=== PATIENT | female | born 1980 | race Caucasian/White ===

== ENCOUNTER 2023-06-12 16:37 | Emergency (ER) | payer OTHER, SELFPAY ==
[2023-06-12 16:49] VITALS: BP 155/94; PULSE 76; RESP 18; TEMP 36.8; O2SAT 98; BMI 22.9
--- NOTE | 2023-06-12 16:52 | XR_ITS ---
The [place] [id number] Patient Name: ORACIO JOLLEY MRN: [id number] date: 1980 Sex: F Assigned Patient Location: ER Current Patient Location: ER Accession/Order Number: [id number] Exam Date: 06/12/2023 17:00 Report Date: 06/12/2023 17:27 At the request of: PAUL NGUYỄN Procedure: XR elbow LT min 3V EXAM: XR elbow LT min 3V HISTORY: Elbow pain after fall running COMPARISON: None. TECHNIQUE: 3 views FINDINGS: No osseous lesion, fracture, dislocation or subluxation. Joint spaces are normal. No visualized effusion. No visualized soft tissue edema. XR/XR elbow LT min 3V IMPRESSION: Normal x-rays Electronically authenticated by: JAMES SCANLON Date: 06/12/2023 17:27
--- NOTE | 2023-06-12 16:53 | ED.UPPEXIN1 ---
Documented by User: MIGUELITO Coates 06/12/23 17:50 HPI - Extremity Injury (Upper) General Chief Complaint: Extremity Injury, Upper Stated Complaint: Upper PAIN Time Seen by Provider: 06/12/23 16:39 Source: patient Mode of arrival: walk-in Limitations: no limitations History of Present Illness HPI narrative: patient is a 43-year-old female pressents to the Emergency Room with concerns of left elbow pain. Patient is right-hand dominant, states she was running a 5K yesterday and tripped landing on the left outstretched hand, no skin injury. Patient states her hand and wrist are not painful but she notes continued discomfort at the left elbow, limited in range of motion with pain and swelling. Patient concerned as she is to return to work tomorrow with use of her left arm for her job duties. She denies any head or neck injury. MD complaint: injury to: Reports left and elbow Onset (ago): day(s) (yesterday) Other Extremity Injury: Left: elbow Other injuries: Reports none Hand dominance: right Place: Reports outdoors Related Data Allergies Allergy/AdvReac Type Severity Reaction Status Date / Time No Known Drug Allergies Allergy Verified 06/12/23 16:49 Review of Systems ROS Constitutional Denies: fever or chills Eyes Denies: change in vision Ears, nose, mouth, and throat Denies: throat pain or neck pain Cardiovascular Denies: chest pain Respiratory Denies: shortness of breath Gastrointestinal Denies: abdominal pain or nausea Musculoskeletal Reports: extremity pain, extremity swelling, joint pain and limited range of motion; Denies: back pain or neck pain Integumentary/Breast Denies: rash or itching Neurological Denies: headache Psychiatric Denies: anxiety PFSH PFS Social History Smoking status: Never smoker Exam Narrative Exam Narrative: Nurse's notes and vital signs reviewed. Patient is not hypoxic. General:? The patient appears well and in no apparent distress.? Patient is resting comfortably on cart. Skin:? Warm, dry, no pallor noted.no evidence of rash or abrasion Head:? Normocephalic, atraumatic Neck: no midline neck tenderness, painless with range of motion Eye:? Normal conjunctiva Respiratory:? Patient is in no distress Musculoskeletal:? The left wrist shows no obvious deformity.? There was mild swelling noted to the left elbow.?? The patient had limited ROM due to pain at the left elbow mostly with pronation supination and terminal flexion and extension. Secondary to effusion..?? The patient had tenderness noted on the radial head and neck region. No tenderness to the tip of the olecranon. distal biceps intact with hook test .?? The patient had no tenderness in the anatomical snuff box.? The patient had no pain with axial loading of the thumb.? Pulses are intact at brachial and radial 2+.? There was no deficit at the elbow or shoulder. The patient has normal capillary refill to all distal digits. The patient has no evidence of cyanosis or mottling. The patient is able to flex and extend all digits without difficulty. hand, wrist, and shoulder are nontender Neurological:? A&O x4, normal sensory, normal motor Psychiatric:? Cooperative Constitutional Vital Signs, click to edit/add: Last Vital Signs Temp 98.2 F 06/12/23 16:49 Pulse 76 06/12/23 16:49 Resp 18 06/12/23 16:49 BP 108/72 06/12/23 17:57 Pulse Ox 98 06/12/23 16:49 O2 Del Method Room Air 06/12/23 16:49 Course Vital Signs Vital signs: Vital Signs Temperature 98.2 F 06/12/23 16:49 Pulse Rate 76 06/12/23 16:49 Respiratory Rate 18 06/12/23 16:49 Blood Pressure 155/94 H 06/12/23 16:49 Pulse Oximetry 98 06/12/23 16:49 Oxygen Delivery Method Room Air 06/12/23 16:49 Temperature 98.2 F 06/12/23 16:49 Pulse Rate 76 06/12/23 16:49 Respiratory Rate 18 06/12/23 16:49 Blood Pressure 108/72 06/12/23 17:57 Pulse Oximetry 98 06/12/23 16:49 Oxygen Delivery Method Room Air 06/12/23 16:49 MDM - Extremity Injury (Upper) MDM Narrative Medical decision making narrative: ice pack applied on arrival, patient given Motrin and Tylenol for pain as she did not take any medication today. We discussed her injury concerning for radial head/ neck fracture. Aggressive strength testing not performed. Patient motors extremity without difficulty no evidence of wristdrop. x-ray reviewed, no evidence of fracture, trace effusion recommend sling, no heavy lifting with the left arm will give patient a note off work for two days, recommend follow-up with PCP or orthopedics for reevaluation. Patient may require repeat x-ray in one week. The patient is to followup with primary care physician in next 2-3 days or to return to the emergency department should any of the signs or symptoms worsen or new symptoms develop. Patient had questions answered. The patient agrees with the following Diagnosis and Treatment plan and the patient will be discharged home.? Imaging Data Chest x-ray: Radiologist's impression: Procedure: XR elbow LT min 3V EXAM: XR elbow LT min 3V HISTORY: Elbow pain after fall running COMPARISON: None. TECHNIQUE: 3 views FINDINGS: No osseous lesion, fracture, dislocation or subluxation. Joint spaces are normal. No visualized effusion. No visualized soft tissue edema. IMPRESSION: Normal x-rays Electronically authenticated by: JAMES SCANLON Date: 06/12/2023 17:27 Discharge Plan Discharge Chief Complaint: Extremity Injury, Upper Clinical Impression: Elbow sprain, Elbow pain, left Patient Disposition: Home, Self-Care Time of Disposition Decision: 17:48 Condition: Good Mode of Transportation: Private Vehicle Instructions: Elbow Sprain (ED), P.R.I.C.E. Treatment (ED) Additional Instructions: do not use sling for more than one week pending follow-up with PCP or specialist. Concern would be elbow stiffness with prolonged use. Recommend no heavy lifting with left arm until symptoms resolve Stand Alone Forms: Portal Instructions Referrals: ART ALCARAZ [Physician] - 1 week PASTOR HODGE [Primary Care Provider] - 1 week Discharge Date/Time: 06/12/23 17:57 Documented by User: Charlene Kelsey MD 06/13/23 20:32 HPI - Extremity Injury (Upper) General Chief Complaint: Extremity Injury, Upper Stated Complaint: Upper PAIN Time Seen by Provider: 06/12/23 16:39 Related Data Allergies Allergy/AdvReac Type Severity Reaction Status Date / Time No Known Drug Allergies Allergy Verified 06/12/23 16:49 PFSH PFSH Social History Smoking status: Never smoker Exam Constitutional Vital Signs, click to edit/add: Last Vital Signs Temp 98.2 F 06/12/23 16:49 Pulse 76 06/12/23 16:49 Resp 18 06/12/23 16:49 BP 108/72 06/12/23 17:57 Pulse Ox 98 06/12/23 16:49 O2 Del Method Room Air 06/12/23 16:49 Course Vital Signs Vital signs: Vital Signs Temperature 98.2 F 06/12/23 16:49 Pulse Rate 76 06/12/23 16:49 Respiratory Rate 18 06/12/23 16:49 Blood Pressure 155/94 H 06/12/23 16:49 Pulse Oximetry 98 06/12/23 16:49 Oxygen Delivery Method Room Air 06/12/23 16:49 Temperature 98.2 F 06/12/23 16:49 Pulse Rate 76 06/12/23 16:49 Respiratory Rate 18 06/12/23 16:49 Blood Pressure 108/72 06/12/23 17:57 Pulse Oximetry 98 06/12/23 16:49 Oxygen Delivery Method Room Air 06/12/23 16:49 MDM - Extremity Injury (Upper) MDM Narrative Medical decision making narrative: ice pack applied on arrival, patient given Motrin and Tylenol for pain as she did not take any medication today. We discussed her injury concerning for radial head/ neck fracture. Aggressive strength testing not performed. Patient motors extremity without difficulty no evidence of wristdrop. x-ray reviewed, no evidence of fracture, trace effusion recommend sling, no heavy lifting with the left arm will give patient a note off work for two days, recommend follow-up with PCP or orthopedics for reevaluation. Patient may require repeat x-ray in one week. The patient is to followup with primary care physician in next 2-3 days or to return to the emergency department should any of the signs or symptoms worsen or new symptoms develop. Patient had questions answered. The patient agrees with the following Diagnosis and Treatment plan and the patient will be discharged home.? Attending physician attestation I have reviewed the mid-level documentation, agree with the documentation, medical decision making and treatment plan as outlined by the mid-level provider. Discharge Plan Discharge Chief Complaint: Extremity Injury, Upper Clinical Impression: Elbow sprain, Elbow pain, left Patient Disposition: Home, Self-Care Time of Disposition Decision: 17:48 Condition: Good Mode of Transportation: Private Vehicle Instructions: Elbow Sprain (ED), P.R.I.C.E. Treatment (ED) Additional Instructions: do not use sling for more than one week pending follow-up with PCP or specialist. Concern would be elbow stiffness with prolonged use. Recommend no heavy lifting with left arm until symptoms resolve Stand Alone Forms: Portal Instructions Referrals: ART ALCARAZ [Physician] - 1 week PASTOR HODGE [Primary Care Provider] - 1 week Discharge Date/Time: 06/12/23 17:57
--- NOTE | 2023-06-12 16:54 | PC.NURSE ---
PT FELL YESTERDAY AND CAUGHT SELF WITH LEFTARM. C/O PIN TO LEFT ELBOW AND SHOULDER WITH LIMITED ROM
[2023-06-12] MEDS: ACETAMINOPHEN 500 MG TABLET 1000 MG PO (17:10)
[2023-06-12] MEDS: IBUPROFEN 600 MG TABLET PO (17:11)
[2023-06-12 17:57] VITALS: BP 108/72
== END 2023-06-12 17:57 | disposition home or self-care (01) ==
PROVIDERS: Emergency Provider Emergency Medicine; PCP Nurse Practitioner
DX: S53.402A Unspecified sprain of left elbow, initial encounter (principal); M25.522 Pain in left elbow; W01.10XA Fall on same level from slipping, tripping and stumbling with subsequent striking against unspecified object, initial encounter
CPT/HCPCS: 73080; 99283

== ENCOUNTER 2024-01-30 10:05 | Emergency (ER) | payer OTHER, SELFPAY ==
[2024-01-30] VITALS (20 sets, daily range): BP systolic 96–100; BP diastolic 67–72; PULSE 74–88; RESP 13–26; TEMP 36.8–37; O2SAT 85–100; BMI 23.9
--- NOTE | 2024-01-30 10:19 | XR_ITS ---
The [address] [address] Patient Name: ORACIO JOLLEY MRN: [id number] date: 1980 Sex: F Assigned Patient Location: ER Current Patient Location: ER Accession/Order Number: [id number] Exam Date: 01/30/2024 10:50 Report Date: 01/30/2024 11:14 At the request of: ROMAIN CALVILLO Procedure: XR chest 2V EXAMINATION: XR chest 2V HISTORY: lung pain COMPARISON: 02/17/2022 TECHNIQUE: PA and lateral FINDINGS: LUNGS: No significant pulmonary parenchymal abnormalities. VASCULATURE: No increased pulmonary vasculature. PLEURA: No pneumothorax, effusion, or pleural thickening. CARDIAC: No cardiomegaly or cardiac silhouette abnormality. MEDIASTINUM: No visible mass or adenopathy. BONES: No fracture or visible bone lesion. Dextrocurvature OTHER: Negative. XR/XR chest 2V IMPRESSION: No acute cardiopulmonary process Electronically authenticated by: JAMES FOSTER Date: 01/30/2024 11:14
--- NOTE | 2024-01-30 10:19 | ECG_ITS ---
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
--- NOTE | 2024-01-30 10:23 | ED_ITS ---
HPI - General Adult General Chief complaint: Chest Pain Stated complaint: SHORTNESS OF BREATH/CHEST PAIN Time Seen by Provider: 01/30/24 10:19 Source: patient Mode of arrival: walk-in Limitations: no limitations History of Present Illness HPI narrative: Patient is a 43-year-old female who is presenting to the ER today with chief complaint of flulike symptoms since . Patient has sinus congestion, sore throat, patient feels like her lungs are burning, mild chest wall pain from coughing, mild abdominal pain, nausea vomiting diarrhea since . Patient had nausea vomiting diarrhea today as well. Patient left work today, she works at [employer]. Patient has no rash. Patient has no other sick contacts. Patient has no traveling. Patient is a smoker. Patient has no other acute complaints at this time. No urinary complaints. Patient is not concerned about being . All systems are negative except as noted/marked. All systems reviewed and otherwise negative. Nurses note and vital signs reviewed and patient is not hypoxic. General: The patient appears well and in no apparent distress. Patient is resting comfortably on cart. Patient is not toxic, lethargic, or listless Skin: Warm, dry, no pallor noted. There is no rash noted. No petechiae, purpura. Head: Normocephalic, atraumatic Eye: Normal conjunctiva, no drainage, EOMI. PERRL Ears, Nose, Mouth, and Throat: oral mucosa is moist. Patient has clear posterior pharyngeal erythema, cobblestoning noted, no unilateral swelling, no posterior pharyngeal petechiae, exudate. Nares patent. Mouth without vesicles. Cardiovascular: Regular Rate and Rhythm, no murmur, gallop, rub Respiratory: Patient is in no distress, no accessory muscle use, lungs are clear to auscultation, no wheezing, rales or rhonchi Back: non-tender, no CVA tenderness bilaterally to percussion. No CT LS midline pain GI: no tenderness to palpation, no masses appreciated. No rebound, guarding, or rigidity noted. No distention Musculoskeletal: Patient has full range of motion of all of the extremities, no motor, sensory, or focal neurological deficits Neurological: A&O x4, normal speech Psychiatric: Cooperative Related Data Previous Rx's Medication Instructions Recorded ondansetron 4 mg disintegrating 4 mg PO Q4H PRN nausea and 01/30/24 tablet vomiting 3 days #6 tabs Allergies Allergy/AdvReac Type Severity Reaction Status Date / Time No Known Drug Allergies Allergy Verified 01/30/24 10:09 [facility] Social History Smoking status: Never smoker Exam Constitutional Vital Signs, click to edit/add: Last Vital Signs Temp 98.6 F 01/30/24 12:12 Pulse 75 01/30/24 11:00 Resp 13 01/30/24 11:00 BP 100/67 01/30/24 10:10 Pulse Ox 99 01/30/24 11:00 O2 Del Method Room Air 01/30/24 10:44 Course Vital Signs Vital signs: Vital Signs Temperature 98.3 F 01/30/24 10:09 Pulse Rate 85 01/30/24 10:09 Respiratory Rate 18 01/30/24 10:09 Blood Pressure 100/67 01/30/24 10:09 Pulse Oximetry 100 01/30/24 10:09 Oxygen Delivery Method Room Air 01/30/24 10:09 Temperature 98.6 F 01/30/24 12:12 Pulse Rate 75 01/30/24 11:00 Respiratory Rate 13 01/30/24 11:00 Blood Pressure 100/67 01/30/24 10:10 Pulse Oximetry 99 01/30/24 11:00 Oxygen Delivery Method Room Air 01/30/24 10:44 Medical Decision Making [facility] Narrative Medical decision making narrative: Patient chest x-ray, EKG, lab work shows no significant findings. We are unable to establish an IV. Patient was sent home with a prescription for Zofran. Patient was given a work note. Influenza B was positive. Patient is not hyp otensive, tachycardic, patient vital signs have been within normal limits, we did not pursue additional IV attempts. Patient understands to treat her symptoms at home. Patient was given a work note. No questions discharge. Lab Data Lab results reviewed: Yes I reviewed the patient's lab results Labs: Lab Results 01/30/24 01/30/24 Range/Units 10:32 10:35 WBC 3.4 L (4.0-11.0) 10^3/uL RBC 4.72 (4.20-5.40) 10^6/uL Hgb 14.4 (12.0-16.0) g/dL Hct 43.3 (36.0-48.0) % MCV 91.7 (81.0-99.0) fL MCH 30.5 (26.7-34.0) pg MCHC 33.3 (29.9-35.2) g/dL RDW 12.6 (11.0-15.0) % Plt Count 168 (150-450) 10^3/uL MPV 9.7 (9.5-13.5) fL Neut % (Auto) 51.2 (43.0-75.0) % Lymph % (Auto) 33.0 (20.5-60.0) % Dundy % (Auto) 14.3 H (1.7-12.0) % Eos % (Auto) 0.9 (0.9-7.0) % Baso % (Auto) 0.0 L (0.2-2.0) % Neut # (Auto) 1.8 (1.4-6.5) 10^3/uL Lymph # (Auto) 1.1 L (1.2-3.8) 10^3/uL Dundy # (Auto) 0.5 (0.3-0.8) 10^3/uL Eos # (Auto) 0.0 (0.0-0.7) 10^3/uL Baso # (Auto) 0.0 (0.0-0.1) 10^3/uL Abs Immat Gran (auto) 0.02 (0.00-0.03) 10^3/uL Imm/Tot Granulo (auto) 0.6 H (0.0-0.5) % Sodium 137 (136-145) mmol/L Potassium 3.6 (3.5-5.1) mmol/L Chloride 100 (98-107) mmol/L Carbon Dioxide 26.5 (21.0-32.0) mmol/L Anion Gap 14.1 BUN 13.0 (7.0-18.0) mg/dL Creatinine 0.79 (0.55-1.02) mg/dL Est GFR ( Amer) >60 (>=60) Est GFR (Non-Af Amer) >60 (>=60) BUN/Creatinine Ratio 16.5 Glucose 81 (74-106) mg/dL Calcium 9.2 (8.5-10.1) mg/dL Total Bilirubin 0.5 (0.2-1.0) mg/dL AST 26 (15-37) U/L ALT 36 (14-59) U/L Alkaline Phosphatase 49 (46-116) U/L Troponin I High Sens <4.0 L (4.0-51.3) pg/mL NT-Pro-B Natriuret Pep 143.0 (<=450.0) pg/mL Total Protein 7.4 (6.4-8.2) g/dL Albumin 3.9 (3.4-5.0) g/dL Globulin 3.5 g/dL Albumin/Globulin Ratio 1.1 Influenza Type A Ag Negative Influenza Type B Ag Positive A SARS-CoV-2 Ag (CV2AG) Negative (NEGATIVE) ECG Data Attestation: I personally reviewed and interpreted this ECG as follows: (EKG interpreted. Normal sinus rhythm at 77 beats a minute. Normal axis deviation. No acute ST elevation, no acute ectopy. QTc of 407) Discharge Plan Discharge Stand Alone Forms: Work/School Release, Portal Instructions Chief Complaint: Chest Pain Clinical Impression: Influenza B Patient Disposition: Home, Self-Care Time of Disposition Decision: 12:37 Condition: Fair Prescriptions / Home Meds: New ondansetron 4 mg tablet,disintegrating 4 mg PO Q4H PRN (Reason: nausea and vomiting) 3 Days Qty: 6 0RF Instructions: Influenza (ED) Additional Instructions: increase fluids at home, Gatorade, Powerade, or water. Alternate using DayQuil, NyQuil, and Flonase. Add Mucinex as well as needed. Alternate Tylenol and Motrin every 4 hours to help with fever control, body aches or joint pain. Use biba-zac-kaviidh vitamin C, vitamin D3, and zinc to help fight infection and help with her immune system. Use nausea medication as needed to help increase fluids at home Referrals: PASTOR HODGE [Primary Care Provider] - 1 week
--- NOTE | 2024-01-30 10:45 | PC.NURSE ---
Pt resting comfortable, EKG complete and labs in lab at this time. Radiology called for test ordered
[2024-01-30 10:50] LABS: Eosinophils Percent Auto 0.9 % (0.9-7.0); Hematocrit 43.3 % (36.0-48.0); Hemoglobin 14.4 g/dL (12.0-16.0); Immature Granulocytes Abs Auto 0.02 10^3/uL (0.00-0.03); Immature Granulocytes Pct Auto 0.6 % (0.0-0.5); Lymphocytes Absolute Auto 1.1 10^3/uL (1.2-3.8); Mean Corpuscular HGB Conc 33.3 g/dL (29.9-35.2); Mean Corpuscular Hemoglobin 30.5 pg (26.7-34.0); Mean Corpuscular Volume 91.7 fL (81.0-99.0); Mean Platelet Volume 9.7 fL (9.5-13.5); Monocytes Absolute Auto 0.5 10^3/uL (0.3-0.8); Monocytes Percent Auto 14.3 % (1.7-12.0); Neutrophils Absolute Auto 1.8 10^3/uL (1.4-6.5); Neutrophils Percent Auto 51.2 % (43.0-75.0); Platelet Count 168 10^3/uL (150-450); Red Blood Count 4.72 10^6/uL (4.20-5.40); Red Cell Distribution Width 12.6 % (11.0-15.0); White Blood Count 3.4 10^3/uL (4.0-11.0)
[2024-01-30 11:02] LABS: Alanine Aminotransferase 36 U/L (14-59); Albumin Globulin Ratio 1.1; Albumin Level 3.9 g/dL (3.4-5.0); Alkaline Phosphatase 49 U/L (46-116); Anion Gap 14.1; Aspartate Amino Transferase 26 U/L (15-37); BUN Creatinine Ratio 16.5; Bilirubin Total 0.5 mg/dL (0.2-1.0); Calcium 9.2 mg/dL (8.5-10.1); Carbon Dioxide 26.5 mmol/L (21.0-32.0); Chloride 100 mmol/L (98-107); Estimated GFR (African America >60 (>=60); Estimated GFR (Non-African Ame >60 (>=60); Globulin 3.5 g/dL; Glucose 81 mg/dL (74-106); Potassium 3.6 mmol/L (3.5-5.1); Sodium 137 mmol/L (136-145); Total Protein 7.4 g/dL (6.4-8.2)
[2024-01-30 11:09] LABS: Troponin I High Sensitivity <4.0 pg/mL (4.0-51.3)
[2024-01-30 11:14] LABS: Influenza Virus A Antigen Negative; Influenza Virus B Antigen Positive; Internal Control Within Normal Limits; SARS-CoV-2 Ag NEGATIVE (NEGATIVE)
== END 2024-01-30 12:48 | disposition home or self-care (01) ==
PROVIDERS: Emergency Provider Emergency Medicine; PCP Nurse Practitioner
DX: J10.1 Influenza due to other identified influenza virus with other respiratory manifestations (principal); Z20.822 Contact with and (suspected) exposure to COVID-19
CPT/HCPCS: 36415; 71046; 80053; 83880; 84484; 85025; 87804; 87811; 93005; 99285

== ENCOUNTER 2025-01-29 15:56 | Outpatient (OUT) | payer OTHER, SELFPAY ==
[2025-01-29 16:22] LABS: Basophils Percent Auto 0.4 % (0.2-2.0); Eosinophils Absolute Auto 0.1 10^3/uL (0.0-0.7); Eosinophils Percent Auto 0.8 % (0.9-7.0); Hematocrit 43.8 % (36.0-48.0); Hemoglobin 14.9 g/dL (12.0-16.0); Immature Granulocytes Abs Auto 0.02 10^3/uL (0.00-0.03); Immature Granulocytes Pct Auto 0.2 % (0.0-0.5); Lymphocytes Percent Auto 32.4 % (20.5-60.0); Mean Corpuscular Hemoglobin 30.7 pg (26.7-34.0); Mean Corpuscular Volume 90.3 fL (81.0-99.0); Mean Platelet Volume 9.7 fL (9.5-13.5); Monocytes Absolute Auto 0.8 10^3/uL (0.3-0.8); Monocytes Percent Auto 8.8 % (1.7-12.0); Neutrophils Absolute Auto 5.3 10^3/uL (1.4-6.5); Neutrophils Percent Auto 57.4 % (43.0-75.0); Platelet Count 238 10^3/uL (150-450); Red Blood Count 4.85 10^6/uL (4.20-5.40); Red Cell Distribution Width 12.3 % (11.0-15.0); White Blood Count 9.3 10^3/uL (4.0-11.0)
[2025-01-29 16:37] LABS: Estimated Average Glucose 105 mg/dL; Glycohemoglobin A1C 5.3 % (4.5-6.2)
[2025-01-29 16:41] LABS: INR 0.95; Partial Thromboplastin Time 23.1 sec (22.3-36.2); Prothrombin Time 10.1 sec (9.0-11.6)
[2025-01-29 16:46] LABS: Thyroid Stimulating Hormone 1.578 uIU/mL (0.358-3.740)
[2025-01-29 16:48] LABS: HCG Quantitative <1 mIU/mL
[2025-01-29 17:07] LABS: Free T4 1.01 ng/dL (0.76-1.46)
== END 2025-01-29 15:57 | disposition home or self-care (01) ==
LOC: LAB 15:58
PROVIDERS: Visit Provider Obstetrics & Gynecology
DX: N92.0 Excessive and frequent menstruation with regular cycle (principal)
CPT/HCPCS: 36415; 83036; 84439; 84443; 84702; 85025; 85610; 85730

== ENCOUNTER 2025-02-11 09:29 | Outpatient (REF) | payer OTHER, SELFPAY | END 2025-02-11 09:30 | LOC: LAB 09:29 | PROVIDERS: Visit Provider Obstetrics & Gynecology | DX: N92.0 Excessive and frequent menstruation with regular cycle (principal) | CPT/HCPCS: 88305 ==

== ENCOUNTER 2025-02-19 11:30 | Outpatient (OUT) | payer OTHER, SELFPAY ==
--- NOTE | 2025-02-19 11:21 | PC.NURSE ---
Nursing Note Cardiac Stress Test Reviewed: Medication, allergies and patient history reviewed. Stress Test: [ x] Patient tolerated stress test well. [ ] Patient unable to tolerate walking on treadmill. Switched to Lexiscan stress test. [x ] No chest pain noted per patient [ ] Chest pain that resolved prior to leaving stress lab. [ ] No dyspnea noted. [x ] Dyspnea that resolved prior to leaving stress lab. [x ] Patient left stress lab asymptomatic and hemodynamically stable. [ ] Patient taken to the Emergency Room due to non-resolving symptoms following stress test. [ x] Patient achieved target heart rate. [ ] Patient unable to achieve target heart rate. [ ] Aminophylline administered as reversal agent to Lexiscan (Regadenoson). [ ] Nitro administered. Nursing Comments:
--- NOTE | 2025-02-19 11:30 | CA_ITS ---
Patient Name: ORACIO JOLLEY MR#: [id number] : 1980 Exam Date: 02/19/2025 Ordering Doctor: DR ALYSIA CANO M.D. ECHOCARDIOGRAM REPORT PROCEDURE: CA ECHO DOPPLER COMPLETE INDICATIONS: Preop, shortness of breath COMPARISON: None. DESCRIPTION: COMPLETE ECHOCARDIOGRAM Real-time transthoracic echocardiography with 2D, M-mode, spectral and color flow Doppler performed. QUALITY: Technical quality was good. LEFT VENTRICLE: Normal chamber size. Normal left ventricular wall thickness. Normal systolic function. LV EF: Normal left ventricular ejection fraction, (>55%). DIASTOLIC: Normal diastolic function. ATRIAL SEPTUM: Visually appears intact. LEFT ATRIUM: Normal chamber size. RIGHT ATRIUM: Normal chamber size. RIGHT VENTRICLE: Normal chamber size. Normal right ventricular systolic function. TRICUSPID VALVE: Normal mobility and thickness. No stenosis with trivial regurgitation. Unable to assess right-sided pressures due to lack of measurable tricuspid regurgitation. MITRAL VALVE: Normal mobility and thickness. No evidence of mitral valve stenosis. There is no mitral annular calcification. Trivial mitral regurgitation. AORTIC VALVE: Normal trileaflet appearance. No visible sclerosis. Normal leaflet mobility. No evidence of aortic valve stenosis. No aortic regurgitation. AORTIC ROOT: Normal diameter and appearance, measuring 2.7 cm. PULMONIC VALVE: Normal thickness and mobility. No stenosis. No regurgitation. PERICARDIUM: No evidence of pericardial effusion. IVC: Collapses with inspirations. PLEURA: CONCLUSION: 1. Normal ventricular size and systolic function. Estimated LVEF is 55 to 60%. 2. Normal diastolic function. 3. No significant valvular dysfunction. 4. Unable to assess right-sided pressures due to lack of measurable tricuspid regurgitation. Adult Echocardiography Procedure Report Left Ventricle LVEDD (3.7 - 5.6 cm): 4.34 cm LVESD (2.2 - 4.0 cm): 3.07 cm LVIVS thickness (0.6 - 1.2 cm): 0.69 cm LVPW thickness (0.5 - 1.0 cm): 0.66 cm e': 0.13 m/s E - e': 6.57 LVOT Max Gradient: 2.68 mm[Hg] LVOT Area (cm2): 0.82 m/s Peak Velocity (LVOT): 0.82 m/s Mean Velocity (LVOT): 0.53 m/s LVOT Diameter 1.81 cm Left Atrium LA Volume Index (2D A2C): 30.31 ml/m2 Left Atrium Systolic Dimension: 3.04 cm Mitral Valve MV E to A Ratio: 1.38 Mitral Valve A-Wave Peak Velocity: 0.61 m/s Mitral Valve E-Wave Peak Velocity: 0.84 m/s Right Ventricle Aorta AO Root Diam: 2.65 cm Aortic Valve AoV Area (Peak Jermain): 1.87 cm2, 1.87 cm2 AoV Area (VTI): 1.76 cm2, 1.76 cm2 Peak Velocity(Antegrade Flow): 1.12 m/s Peak Gradient(Antegrade Flow): 5.04 mm[Hg] Mean Velocity(Antegrade Flow): 0.80 m/s Mean Gradient(Antegrade Flow): 2.93 mm[Hg] Velocity Time Integral: 26.62 cm Tricuspid Valve Pulmonic Valve Mean Gradient: 0.69 mm[Hg] Mean Velocity: 0.39 m/s Peak Velocity: 0.59 m/s, 0.66 m/s Peak Gradient: 1.76 mm[Hg], 1.41 mm[Hg] Right Atrium Right Atrium Systolic Pressure: 21.49 ml, 21.49 ml Dictated by: Alysia Cano M.D. on 02/19/2025 at 19:47 Approved by: Alysia Cano M.D. on 02/19/2025 at 19:50
--- OUTSIDE RECORDS SUMMARY | 2025-02-19 11:49 | XMS_ITS | CCD ---
Author Organization [facility] Care Team Providers Care Refund Specialist Name Role Phone PHYSICIAN, DEFAULT Unavailable Unavailable PHYSICIAN, DEFAULT Unavailable Unavailable AYESHA, PASTOR Unavailable Unavailable AYESHA, PASTOR Unavailable Unavailable SELF, REFERRED Unavailable Unavailable AYESHA, PASTOR Unavailable Unavailable ISA, DR HONG Hurst Consulting Unavailable SHEFALI, DR RAZA Admitting Unavailable SHEFALI, DR RAZA Attending Unavailable AYESHA, PASTOR R Primary Care Unavailable MIGUELITO PHELAN Consulting Unavailable Andrew Whitt Consulting Unavailable Elinor Cai Unavailable Marina Riojas Unavailable RANCHO TURCIOS Referring Unavailable NO PCP, NO PCP Primary Care Unavailable PRISCILLA TREVIZO Referring Unavailable NO PCP, NO PCP Primary Care Unavailable Loree Fonseca APRN Attending Provider NON STAFF Primary Care Provider UnavailLEONEL Mcbride I Attending Unavailable RANCHO TURCIOS Referring Unavailable NO PCP, NO PCP Primary Care Unavailable Shayy Lugo APRN Attending Provider [phone] LEONEL SÁNCHEZ I Referring Unavailable NO PCP, NO PCP Primary Care Unavailable Loree Fonseca APRN Attending Provider NON STAFF Primary Care Provider UnavailShayy Montejo APRN Attending Provider [phone] Unallocated MD, Noms Provider Primary Care Provi laura JUANITO ALANIS Attending Unavailable JUANITO LAANIS Attending Unavailable Juanito Alanis DO Attending Provider Juanito Alanis DO Attending Provider [phone] ALYSIA CANO Attending Unavailable Loree Fonseca Admitting Unavailable Loree Fonseca Attending Unavailable NON STAFF Primary Care Unavailable Shayy Lugo Admitting Unavailable Shayy Lugo Attending Unavailable NON STAFF Primary Care Unavailable Juanito Alanis Admitting Unavailable Juanito Alanis Attending Unavailable Allergies Allergy Classification Reported Allergen(s) Allergy Type Date of Onset Reaction(s) Facility (1 source) Ibuprofen Drug Allergy [facility] Repository (7 sources) Ibuprofen; Translations: [IBUPROFEN] Drug Allergy 12-26-2024 Hives [facility] Repository Medications Current Medications Medication Drug Class(es) Dates Sig (Normalized) Sig (Original) [id number] actuat albuterol 0.09 mg/actuat metered dose inhaler (3 sources) beta2-Adrenergic Agonist Start: 11-19-2023 take 2 puff(s) by inhalation four times daily as needed Albuterol Sulfate HFA 108 (90 Base) MCG/ACT 2 puffs Inhalation 4 times a day prn Nov, Active Start: 05-31-2023 take 2 puff(s) by in halation every four to six hours as needed Albuterol Sulfate HFA 108 (90 Base) MCG/ACT 2 puffs as needed Inhalation every 4-6 hours for 14 days May, Active Start: 02-12-2023 take 2 puff(s) by in halation four times daily as needed Albuterol Sulfate HFA 108 (90 Base) MCG/ACT 2 puffs Inhalation 4 times a day prn Feb, Not-Taking benzonatate 200 mg oral capsule (2 sources) Non-narcotic Antitussive Start: 11-19-2023 take 1 capsule by mouth every eight hours Benzonatate 200 MG 1 capsule Orally Three times a day Nov, Active Start: 02-12-2023 take 1 capsule by [facility] every eight hours Benzonatate 200 MG 1 capsule Orally Three times a day Feb, Not-Taking doxycycline hyclate 100 mg oral tablet (2 sources) Tetracycline-class Drug Start: 11-19-2023 take 1 tablet by mouth every twelve hours Doxycycline Hyclate 100 MG 1 tablet Orally Twice a day for 10 day(s) Nov, Active Start: 02-12-2023 take 1 capsule by [facility] every twelve hours Doxycycline Hyclate 100 MG 1 capsule Orally Twice a day for 10 Feb, Not-Taking medroxyPROGESTERone (8 sources) Progestin Start: 12-13-2024 medroxyprogest erone (Depo-Provera) Active IM EVERY 3 MONTHS December 13, 2024 1:00am Start: 12-13-2024 medroxyprogest erone (Depo-Provera) Active IM EVERY 3 MONTHS December 13, 2024 12:00am medroxyPROGESTER one (Depo-Provera) 150 MG/ML injection Inject 150 mg into the shoulder, thigh, or buttocks every 3 (three) months Active pediatric multivitamin (multivitamin) (7 sources) Start: 12-13-2024 pediatric mult ivitamin (multivitamin) Active PO December 13, 2024 1:00am Start: 12-13-2024 pediatric mult ivitamin (multivitamin) Active PO December 13, 2024 12:00am predniSONE 20 mg oral tablet (2 sources) Start: 11-19-2023 take 1 tablet by mouth every twelve hours predniSONE 20 MG 1 tablet Orally bid for 5 day(s) Nov, Active Start: 02-12-2023 take 1 tablet by bailee th every twelve hours predniSONE 20 MG 1 tablet Orally 2 times a day for 5 day(s) Feb, Not-Taking traMADol hydrochloride 50 mg oral tablet (5 sources) Opioid Agonist Start: 12-28-2024 take 1 tablet by mouth every six hours as needed for pain Tramadol 50 mg tablet Active 50 MG PO Every 6 hours as needed for pain 10 16December 28, 2024 1:00am Completed/Discontinued Medications Medication Drug Class(es) Dates Sig (Normalized) Sig (Original) ibuprofen 600 mg oral tablet (2 sources) Nonsteroidal Anti-inflammatory Drug Start: 06-16-2023 End: 02-11-2025 take 1 tablet by mouth every six hours as needed ibuprofen 600 MG tablet Take 600 mg by mouth every 6 (six) hours if needed. 06/16/2023 02/11/2025 Discontinued Problems Active Problems Problem Classification Problem Date Documented Date Episodic/Chronic Abdominal pain (2 sources) Unspecified abdominal pain; Translations: [Pain in female pelvis] Onset: 10-29-2024 02-11-2025 Episodic Acute bronchitis (1 source) Acute bronchitis, unspecified Episodic Administrative/socia l admission (1 source) Patient encounter status; Translations: [Counseling, unspecified] 01-29-2025 Episodic Genitourinary symptoms and ill-defined conditions (5 sources) Dysuria; Translations: [Frequency of micturition] Onset: 12-26-2024 Episodic Menstrual disorders (4 sources) Menometrorrhagia; Translations: [Excessive and frequent menstruation with irregular cycle] 01-29-2025 Chronic Nonspecific chest pain (3 sources) Chest pain, unspecified; Translations: [Other chest pain] Onset: 02-19-2022 Episodic Other female genital disorders (1 source) Premenstrual tension syndrome; Translations: [Premenstrual tension syndrome] 01-29-2025 Chronic Other female genital disorders (1 source) Abnormal uterine bleeding; Translations: [Abnormal uterine and vaginal bleeding, unspecified] 02-11-2025 Chronic Other fractures (5 sources) Fracture of coccyx; Translations: [Fracture of coccyx, initial encounter for closed fracture] 12-28-2024 Episodic Other fractures (6 sources) Fracture of coccyx, initial encounter for closed fracture; Translations: [Closed fracture of sacrum and coccyx without mention of spinal cord injury] 12-28-2024 Episodic Other lower respiratory disease (2 sources) Shortness of breath; Translations: [Shortness of breath] Onset: 02-13-2025 Episodic Other nervous system disorders (14 sources) Perineurial cyst; 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] 12-13-2024 Chronic Other screening for suspected conditions (not mental disorders or infectious disease) (3 sources) Encounter for screening mammogram for malignant neoplasm of breast; Translations: [Abnormal electrocardiogram [ECG] [EKG]] Onset: 12-26-2024 Episodic Other upper respiratory disease (2 sources) Allergic rhinitis; Translations: [Allergic rhinitis, unspecified] Chronic Other upper respiratory disease (1 source) Allergic rhinitis, unspecified Chronic Other upper respiratory disease (5 sources) Seasonal allergic rhinitis; Translations: [Other seasonal allergic rhinitis] 12-28-2024 Chronic Spondylosis; intervertebral disc disorders; other back problems (12 sources) Inflammation of sacroiliac joint; Translations: [Sacroiliitis, not elsewhere classified] 12-13-2024 Chronic Spondylosis; intervertebral disc disorders; other back problems (20 sources) Sacral radiculopathy; Translations: [Radiculopathy, sacral and sacrococcygeal region] Onset: 12-27-2024 12-13-2024 Episodic Unclassified (2 sources) Unknown / UNK(Unknown) Onset: 06-08-2017 Unclassified (3 sources) COUGH, UNSPECIFIED; Translations: [COUGH, UNSPECIFIED] Onset: 02-19-2022 Unclassified (1 source) New Patient Onset: 12-26-2024 Unclassified (1 source) Perineural cyst; 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] Onset: 12-27-2024 Past or Other Problems Problem Classification Problem Date Documented Da te Episodic/Chronic Syncope (4 sources) Syncope and collapse; Translations: [SYNCOPE AND COLLAPSE] Onset: 06-08-2017 Episodic Unclassified (1 source) COUGH, UNSPECIFIED; Translations: [COUGH, UNSPECIFIED] Onset: 02-17-2022 Results Test Name Value Interpretation Reference Range Facility Office Visiton 02-13-2025 Follow-up visit [id number] Oracio Gong 1980 F Date Provider Department Center 02/13/2025 ALYSIA RINCON IADEE Najera Family History Problem Relation Age of Onset COPD Mother Hypertension Mother Heart attack Father Kidney failure Father Heart attack Brother Family Status - Relation Status Age at Mother Alive Father Sister Alive Brother Alive Level of Service:72815 MA OFFICE/OUTPATIENT NEW MODERATE MDM 45 MINUTES Normal [facility] Pathology study report docum entOrdered By: Lars Christianson on 02-13-2025 Pathology study [facility] Other HCG ( test) Ql (U)o n 02-11-2025 Interpretation and review of laboratory results Normal [facility] Preg Test, Ur Negative Negative [facility] Juan Luis 02-11-2025 L - -------- Specimen: [id number] Received: 02/12/25 Status: ALEX Whitley Num: [id number] Spec Type: Surgical Subm Dr: Juanito Alanis Tissues: A Endometrium - Biopsy (ENDOMETRIUM) Procedures: HE/2, Gross/Micro L4 -------- Age/ Patient Sex Location Account Attending Physician -------- Oracio Gong 45/F LABE[facility] [id number] Juanito Alanis -------- SPEC NUM: [id number] RECD: 02/12/25 STATUS: ALEX LALITHA NUM: [id number] TORITO: 02/11/25-1542 [facility] DR: Juanito Alanis ENTERED: 02/12/25-[address] [facility] [address]: Wilder,Lab SPEC TYPE: Surgical DEPT: RANDY ALFONSO ENTERED BY: [id number] RECV BY: [id number] ORDERED: HE/2, Gross/Micro L4 ORDERED: HE/2, Gross/Micro L4 Pathological Diagnosis Endometrial biopsy: -Mucus with small admixed portion of inactive type endometrial tissue, but also with occasional minor stromal clumping or probably nonspecific processing effect, but also 1 incidentally noticed microcalcification, otherwise without hyperplasia or atypia identified -Incidental small admixed portions of cervical epithelial elements without dysplasia Clinical Information Menorrhagia Gross Description Part A is received in formalin labeled with the patients name and date of is a pale cross mucoid material, admixed with feathery guzman-pink tissue fragments, 1.5 x 1 x 0.2 cm in aggregate. The specimen is filtered and entirely submitted in a single cassette. (1, ns, [id number] A) LARRY -------- Specimen: [id number] Received: 02/12/25 Status: ALEX Whitley Num: [id number] Spec Type: Surgical Subm Dr: Juanito Alanis Tissues: A Endometrium - Biopsy (ENDOMETRIUM) Procedures: HE/2, Gross/Micro L4 -------- Patient: Oracio Gong [id number] (Continued) -------- Specimen: [id number] Received: 02/12/25280 (Continued) Signed (signature on file) Lars Christianson MD 02/13/25 1538 -------- Specimen: [id number] Received: 02/12/25 Status: ALEX Lalitha Num: [id number] Spec Type: Surgical Subm Dr: Juanito Alanis Tissues: A Endometrium - Biopsy (ENDOMETRIUM) Procedures: HE/2, Gross/Micro L4 -------- Patient: Oracio Gong [id number] (Continued) -------- Specimen: [id number] Received: 02/12/25 (Continued) Microscopic Description Microscopic examination is performed CPT Codes 12684 -------- -------- Specimen: [id number] Received: 02/12/25 Status: ALEX Whitley Num: [id number] Spec Type: Surgical Subm Dr: Juanito Alanis Tissues: A Endometrium - Biopsy (ENDOMETRIUM) Procedures: HE/2, Gross/Micro L4 -------- Patient: Oracio Gong [id number] (Continued) -------- Signed (signature on file) Lars Christianson MD 02/13/25 1538 Normal [facility] Urinalysis macro (dipstick) panel (U)on 02-11-2025 Bilirubin, UA Negative Negative - 4(70) +++ mg/dL [facility] Blood, UA Negative Negative - 50 Jermaine/mcL [facility] Clarity, UA Clear [facility] Color, UA Yellow [facility] Glucose, UA Negative Negative - 2000(110) ++++ mg/dL [facility] Interpretation and review of laboratory results Abnormal [facility] Ketones, UA Negative Negative - 160(16) ++++ mg/dL [facility] Leukocytes, UA Trace Negative - 500+++ Giuliana/mcL [facility] Nitrite, UA Negative Negative - Positive [facility] pH, UA 5.5 5 - 9 [facility] Protein, UA Negative Negative - 1999(20) ++++ mg/dL [facility] Spec Grav, UA 1.01 1 - 1.03 [facility] care Urobilinogen, UA 0.2 0.2 - 12 mg/dL [facility] Cytology Cervical or vaginal smear or scraping studyon 01-17-2025 [facility] X-ray reportOrdered By: Chance Soto on 12-28-2024 Study report [facility] [place] [address] XRay Report Signed Patient: Oracio Gong MR#: [id number] : 1980 Acct:[id number] Age/Sex: 44 / F ADM Date: 5 Loc: XDUCLY Room: Type: [facility] Attending Dr: Shayy Lugo HEEL SHAVER Copies to: Shayy Lugo APRN~ Ordering Provider: Shayy Lugo APRN Date of Service: 12/28/24 XR/XR sacrum coccyx min 2V: TAILBONE PAIN SACRUM AND COCCYX - - 3 views CLINICAL HISTORY: Fall COMPARISON: None FINDINGS: Questionable cortical offset involving the coccyx. Best seen on the lateral projection. Otherwise mild spurring sacroiliac joints. XR/XR sacrum coccyx min 2V IMPRESSION: Suspect nondisplaced coccygeal fracture. Impression dictated by: John Soto M.D.12/28/2024 6:42 PM Dictation Location: [facility]--29 Transcribed By: [facility] 12/28/241841 Dictated By: John Soto MD 12/28/241839 Signed By: 12/28/241841 [facility] Work Phone: XR sacrum coccyx min 2Von XR sacrum coccyx min 2V [facility] Main [address] [address] XRay Report Signed Patient: Oracio Gong MR#: [id number] : 1980 Acct:[id number] Age/Sex: 44 / F ADM Date: 12/28/24 Loc: XDUCLY Room: Type: [facility] Attending Dr: Shayy Lugo HEEL SHAVER Copies to: Shayy Lugo APRN Ordering Provider: Shayy Lugo APRN Date of Service: 12/28/24 XR/XR sacrum coccyx min 2V: TAILBONE PAIN SACRUM AND COCCYX - - 3 views CLINICAL HISTORY: Fall COMPARISON: None FINDINGS: Questionable cortical offset involving the coccyx. Best seen on the lateral projection. Otherwise mild spurring sacroiliac joints. XR/XR sacrum coccyx min 2V IMPRESSION: Suspect nondisplaced coccygeal fracture. Impression dictated by: John Soto M.D.12/28/2024 6:42 PM Dictation Location: [place] [address] Transcribed By: [facility] 12/28/241841 Dictated By: John Soto MD 12/28/241839 Signed By: 12/28/241841 Normal [facility] MAMM SCREENING BILATERAL W C biophysics teacher 12-27-2024 MAMM SCREENING BILATERAL W CAD MAMM SCREENING BILATERAL W CAD ORACIO GONG 1980 [id number] EXAM: MAMM SCREENING BILATERAL W CAD, 12/26/2024 7:59 AM CLINICAL INDICATIONS: Screening, Visit for screening mammogram COMPARISON: 07/08/2023 and earlier TECHNIQUE: Bilateral digital tomosynthesis MLO and CC views of the breasts were obtained, with creation of synthetic 2D views. Computer aided detection was utilized. FINDINGS: There are scattered areas of fibroglandular density. There are no suspicious masses, calcifications, or areas of architectural distortion. IMPRESSION: No mammographic evidence of malignancy. BI-RADS: BI-RADS 1 - Negative RECOMMENDATION: Routine screening mammogram in 1 year. RISK ASSESSMENT: TC Lifetime risk: 8.03%. The patient's reported personal and family medical history was used calculate their Tyrer-Cuzick lifetime risk of malignancy. Scores less than 20% are not considered high risk per ACR guidelines and patient should continue with the above recommendation. Finalized by Dave Duran MD on 12/27/2024 8:33 AM 1 b MAMM 1 YR Normal [facility] Magnetic resonance imaging r eportOrdered By: John Soto on 12-27-2024 Study report [facility] [address] MRI Report Signed Patient: Oracio Gong MR#: [id number] : 1980 Acct:[id number] Age/Sex: 44 / F ADM Date: [facility] Type: [facility] Attending Dr: Loree Fonseca APRN Copies to: Loree Fonseca APRN~ Ordering Provider: Loree Fonseca APRN Date of Service: 12/27/24 MR/MR lumbar spine wo con: M54.16 - Radiculopathy, lumbar region ([id number]) XR/XR pre/post mri xray: LUMBAR MRI MRI lumbar spine without contrast/2 views of the lumbar spine INDICATION: Lumbar spine pain radiating down both legs with paresthesias, lumbarradiculopathy, perineural cysts, radicular pain of sacrum COMPARISON: CT abdomen pelvis 10/29/2024 X-rays of the lumbar spine spine demonstrate an minor disc space narrowing L5-S1. Otherwise vertebral heights and disc space heights and alignment maintained. MRI lumbar spine: Alignment, bone marrow signal is unremarkable. Vertebral heights are maintained. Conus medullaris terminates normally at L1-L2. Paraspinal soft tissues unremarkable. There are Tarlov cysts and involving notably S2-S4. T11-L5: No significant disease, focal protrusion, central canal or neural foraminal narrowing identified. L5-S1: There is mild disc space narrowing with broad-based disc bulge. Transverse band of T2 hyperintensity at L5 central to subarticular zone. Mild neural foraminal narrowing. Mild facet arthropathy. MR/MR lumbar spine wo con IMPRESSION: Mild degenerative changes L5-S1. Impression dictated by: John Soto M.D.12/27/2024 2:48 PM Dictation Location: [facility]--29 Transcribed By: [facility] 12/27/24 1448 Dictated By: John Soto MD 12/27/24 1440 Signed By: 12/27/24 1448 [facility] Work Phone: XR pre/post mri xrayon 12-27 XR pre/post mri xray [facility] [address] MRI Report Signed Patient: Oracio Gong MR#: [id number] : 1980 Acct:[id number] Age/Sex: 44 / F ADM Date: 12/27/24 Loc: [facility] Room: Type: [facility] Attending Dr: Loree Fonseca APRN Copies to: Loree Fonseca APRN Ordering Provider: Loree Fonseca APRN Date of Service: 12/27/24 MR/MR lumbar spine wo con: M54.16 - Radiculopathy, lumbar region ([id number]) XR/XR pre/post mri xray: LUMBAR MRI MRI lumbar spine without contrast/2 views of the lumbar spine INDICATION: Lumbar spine pain radiating down both legs with paresthesias, lumbar radiculopathy, perineural cysts, radicular pain of sacrum COMPARISON: CT abdomen pelvis 10/29/2024 X-rays of the lumbar spine spine demonstrate an minor disc space narrowing L5-S1. Otherwise vertebral heights and disc space heights and alignment maintained. MRI lumbar spine: Alignment, bone marrow signal is unremarkable. Vertebral heights are maintained. Conus medullaris terminates normally at L1-L2. Paraspinal soft tissues unremarkable. There are Tarlov cysts and involving notably S2-S4. T11-L5: No significant disease, focal protrusion, central canal or neural foraminal narrowing identified. L5-S1: There is mild disc space narrowing with broad-based disc bulge. Transverse band of T2 hyperintensity at L5 central to subarticular zone. Mild neural foraminal narrowing. Mild facet arthropathy. MR/MR lumbar spine wo con IMPRESSION: Mild degenerative changes L5-S1. Impression dictated by: John Soto M.D.12/27/2024 2:48 PM Dictation Location: [facility]-29 Transcribed By: PWS 12/27/24 1448 Dictated By: John Soto MD 12/27/24 1440 Signed By: 12/27/24 1448 Normal [facility] UA (MICROSCOPIC)on 5 R.B.CELLS 2 /hpf Normal 0-5 [facility] Comment on above: Performed By: #### U ROXY #### [facility] ([id number]) [address], [address] [place] [address] SQUAMOUS EPITHELIUM 1 /hpf Normal 0-5 [facility] Comment on above: Performed By: #### U ROXY #### [facility] ([id number]) [address], [address] [place] [address] W.B.CELLS 2 /hpf Normal 0-5 [facility] Comment on above: Performed By: #### U ROXY #### [facility] ([id number]) [address], [address] [place] [address] CT ABDOMEN AND PELVIS W WO C ONTon 10-31-2024 CT ABDOMEN AND PELVIS W WO CONT CT ABDOMEN AND PELVIS W WO CONT STUDY: CT OF THE ABDOMEN AND PELVIS WITH AND WITHOUT CONTRAST CLINICAL INFORMATION: Age/Gender: 44 years / Female History: Flank pain PROCEDURE: Unenhanced and enhanced CT examination of the abdomen and pelvis was performed after administration of intravenous contrast. Enteric contrast was not administered. All CT scans at this facility use dose modulation, iterative reconstruction, and/or weight based dosing when appropriate to reduce radiation dose to as low as reasonably achievable. INTRAVENOUS CONTRAST: 100 mL Omnipaque 300 IV COMPARISON: None. FINDINGS: LOWER THORAX: The lung bases are clear. The heart is normal in size. LIVER: Normal in size and configuration. No suspicious mass. BILE DUCTS: No intrahepatic or extrahepatic bile duct dilation. GALLBLADDER: No calcified stones. Normal wall thickness. PANCREAS: Unremarkable. No main pancreatic duct dilation. SPLEEN: Unremarkable. ADRENAL GLANDS: Unremarkable. KIDNEYS/URETERS: No hydroureteronephrosis . No suspicious renal mass. BLADDER: Unremarkable. REPRODUCTIVE ORGANS: The uterus is present. No adnexal mass. BOWEL: No disproportionate dilation of the small or large bowel. The appendix is surgically absent. PERITONEUM/RETROPERIT ONEUM: No fluid collection, ascites, or pneumoperitoneum. LYMPH NODES: No abdominal or pelvic lymphadenopathy. VESSELS: No abdominal aortic aneurysm. ABDOMINAL/PELVIC WALL: Unremarkable. BONES: No aggressive osseous lesion. Sacral Tarlov cyst noted. IMPRESSION: No acute process seen in the abdomen or pelvis. No nephrolithiasis. Finalized by Joe Houston MD on 10/31/2024 8:19 AM Normal [facility] Urinalysis - AUTOMATEDon Appearance (U) clear [employer] Other Bilirubin Ql (U) Negative [employer] Other Color (U) yellow [employer] Other Glucose Ql (U) Negative [employer] Other Hemoglobin Ql (U) trace intact [employer] Other Ketones Ql (U) Negative [employer] Other Leukocyte esterase Test strip Ql (U) trace [employer] Other Nitrite Ql (U) Negative [employer] Other pH (U) 6.0 [pH] [employer] Other Protein Ql (U) Negative [employer] Other Specific gravity (U) [Rel density] 1.015 [employer] Other Urobilinogen (U) [Mass/Vol] 0.2 mg/dL [employer] Other Urinalysis - AUTOMATED [employer] Other CBC AUTO DIFFon 02-17-2022 BASO # 0.0 103/ul Normal 0.0-0.1 [facility] Comment on above: Performed By: #### C BC #### [facility] [address] [place] [address] Dr. Alex Christianson Basophils/100 WBC (Bld) 0.3 % Normal 0.2-2.0 [facility] Comment on above: Performed By: #### C BC #### [facility] [address] [place] [address] Dr. Alex Christianson EO # 0.0 103/ul Normal 0.0-0.7 [facility] Comment on above: Performed By: #### C BC #### [facility] [address] [place] [address] Dr. Alex Christianson Eosinophils/100 WBC (Bld) 0.3 % Critically low 0.9-7.0 [facility] Comment on above: Performed By: #### C BC #### [facility] [address] [place] [address] Dr. Alex Christianson Erythrocyte distribution width (RBC) [Ratio] 12.4 % Normal 11.0-15.0 [facility] Comment on above: Performed By: #### C BC #### [facility] [address] [place] [address] Dr. Alex Christianson Hematocrit (Bld) [Volume fraction] 42.2 % Normal 36.0-48.0 [facility] Comment on above: Performed By: #### C BC #### [facility] [address] [place] [address] Dr. Alex Christianson Hemoglobin (Bld) [Mass/Vol] 14.0 g/dL Normal 12.0-16.0 [facility] Comment on above: Performed By: #### C BC #### [facility] [address] [place] [address] Dr. Alex Christianson IG # 0.03 10e3/ul Normal 0.00-0.03 [facility] Comment on above: Performed By: #### C BC #### [facility] [address] [place] [address] Dr. Alex Christianson IG % 0.3 % Normal 0.0-0.5 [facility] Comment on above: Performed By: #### C BC #### [facility] [address] [place] [address] Dr. Alex Christianson LYMPH # 2.9 103/ul Normal 1.2-3.8 [facility] Comment on above: Performed By: #### C BC #### [facility] [address] [place] [address] Dr. Alex Christianson Lymphocytes/100 WBC (Bld) 31.9 % Normal 20.5-60.0 [facility] Comment on above: Performed By: #### C BC #### [facility] [address] [place] [address] Dr. Alex Christianson MANUAL DIFF REQ NO Normal [facility] Comment on above: Performed By: #### C BC #### [facility] [address] [place] [address] Dr. Alex Christianson MCH (RBC) [Entitic mass] 29.8 pg Normal 26.7-34.0 [facility] Comment on above: Performed By: #### C BC #### [facility] [address] [place] [address] Dr. Alex Christianson MCHC (RBC) [Mass/Vol] 33.2 g/dL Normal 29.9-35.2 [facility] Comment on above: Performed By: #### C BC #### [facility] [address] [place] [address] Dr. Alex Christianson MCV (RBC) [Entitic vol] 89.8 fL Normal 81.0-99.0 [facility] Comment on above: Performed By: #### C BC #### [facility] [address] [place] [address] Dr. Alex Christianson MONO # 0.6 103/ul Normal 0.3-0.8 [facility] Comment on above: Performed By: #### C BC #### [facility] [address] [place] [address] Dr. Alex Christianson Monocytes/100 WBC (Bld) 6.2 % Normal 1.7-12.0 [facility] Comment on above: Performed By: #### C BC #### [facility] [address] [place] [address] Dr. Alex Christianson NEUT # 5.6 103/ul Normal 1.4-6.5 [facility] Comment on above: Performed By: #### C BC #### [facility] [address] [place] [address] Dr. Alex Christianson Neutrophils/100 WBC (Bld) 61.0 % Normal 43.0-75.0 [facility] Comment on above: Performed By: #### C BC #### [facility] [address] [place] [address] Dr. Alex Christianson Platelet mean volume (Bld) [Entitic vol] 9.2 fL Critically low 9.5-13.5 [facility] Comment on above: Performed By: #### C BC #### [facility] [address] [place] [address] Dr. Alex Christianson PLT 258 103/ul Normal 150-450 [facility] Comment on above: Performed By: #### C BC #### [facility] [address] [place] [address] Dr. Alex Christianson RBC 4.70 106/ul Normal 4.20-5.40 [facility] Comment on above: Performed By: #### C BC #### [facility] [address] [place] [address] Dr. Alex Christianson WBC 9.1 103/ul Normal 4.0-11.0 [facility] Comment on above: Performed By: #### C BC #### [facility] [address] [place] [address] Dr. Alex Christianson D-DIMERon 02-17-2022 D-DIMER <0.19 Normal 0.19-0.50 [facility] Comment on above: Performed By: #### D DIM #### [facility] [address] [place] [address] Dr. Alex Christianson D-DIMER COMMENTS SEE BELOW Normal [facility] Comment on above: Result Comment: Incr eases in D-Dimer concentration observed with thromboembolic events can be variable due to localization, size, and age of the thrombus. Therefore, a thromboembolic event cannot be diagnosed with certainty on the basis of the reference range. D-Dimers may also be elevated for a variety of disorders including: advanced age, , coronary disease, cancer, liver disease, infection, inflammation, hematoma, DIC, trauma, post-surgery, diabetes, thrombolytic or anticoagulant therapy, stress, and generalized hospitalization. Performed By: #### D DIM #### [facility] [address] [place] [address] Dr. Alex Christianson ER URINE PROFILEon 2 Bilirubin Ql (U) Negative Normal NEGATIVE [facility] Comment on above: Performed By: #### E RUR, PREGU, UMICRO #### [facility] [address] [address] [address] Alex Christianson Clarity (U) CLEAR Normal CLEAR [facility] Comment on above: Performed By: #### E RUR, PREGU, UMICRO #### [facility] [address] [place] [address] Dr. Alex Christianson Color (U) LT. YELLOW Normal YELLOW [facility] Comment on above: Performed By: #### E RUR, PREGU, UMICRO #### [facility] [address] [place] [address] Dr. Alex Christianson ERUEFREN A micrscopic examination will be performed if indicated. Normal [facility] Comment on above: Performed By: #### E RUR, PREGU, UMICRO #### [facility] [address] [place] [address] Dr. Alex Christianson Glucose Ql (U) Negative Normal NEGATIVE [facility] Comment on above: Performed By: #### E RUR, PREGU, UMICRO #### [facility] [address] [address] [address] Alex Christianson Hemoglobin Ql (U) TRACE-INTACT Abnormal NEGATIVE [facility] Comment on above: Performed By: #### E RUR, PREGU, UMICRO #### [facility] [address] [place] [address] Dr. Alex Christianson Ketones Ql (U) Negative Normal NEGATIVE [facility] Comment on above: Performed By: #### E RUR, PREGU, UMICRO #### [facility] [address] [address] [address] Alex Christianson LEUKOCYTES TRACE Abnormal NEGATIVE [facility] Comment on above: Performed By: #### Shannon RUNatali PREGU, UMICRO #### [facility] [address] [address] [address] Alex Christianson Nitrite Ql (U) Negative Normal NEGATIVE [facility] Comment on above: Performed By: #### Shannon RUNatali PREGU, UMICRO #### [facility] [address] [address] [address] Alex Christianson pH (U) 5.5 [pH] Normal 5-9 [facility] Comment on above: Performed By: #### LEOBARDO HELMS UMICRO #### [facility] [address] [place] [address] Dr. Alex Christianson SPEC GRAVITY <=1.005 Abnormal 1.005-<=1.02 5 [facility] Comment on above: Performed By: #### Shannon VILLARREAL PREGU UMICRO #### [facility] [address] [place] [address] Dr. Alex Christianson UA PROTEIN Negative Normal NEGATIVE/ TRACE [facility] Comment on above: Performed By: #### Shannon VILLARREAL PREGU UMICRO #### [facility] [address] [place] [address] Dr. Alex Christianson UR MICRO IND INDICATED Normal [facility] Comment on above: Performed By: #### Shannon VILLARREAL PREGU, UMICRO #### [facility] [address] [address] [address] Alex Christianson Urobilinogen Qn (U) 0.2 {Angie'U}/dL Normal 0.2 - 1. 0 [facility] Comment on above: Performed By: #### Shannon VILLARREAL PREGU, UMICRO #### [facility] [address] [place] [address] Dr. Alex Christianson URon 02-17-2022 , QUAL Negative Normal NEGATIVE [facility] Comment on above: Performed By: #### Shannon VILLARREAL PREGU, UMICRO #### [facility] [address] [address] [address] Alex Christianson PROF 14(COMP METB)on 022 Albumin [Mass/Vol] 4.2 g/dL Normal 3.4-5.0 [facility] Comment on above: Performed By: #### H STROPN, CMP #### [facility] [address] [address] [address] Alex Christianson Albumin/Globulin [Mass ratio] 1.4 {ratio} Normal [facility] Comment on above: Performed By: #### H STROPN, CMP #### [facility] [address] [address] [address] Alex Christianson ALP [Catalytic activity/Vol] 49 U/L Normal 46-116 [facility] Comment on above: Performed By: #### H STROPN, CMP #### [facility] [address] [address] [address] Alex Christianson ALT [Catalytic activity/Vol] 30 U/L Normal 14-59 [facility] Comment on above: Performed By: #### H STROPN, CMP #### [facility] [address] [address] [address] Alex Christianson Anion gap [Moles/Vol] 14.6 mmol/L Normal [facility] Comment on above: Performed By: #### H STROPN, CMP #### [facility] [address] [address] [address] Alex Christianson AST [Catalytic activity/Vol] 24 U/L Normal 15-37 [facility] Comment on above: Performed By: #### H STROPN, CMP #### [facility] [address] [address] [address] Alex Christianson Bilirubin [Mass/Vol] 0.6 mg/dL Normal 0.2-1.3 [facility] Comment on above: Performed By: #### H STROPN, CMP #### [facility] [address] [address] [address] Alex Christianson Calcium [Mass/Vol] 9.2 mg/dL Normal 8.5-10.1 [facility] Comment on above: Performed By: #### H STROPN, CMP #### [facility] [address] [address] [address] Alex Christianson Chloride [Moles/Vol] 104 mmol/L Normal 98-107 [facility] Comment on above: Performed By: #### H STROPN, CMP #### [facility] [address] [address] [address] Alex Christianson CO2 [Moles/Vol] 24.2 mmol/L Normal 22.0-30.0 [facility] Comment on above: Performed By: #### H STROPN, CMP #### [facility] [address] [address] [address] Alex Christianson Creatinine [Mass/Vol] 0.78 mg/dL Normal 0.52-1.04 [facility] Comment on above: Performed By: #### H STROPN, CMP #### [facility] [address] [address] [address] Alex Christianson EGFR-AF ETHIOPIAN >60 Normal >=60 [facility] Comment on above: Performed By: #### H STROPN, CMP #### [facility] [address] [address] [address] Alex Christianson EGFR-NON AF ETHIOPIAN >60 Normal >=60 [facility] Comment on above: Performed By: #### H STROPN, CMP #### [facility] [address] [address] [address] Alex Christianson Globulin (S) [Mass/Vol] 3.0 g/dL Normal [facility] Comment on above: Performed By: #### H STROPN, CMP #### [facility] [address] [address] [address] Alex Christianson Glucose [Mass/Vol] 82 mg/dL Normal 74-106 [facility] Comment on above: Performed By: #### H STROPN, CMP #### [facility] [address] [place] [address] Dr. Alex Christianson Potassium [Moles/Vol] 3.8 mmol/L Normal 3.4-5.0 [facility] Comment on above: Performed By: #### H MICHELLE, CMP #### [facility] [address] [place] [address] Dr. Alex Christianson Protein [Mass/Vol] 7.2 g/dL Normal 6.1-8.2 [facility] Comment on above: Performed By: #### H MICHELLE, CMP #### [facility] [address] [place] [address] Dr. Alex Christianson Sodium [Moles/Vol] 139 mmol/L Normal 137-145 [facility] Comment on above: Performed By: #### H MICHELLE, CMP #### [facility] [address] [place] [address] Dr. Alex Christianson Urea nitrogen [Mass/Vol] 23.0 mg/dL Critically high 7.0-18.0 [facility] Comment on above: Performed By: #### H MICHELLE, CMP #### [facility] [address] [place] [address] Dr. Alex Christianson Urea nitrogen/Creatinine [Mass ratio] 29.5 mg/mg Normal [facility] Comment on above: Performed By: #### H MICHELLE, CMP #### [facility] [address] [place] [address] Dr. Alex Christianson PROTIMEon 02-17-2022 INR Coag (PPP) [Relative time] 1.01 {INR} Normal [facility] Comment on above: Performed By: #### P T, PTT #### [facility] [address] [place] [address] Dr. Alex Christianson INR GUIDELINES SEE BELOW Normal [facility] Comment on above: Result Comment: DOUGLAS RED INR: 2.0 - 3.0 CONDITIONS NOT LISTED BELOW 2.5 - 3.5 FOR PROSTHETIC HEART VALVE REPLACEMENT 2.5 - 3.5 RECURRENT THROMBOSIS Performed By: #### P T, PTT #### [facility] [address] [place] [address] Dr. Alex Christianson PT Coag (PPP) [Time] 10.9 s Normal 9.0-11.6 [facility] Comment on above: Performed By: #### P T, PTT #### [facility] [address] [address] [address] Alex Christianson PTTon 02-17-2022 aPTT Coag (Bld) [Time] 27.3 s Normal 22.3-36.2 [facility] Comment on above: Performed By: #### P T, PTT #### [facility] [address] [address] [address] Alex Christianson TROPONIN, HIGH SENSITIVITYon 02-17-2022 HSTROP 4.5 pg/mL Normal 4.0-35.5 [facility] Comment on above: Result Comment: CUT- OFF POINTS HAVE BEEN ESTABLISHED BASED ON THE FOURTH UNIVERSAL DEFINITIONS OF MYOCARDIAL INFARCTION. THE UPPER REFERENCE LIMIT (URL) OF TROPONIN, DEFINED THE 99TH PERCENTILE OF cTnI DISTRIBUTION IN A REFERENCE POPULATION, HAS BEEN CONFIRMED THE DECISION THRESHOLD FOR [place] DIAGNOSIS. Performed By: #### H STROPN, CMP #### [facility] [address] [address] [address] Alex Christianson URINE MICROSCOPIC ONLYon BACTERIA NONE SEEN Normal NONE SEEN [facility] Comment on above: Performed By: #### E LEOBARDO VILLARREAL UMICRO ####[facility] [id number] [address]DrIfrah Christianson Bacteria identified Cx Nom (U) NOT INDICATED Normal [facility] Comment on above: Performed By: #### Shannon RULEOBARDO Hurst UMICRO ####[facility] [address] [address]DrIfrah Christianson CAST NONE SEEN Normal NONE SEEN [facility] Comment on above: Performed By: #### E RUR PREGU, UMICRO ####[facility] [address] [address]DrIfrah Christianson Crystals LM Nom (Urine sed) NONE SEEN Normal NONE SEEN [facility] Comment on above: Performed By: #### E RUR PREGU, UMICRO ####[facility] [address] [address]DrIfrah Christianson Epithelial cells LM Ql (Urine sed) FEW Abnormal NONE SEEN /RARE [facility] Comment on above: Performed By: #### E RUR, PREGU, UMICRO ####[facility] [address] [place], [place] [address]Np. Alex Christianson MUCOUS NONE SEEN Normal NONE SEEN [facility] Comment on above: Performed By: #### E RUR, PREGU, UMICRO ####[facility] [address] [place], [place] [address]Ri. Alex Christianson RBC 0-2 Normal 0-2 [facility] Comment on above: Performed By: #### E RUR, PREGU, UMICRO ####[facility] [address] [place], [place] [address]Hv. Alex Christianson WBC 0-2 Abnormal NONE SEEN [facility] Comment on above: Performed By: #### E RUR, PREGU, UMICRO ####[facility] [id number] [id number] Alex Christianson US ARCHANA DOP LEG BILon 022 US ARCHANA DOP LEG MARTHA EXAMINATION: US ARCHANA DOP LEG MARTHA HISTORY: Deep venous thrombosis COMPARISON: No relevant comparison available. FINDINGS: REGION: Bilateral lower extremities THROMBI: None. COMPRESSIBILITY: Normal compressibility. FLOW: Normal waveform and antegrade flow between 5 and 20 cm/s. OTHER: None. IMPRESSION: 1. No deep vein thrombus within the right or left lower extremity. Electronically authenticated by: HONG MOSS Date: 2022-02-17 14:41 Normal [facility] XR CHEST 2 Von 02-17-2022 XR CHEST 2 V EXAM: CHEST 2 VIEWS HISTORY: Chest pain TECHNIQUE: PA and lateral views chest. COMPARISON: 02/24/2020. FINDINGS: The lungs are well-expanded and clear. There is no focal lung consolidation, pleural effusion or pneumothorax. Pulmonary vasculature is within normal limits. The cardiomediastinal silhouette is normal. IMPRESSION: 1. Well-expanded and clear lungs. No acute cardiopulmonary disease. 2. Normal heart size. Electronically authenticated by: ANDREW WHITT Date: 2022-02-17 14:41 Normal [facility] ALLIED HEALTHon 12-09-2019 ALLIED HEALTH HNO ID: [id number] Author: Daysi MofefttRtOdilon Donahue Service: Radiology Author Type: Shipfitter Type: [facility] Filed: 12/09/2019 5:01 PM Note Text: Radiology Service Progress Note PATIENT NAME: Oracio Gong DATE OF SERVICE: December 09, 2019 TIME: 5:01 PM PATIENT IDENTITY VERIFICATION COMPLETED USING TWO (2) IDENTIFIERS: Name and Date of confirmed by patient verbally and Name and Date of confirmed by identification band. PATIENT GENDER DATA: female PATIENT RELEVANT IMPLANT DATA REVIEWED: Not Applicable RADIOLOGY DEPARTMENT: General X-ray: Exam(s) Completed: Chest X-Ray PERIPHERAL IV DATA: Not applicable SIGNED BY: RT Tracee December 09, 2019 5:01 PM [facility] HNO ID: [id number] Author: Odilon Harrison (Ct) Service: Radiology Author Type: Shipfitter Type: Allied Health Filed: 12/09/2019 3:44 PM Note Text: Radiology Service Progress Note PATIENT NAME: Oracio Gong DATE OF SERVICE: December 09, 2019 TIME: 3:44 PM PATIENT IDENTITY VERIFICATION COMPLETED USING TWO (2) IDENTIFIERS: Name and Date of confirmed by patient verbally. PATIENT GENDER DATA: Female. status: : No status: NO. PATIENT RELEVANT IMPLANT DATA REVIEWED: Not Applicable RADIOLOGY DEPARTMENT: CT; Exam(s) Completed: Abdomen/Pelvis PERIPHERAL IV DATA: Site assessment: Clean,Dry and Intact, Site disposition Left in for next appointment SIGNED BY: YANA Harrison December 09, 2019 3:44 PM [facility] CBC and Differentialon 12-09 Abs Baso 0.05 k/uL Normal <0.11 [facility] Comment on above: Performed By: #### C BCDIF, CMP, LIPA, MG1 #### [place] [address] Abs Ector 0.96 k/uL High <0.87 [facility] Comment on above: Performed By: #### C BCDIF, CMP, LIPA, MG1 #### [place] [address] Abs Neut 16.63 k/uL High 1.45-7.50 [facility] Comment on above: Performed By: #### C BCDIF, CMP, LIPA, MG1 #### [place] [address] Absolute nRBC <0.01 Normal <0.01 [facility] Comment on above: Performed By: #### C BCDIF, CMP, LIPA, MG1 #### [place] [address] Basophils/100 WBC (Bld) 0.3 % [facility] Comment on above: Performed By: #### C BCDIF, CMP, LIPA, MG1 #### [place] [address] DTYPE Auto Diff [facility] Comment on above: Performed By: #### C BCDIF, CMP, LIPA, MG1 #### [place] [address] Eosinophils (Bld) [#/Vol] 10*3/uL Normal <0.46 [facility] Comment on above: Performed By: #### C BCDIF, CMP, LIPA, MG1 #### [place] [address] Eosinophils/100 WBC (Bld) 0.1 % [facility] Comment on above: Performed By: #### C BCDIF, CMP, LIPA, MG1 #### [place] [address] Erythrocyte distribution width (RBC) [Ratio] 13.4 % Normal 11.5-15.0 [facility] Comment on above: Performed By: #### C BCDIF, CMP, LIPA, MG1 #### [place] [address] Hematocrit (Bld) [Volume fraction] 43.9 % Normal 36.0-46.0 [facility] Comment on above: Performed By: #### C BCDIF, CMP, LIPA, MG1 #### [place] [address] Hemoglobin (Bld) [Mass/Vol] 14.4 g/dL Normal 11.5-15.5 [facility] Comment on above: Performed By: #### C BCDIF, CMP, LIPA, MG1 #### [place] [address] Lymphocytes (Bld) [#/Vol] 1.31 10*3/uL Normal 1.00-4.00 [facility] Comment on above: Performed By: #### C BCDIF, CMP, LIPA, MG1 #### [place] [address] Lymphocytes/100 WBC (Bld) 6.9 % Normal [facility] Comment on above: Performed By: #### C BCDIF, CMP, LIPA, MG1 #### [place] [address] MCH (RBC) [Entitic mass] 30.4 pG Normal 26.0-34.0 [facility] Comment on above: Performed By: #### C BCDIF, CMP, LIPA, MG1 #### [place] [address] MCHC (RBC) [Mass/Vol] 32.8 g/dL Normal 30.5-36.0 [facility] Comment on above: Performed By: #### C BCDIF, CMP, LIPA, MG1 #### [place] [address] MCV (RBC) [Entitic vol] 92.6 fL Normal 80.0-100.0 [facility] Comment on above: Performed By: #### C BCDIF, CMP, LIPA, MG1 #### [place] [address] Monocytes/100 WBC (Bld) 5.1 % Normal [facility] Comment on above: Performed By: #### C BCDIF, CMP, LIPA, MG1 #### [place] [address] Neutrophils/100 WBC (Bld) 87.6 % Normal [facility] Comment on above: Performed By: #### C BCDIF, CMP, LIPA, MG1 #### [place] [address] NRBCs 0.0 /100 WBC Normal 0 [facility] Comment on above: Performed By: #### C BCDIF, CMP, LIPA, MG1 #### [place] [address] Platelet mean volume (Bld) [Entitic vol] 9.1 fL Normal 9.0-12.7 [facility] Comment on above: Performed By: #### C BCDIF, CMP, LIPA, MG1 #### [place] [address] Platelets (Bld) [#/Vol] 251 10*3/uL Normal 150-400 [facility] Comment on above: Performed By: #### C BCDIF, CMP, LIPA, MG1 #### [place] [address] RBC (Bld) [#/Vol] 4.74 10*6/uL Normal 3.90-5.20 [facility] Comment on above: Performed By: #### C BCDIF, CMP, LIPA, MG1 #### [place] [address] WBC (Bld) [#/Vol] 18.96 10*3/uL High 3.70-11.00 [facility] Comment on above: Performed By: #### C BCDIF, CMP, LIPA, MG1 #### [place] [address] CT ABD/PEL W IVCONon 020 CT ABD/PEL W IVCON * * *Final Report* * * DATE OF EXAM: Dec 09 2019 3:41PM FOREIGN 0530 - CT ABD/PEL W IVCON / PROCEDURE REASON: Abdominal pain, acute, nonlocalized * * * * Physician Interpretation * * * * EXAMINATION: CT ABDOMEN AND PELVIS WITH IV CONTRAST CLINICAL HISTORY: Abdominal pain, acute, nonlocalized Pt sts midsternal cp and upper abd pain today. No prior CT. TECHNIQUE: CT of the abdomen and pelvis was performed using standard technique, scanning from just above the dome of the diaphragm to the symphysis pubis. MQ: CTAP_3 Contrast: IV: 110 ml of Omnipaque 300 : ml of CT Radiation dose: Integrated Dose-length product (DLP) for this visit = 254 mGy*cm. CT Dose Reduction Employed: Automated exposure control(AEC) and iterative recon COMPARISON: None. RESULT: Liver: No mass. Biliary: No bile duct dilation. Gallbladder is unremarkable. Spleen: No mass. No splenomegaly. Pancreas: No mass or duct dilation. Adrenals: No mass. Kidneys: No mass, calculus or hydronephrosis. GI tract: No dilation or wall thickening. Lymph nodes: No abdominal or pelvic lymphadenopathy. Mesentery/Peritoneum: No ascites or mass. Retroperitoneum: No mass. Vasculature: The celiac axis and SMA are patent. The portal vein and branches, splenic vein, SMV, and hepatic veins are patent. No abdominal aortic or iliac artery aneurysm. Pelvis: No mass, ascites or fluid collection. 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 Lower thorax: Unremarkable. IMPRESSION: No evidence of an acute intra-abdominal or pelvic process. Selector Packer: JOHN PAUL Transcribe Date/Time: Dec 09 2019 3:45P Dictated by : ELISABET KEITA MD This examination was interpreted and the report reviewed and electronically signed by: ELISABET KEITA MD on Dec 09 2019 3:53PM EST [id number] N Normal [facility] Comp Metabolic Panelon 12-09 Albumin [Mass/Vol] 4.5 g/dL Normal 3.9-4.9 [facility] Comment on above: Performed By: #### C BCDIF, CMP, LIPA, MG1 #### [facility] [address] [place] [address] ALP [Catalytic activity/Vol] 41 U/L Normal 34-123 [facility] Comment on above: Performed By: #### C BCDIF, CMP, LIPA, MG1 #### [place] [address] ALT [Catalytic activity/Vol] 21 U/L Normal 7-38 [facility] Comment on above: Result Comment: Resu lts may be falsely increased due to interference by hemolysis. Suggest reorder as clinically indicated. Performed By: #### C BCDIF, CMP, LIPA, MG1 #### [place] [address] Anion gap [Moles/Vol] 13 mmol/L Normal 9-18 [facility] Comment on above: Performed By: #### C BCDIF, CMP, LIPA, MG1 #### [place] [address] AST [Catalytic activity/Vol] 29 U/L Normal 13-35 [facility] Comment on above: Result Comment: Resu lts may be falsely increased due to interference by hemolysis. Suggest reorder as clinically indicated. Performed By: #### C BCDIF, CMP, LIPA, MG1 #### [place] [address] Bilirubin [Mass/Vol] 0.5 mg/dL Normal 0.2-1.3 [facility] Comment on above: Performed By: #### C BCDIF, CMP, LIPA, MG1 #### [place] [address] Calcium [Mass/Vol] 9.5 mg/dL Normal 8.5-10.2 [facility] Comment on above: Performed By: #### C BCDIF, CMP, LIPA, MG1 #### [place] [address] Chloride [Moles/Vol] 108 mmol/L High 97-105 [facility] Comment on above: Performed By: #### C BCDIF, CMP, LIPA, MG1 #### [place] [address] CO2 [Moles/Vol] 21 mmol/L Low 22-30 [facility] Comment on above: Performed By: #### C BCDIF, CMP, LIPA, MG1 #### [place] [address] Creatinine [Mass/Vol] 0.65 mg/dL Normal 0.58-0.96 [facility] Comment on above: Performed By: #### C BCDIF, CMP, LIPA, MG1 #### [place] [address] eGFR- Amer. >60 Normal >60 [facility] Comment on above: Performed By: #### C BCDIF, CMP, LIPA, MG1 #### [place] [address] GFR/1.73 sq M predicted among non-blacks MDRD (S/P/Bld) [Vol rate/Area] mL/min/{1.73_m2} Normal >60 [facility] Comment on above: Result Comment: eGFR (Estimated GFR) Units of measure: mL/min/1.73 meters squared eGFR is derived from the reexpressed MDRD Study equation using the following parameters: serum creatinine, age, gender and race. The creatinine assay has been calibrated to be traceable to IDMS. An eGFR <60 mL/min/1.73m2 for >3 months is consistent with chronic kidney disease. Refer to KDOQI guidelines for clinical interpretation. In patients with unstable renal function, e.g. those with acute kidney injury, the eGFR may not accurately reflect actual GFR. Performed By: #### C BCDIF, CMP, LIPA, MG1 #### [place] [address] Glucose [Mass/Vol] 137 mg/dL High 74-99 [facility] Comment on above: Performed By: #### C BCDIF, CMP, LIPA, MG1 #### [place] [address] Potassium [Moles/Vol] 4.9 mmol/L Normal 3.7-5.1 [facility] Comment on above: Result Comment: Resu lts may be falsely increased due to interference by hemolysis. Suggest reorder as clinically indicated. Performed By: #### C BCDIF, CMP, LIPA, MG1 #### [place] [address] Protein [Mass/Vol] 7.2 g/dL Normal 6.3-8.0 [facility] Comment on above: Performed By: #### C BCDIF, CMP, LIPA, MG1 #### [place] [address] Sodium [Moles/Vol] 142 mmol/L Normal 136-144 [facility] Comment on above: Performed By: #### C BCDIF, CMP, LIPA, MG1 #### [place] [address] Urea nitrogen [Mass/Vol] 11 mg/dL Normal 7-21 [facility] Comment on above: Performed By: #### C BCDIF, CMP, LIPA, MG1 #### [place] [address] ED NOTEon 12-09-2019 ED NOTE HNO ID: [id number] Author: Cinda MoffettRn) Lucien RN Service: ? Author Type: Registered Nurse Type: ED Notes Filed: 12/09/2019 6:15 PM Note Text: Pt. Was discharged with verbal and written instructions, pt. verbalized understanding. Instructed pt. To follow up with PCP. Pt instructed to return to the ED if symptoms worsen. [facility] ED NOTE HNO ID: [id number] Author: Elinor (Rn) Wade, RN Service: Nursing Author Type: Registered Nurse Type: ED Notes Filed: 12/09/2019 5:10 PM Note Text: Patient sleeping in bed, chest rise and fall noted. Respirations even and unlabored. Patient safety maintained. [facility] ED NOTE HNO ID: [id number] Author: Arin Kenney) Irma Service: ? Author Type: Hitting Coach and Shipfitter Type: ED Notes Filed: 12/09/2019 4:29 PM Note Text: Add on rec sent to lab. [facility] ED NOTE HNO ID: [id number] Author: Clara MoffettRn) REBA Smith Service: ? Author Type: Registered Nurse Type: ED Notes Filed: 12/09/2019 3:29 PM Note Text: Patient transported to CT with Tech. [facility] ED NOTE HNO ID: [id number] Author: Cinda MoffettRn) REBA Mcgraw Service: ? Author Type: Registered Nurse Type: ED Notes Filed: 12/09/2019 3:27 PM Note Text: Urine culture add on sent [facility] ED NOTE HNO ID: [id number] Author: Clara MoffettRn) REBA Smith Service: ? Author Type: Registered Nurse Type: ED Notes Filed: 12/09/2019 3:27 PM Note Text: Medications explained to pt. Pt verbalized understanding. In agreement with plan of care. [facility] ED NOTE HNO ID: [id number] Author: Clara MoffettRn) REBA Smith Service: ? Author Type: Registered Nurse Type: ED Notes Filed: 12/09/2019 3:29 PM Note Text: Medications and the need for IV fluids explained to pt. Pt verbalized understanding. In agreement with plan of care. [facility] ED NOTE HNO ID: [id number] Author: Myron Beal (Medic) Fredo Rose Service: ? Author Type: Hitting Coach and Shipfitter Type: ED Notes Filed: 12/09/2019 1:26 PM Note Text: Labs were drawn and sent. [facility] ED NOTE HNO ID: [id number] Author: Elinor MoffettRnEdyta Olvera RN Service: Nursing Author Type: Registered Nurse Type: ED Notes Filed: 12/09/2019 1:16 PM Note Text: Patient presents to ED for CP, cough, nausea, vomiting. [facility] ED PROV NOTEon 12-09-2019 ED PROV NOTE HNO ID: [id number] Author: Anamika Josue Service: Emergency Medicine Author Type: Physician Music Producer Type: ED Provider Notes Filed: 12/10/2019 7:51 AM Note Text: ED Provider Note Patient Name: Oracio Gong SERVICE DATE: 12/09/19 History Patient presents with: Chest Pain Vomiting 39-year-old white female that presents to the emergency room with complaints of nausea, vomiting, diarrhea and chest pain. The patient states that she started this morning with nausea vomiting and diarrhea and she is dry heaving so much that it is causing her abdominal and chest pain. The patient denies any shortness of breath or diaphoresis. She denies any known ill exposure to gastroenteritis. Pain scale 7/10. Review of systems were reviewed and patient denies fever, chills, headache, visual changes, sore throat or dental complaints, neck pain or stiffness, shortness of breath, cough. Patient denies genitourinary symptoms, skin rash, musculoskeletal issues or neuro deficits. Symptoms not improved with home or OTC medications. No other medical complaints or injuries. No other aggravating or alleviating symptoms other than described as above. History provided by: Patient full time staff interpreter used: No History reviewed. No pertinent past medical history. History reviewed. No pertinent surgical history. No family history on file. Social History Tobacco Use - Smoking status: Never Smoker - Smokeless tobacco: Never Used Substance and Sexual Activity - Alcohol use: Not Currently - Drug use: Never - Sexual activity: Not on file ALLERGIES No Known Allergies Review of Systems Constitutional: Negative. HENT: Negative. Eyes: Negative. Respiratory: Negative. Cardiovascular: Positive for chest pain. Gastrointestinal: Positive for abdominal pain, diarrhea, nausea and vomiting. Genitourinary: Negative. Musculoskeletal: Negative. Skin: Negative. Neurological: Negative. Physical Exam BP 112/81 Pulse 74 Temp (Src) 97.3 (Oral) Resp 16 Ht 5' 3 (1.60m) Wt 128 lb (58.1kg) SpO2 99% BMI 22.68 kg/(m2). Physical Exam Vitals signs and nursing note reviewed. Constitutional: General: She is not in acute distress. Appearance: Normal appearance. She is well-developed and normal weight. She is not ill-appearing or toxic-appearing. HENT: Head: Normocephalic and atraumatic. Right Ear: Tympanic membrane, ear canal and external ear normal. Left Ear: Tympanic membrane, ear canal and external ear normal. Nose: Nose normal. Mouth/Throat: Mouth: Mucous membranes are moist. Eyes: General: Lids are normal. Extraocular Movements: Extraocular movements intact. Conjunctiva/sclera: Conjunctivae normal. Pupils: Pupils are equal, round, and reactive to light. Neck: Musculoskeletal: Full passive range of motion without pain, normal range of motion and neck supple. Trachea: Trachea and phonation normal. Cardiovascular: Rate and Rhythm: Normal rate and regular rhythm. Heart sounds: Normal heart sounds. Pulmonary: Effort: Pulmonary effort is normal. Breath sounds: Normal breath sounds. Abdominal: General: Abdomen is flat. Bowel sounds are increased. Palpations: Abdomen is soft. Tenderness: There is generalized abdominal tenderness. There is no right CVA tenderness, left CVA tenderness, guarding or rebound. Negative signs include Sánchez's sign, Rovsing's sign, McBurney's sign, psoas sign and obturator sign. Hernia: No hernia is present. Musculoskeletal: Normal range of motion. Skin: General: Skin is warm and dry. Neurological: General: No focal deficit present. Mental Status: She is alert and oriented to person, place, and time. Mental status is at baseline. GCS: GCS eye subscore is 4. GCS verbal subscore is 5. GCS motor subscore is 6. Cranial Nerves: No cranial nerve deficit. Psychiatric: Mood and Affect: Mood normal. Speech: Speech normal. Behavior: Behavior normal. Behavior is cooperative. Thought Content: Thought content normal. Judgment: Judgment normal. Diagnostic Testing ED Labs Ordered and Reviewed COMPREHENSIVE METABOLIC PANEL (AK,AV,EU,FV,HL,SARITA,MM ,SP) - Abnormal; Notable for the following components: Result Value Ref Range Glucose 137 (*) 74 - 99 mg/dL Chloride 108 (*) 97 - 105 mmol/L CO2 21 (*) 22 - 30 mmol/L All other components within normal limits CBC + AUTO DIFF (AK,AV,EU,FV,HL,SARITA,MM ,SP) - Abnormal; Notable for the following components: WBC 18.96 (*) 3.70 - 11.00 k/uL Abs Neut (ANC) 16.63 (*) 1.45 - 7.50 k/uL Abs Ector 0.96 (*) <0.87 k/uL All other components within normal limits URINALYSIS WITH MICROSCOPIC (AK,AV,EU,FV,HL,SARITA,MM ,SP) - Abnormal; Notable for the following components: Clarity Cloudy (*) Clear Ketones, Urine 40 (*) Negative Hemoglobin/Blood,Ur Trace (*) Negative RBC, Urine 5-10 (*) 0 - 3 /HPF Bacteria Present (*) 0 /HPF All other components within normal limits MAGNESIUM BLOOD (AK,AV,EU,FV,HL,SARITA,MM ,SP) LIPASE BLOOD (AK,AV,EU,FV,HL,SARITA,MM ,SP) URINE DRUG SCREEN (AK,AV,EU,FV,HL,SARITA,MM ,SP) HCG QUALITATIVE URINE (AK,AV,EU,FV,HL,SARITA,MM ,SP) TROPONIN T (AV,EU,FV,HL,SARITA,MM,SP ) URINE CULTURE (AK,AV,EU,FV,HL,SARITA,MM ,SP) XR CHEST 1V FRONTAL PORT Final Result IMPRESSION: No acute pulmonary findings identified. Selector Packer: JOHN PAUL Transcribe Date/Time: Dec 09 2019 5:00P Dictated by : CHIARA MONTANA MD This examination was interpreted and the report reviewed and electronically signed by: CHIARA MONTANA MD on Dec 09 2019 5:01PM EST CT ABD/PEL W IVCON Final Result IMPRESSION: No evidence of an acute intra-abdominal or pelvic process. Selector Packer: JOHN PAUL Transcribe Date/Time: Dec 09 2019 3:45P Dictated by : ELISABET KEITA MD This examination was interpreted and the report reviewed and electronically signed by: ELISABET KEITA MD on Dec 09 2019 3:53PM EST Procedures ED Course / Clinical Impression Medications NaCl 0.9% 1,000 mL iv bolus (0 mL INTRAVENOUS Infusion Complete 12/09/19 1714) ondansetron (PF) 4 mg injection (ZOFRAN) (4 mg INTRAVENOUS Given 12/09/19 1342) famotidine 20 mg injection (PEPCID) (20 mg INTRAVENOUS Given 12/09/19 1345) morphine 4 mg injection (4 mg INTRAVENOUS Given 12/09/19 1524) ondansetron (PF) 4 mg injection (ZOFRAN) (4 mg INTRAVENOUS Given 12/09/19 1522) metoclopramide HCl 10 mg injection (REGLAN) (10 mg INTRAVENOUS Given 12/09/19 1634) HYDROmorphone 1 mg injection (DILAUDID) (1 mg INTRAVENOUS Given 12/09/19 1634) NaCl 0.9% 1,000 mL iv bolus (0 mL INTRAVENOUS Infusion Complete 12/09/19 1800) Sxs improved with the above meds. Pt tolerated PO Fluids and venancio crackers. Pt feels well enough to be discharged. Discharge Medication List as of 12/09/2019 5:54 PM START taking these medications famotidine (PEPCID) 20 mg tablet Take 2 tablets by mouth twice daily as needed (indigestion). Print RX, Disp-20 tablet, R-0 ondansetron orally disintegrating (ZOFRAN ODT) 8 mg disintegrating tablet Take 1 tablet by mouth every 8 hours as needed. Print RX, Disp-10 tablet, R-1 dicyclomine (BENTYL) 20 mg tablet Take 1 tablet by mouth four times daily as needed (abdominal cramping). Print RX, Disp-20 tablet, R-0 acetaminophen (TYLENOL) 500 mg tablet Take 2 tablets by mouth every 8 hours as needed. Print RX, Disp-50 tablet, R-0 ED Course as of Dec 10 747 Others' Documentation Sun Dec 09, 2019 1320 ECG shows sinus rhythm at 62 bpm with a MA interval of 110 the QTC of 435. Normal axis. Nonspecific ST segment/T-wave abnormalities. No evidence of acute ischemia. [AR] ED Course User Index [AR] Aguila Cantor MD Clinical Impressions as of Dec 10 747 Gastroenteritis Nausea vomiting and diarrhea Generalized abdominal pain Hyperglycemia Leukocytosis, unspecified type Dehydration The patient and/or family as well as anybody present: -if seated in an open space, such as Results Waiting, were asked permission and permission granted if we could proceed with medical questioning and discussion of medical test results -had the results of all tests and the diagnosis reviewed and explained to them and there were no further questions -were given both verbal and written discharge instructions -were instructed of the importance of close follow-up -were told that close follow-up is essential for good health and good outcomes -were given a work/school excuse, if needed -were told that we would call them with final positive culture/lab results -local clinic numbers as well as [facility] follow up numbers were given -if a smoker, were given smoking cessation discharge papers MDM / Disposition / Plan Gastro, Metabolic Abnl, IAN, Dehydration, Cardiopulmonary Event, PNM, Influenza considered as differential diagnoses. Management decisions include D/C home. Additional Tests or Interventions: ECG and IV Fluids EKG INTERPRETATION: Ordered and Reviewed Rhythm: Normal sinus rhythm Rate: 62 Korbel: Normal axis Intervals: Normal MA interval QRS Complex: Normal ST Segment: Nonspecific ST-T changes QT Interval: Normal Compared with Prior: None available Interpretation performed by Anamika Josue PA-C IV fluids were given for the following reasons replacement. Disposition The patient was discharged and given RX. Counseled patient and family regarding radiology results, suspected diagnosis and lab results. As well as the need for follow-up. Discharged home with verbal and written instructions. They were instructed to return as needed for persistent or worsening symptoms or any new concerns. Condition at disposition is improved and stable. SIGNATURE: KAIT Burch Pa-C 12/10/19 0751 Normal [facility] HCG Qual, Urineon 12-09-2019 Beta HCG ( test) Ql (U) Negative Normal Negative [facility] Comment on above: Performed By: #### U HCG, UTOX2, UAWMIC #### [place] [address] Lipaseon 12-09-2019 Lipase [Catalytic activity/Vol] 20 U/L Normal 16-61 [facility] Comment on above: Performed By: #### C BCDIF, CMP, LIPA, MG1 #### [place] [address] Magnesiumon 12-09-2019 Magnesium [Mass/Vol] 2.0 mg/dL Normal 1.7-2.3 [facility] Comment on above: Performed By: #### C BCDIF, CMP, LIPA, MG1 #### [place] [address] Toxicology Screen,Uron 12-09 Amphetamines, Urine Negative Normal Negative [facility] Comment on above: Result Comment: Cuto ff threshold at 1000 ng/mL. Performed By: #### U HCG, UTOX2, UAWMIC #### [place] [address] Barbiturates, Urine Negative Normal Negative [facility] Comment on above: Result Comment: Cuto ff threshold at 200 ng/mL. Performed By: #### U HCG, UTOX2, UAWMIC #### [place] [address] Benzodiazepines, Ur Negative Normal Negative [facility] Comment on above: Result Comment: Cuto ff threshold at 200 ng/mL. Performed By: #### U HCG, UTOX2, UAWMIC #### [place] [address] Cannabinoids, Urine Negative Normal Negative [facility] Comment on above: Result Comment: Cuto ff threshold at 50 ng/mL. Performed By: #### U HCG, UTOX2, UAWMIC #### [place] [address] Cocaine, Urine Negative Normal [facility] Comment on above: Result Comment: Cuto ff threshold at 300 ng/mL. Performed By: #### U HCG, UTOX2, UAWMIC #### [place] [address] Ethanol, Urine <11 Normal <11 [facility] Comment on above: Performed By: #### U HCG, UTOX2, UAWMIC #### [place] [address] Opiates, Urine Negative Normal [facility] Comment on above: Result Comment: Cuto ff threshold at 300 ng/mL. Performed By: #### U HCG, UTOX2, UAWMIC #### [place] [address] Oxycodone, Urine Negative Normal [facility] Comment on above: Result Comment: Cuto ff threshold at 100 ng/mL. Comment: Immunoassay screen only. Cross reactivity with other substances can occur with immunoassay screening. Detection of any drug(s) in this urine toxicology panel is presumptive only. These tests are for medical purposes only and should not be used for compliance monitoring, legal, or forensic use. Samples should be within normal physiological conditions (e.g. pH). This assay does not include adulteration/specimen validity testing. In clinical settings, confirmatory testing is at the practitioner's discretion [1]. If clinically indicated, confirmation by high specificity, quantitative methodology, which includes adulteration/specimen validity testing, may be requested on the same specimen through Client Services ([phone]) if contacted within 48 hours of initial testing. [1]Substance Abuse and Mental Health Services Administration (2012). Clinical Drug Testing in Primary Care Technical Assistance Publication Series 32. Department of Health and Human Services, [place], p.10. Performed By: #### U HCG, UTOX2, UAWMIC #### [place] [address] Phencyclidine, Urine Negative Normal Negative [facility] Comment on above: Result Comment: Cuto ff threshold at 25 ng/mL. Performed By: #### U HCG, UTOX2, UAWMIC #### [place] [address] Troponin Ton 12-09-2019 Troponin T.cardiac [Mass/Vol] ug/L Normal 0.000-0.029 [facility] Comment on above: Result Comment: Resu lts may be falsely decreased due to interference by hemolysis. Suggest reorder as clinically indicated. Performed By: #### T NT ####[place] [id number] Urinalysis with Microscopico n 12-09-2019 Amorphous Crystal Many Normal [facility] Comment on above: Performed By: #### U HCG, UTOX2, UAWMIC #### [place] [address] Bacteria LM.HPF (Urine sed) [#/Area] Present Critically abnormal 0 [facility] Comment on above: Performed By: #### U HCG, UTOX2, UAWMIC #### [place] [address] Bilirubin, Urine Negative Normal Negative [facility] Comment on above: Performed By: #### U HCG, UTOX2, UAWMIC #### [place] [address] Cast SEE COMMENT Normal [address] [place] [address] Comment on above: Result Comment: 0 Performed By: #### U HCG, UTOX2, UAWMIC #### [place] [address] Clarity (U) Cloudy Critically abnormal Clear [facility] Comment on above: Performed By: #### U HCG, UTOX2, UAWMIC #### [place] [address] Color (U) Yellow Normal Yellow [facility] Comment on above: Performed By: #### U HCG, UTOX2, UAWMIC #### [place] [address] Epithelial cells LM.HPF (Urine sed) [#/Area] SEE COMMENT Normal [facility] Comment on above: Result Comment: 08-15 Squamous Performed By: #### U HCG, UTOX2, UAWMIC #### [place] [address] Glucose Ql (U) Negative Normal Negative [facility] Comment on above: Performed By: #### U HCG, UTOX2, UAWMIC #### [place] [address] Hemoglobin/Blood,Ur Trace Critically abnormal Negative [facility] Comment on above: Performed By: #### U HCG, UTOX2, UAWMIC #### [place] [address] Ketones Ql (U) 40 Critically abnormal Negative [facility] Comment on above: Performed By: #### U HCG, UTOX2, UAWMIC #### [place] [address] Leukest Negative Normal Negative [facility] Comment on above: Performed By: #### U HCG, UTOX2, UAWMIC #### [place] [address] Mucus Ql (Urine sed) Moderate Normal [facility] Comment on above: Performed By: #### U HCG, UTOX2, UAWMIC #### [place] [address] Nitrite Ql (U) Negative Normal Negative [facility] Comment on above: Performed By: #### U HCG, UTOX2, UAWMIC #### [place] [address] pH (Bld) 7.5 Normal 4.5-8.0 [facility] Comment on above: Performed By: #### U HCG, UTOX2, UAWMIC #### [place] [address] Protein (U) [Mass/Vol] Negative Normal Negative [facility] Comment on above: Performed By: #### U HCG, UTOX2, UAWMIC #### [place] [address] RBC (U) [#/Vol] 5-10 Critically abnormal 0-3 [facility] Comment on above: Performed By: #### U HCG, UTOX2, UAWMIC #### [place] [address] Specific [place], Ur 1.020 Normal 1.005-1.030 [facility] Comment on above: Performed By: #### U HCG, UTOX2, UAWMIC #### [place] [address] Urobilinogen Qn (U) 0.2 Normal 0.2-1.0 [facility] Comment on above: Performed By: #### U HCG, UTOX2, UAWMIC #### [place] [address] WBC (Bld) [#/Vol] 0-5 Normal 0-5 [facility] Comment on above: Performed By: #### U HCG, UTOX2, UAWMIC #### [place] [address] Urine Cultureon 12-09-2019 Bacteria identified Cx Nom (U) Culture Result - No growth (<1,000 CFU/ml) [facility] Comment on above: Performed By: #### C BCDIF, CMP, LIPA, MG1 #### [facility] [address] [id number] XR CHEST 1V FRONTAL PORTon 0 12-09-2019 XR CHEST 1V FRONTAL PORT * * *Final Report* * * DATE OF EXAM: Dec 09 2019 4:34PM LUX [id number] - XR CHEST 1V FRONTAL PORT / PROCEDURE REASON: Chest pain * * * * Physician Interpretation * * * * EXAMINATION: CHEST RADIOGRAPH (PORTABLE SINGLE VIEW AP) Exam Date/Time: 12/09/2019 4:34 PM CLINICAL HISTORY: Chest pain MQ: XCPR_5 Comparison: None RESULT: Lines, tubes, and devices: Presumed hair braid band overlying the left shoulder. Lungs and pleura: No focal consolidation, sizable pleural effusion, or pneumothorax is identified. Cardiomediastinal silhouette: The heart is not enlarged. Other: . IMPRESSION: No acute pulmonary findings identified. Selector Packer: PSCB Transcribe Date/Time: Dec 09 2019 5:00P Dictated by : CHIARA MONTANA MD This examination was interpreted and the report reviewed and electronically signed by: CHIARA MONTANA MD on Dec 09 2019 5:01PM EST [id number] [facility] Vital Signs Date Time Vital Sign Value Performing Clinician Facility 02-11-2025 15:48-0400 Body mass index (BMI) [Ratio] 25.05 kg/m2 [employer] Work Phone: [facility] 02-11-2025 15:48-0400 Body weight 64.14 kg Juanito Zeke DO Work Phone: [facility] 02-11-2025 15:48-0400 Diastolic blood pressure 64 mm[Hg] Juanito Zeke DO Work Phone: [facility] 02-11-2025 15:48-0400 Systolic blood pressure 100 mm[Hg] Juanito Zeke DO Work Phone: [facility] 01-29-2025 15:08-0400 Body mass index (BMI) [Ratio] 24.94 kg/m2 [employer] DO Work Phone: [facility] 01-29-2025 15:08-0400 Body weight 63.87 kg Juanito Zeke DO Work Phone: [facility] 01-29-2025 15:08-0400 Diastolic blood pressure 80 mm[Hg] Juanito Zeke DO Work Phone: [facility] 01-29-2025 15:08-0400 Systolic blood pressure 112 mm[Hg] Juanito Zeke DO Work Phone: [facility] 01-22-2025 13:21-0400 Body height 160.02 cm Loree Margaritaaya HEEL SHAVER Work Phone: [facility] 01-22-2025 13:21-0400 Body mass index (BMI) [Ratio] 25.1 kg/m2 Loree Margaritaaya HEEL SHAVER Work Phone: [facility] 01-22-2025 13:21-0400 Body weight 64.4 kg Loree Margaritaaya HEEL SHAVER Work Phone: [facility] 12-28-2024 17:20-0500 Body height 160.02 cm Loree Margaritaaya HEEL SHAVER Work Phone: [facility] 12-28-2024 17:20-0500 Body mass index (BMI) [Ratio] 24.7 kg/m2 Loree Margaritaaya HEEL SHAVER Work Phone: [facility] 12-28-2024 17:20-0500 Body temperature 97.5 [degF] Loree Jennifersofyaya HEEL SHAVER Work Phone: [facility] 12-28-2024 17:20-0500 Body weight 63.5 kg Loree Margaritaaya HEEL SHAVER Work Phone: [facility] 12-28-2024 17:20-0500 Diastolic blood pressure 79 mm[Hg] Loree Margaritaaya HEEL SHAVER Work Phone: [facility] 12-28-2024 17:20-0500 Heart rate 79 /min Loree Jennifersofyaya HEEL SHAVER Work Phone: [facility] 12-28-2024 17:20-0500 Respiratory rate 18 /min Loree Fonseca APRN Work Phone: [facility] 12-28-2024 17:20-0500 SaO2% (BldA) [Mass fraction] 98 % Loree Fonseca APRN Work Phone: [facility] 12-28-2024 17:20-0500 Systolic blood pressure 114 mm[Hg] Loree Fonseca APRN Work Phone: [facility] 12-13-2024 09:45-0500 Body height 160.02 cm [facility] 12-13-2024 09:45-0500 Body mass index (BMI) [Ratio] 25 kg/m2 [facility] 12-13-2024 09:45-0500 Body weight 63.95 kg [facility] 11-19-2023 11:55-0500 Body height 160.02 cm Marina Beulah Other [employer] Other 11-19-2023 11:55-0500 Body mass index (BMI) [Ratio] 24.16 kg/m2 Marina Beulah Other [employer] Other 11-19-2023 11:55-0500 Body temperature 99.1 [degF] Marina Beulah Other [employer] Other 11-19-2023 11:55-0500 Body weight 61.87 kg Marina Beulah Other [employer] Other 11-19-2023 11:55-0500 Diastolic blood pressure 74 mm[Hg] Marina Beulah Other [employer] Other 11-19-2023 11:55-0500 Respiratory rate 18 /min Marina Beulah Other [employer] Other 11-19-2023 11:55-0500 SaO2% (BldA) [Mass fraction] 99 % Marina Riojas Other [employer] Other 11-19-2023 11:55-0500 Systolic blood pressure 109 mm[Hg] Marina Riojas Other [employer] Other 05-31-2023 15:15-0400 Body height 160.02 cm Elinor Cai Other [employer] Other 05-31-2023 15:15-0400 Body mass index (BMI) [Ratio] 23.2 kg/m2 Elinor Cai Other [employer] Other 05-31-2023 15:15-0400 Body temperature 99.3 [degF] Elinor Cai Other [employer] Other 05-31-2023 15:15-0400 Body weight 59.42 kg Elinor Cai Other [employer] Other 05-31-2023 15:15-0400 Diastolic blood pressure 85 mm[Hg] Elinor Cai Other [employer] Other 05-31-2023 15:15-0400 Respiratory rate 18 /min Elinor Cai Other [employer] Other 05-31-2023 15:15-0400 SaO2% (BldA) [Mass fraction] 99 % Elinor Cai Other [employer] Other 05-31-2023 15:15-0400 Systolic blood pressure 121 mm[Hg] Elinor Cai Other [employer] Other Encounters Encounter Date Encounter Type Care Provider Facility Start: 02-13-2025 End: 02-13-2025 ambulatory [facility] Start: 02-13-2025 End: 02-13-2025 Encounter for preprocedural cardiovascular examination [facility] Start: 02-11-2025 End: 02-11-2025 Patient encounter procedure Juanito Zeke DO Work Phone: [facility] Comment on above: Pre-operative exam; Menorrhagia with irregular cycle; Abnormal uterine bleeding; Pelvic pain in female Start: 02-11-2025 End: 02-11-2025 Preprocedural examination done Juanito Zeke DO Work Phone: [facility] Work Phone: Start: 02-11-2025 End: 02-11-2025 ambulatory JUANITO ZEKE Not Available Start: 02-11-2025 End: 02-11-2025 Departed Referred Loree Fonseca HEEL SHAVER Work Phone: [facility] Start: 02-04-2025 End: 02-04-2025 ambulatory NON STAFF [facility] Work Phone: Start: 02-04-2025 End: 02-04-2025 Departed Referred Loree Fonseca HEEL SHAVER Work Phone: [facility] Start: 01-29-2025 End: 01-29-2025 Office outpatient visit 15 minutes Juanito Zeke DO Work Phone: [facility] Comment on above: Encounter for consul tation; Menorrhagia with irregular cycle; Dysmenorrhea; PMS (premenstrual syndrome); Menorrhagia with regular cycle Start: 01-29-2025 End: 01-29-2025 ambulatory JUANITO ZEKE Not Available Start: 01-22-2025 End: 01-22-2025 ambulatory NON STAFF [facility] Work Phone: Start: 01-22-2025 End: 01-22-2025 Patient encounter procedure Loree Fonseca HEEL SHAVER Work Phone: [facility] Work Phone: Start: 12-28-2024 End: 12-28-2024 ambulatory NON STAFF [facility] Work Phone: Start: 12-28-2024 End: 12-28-2024 Patient encounter procedure Loree Fonseca HEEL SHAVER Work Phone: [facility] Work Phone: Start: 12-27-2024 End: 12-27-2024 Patient encounter procedure Loree Fonseca HEEL SHAVER Work Phone: [facility] [address] [facility] Work Phone: Start: 12-27-2024 End: 12-27-2024 ambulatory NON STAFF [facility] Work Phone: Start: 12-26-2024 End: 12-26-2024 ambulatory [facility] Start: 12-26-2024 End: 12-26-[address] [facility] [place] [place] Amb[facility] Start: 12-26-2024 End: 12-26-2024 ambulatory [facility] Start: 12-13-2024 End: 12-13-2024 ambulatory [facility] Work Phone: Start: 12-13-2024 End: 12-13-2024 Patient encounter procedure [facility] Work Phone: Start: 10-29-2024 End: 10-29-2024 ambulatory RANCHO TURCIOS [facility] Start: 11-19-2023 End: 11-19-2023 ambulatory Marina Riojas Other [employer] Other Start: 11-19-2023 Office outpatient vi sit 15 minutes Marina Riojas [facility] Start: 05-31-2023 End: 05-31-2023 ambulatory Elinor Cai Other [employer] Other Start: 05-31-2023 Office outpatient vi sit 25 minutes Elinor Cai [facility] Start: 02-17-2022 End: 02-17-[address] HONG MOSS Facility: Start: 06-08-2017 End: 06-09-2017 Ambulatory PASTOR HODGE Facility:[facility] Start: 05-11-2017 End: 05-12-2017 Ambulatory DEFAULT PHYSICIAN Facility:[facility] Procedures Date Procedure Procedure Detail Performing Clinician Start: 02-11-2025 Urnls dip stick/tabl et rgnt non-auto w/o micrscp Juanito [employer]enc[employer] DO Work Phone: Start: 01-17-2025 Microscopic observat ion [Identifier] in Cervix by Cyto stain Juanito Zeke DO Work Phone: Start: 01-17-2025 Cytp cerv/vag auto t hin layer prep mnl screen [facility] Zeke Nurse Start: 12-28-2024 X-ray of sacrum and coccyx, two or more views Loree Fonseca APRN Work Phone: Start: 12-27-2024 MR lumbar spine wo con Loree Fonseca HEEL SHAVER Work Phone: Start: 12-27-2024 XR pre/post mri xray El alex Fonseca HEEL SHAVER Work Phone: Start: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 [address] [place] [id number] PCP - General 06/15/23 Refund Specialist Relationship Specialty Start Date End Date UnallocatedAlton MD [address] [place] [id number] PCP - General 06/15/23 Team Status: Inactive Member Role Status Dates Juanito Alanis DO Attending Provider Active Start : February 04, 2025 End: February 04, 2025 Team Status: Inactive Member Role Status Dates Juanito Alanis DO Attending Provider Active Start : February 11, 2025 End: February 11, 2025 Goals (unrecognized section and content) Goals may be documented in a n alternate section FOR RECORDS PERTAINING TO PATIENTS WHO ARE OR HAVE BEEN ENROLLED IN A CHEMICAL DEPENDENCY/SUBSTANCEABUSE PROGRAM, SOME INFORMATION MAY BE OMITTED. This clinical summary was aggregated from multiple sources. Caution should be exercised in using it in the provision of clinical care. This summary normalizes information from multiple sources, and as a consequence, information in this document may materially change the coding, format and clinical context of patient data. In addition, data may be omitted in some cases. CLINICAL DECISIONS SHOULD BE BASED ON THE PRIMARY CLINICAL RECORDS. [facility]. provides no warranty or guarantee of the accuracy or completeness of information in this document.
--- NOTE | 2025-02-20 12:28 | PM.STRESS ---
Stress Test Stress Test Allergies Allergy/AdvReac Type Severity Reaction Status Date / Time No Known Drug Allergies Allergy Verified 01/30/24 10:09 Requesting physician: ALYSIA CANO Procedure: Exercise treadmill stress test General Information: Reason for Stress Test: [Chest pain, palpitations, dyspnea, preoperative evaluation] Cardiac History and Risk Factors: [None] Resting 12 - Lead Electrocardiogram: Normal sinus rhythm, normal EKG Stress Test: Protocol: [Exercise treadmill] Exercise Capacity: [Normal] Blood Pressure Response: [Normal resting blood pressure: Reduced response to exercise] Rhythm: [Sinus, no significant arrhythmias] ST - Response: [[address] depression seen in leads II, III, aVF, V4, V5 and V6] Patient Response: [Dyspnea, no chest pain] Interpretation: 1. Abnormal exercise treadmill stress test 2. Ischemic ST changes seen in inferolateral leads 3. Botello treadmill score is 3.4. Estimated 1 year mortality is 1.0 to 1.1%. Risk category: Moderate risk. Angiography may be indicated
== END 2025-02-19 11:31 | disposition home or self-care (01) ==
LOC: CARD 11:30
PROVIDERS: Visit Provider Internal Medicine Interventional Cardiology
DX: Z01.810 Encounter for preprocedural cardiovascular examination (principal); R07.89 Other chest pain; R06.02 Shortness of breath
CPT/HCPCS: 93017; 93306

== ENCOUNTER 2025-02-21 14:08 | Outpatient (OUT) | payer OTHER, SELFPAY ==
--- OUTSIDE RECORDS SUMMARY | 2025-02-21 14:31 | XMS_ITS | CCD ---
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 Name Role Phone PHYSICIAN, DEFAULT Unavailable Unavailable [...] Care Unavailable Shayy Lugo APRN Attending Provider LEONEL SÁNCHEZ I Referring Unavailable NO PCP, NO PCP Primary Care Unavailable Loree Fonseca APRN Attending Provider NON STAFF Primary Care Provider UnavailShayy Montejo APRN Attending Provider Unallocated MD, Noms Provider Primary Care Provi laura JUANITO ALANIS Attending Unavailable JUANITO ALANIS Attending Unavailable Juanito Alanis DO Attending Provider [phone] Juanito Alanis DO Attending Provider ALYSIA CANO Attending Unavailable Juanito Alanis Attending Unavailable Juanito Alanis Admitting Unavailable Shayy Lugo Attending Unavailable Shayy Lugo Admitting Unavailable NON STAFF Primary Care Unavailable Loree Fonseca Admitting Unavailable NON STAFF Primary Care Unavailable Loree Fonseca Attending Unavailable Allergies Allergy Classification Reported Allergen(s) Allergy Type Date of Onset Reaction(s) Facility (1 source) Ibuprofen Drug Allergy [facility] Repository (7 sources) Ibuprofen; Translations: [IBUPROFEN] Drug Allergy 12-26-2024 Hives [facility] Repository Medications Current Medications Medication Drug Class(es) Dates Sig (Normalized) Sig (Original) [id number] actuat albuterol 0.09 mg/actuat metered dose [...] Active Start: 02-12-2023 take 1 capsule by [facility] every eight hours Benzonatate 200 MG 1 capsule Orally Three times a day Feb, Not-Taking doxycycline hyclate 100 mg oral tablet (2 sources) Tetracycline-class Drug Start: 11-19-2023 take 1 tablet by mouth every twelve hours Doxycycline Hyclate 100 MG 1 tablet Orally Twice a day for 10 day(s) Nov, Active Start: 02-12-2023 take 1 capsule by [facility] every twelve hours Doxycycline Hyclate 100 MG [...] of micturition] Onset: 12-26-2024 Episodic Menstrual disorders (5 sources) Menometrorrhagia; Translations: [Excessive and frequent menstruation with irregular cycle] Onset: 02-11-2025 01-29-2025 Chronic Nonspecific chest pain (3 sources) [...] Range Facility Office Visiton 02-13-2025 Follow-up visit [id number] Oracio Gong 1980 F Date Provider Department Center 02/13/2025 ALYSIA RINCON AIDEE [facility] Family History Problem Relation Age of Onset COPD Mother Hypertension Mother Heart attack Father Kidney failure Father Heart attack Brother Family Status - Relation Status Age at Mother Alive Father Sister Alive Brother Alive Level of Service:61678 NE OFFICE/OUTPATIENT NEW MODERATE MDM 45 MINUTES Normal [facility] Pathology study report docum entOrdered By: Lars Christianson on 02-13-2025 Pathology study [facility] Other HCG ( test) Ql (U)o n 02-11-2025 Interpretation and review of laboratory results Normal [facility] Preg Test, Ur Negative Negative [facility] Juan Luis 02-11-2025 L - -------- Specimen: [id number] Received: 02/12/25 Status: ALEX Whitley Num: [id number] Spec Type: Surgical Subm Dr: Juanito Alanis Tissues: A Endometrium - Biopsy (ENDOMETRIUM) Procedures: HE/2, Gross/Micro L4 -------- Age/ Patient Sex Location Account Attending Physician -------- Oracio Gong 45/F LABELL [id number] Juanito Alanis -------- SPEC NUM: [id number] RECD: 02/12/25 STATUS: ALEX WHITLEY NUM: [id number] TORITO: 02/11/25-[address] [facility] [address]: Juanito Alanis ENTERED: 02/12/[address] [facility] [address]: Jaylyn,Lab SPEC TYPE: Surgical DEPT: RANDY ALFONSO ENTERED BY: [id number] RECV BY: [id number] ORDERED: HE/2, Gross/Micro L4 ORDERED: HE/2, Gross/Micro [...] submitted in a single cassette. (1, ns, [id number]) LARRY -------- Specimen: [id number] Received: 02/12/25 Status: ALEX Whitley Num: [id number] Spec Type: Surgical Subm Dr: Juanito Alanis Tissues: A Endometrium - Biopsy (ENDOMETRIUM) Procedures: HE/2, Gross/Micro L4 -------- Patient: Oracio Gong [id number] (Continued) -------- Specimen: [id number] Received: 02/12/25 (Continued) Signed (signature on file) Chin-Jack Christianson, MD 02/13/25 1538 -------- Specimen: [id number] Received: 02/12/25 Status: ALEX Scottfarzana Num: [id number] Spec Type: Surgical Subm Dr: Juanito Alanis Tissues: A Endometrium - Biopsy (ENDOMETRIUM) Procedures: HE/Donaldo, Gross/Micro L4 -------- Patient: Oracio Gong [id number] (Continued) -------- Specimen: [id number] Received: 02/12/25 (Continued) Microscopic Description Microscopic examination is performed CPT Codes 49856 -------- -------- Specimen: [id number] Received: 02/12/25 Status: ALEX Whitley Num: [id number] Spec Type: Surgical Subm Dr: Juanito Alanis Tissues: A Endometrium - Biopsy (ENDOMETRIUM) Procedures: HE/2, Gross/Micro L4 -------- Patient: Oracio Gong [id number] (Continued) -------- Signed (signature on file) Lars Christianson MD 02/13/25 1538 Normal [facility] Urinalysis macro (dipstick) panel (U)on 02-11-2025 Bilirubin, UA Negative Negative - 4(70) +++ mg/dL [facility] Blood, UA Negative Negative - 50 Jermaine/mcL [facility] Clarity, UA Clear [facility] Color, UA Yellow [facility] Glucose, UA Negative Negative - 2000(110) ++++ mg/dL [facility] Interpretation and review of laboratory results Abnormal [facility] Ketones, UA Negative Negative - 160(16) ++++ mg/dL [facility] Leukocytes, UA Trace Negative - 500+++ Giuliana/mcL [facility] Nitrite, UA Negative Negative - Positive [facility] pH, UA 5.5 5 - 9 [facility] Protein, UA Negative Negative - 2000(20) ++++ mg/dL [facility] Spec Grav, UA 1.01 1 - 1.03 [facility] care Urobilinogen, UA 0.2 0.2 - 12 mg/[facility] Cyt[facility] Cervical or vaginal smear or scraping studyon 01-17-2025 [facility] X-ray reportOrdered By: Chance Soto on 12-28-2024 [place] [address] XRay Report Signed Patient: Oracio Gong MR#: [id number] : 1980 Acct:[id number] Age/Sex: 44 / F ADM Date: 5 Loc: XDUCLY Room: Type: 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 Lugo APRN Copies to: Shayy Lugo APRN~ Ordering Provider: [...] John Soto M.D.12/28/2024 6:42 PM Dictation Location: [place] [address] Transcribed By: [facility] 12/28/241841 Dictated By: John Soto MD 12/28/241839 Signed By: 12/28/241841 [facility] Work Phone: XR sacrum coccyx min 2Von XR sacrum coccyx min 2V [facility] Main [facility] [address] [place], [place] [id number] XRay Report Signed Patient: Oracio Gong MR#: [id number] : 1980 Acct:[id number] Age/Sex: 44 / F ADM Date: 12/28/24 Loc: XDUCLY Room: Type: 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 Attending Dr: Loree Fonseca APRN Copies to: oLree Fonseca APRN~ Ordering Provider: Loree Fonseca APRN Date of Service: 12/27/24 MR/MR lumbar spine wo con: M54.16 - Radiculopathy, lumbar region ([id number]) XR/XR pre/post mri xray: LUMBAR MRI MRI [...] John Soto M.D.12/27/2024 2:48 PM Dictation Location: [place] [address] Transcribed By: [facility] 12/27/24 1448 Dictated By: John Soto MD 12/27/24 1440 Signed By: 12/27/24 1448 [facility] Work Phone: XR pre/post mri xrayon 12-27 XR pre/post mri xray [facility] Main [facility] [address] [place] [address] MRI Report Signed Patient: Oracio Gong MR#: [id number] : 1980 Acct:[id number] Age/Sex: 44 / F ADM Date: 12/27/24 Loc: [facility] Room: Type: [facility] Attending Dr: Loree Fonseca APRN Copies to: Loree Fonseca APRN Ordering Provider: Loree Fonseca APRN Date of Service: 12/27/24 MR/MR lumbar spine wo con: M54.16 - Radiculopathy, lumbar region ([id number]) XR/XR pre/post mri xray: LUMBAR MRI MRI [...] Mild degenerative changes L5-S1. Impression dictated by: oJhn Soto M.D.12/27/2024 2:48 PM Dictation Location: RADIO-PC-29 Transcribed By: [facility] 12/27/24 1448 Dictated By: John Soto MD 12/27/24 1440 Signed By: 12/27/24 1448 Normal [facility] UA (MICROSCOPIC)on 5 R.B.CELLS 2 /hpf Normal 0-5 [facility] Comment on above: Performed By: #### U ROXY #### [facility] ([id number]) [address], [address] [place] [address] SQUAMOUS EPITHELIUM 1 /hpf Normal 0-5 [facility] Comment on above: Performed By: #### U ROXY #### [facility] ([id number]) [address] [place] [address] W.B.CELLS 2 /hpf Normal 0-5 [facility] Comment on above: Performed By: #### U ROXY #### [facility] ([id number]) [address], [address] [place] [address] CT ABDOMEN AND PELVIS W WO C [...] [place] MD on 10/31/2024 8:19 AM Normal [facility] Urinalysis - AUTOMATEDon Appearance (U) clear [facility] Other Bilirubin Ql (U) Negative [employer] Other Color (U) yellow [facility] Other Glucose Ql (U) Negative [facility] Other Hemoglobin Ql (U) trace intact [facility] Other Ketones Ql (U) Negative [facility] Other Leukocyte esterase Test strip Ql (U) trace [facility] Other Nitrite Ql (U) Negative [facility] Other pH (U) 6.0 [pH] [facility] Other Protein Ql (U) Negative [facility] Other Specific gravity (U) [Rel density] 1.015 [facility] Other Urobilinogen (U) [Mass/Vol] 0.2 mg/dL [facility] Other Urinalysis - AUTOMATED [facility] Other CBC AUTO DIFFon 02-17-2022 BASO # 0.0 103/ul Normal 0.0-0.1 [facility] Comment on above: Performed By: #### C #### [facility] [address] [place] [address] Dr. Alex Christianson Basophils/100 WBC (Bld) 0.3 % Normal 0.2-2.0 [facility] Comment on above: Performed By: #### C BC #### [facility] [address] [place] [address] Dr. Alex Christianson EO # 0.0 103/ul Normal 0.0-0.7 [facility] Comment on above: Performed By: #### C BC #### [facility] [address] [place] [address] Dr. Alex Christianson Eosinophils/100 WBC (Bld) 0.3 % Critically low 0.9-7.0 [facility] Comment on above: Performed By: #### C BC #### [facility] [address] [place] [address] Dr. Alex Christianson Erythrocyte distribution width (RBC) [Ratio] 12.4 % Normal 11.0-15.0 [facility] Comment on above: Performed By: #### C BC #### [facility] [address] [place] [address] Dr. Alex Christianson Hematocrit (Bld) [Volume fraction] 42.2 % Normal 36.0-48.0 [facility] Comment on above: Performed By: #### C BC #### [facility] [address] [place] [address] Dr. Alex Christianson Hemoglobin (Bld) [Mass/Vol] 14.0 g/dL Normal 12.0-16.0 [facility] Comment on above: Performed By: #### C BC #### [facility] [address] [place] [address] Dr. Alex Christianson IG # 0.03 10e3/ul Normal 0.00-0.03 [facility] Comment on above: Performed By: #### C BC #### [facility] [address] [place] [address] Dr. Alex Christianson IG % 0.3 % Normal 0.0-0.5 [facility] Comment on above: Performed By: #### C BC #### [facility] [address] [place] [address] [address] Alex Christianson LYMPH # 2.9 103/ul Normal 1.2-3.8 [facility] Comment on above: Performed By: #### C BC #### [facility] [address] [place] [address] [address] Alex Christianson Lymphocytes/100 WBC (Bld) 31.9 % Normal 20.5-60.0 [facility] Comment on above: Performed By: #### C BC #### [facility] [address] [place] [address] Dr. Alex Christianson MANUAL DIFF REQ NO Normal [facility] Comment on above: Performed By: #### C BC #### [facility] [address] [place] [address] Dr. Alex Christianson MCH (RBC) [Entitic mass] 29.8 pg Normal 26.7-34.0 [facility] Comment on above: Performed By: #### C BC #### [facility] [address] [place] [address] Dr. Alex Christianson MCHC (RBC) [Mass/Vol] 33.2 g/dL Normal 29.9-35.2 [facility] Comment on above: Performed By: #### C BC #### [facility] [address] [place] [address] Dr. Alex Christianson MCV (RBC) [Entitic vol] 89.8 fL Normal 81.0-99.0 [facility] Comment on above: Performed By: #### C BC #### [facility] [address] [place] [address] Dr. Alex Christianson MONO # 0.6 103/ul Normal 0.3-0.8 [facility] Comment on above: Performed By: #### C BC #### [facility] [address] [place] [address] Dr. Alex Christianson Monocytes/100 WBC (Bld) 6.2 % Normal 1.7-12.0 [facility] Comment on above: Performed By: #### C BC #### [facility] [address] [place] [address] [address] Alex Christianson NEUT # 5.6 103/ul Normal 1.4-6.5 [facility] Comment on above: Performed By: #### C BC #### [facility] [address] [place] [address] Dr. Alex Christianson Neutrophils/100 WBC (Bld) 61.0 % Normal 43.0-75.0 [facility] Comment on above: Performed By: #### C BC #### [facility] [address] [place] [address] Dr. Alex Christianson Platelet mean volume (Bld) [Entitic vol] 9.2 fL Critically low 9.5-13.5 [facility] Comment on above: Performed By: #### C BC #### [facility] [address] [place] [address] Dr. Alex Christianson PLT 258 103/ul Normal 150-450 [facility] Comment on above: Performed By: #### C BC #### [facility] [address] [place] [address] Dr. Alex Christianson RBC 4.70 106/ul Normal 4.20-5.40 [facility] Comment on above: Performed By: #### C BC #### [facility] [address] [place] [address] Dr. Alex Christianson WBC 9.1 103/ul Normal 4.0-11.0 [facility] Comment on above: Performed By: #### C BC #### [facility] [address] [place] [address] Dr. Alex Christianson D-DIMERon 02-17-2022 D-DIMER <0.19 Normal 0.19-0.50 [facility] Comment on above: Performed By: #### D DIM #### [facility] [address] [place] [address] Dr. Alex Christianson D-DIMER COMMENTS SEE BELOW Normal [facility] Comment on above: Result Comment: Incr eases [...] hospitalization. Performed By: #### D DIM #### [facility] [address] [place] [address] Dr. Alex Christianson ER URINE PROFILEon 2 Bilirubin Ql (U) Negative Normal NEGATIVE [facility] Comment on above: Performed By: #### E RUR, PREGU, UMICRO #### [facility] [address] [place] [address] Dr. Alex Christianson Clarity (U) CLEAR Normal CLEAR [facility] Comment on above: Performed By: #### E RUR, PREGU, UMICRO #### [facility] [address] [place] [address] Dr. Alex Christianson Color (U) LT. YELLOW Normal YELLOW [facility] Comment on above: Performed By: #### E RUR, PREGU, UMICRO #### [facility] [address] [place] [address] Dr. Alex DRISCOLL A micrscopic examination will be performed if indicated. Normal [facility] Comment on above: Performed By: #### E RUR, PREGU, UMICRO #### [facility] [address] [place] [address] Dr. Alex Christianson Glucose Ql (U) Negative Normal NEGATIVE [facility] Comment on above: Performed By: #### E RUR, PREGU, UMICRO #### [facility] [address] [place] [address] Dr. Alex Christianson Hemoglobin Ql (U) TRACE-INTACT Abnormal NEGATIVE [facility] Comment on above: Performed By: #### E RUR, PREGU, UMICRO #### [facility] [address] [place] [address] Dr. Alex Christianson Ketones Ql (U) Negative Normal NEGATIVE [facility] Comment on above: Performed By: #### E RUR, PREGU, UMICRO #### [facility] [address] [address] [address] Alex Christianson LEUKOCYTES TRACE Abnormal NEGATIVE [facility] Comment on above: Performed By: #### E RUR, PREGU, UMICRO #### [facility] [address] [place] [address] [address] Alex Christianson Nitrite Ql (U) Negative Normal NEGATIVE [facility] Comment on above: Performed By: #### E RUNatali PREGU, UMICRO #### [facility] [address] [place] [address] [address] Alex Christianson pH (U) 5.5 [pH] Normal 5-9 [facility] Comment on above: Performed By: #### Shannon VILLARREAL PREGU, UMICRO #### [facility] [address] [place] [address] Dr. Alex Christianson SPEC GRAVITY <=1.005 Abnormal 1.005-<=1.02 5 [facility] Comment on above: Performed By: #### Shannon VILLARREAL PREGU, UMICRO #### [facility] [address] [place] [address] [address] Alex Christianson UA PROTEIN Negative Normal NEGATIVE/ TRACE [facility] Comment on above: Performed By: #### Shannon VILLARREAL PREGU, UMICRO #### [facility] [address] [place] [address] Dr. Alex Christianson UR MICRO IND INDICATED Normal [facility] Comment on above: Performed By: #### Shannon VILLARREAL PREGU, UMICRO #### [facility] [address] [place] [address] Dr. Alex Christianson Urobilinogen Qn (U) 0.2 {Angie'U}/dL Normal 0.2 - 1. 0 [facility] Comment on above: Performed By: #### Shannon RUR, PREGU, UMICRO #### [facility] [address] [place] [address] Dr. Alex Christianson URon 02-17-2022 , QUAL Negative Normal NEGATIVE [facility] Comment on above: Performed By: #### E LEOBARDO VILLARREAL UMICRO #### [facility] [address] [address] [address] Alex Christianson PROF 14(COMP METB)on 022 Albumin [Mass/Vol] 4.2 g/dL Normal 3.4-5.0 [facility] Comment on above: Performed By: #### H STROPN, CMP #### [facility] [address] [place] [address] [address] Alex Christianson Albumin/Globulin [Mass ratio] 1.4 {ratio} Normal [facility] Comment on above: Performed By: #### H STROPN, CMP #### [facility] [address] [place] [address] Dr. Alex Christianson ALP [Catalytic activity/Vol] 49 U/L Normal 46-116 [facility] Comment on above: Performed By: #### H MANOLOPN, CMP #### [facility] [address] [place] [address] Dr. Alex Christianson ALT [Catalytic activity/Vol] 30 U/L Normal 14-59 [facility] Comment on above: Performed By: #### H STROPN, CMP #### [facility] [address] [place] [address] Dr. Alex Christianson Anion gap [Moles/Vol] 14.6 mmol/L Normal [facility] Comment on above: Performed By: #### H STROPN, CMP #### [facility] [address] [place] [address] [address] Alex Christianson AST [Catalytic activity/Vol] 24 U/L Normal 15-37 [facility] Comment on above: Performed By: #### H STROPN, CMP #### [facility] [address] [place] [address] [address] Alex Christianson Bilirubin [Mass/Vol] 0.6 mg/dL Normal 0.2-1.3 [facility] Comment on above: Performed By: #### H STROPN, CMP #### [facility] [address] [place] [address] [address] Alex Christianson Calcium [Mass/Vol] 9.2 mg/dL Normal 8.5-10.[address] [facility] Comment on above: Performed By: #### H STROPN, CMP #### [facility] [address] [place] [address] Dr. Alex Christianson Chloride [Moles/Vol] 104 mmol/L Normal 98-107 [facility] Comment on above: Performed By: #### H STROPN, CMP #### [facility] [address] [place] [address] Dr. Alex Christianson CO2 [Moles/Vol] 24.2 mmol/L Normal 22.0-30.0 [facility] Comment on above: Performed By: #### H STROPN, CMP #### [facility] [address] [place] [address] Dr. Alex Christianson Creatinine [Mass/Vol] 0.78 mg/dL Normal 0.52-1.04 [facility] Comment on above: Performed By: #### H STROPN, CMP #### [facility] [address] [place] [address] Dr. Alex Christianson EGFR-AF [place] >60 Normal >=60 [facility] Comment on above: Performed By: #### H STROPN, CMP #### [facility] [address] [place] [address] Dr. Alex Christianson EGFR-NON AF [place] >60 Normal >=60 [facility] Comment on above: Performed By: #### H STROPN, CMP #### [facility] [address] [place] [address] Dr. Alex Christianson Globulin (S) [Mass/Vol] 3.0 g/dL Normal [facility] Comment on above: Performed By: #### H STROPN, CMP #### [facility] [address] [address] [address] Alex Christianson Glucose [Mass/Vol] 82 mg/dL Normal 74-[address] [facility] Comment on above: Performed By: #### H STROPN, CMP #### [facility] [address] [place] [address] Dr. Alex Christianson Potassium [Moles/Vol] 3.8 mmol/L Normal 3.4-5.0 [facility] Comment on above: Performed By: #### H MICHELLE, CMP #### [facility] [address] [place] [address] Dr. Alex Christianson Protein [Mass/Vol] 7.2 g/dL Normal 6.1-8.2 [facility] Comment on above: Performed By: #### H MICHELLE, CMP #### [facility] [address] [place] [address] Dr. Alex Christianson Sodium [Moles/Vol] 139 mmol/L Normal 137-[address] [facility] Comment on above: Performed By: #### H MICHELLE, CMP #### [facility] [address] [place] [address] Dr. Alex Christianson Urea nitrogen [Mass/Vol] 23.0 mg/dL Critically high 7.0-18.0 [facility] Comment on above: Performed By: #### H MICHELLE, CMP #### [facility] [address] [place] [address] Dr. Alex Christianson Urea nitrogen/Creatinine [Mass ratio] 29.5 mg/mg Normal [facility] Comment on above: Performed By: #### H MICHELLE, CMP #### [facility] [address] [place] [address] Dr. Alex Christianson PROTIMEon 02-17-2022 INR Coag (PPP) [Relative time] 1.01 {INR} Normal [facility] Comment on above: Performed By: #### P T, PTT #### [facility] [address] [place] [address] Dr. Alex Christianson INR GUIDELINES SEE BELOW Normal [facility] Comment on above: Result Comment: DOUGLAS RED INR: 2.0 - 3.0 CONDITIONS NOT LISTED BELOW 2.5 - 3.5 FOR PROSTHETIC HEART VALVE REPLACEMENT 2.5 - 3.5 RECURRENT THROMBOSIS Performed By: #### P T, PTT #### [facility] [address] [place] [address] Dr. Alex Christianson PT Coag (PPP) [Time] 10.9 s Normal 9.0-11.6 [facility] Comment on above: Performed By: #### P T, PTT #### [facility] [address] [address] [address] Alex Christianson PTTon 02-17-2022 aPTT Coag (Bld) [Time] 27.3 s Normal 22.3-36.2 [facility] Comment on above: Performed By: #### P T, PTT #### [facility] [address] [address] [address] Alex Christianson TROPONIN, HIGH SENSITIVITYon 02-17-2022 HSTROP 4.5 pg/mL Normal 4.0-35.5 [facility] Comment on above: Result Comment: CUT- OFF POINTS HAVE BEEN ESTABLISHED BASED ON THE FOURTH UNIVERSAL DEFINITIONS OF MYOCARDIAL INFARCTION. THE UPPER REFERENCE LIMIT (URL) OF TROPONIN, DEFINED THE 99TH PERCENTILE OF cTnI DISTRIBUTION IN A REFERENCE POPULATION, HAS BEEN CONFIRMED THE DECISION THRESHOLD FOR [place] DIAGNOSIS. Performed By: #### H STROPN, CMP #### [facility] [address] [address] [address] Alex Christianson URINE MICROSCOPIC ONLYon BACTERIA NONE SEEN Normal NONE SEEN [facility] Comment on above: Performed By: #### LEOBARDO HELMS UMICRO ####[facility] [address] [place], [place] [address]Dr. Alex Christianson Bacteria identified Cx Nom (U) NOT INDICATED Normal [facility] Comment on above: Performed By: #### E RUR PREGU UMICRO ####[facility] [address] [address]Dr. Alex Christianson CAST NONE SEEN Normal NONE SEEN [facility] Comment on above: Performed By: #### E RUR PREGU UMICRO ####[facility] [address] [address]DrIfrah Christianson Crystals LM Nom (Urine sed) NONE SEEN Normal NONE SEEN [facility] Comment on above: Performed By: #### E RUR, PREGU, UMICRO ####[facility] [address] [address]DrIfrah Christianson Epithelial cells LM Ql (Urine sed) FEW Abnormal NONE SEEN /RARE [facility] Comment on above: Performed By: #### E RURHAYDENU UMICRO ####[facility] [address] [place], [place] [address]Mx. Alex Christianson MUCOUS NONE SEEN Normal NONE SEEN [facility] Comment on above: Performed By: #### E RUR PREGU UMICRO ####[facility] [address] [id number]. Alex Christianson RBC 0-2 Normal 0-2 [facility] Comment on above: Performed By: #### E RULEOBARDO Hurst UMICRO ####[facility] [address] [id number]. Alex Christianson WBC 0-2 Abnormal NONE SEEN [facility] Comment on above: Performed By: #### E RURHAYDENU UMICRO ####[facility] [address] [id number]. Alex Christianson US ARCHANA DOP LEG BILon [...] by: HONG MOSS Date: 2022-02-17 14:41 Normal [facility] XR CHEST 2 Von 02-17-2022 XR CHEST [...] by: ANDREW WHITT Date: 2022-02-17 14:41 Normal [facility] ALLIED HEALTHon 12-09-2019 ALLIED HEALTH HNO ID: [id number] Author: Daysi MoffettRtOdilon Donahue Service: Radiology Author Type: Welder Production Line Arc Type: Allied Health Filed: 12/09/2019 5:01 PM [...] RT Tracee December 09, 2019 5:01 PM [facility] HNO ID: [id number] Author: Odilon Harrison (Ct) Service: Radiology Author Type: Welder Production Line Arc Type: Allied Health Filed: 12/09/2019 3:44 PM [...] YANA Harrison December 09, 2019 3:44 PM [facility] CBC and Differentialon 12-09 Abs Baso 0.05 k/uL Normal <0.11 [facility] Comment on above: Performed By: #### C BCDIF, CMP, LIPA, MG1 #### [address] [address] Abs Niobrara 0.96 k/uL High <0.87 [facility] Comment on above: Performed By: #### C BCDIF, CMP, LIPA, MG1 #### [address] [address] Abs Neut 16.63 k/uL High 1.45-7.50 [facility] Comment on above: Performed By: #### C BCDIF, CMP, LIPA, MG1 #### [place] [address] Absolute nRBC <0.01 Normal <0.01 [facility] Comment on above: Performed By: #### C BCDIF, CMP, LIPA, MG1 #### [place] [address] Basophils/100 WBC (Bld) 0.3 % [facility] Comment on above: Performed By: #### C BCDIF, CMP, LIPA, MG1 #### [place] [address] DTYPE Auto Diff [facility] Comment on above: Performed By: #### C BCDIF, CMP, LIPA, MG1 #### [place] [address] Eosinophils (Bld) [#/Vol] 10*3/uL Normal <0.46 [facility] Comment on above: Performed By: #### C BCDIF, CMP, LIPA, MG1 #### [place] [address] Eosinophils/100 WBC (Bld) 0.1 % [facility] Comment on above: Performed By: #### C BCDIF, CMP, LIPA, MG1 #### [place] [address] Erythrocyte distribution width (RBC) [Ratio] 13.4 % Normal 11.5-15.0 [facility] Comment on above: Performed By: #### C BCDIF, CMP, LIPA, MG1 #### [place] [address] Hematocrit (Bld) [Volume fraction] 43.9 % Normal 36.0-46.0 [facility] Comment on above: Performed By: #### C BCDIF, CMP, LIPA, MG1 #### [place] [address] Hemoglobin (Bld) [Mass/Vol] 14.4 g/dL Normal 11.5-15.5 [facility] Comment on above: Performed By: #### C BCDIF, CMP, LIPA, MG1 #### [place] [address] Lymphocytes (Bld) [#/Vol] 1.31 10*3/uL Normal 1.00-4.00 [facility] Comment on above: Performed By: #### C BCDIF, CMP, LIPA, MG1 #### [place] [address] Lymphocytes/100 WBC (Bld) 6.9 % Normal [facility] Comment on above: Performed By: #### C BCDIF, CMP, LIPA, MG1 #### [place] [address] MCH (RBC) [Entitic mass] 30.4 pG Normal 26.0-34.0 [facility] Comment on above: Performed By: #### C BCDIF, CMP, LIPA, MG1 #### [place] [address] MCHC (RBC) [Mass/Vol] 32.8 g/dL Normal 30.5-36.0 [facility] Comment on above: Performed By: #### C BCDIF, CMP, LIPA, MG1 #### [place] [address] MCV (RBC) [Entitic vol] 92.6 fL Normal 80.0-100.0 [facility] Comment on above: Performed By: #### C BCDIF, CMP, LIPA, MG1 #### [place] [address] Monocytes/100 WBC (Bld) 5.1 % Normal [facility] Comment on above: Performed By: #### C BCDIF, CMP, LIPA, MG1 #### [place] [address] Neutrophils/100 WBC (Bld) 87.6 % Normal [facility] Comment on above: Performed By: #### C BCDIF, CMP, LIPA, MG1 #### [place] [address] NRBCs 0.0 /100 WBC Normal 0 [facility] Comment on above: Performed By: #### C BCDIF, CMP, LIPA, MG1 #### [place] [address] Platelet mean volume (Bld) [Entitic vol] 9.1 fL Normal 9.0-12.7 [facility] Comment on above: Performed By: #### C BCDIF, CMP, LIPA, MG1 #### [place] [address] Platelets (Bld) [#/Vol] 251 10*3/uL Normal 150-400 [facility] Comment on above: Performed By: #### C BCDIF, CMP, LIPA, MG1 #### [place] [address] RBC (Bld) [#/Vol] 4.74 10*6/uL Normal 3.90-5.20 [facility] [place] Comment on above: Performed By: #### C BCDIF, CMP, LIPA, MG1 #### [place] [address] WBC (Bld) [#/Vol] 18.96 10*3/uL High 3.70-11.00 [facility] Comment on above: Performed By: #### C BCDIF, CMP, LIPA, MG1 #### [place] [address] CT ABD/PEL W IVCONon 020 CT ABD/PEL [...] of an acute intra-abdominal or pelvic process. Roping Machine Tender: [facility] Transcribe Date/Time: Dec 09 2019 3:45P Dictated by : ELISABET KEITA MD This examination was interpreted and the report reviewed and electronically signed by: ELISABET KEITA MD on Dec 09 2019 3:53PM EST [id number] N Normal [facility] Comp Metabolic Panelon 12-09 Albumin [Mass/Vol] 4.5 g/dL Normal 3.9-4.9 [facility] Comment on above: Performed By: #### C BCDIF, CMP, LIPA, MG1 #### [facility] [address] [place] [address] ALP [Catalytic activity/Vol] 41 U/L Normal 34-123 [facility] Comment on above: Performed By: #### C BCDIF, CMP, LIPA, MG1 #### [place] [address] ALT [Catalytic activity/Vol] 21 U/L Normal 7-38 [facility] Comment on above: Result Comment: Resu lts may be falsely increased due to interference by hemolysis. Suggest reorder as clinically indicated. Performed By: #### C BCDIF, CMP, LIPA, MG1 #### [place] [address] Anion gap [Moles/Vol] 13 mmol/L Normal 9-18 [facility] Comment on above: Performed By: #### C BCDIF, CMP, LIPA, MG1 #### [place] [address] AST [Catalytic activity/Vol] 29 U/L Normal 13-35 [facility] Comment on above: Result Comment: Resu lts may be falsely increased due to interference by hemolysis. Suggest reorder as clinically indicated. Performed By: #### C BCDIF, CMP, LIPA, MG1 #### [place] [address] Bilirubin [Mass/Vol] 0.5 mg/dL Normal 0.2-1.3 [facility] Comment on above: Performed By: #### C BCDIF, CMP, LIPA, MG1 #### [place] [address] Calcium [Mass/Vol] 9.5 mg/dL Normal 8.5-10.2 [facility] Comment on above: Performed By: #### C BCDIF, CMP, LIPA, MG1 #### [place] [address] Chloride [Moles/Vol] 108 mmol/L High 97-105 [facility] Comment on above: Performed By: #### C BCDIF, CMP, LIPA, MG1 #### [place] [address] CO2 [Moles/Vol] 21 mmol/L Low 22-30 [facility] Comment on above: Performed By: #### C BCDIF, CMP, LIPA, MG1 #### [place] [address] Creatinine [Mass/Vol] 0.65 mg/dL Normal 0.58-0.96 [facility] Comment on above: Performed By: #### C BCDIF, CMP, LIPA, MG1 #### [place] [address] eGFR- Amer. >60 Normal >60 [facility] Comment on above: Performed By: #### C BCDIF, CMP, LIPA, MG1 #### [place] [address] GFR/1.73 sq M predicted among non-blacks MDRD (S/P/Bld) [Vol rate/Area] mL/min/{1.73_m2} Normal >60 [facility] Comment on above: Result Comment: eGFR (Estimated [...] #### C BCDIF, CMP, LIPA, MG1 #### [place] [address] Glucose [Mass/Vol] 137 mg/dL High 74-99 [facility] Comment on above: Performed By: #### C BCDIF, CMP, LIPA, MG1 #### [place] [address] Potassium [Moles/Vol] 4.9 mmol/L Normal 3.7-5.1 [facility] Comment on above: Result Comment: Resu lts may be falsely increased due to interference by hemolysis. Suggest reorder as clinically indicated. Performed By: #### C BCDIF, CMP, LIPA, MG1 #### [place] [address] Protein [Mass/Vol] 7.2 g/dL Normal 6.3-8.0 [facility] Comment on above: Performed By: #### C BCDIF, CMP, LIPA, MG1 #### [place] [address] Sodium [Moles/Vol] 142 mmol/L Normal 136-144 [facility] Comment on above: Performed By: #### C BCDIF, CMP, LIPA, MG1 #### [place] [address] Urea nitrogen [Mass/Vol] 11 mg/dL Normal 7-21 [facility] Comment on above: Performed By: #### C BCDIF, CMP, LIPA, MG1 #### [place] [address] ED NOTEon 12-09-2019 ED NOTE HNO ID: [id number] Author: Cinda MoffettRn) Lucien RN Service: ? Author Type: Registered Nurse Type: ED Notes Filed: 12/09/2019 6:15 PM Note Text: Pt. Was discharged with verbal and written instructions, pt. verbalized understanding. Instructed pt. To follow up with PCP. Pt instructed to return to the ED if symptoms worsen. [facility] ED NOTE HNO ID: [id number] Author: Elinor (Rn) Wade, RN Service: Nursing Author Type: Registered Nurse Type: ED Notes Filed: 12/09/2019 5:10 PM Note Text: Patient sleeping in bed, chest rise and fall noted. Respirations even and unlabored. Patient safety maintained. [facility] ED NOTE HNO ID: [id number] Author: Arin (Medic) Irma Service: ? Author Type: Recreation Instructor and Welder Production Line Arc Type: ED Notes Filed: 12/09/2019 4:29 PM Note Text: Add on rec sent to lab. [facility] ED NOTE HNO ID: [id number] Author: Clara MoffettRn) REBA Smith Service: ? Author Type: Registered Nurse Type: ED Notes Filed: 12/09/2019 3:29 PM Note Text: Patient transported to CT with Tech. [facility] ED NOTE HNO ID: [id number] Author: Cinda MoffettRn) REBA Mcgraw Service: ? Author Type: Registered Nurse Type: ED Notes Filed: 12/09/2019 3:27 PM Note Text: Urine culture add on sent [facility] ED NOTE HNO ID: [id number] Author: Clara MoffettRn) REBA Smith Service: ? Author Type: Registered Nurse Type: ED Notes Filed: 12/09/2019 3:27 PM Note Text: Medications explained to pt. Pt verbalized understanding. In agreement with plan of care. [facility] ED NOTE HNO ID: [id number] Author: Clara MoffettRn) REBA Smith Service: ? Author Type: Registered Nurse Type: ED Notes Filed: 12/09/2019 3:29 PM Note Text: Medications and the need for IV fluids explained to pt. Pt verbalized understanding. In agreement with plan of care. [facility] ED NOTE HNO ID: [id number] Author: Myron Beal (Medic) Fredo Rose Service: ? Author Type: Recreation Instructor and Welder Production Line Arc Type: ED Notes Filed: 12/09/2019 1:26 PM Note Text: Labs were drawn and sent. [facility] ED NOTE HNO ID: [id number] Author: Elinor MoffettRn) Wade RN Service: Nursing Author Type: Registered Nurse Type: ED Notes Filed: 12/09/2019 1:16 PM Note Text: Patient presents to ED for CP, cough, nausea, vomiting. [facility] ED PROV NOTEon 12-09-2019 ED PROV NOTE HNO ID: [id number] Author: Anamika Josue Service: Emergency Medicine Author Type: Physician Kitchen Runner Type: ED Provider Notes Filed: 12/10/2019 7:51 [...] described as above. History provided by: Patient park interpreter used: No History reviewed. No pertinent [...] 16.63 (*) 1.45 - 7.50 k/uL Abs Niobrara 0.96 (*) <0.87 k/uL All other components [...] Result IMPRESSION: No acute pulmonary findings identified. Roping Machine Tender: JOHN PAUL Transcribe Date/Time: Dec 09 2019 5:00P Dictated by : CHIARA MONTANA MD This examination was interpreted and the report reviewed and electronically signed by: CHIARA MONTANA MD on Dec 09 2019 5:01PM EST CT ABD/PEL W IVCON Final Result IMPRESSION: No evidence of an acute intra-abdominal or pelvic process. Roping Machine Tender: JOHN PAUL Transcribe Date/Time: Dec 09 2019 [...] sinus rhythm at 62 bpm with a NE interval of 110 the QTC of 435. [...] Reviewed Rhythm: Normal sinus rhythm Rate: 62 [place]: Normal axis Intervals: Normal NE interval QRS Complex: Normal ST Segment: Nonspecific [...] SIGNATURE: KAIT Burch Pa-C 12/10/19 0751 Normal [facility] HCG Qual, Urineon 12-09-2019 Beta HCG ( test) Ql (U) Negative Normal Negative [facility] Comment on above: Performed By: #### U HCG, UTOX2, UAWMIC #### [place] [address] Lipaseon 12-09-2019 Lipase [Catalytic activity/Vol] 20 U/L Normal 16-61 [facility] Comment on above: Performed By: #### C BCDIF, CMP, LIPA, MG1 #### [place] [address] Magnesiumon 12-09-2019 Magnesium [Mass/Vol] 2.0 mg/dL Normal 1.7-2.3 [facility] Comment on above: Performed By: #### C BCDIF, CMP, LIPA, MG1 #### [place] [address] Toxicology Screen,Uron 12-09 Amphetamines, Urine Negative Normal Negative [facility] [place] Comment on above: Result Comment: Cuto ff threshold at 1000 ng/mL. Performed By: #### U HCG, UTOX2, UAWMIC #### [place] [address] Barbiturates, Urine Negative Normal Negative [facility] [place] Comment on above: Result Comment: Cuto ff threshold at 200 ng/mL. Performed By: #### U HCG, UTOX2, UAWMIC #### [place] [address] Benzodiazepines, Ur Negative Normal Negative [facility] [place] Comment on above: Result Comment: Cuto ff threshold at 200 ng/mL. Performed By: #### U HCG, UTOX2, UAWMIC #### [place] [address] Cannabinoids, Urine Negative Normal Negative [facility] [place] Comment on above: Result Comment: Cuto ff threshold at 50 ng/mL. Performed By: #### U HCG, UTOX2, UAWMIC #### [place] [address] Cocaine, Urine Negative Normal [facility] Comment on above: Result Comment: Cuto ff threshold at 300 ng/mL. Performed By: #### U HCG, UTOX2, UAWMIC #### [place] [address] Ethanol, Urine <11 Normal <11 [facility] Comment on above: Performed By: #### U HCG, UTOX2, UAWMIC #### [place] [address] Opiates, Urine Negative Normal [facility] Comment on above: Result Comment: Cuto ff threshold at 300 ng/mL. Performed By: #### U HCG, UTOX2, UAWMIC #### [place] [address] Oxycodone, Urine Negative Normal [facility] Comment on above: Result Comment: Cuto [...] on the same specimen through Client Services ([phone]) if contacted within 48 hours of initial testing. [1]Substance Abuse and Mental Health Services Administration (2012). Clinical Drug Testing in Primary Care Technical Assistance Publication Series 32. Department of Health and Human Services, [place], p.10. Performed By: #### U HCG, UTOX2, UAWMIC #### [place] [address] Phencyclidine, Urine Negative Normal Negative [facility] Comment on above: Result Comment: Cuto ff threshold at 25 ng/mL. Performed By: #### U HCG, UTOX2, UAWMIC #### [place] [address] Troponin Ton 12-09-2019 Troponin T.cardiac [Mass/Vol] ug/L Normal 0.000-0.029 [facility] Comment on above: Result Comment: Resu lts may be falsely decreased due to interference by hemolysis. Suggest reorder as clinically indicated. Performed By: #### T NT ####[address] [id number] Urinalysis with Microscopico n 12-09-2019 Amorphous Crystal Many Normal [facility] Comment on above: Performed By: #### U HCG, UTOX2, UAWMIC #### [place] [address] Bacteria LM.HPF (Urine sed) [#/Area] Present Critically abnormal [address] [place] [address] Comment on above: Performed By: #### U HCG, UTOX2, UAWMIC #### [place] [address] Bilirubin, Urine Negative Normal Negative [facility] Comment on above: Performed By: #### U HCG, UTOX2, UAWMIC #### [place] [address] Cast SEE COMMENT Normal [address] [place] [address] Comment on above: Result Comment: 0 Performed By: #### U HCG, UTOX2, UAWMIC #### [place] [address] Clarity (U) Cloudy Critically abnormal Clear [facility] Comment on above: Performed By: #### U HCG, UTOX2, UAWMIC #### [place] [address] Color (U) Yellow Normal Yellow [facility] Comment on above: Performed By: #### U HCG, UTOX2, UAWMIC #### [place] [address] Epithelial cells LM.HPF (Urine sed) [#/Area] SEE COMMENT Normal [facility] Comment on above: Result Comment: 08-15 Squamous Performed By: #### U HCG, UTOX2, UAWMIC #### [place] [address] Glucose Ql (U) Negative Normal Negative [facility] Comment on above: Performed By: #### U HCG, UTOX2, UAWMIC #### [place] [address] Hemoglobin/Blood,Ur Trace Critically abnormal Negative [facility] Comment on above: Performed By: #### U HCG, UTOX2, UAWMIC #### [place] [address] Ketones Ql (U) 40 Critically abnormal Negative [facility] Comment on above: Performed By: #### U HCG, UTOX2, UAWMIC #### [place] [address] Leukest Negative Normal Negative [facility] Comment on above: Performed By: #### U HCG, UTOX2, UAWMIC #### [place] [address] Mucus Ql (Urine sed) Moderate Normal [facility] Comment on above: Performed By: #### U HCG, UTOX2, UAWMIC #### [place] [address] Nitrite Ql (U) Negative Normal Negative [facility] Comment on above: Performed By: #### U HCG, UTOX2, UAWMIC #### [place] [address] pH (Bld) 7.5 Normal 4.5-8.0 [facility] Comment on above: Performed By: #### U HCG, UTOX2, UAWMIC #### [place] [address] Protein (U) [Mass/Vol] Negative Normal Negative [facility] Comment on above: Performed By: #### U HCG, UTOX2, UAWMIC #### [place] [address] RBC (U) [#/Vol] 5-10 Critically abnormal 0-3 [facility] Comment on above: Performed By: #### U HCG, UTOX2, UAWMIC #### [place] [address] Specific [place], Ur 1.020 Normal 1.005-1.030 [facility] Comment on above: Performed By: #### U HCG, UTOX2, UAWMIC #### [place] [address] Urobilinogen Qn (U) 0.2 Normal 0.2-1.0 [facility] [place] Comment on above: Performed By: #### U HCG, UTOX2, UAWMIC #### [place] [address] WBC (Bld) [#/Vol] 0-5 Normal 0-5 [facility] Comment on above: Performed By: #### U HCG, UTOX2, UAWMIC #### [place] [address] Urine Cultureon 12-09-2019 Bacteria identified Cx Nom (U) Culture Result - No growth (<1,000 CFU/ml) [facility] Comment on above: Performed By: #### C BCDIF, CMP, LIPA, MG1 #### [facility] [address] [place] [address] XR CHEST 1V FRONTAL PORTon 0 12-09-2019 [...] . IMPRESSION: No acute pulmonary findings identified. Roping Machine Tender: [facility] Transcribe Date/Time: Dec 09 2019 5:00P Dictated by : CHIARA MONTANA MD This examination was interpreted and the report reviewed and electronically signed by: CHIARA MONTANA MD on Dec 09 2019 5:01PM EST [id number] N [facility] Vital Signs Date Time Vital Sign Value Performing Clinician Facility 02-11-2025 15:48-0400 Body mass index (BMI) [Ratio] 25.05 kg/m2 [employer] Work Phone: [facility] 02-11-2025 15:48-0400 Body weight 64.14 kg PaeDae Zeke DO Work Phone: [facility] 02-11-2025 15:48-0400 Diastolic blood pressure 64 mm[Hg] InfraReDxo DO Work Phone: [facility] 02-11-2025 15:48-0400 Systolic blood pressure 100 mm[Hg] PaeDae Zeke DO Work Phone: [facility] 01-29-2025 15:08-0400 Body mass index (BMI) [Ratio] 24.94 kg/m2 [employer] Work Phone: [facility] 01-29-2025 15:08-0400 Body weight 63.87 kg Juanito Zeke DO Work Phone: [facility] 01-29-2025 15:08-0400 Diastolic blood pressure 80 mm[Hg] Juanito Zeke DO Work Phone: [facility] 01-29-2025 15:08-0400 Systolic blood pressure 112 mm[Hg] Juanito Zeke DO Work Phone: [facility] 01-22-2025 13:21-0400 Body height 160.02 cm Loree Margaritaaya INSPECTOR CRYSTAL Work Phone: [facility] 01-22-2025 13:21-0400 Body mass index (BMI) [Ratio] 25.1 kg/m2 Loree Turovskaya INSPECTOR [employer] Work Phone: [facility] 01-22-2025 13:21-0400 Body weight 64.4 kg Loree Margaritaaya INSPECTOR [employer]AL Work Phone: [facility] 12-28-2024 17:20-0500 Body height 160.02 cm Loree Jenniferovskaya INSPECTOR [employer] Work Phone: [facility] 12-28-2024 17:20-0500 Body mass index (BMI) [Ratio] 24.7 kg/m2 Loree Jenniferovskaya INSPECTOR CRYSTAL Work Phone: [facility] 12-28-2024 17:20-0500 Body temperature 97.5 [degF] Loree Turovskaya INSPECTOR [employer]AL Work Phone: [facility] 12-28-2024 17:20-0500 Body weight 63.5 kg Loree Jenniferovskaya INSPECTOR [employer]AL Work Phone: [facility] 12-28-2024 17:20-0500 Diastolic blood pressure 79 mm[Hg] Loree Turovskaya INSPECTOR [employer] Work Phone: [facility] 12-28-2024 17:20-0500 Heart rate 79 /min Loree Turovskaya INSPECTOR [employer]AL Work Phone: [facility] 12-28-2024 17:20-0500 Respiratory rate 18 /min Loree Fonseca APRN Work Phone: [facility] 12-28-2024 17:20-0500 SaO2% (BldA) [Mass fraction] 98 % Loree Fonseca APRN Work Phone: [facility] 12-28-2024 17:20-0500 Systolic blood pressure 114 mm[Hg] Loree Fonseca INSPECTOR CRYSTAL Work Phone: [facility] 12-13-2024 09:45-0500 Body height 160.02 cm [facility] 12-13-2024 09:45-0500 Body mass index (BMI) [Ratio] 25 kg/m2 [facility] 12-13-2024 09:45-0500 Body weight 63.95 kg [facility] 11-19-2023 11:55-0500 Body height 160.02 cm Marina Beulah Other [facility] [employer] Other 11-19-2023 11:55-0500 Body mass index (BMI) [Ratio] 24.16 kg/m2 Marina Beulah Other [facility] [employer] Other 11-19-2023 11:55-0500 Body temperature 99.1 [degF] Marina Beulah Other [facility] Other 11-19-2023 11:55-0500 Body weight 61.87 kg Marina Beulah Other [facility] Other 11-19-2023 11:55-0500 Diastolic blood pressure 74 mm[Hg] Marina Beulah Other [facility] Other 11-19-2023 11:55-0500 Respiratory rate 18 /min Marina Beulah Other [facility] Other 11-19-2023 11:55-0500 SaO2% (BldA) [Mass fraction] 99 % Marina Lazaromond Other [facility] Other 11-19-2023 11:55-0500 Systolic blood pressure 109 mm[Hg] Marina Beulah Other [facility] Other 05-31-2023 15:15-0400 Body height 160.02 cm Elinor Cai Other [facility] Other 05-31-2023 15:15-0400 Body mass index (BMI) [Ratio] 23.2 kg/m2 Elinor Cai Other [facility] Other 05-31-2023 15:15-0400 Body temperature 99.3 [degF] Elinor Cai Other [facility] Other 05-31-2023 15:15-0400 Body weight 59.42 kg Elinor Cai Other [facility] Other 05-31-2023 15:15-0400 Diastolic blood pressure 85 mm[Hg] Elinor Cai Other [facility] Other 05-31-2023 15:15-0400 Respiratory rate 18 /min Elinor Cai Other [facility] Other 05-31-2023 15:15-0400 SaO2% (BldA) [Mass fraction] 99 % Elinor Cai Other [facility] Other 05-31-2023 15:15-0400 Systolic blood pressure 121 mm[Hg] Elinor Cai Other [facility] Other Encounters Encounter Date Encounter Type Care Provider Facility Start: 02-13-2025 End: 02-13-2025 ambulatory [facility] Start: 02-13-2025 End: 02-13-2025 Encounter for preprocedural cardiovascular examination [facility] Start: 02-11-2025 End: 02-11-2025 Patient encounter procedure Juanito Zeke DO Work Phone: [facility] Comment on above: Pre-operative exam; Menorrhagia with irregular cycle; Abnormal uterine bleeding; Pelvic pain in female Start: 02-11-2025 End: 02-11-2025 Preprocedural examination done Juanito Zeke DO Work Phone: [facility] Work Phone: Start: 02-11-2025 End: 02-11-2025 ambulatory JUANITO ZEKE Not Available Start: 02-11-2025 End: 02-11-2025 Departed Referred Loree Fonseca INSPECTOR CRYSTAL Work Phone: [facility] Start: 02-04-2025 End: 02-04-2025 ambulatory NON STAFF [facility] Work Phone: Start: 02-04-2025 End: 02-04-2025 Departed Referred Loree Fonseca INSPECTOR CRYSTAL Work Phone: [facility] Start: 01-29-2025 End: 01-29-2025 Office outpatient visit 15 minutes Juanito Zeke DO Work Phone: [facility] Comment on above: Encounter for consul tation; Menorrhagia with irregular cycle; Dysmenorrhea; PMS (premenstrual syndrome); Menorrhagia with regular cycle Start: 01-29-2025 End: 01-29-2025 ambulatory JUANITO ZEKE Not Available Start: 01-22-2025 End: 01-22-2025 ambulatory NON STAFF [facility] Work Phone: Start: 01-22-2025 End: 01-22-2025 Patient encounter procedure Loree Fonseca INSPECTOR CRYSTAL Work Phone: [facility] Work Phone: Start: 12-28-2024 End: 12-28-2024 ambulatory NON STAFF [facility] Work Phone: Start: 12-28-2024 End: 12-28-2024 Patient encounter procedure Loree Fonseca INSPECTOR CRYSTAL Work Phone: Community Health Physician [facility] Work Phone: Start: 12-27-2024 End: 12-27-2024 Patient encounter procedure Loree Fonseca INSPECTOR CRYSTAL Work Phone: [facility] [address] [facility] Work Phone: Start: 12-27-2024 End: 12-27-2024 ambulatory NON STAFF [facility] Work Phone: Start: 12-26-2024 End: 12-26-2024 ambulatory LEONEL Her [facility] Start: 12-26-2024 End: 12-26-2024 ambulatory [facility] Start: 12-26-2024 End: 12-26-2024 ambulatory [facility] Start: 12-13-2024 End: 12-13-2024 ambulatory [facility] Work Phone: Start: 12-13-2024 End: 12-13-2024 Patient encounter procedure [facility] Work Phone: Start: 10-29-2024 End: 10-29-2024 ambulatory RANCHO TURCIOS [facility] Start: 11-19-2023 End: 11-19-2023 ambulatory Marina Riojas Other [facility] Other Start: 11-19-2023 Office outpatient vi sit 15 minutes aMrina Riojas [facility] Start: 05-31-2023 End: 05-31-2023 ambulatory Elinor Trell Other [facility] Other Start: 05-31-2023 Office outpatient vi sit 25 minutes Elinor Cai [facility] Start: 02-17-2022 End: 02-17-[address] HONG MOSS Facility: Start: 06-08-2017 End: 06-09-2017 Ambulatory PASTOR YAOA Facility:[facility] Start: 05-11-2017 End: 05-12-2017 Ambulatory DEFAULT PHYSICIAN Facility:[facility] Procedures Date Procedure Procedure Detail Performing Clinician Start: 02-11-2025 Urnls dip stick/tabl et rgnt non-auto w/o micrscp [employer] Work Phone: Start: 01-17-2025 Microscopic observat ion [Identifier] in Cervix by Cyto stain FAMOCO DO Work Phone: Start: 01-17-2025 Cytp cerv/vag auto t hin layer prep mnl screen [facility] Zeke Nurse Start: 12-28-2024 X-ray of sacrum and coccyx, two or more views Loree Fonseca APRN Work Phone: Start: 12-27-2024 MR lumbar spine wo con Loree Fonseca INSPECTOR CRYSTAL Work Phone: Start: 12-27-2024 XR pre/post mri xray El alex Marian INSPECTOR CRYSTAL Work Phone: Start: 12-26-2024 Mammography Juanito Pownce o [employer] Work Phone: Start: 12-09-2019 Electrocardiogram Plan of Treatment Date Care Activity Detail Author Start: 01-17-2026 Screening for malign ant neoplasm of cervix [facility] Start: 12-26-2025 Screening for malign ant neoplasm of breast [facility] Start: 03-21-2025 End: 03-21-2025 Patient encounter procedure 03/21/2025 3:30 PM EDT Office Visit [facility] [address] [place] [phone] Heather Coronado PA [address] [place] [address] [facility] Start: 02-11-2025 End: 02-11-2025 Patient encounter procedure 02/11/2025 3:30 PM EDT Procedure Visit [facility] [address] [place] [phone] Juanito Alanis DO [address] [place], [place] [id number] [facility] Start: 01-29-2025 End: 01-29-2026 aPTT in Blood by Coagulation assay APTT Lab Routine Menorrhagia with regular cycle Expected: 01/29/2025 (Approximate), Expires: 01/29/2026 [facility] Comment on above: Expected: 01/29/2025 (Approximate), Expires: 01/29/2026 Start: 01-29-2025 End: 01-29-2026 US Pelvis US Pelvis w/ TV Imaging Routine Menorrhagia with irregular cycle Dysmenorrhea PMS (premenstrual syndrome) Menorrhagia with regular cycle Expected: 01/29/2025, Expires: 01/29/2026 [facility] Comment on above: Expected: 01/29/2025 , Expires: 01/29/2026 Start: 07-15-2024 Influenza vaccination Influenza Vacc ine (#1) [facility] Start: 1980 Screening for malign ant neoplasm of colon [facility] CBC W Auto Different ial panel - Blood CBC and differential Lab Routine Menorrhagia with regular cycle Ordered: 01/29/2025 [facility] Work Phone: Comment on above: Ordered: 01/29/2025 hCG, quantitative, hCG, quantitative, Lab Routine Menorrhagia with regular cycle Ordered: 01/29/2025 [facility] Comment on above: Ordered: 01/29/2025 Hemoglobin A1c/Hemoglobin.total in Blood Hemoglobin A1c Lab Routine Menorrhagia with regular cycle Ordered: 01/29/2025 [facility] Comment on above: Ordered: 01/29/2025 Prothrombin time (PT ) in Blood by Coagulation assay Protime-INR Lab Routine Menorrhagia with regular cycle Ordered: 01/29/2025 [facility] Comment on above: Ordered: 01/29/2025 Thyrotropin [Units/volume] in Serum or Plasma TSH Lab Routine Menorrhagia with regular cycle Ordered: 01/29/2025 [facility] Comment on above: Ordered: 01/29/2025 Thyroxine (T4) free [Mass/volume] in Serum or Plasma T4, free Lab Routine Menorrhagia with regular cycle Ordered: 01/29/2025 [facility] Comment on above: Ordered: 01/29/2025 Tissue exam Tissue exam Path ology and Cytology Routine Menorrhagia with irregular cycle Ordered: 02/11/2025 [facility] Work Phone: Comment on above: Ordered: 02/11/2025 XR Sacrum and Coccyx GE 2 Views [facility] Payers Date Payer Category Payer Self-pay 2022 Private Health Insurance [facility] [id number] 2022 Unknown [id number] 1979 Unknown [id number] [id number]. 2.593 1979 Unknown [id number] [id number]. 2.1286 1979 Unknown [id number] [id number]. 2.1286 1979 Unknown [id number] [id number]. 2.1286 1979 Unknown [id number] [id number]. 2.1286 1979 Unknown [id number] [id number]. 2.1259 1979 Unknown [id number] [id number]. 2.1259 1959 Unknown [id number] Unknown Unknown [id number] 2.16.840.1.940000.3.579. 2.531 Unknown [id number] [id number]. 2.531 Unknown [id number] [id number]. 2.531 Social History Date Type Detail Facility Start: 01-29-2025 Sex Assigned At N [facility] Table8 Other Start: 12-13-2024 End: 12-28-2024 Tobacco smoking status OKIS Never smoked tobacco (finding) [facility] Start: 12-13-2024 End: 02-15-2025 Sex Female (finding) [facility] Start: 1980 Sex Assigned At Female F [facility] Start: 06-15-2023 Tobacco smoking stat us OKIS Ex-smoker [facility] History of tobacco use Current smoker [facility] History of tobacco use Cigarette Smoker [facility] Start: 06-15-2023 Tobacco use and exposure Smokeless tobacco non-user [facility] Start: 01-29-2025 End: 02-11-2025 Alcoholic beverage intake Ex-drinker (finding) [facility] Start: 01-29-2025 History of Social function [facility] Start: 1980 Sex assigned at Not on file [facility] Clinical Notes 05-31-2023 to 02-13-2025 Blanka Sanders - 02/11/2025 3:30 PM EDTCherri Fernandez LPN - 01/29/2025 2:50 PM EDT Note Date & Type Note Facility 02-13-2025 Note [place] [facility] Subjective Oracio Gong is a 45 [...] new patient referred for preop evaluation for PECAN GROWER surgery and abnormal ECG. She is a [...] presented to the emergency room at the [facility] with flulike symptoms mild chest pain [...] normal ECG. ECG 2024: Sinus rhythm, short NE interval, nonspecific T wave abnormality. Chest x-ray 2024: No acute cardiopulmonary process. Tilt table test 06/08/2017: negative for syncope Assessment/Plan Diagnoses and all orders for this visit: Preop cardiovascular exam - ECG 12 lead unit performed - Routine Stress (Treadmill Only); Future - Transthoracic ech (more content not included)... [facility] 02-11-2025 History of Present illness Narrative Reason for Appointment: Patient ID: Oracio Gong is a 45 y.o. female who presents for Pre-op Visit and Endometrial Biopsy Patient presents today for Pre Op/Endometrial Biopsy appointment. Patient is scheduled to undergo Endometrial Ablation with Irene on 03/08/[address] Alanis at [facility]. MEDICATIONS Current Outpatient Medications Medication Instructions [...] nursing note reviewed. Exam conducted with a information consultant present. Vitals: Estimated body mass index is [...] reviewed, and patient is to proceed to [facility] OR. Follow Up: Patient is to follow up between 1-2 weeks post op to assess proper healing and recovery from procedure. Documented by Carmelina Veloz LPN on behalf of: Juanito Alanis DO documented in this encounter [facility] 01-29-2025 History of Present illness Narrative Reason [...] nursing note reviewed. Exam conducted with a information consultant present. Vitals: Estimated body mass index is 24.94 kg/m as calculated from the following: Height as of 06/15/23: 5' 3 . Weight as of this [...] Juanito Alanis DO documented in this encounter [facility] 12-13-2024 Evaluation note Diagnosis Onset Date Resolution Lumbar radiculopathy acute 2024 9:43am Perineural cysts acute December 13, 2024 9:43am Sacroiliitis acute November 9:43am [facility] Work Phone: 1(252) 164-650901-30-2025 Evaluation note* Diagnosis Onset Date Resolution Status Admit Date Lumbar radiculopathy acute 2024 9:43am Perineural cysts acute December 13, 2024 9:43am Sacroiliitis acute November 9:43am Fractured coccyx acute December 28, 2024 5:14pm [facility] Work Phone: 1(198) 408-167801-30-2025 Evaluation note* Diagnosis Onset Date Resolution Status Admit Date Lumbar radiculopathy acute 2024 9:43am Perineural cysts acute December 13, 2024 9:43am Sacroiliitis acute November 9:43am Fractured coccyx acute December 28, 2024 5:14pm Fractured coccyx acute January 222024 1:19pm Lumbar radiculopathy acute 2024 1:19pm Perineural cysts acute January 222024 1:19pm [facility] Work Phone: 1(301) 839-588601-06-2024 Evaluation note* Encounter Date Diagnosis Assessment Notes [...] no improvement in 2 to 3 days [facility] Other 07-18-2023 Evaluation note* Encounter Date Diagnosis [...] understanding and is agreeable with treatment plan [facility] Other Evaluation noteNo assessment information available [facility] Work Phone: Evaluation note* Diagnosis Encounter for consultation Menorrhagia with irregular cycle Dysmenorrhea PMS (premenstrual syndrome) Premenstrual tension syndromes Menorrhagia with regular cycle documented in this encounter [facility] Healthcare[facility]* Diagnosis Pre-operative exam Unspecified pre-operative examination Menorrhagia with irregular cycle Abnormal uterine bleeding Unspecified disorder of menstruation and other abnormal bleeding from female genital tract Pelvic pain in female Unspecified symptom associated with female genital organs documented in this encounter [facility] Healthcare Summary Purpose Family History No [...] section and content) DATE CREATED AUTHOR 05/10/2018 [facility] DATE CREATED AUTHOR AUTHOR'S ORGANIZ ATION 12/11/2019 [facility] DATE CREATED AUTHOR AUTHOR'S ORGANIZ ATION 02/19/[address] [facility] DATE CREATED AUTHOR AUTHOR'S ORGANIZ ATION 12/28/2024 [facility] DATE CREATED AUTHOR AUTHOR'S ORGANIZ ATION 12/28/2024 [facility] DATE CREATED AUTHOR AUTHOR'S ORGANIZ ATION 12/29/2024 [facility] DATE CREATED AUTHOR AUTHOR'S ORGANIZ ATION 02/12/2025 [facility] DATE CREATED AUTHOR AUTHOR'S ORGANIZ ATION 02/16/2025 [facility] DATE CREATED AUTHOR AUTHOR'S ORGANIZ ATION 02/21/2025 [facility] REASON FOR VISIT (unrecogniz ed [...] January 22, 2025 End: January 22, 2025 Bathing Suit Maker Relationship Specialty Start Date End Date Unallocated, Alton Pandya MD [address] [place] [address] [place] [address] PCP - General 06/15/23 Bathing Suit Maker Relationship Specialty Start Date End Date UnallocatedAlton MD [address] [facility] [place] [address] PCP - General 06/15/23 Team Status: Inactive [...] BE BASED ON THE PRIMARY CLINICAL RECORDS. [facility] [employer] [facility]. provides no warranty or guarantee of the accuracy or completeness of information in this document.
== END 2025-02-21 14:09 | disposition home or self-care (01) ==
LOC: PST 14:10
PROVIDERS: Visit Provider Obstetrics & Gynecology
DX: Z01.818 Encounter for other preprocedural examination (principal); N92.0 Excessive and frequent menstruation with regular cycle; N93.9 Abnormal uterine and vaginal bleeding, unspecified; R10.2 Pelvic and perineal pain

== ENCOUNTER 2025-06-12 11:24 | Emergency (ER) | payer OTHER, SELFPAY ==
--- OUTSIDE RECORDS SUMMARY | 2025-06-11 20:34 | XMS_ITS | Continuity of Care Document ---
Author Organization [facility] Address [address] [place] [address] Phone Care Team Providers Care Project Manager Industrial Name Role Phone Connie Cosby APRN Attending Provider NON STAFF Primary Care Provider Unavailabl e Care Teams Visit Care Team Team Status: Inactive Member Role Status Dates FRANCIS Chatman RN SCREEN PRINT OPERATOR-C Attending Provider Active Start: June 11 End: June 11, 2025 NON STAFF Primary Care Provider Active Start: June 11, 2025 End: June 11, 2025 Visit Care Team Team Status: Inactive Member Role Status Dates Connie Cosby APRN SCREEN PRINT OPERATOR-C Attending Provider Active Start: June 11, 2025 End: June 11, 2025 Chief Complaint and Reason for Visit Chief Complaint Admit Date sore throat June 11, 2025 9:18 am Reason for Visit Admit Date Dysuria June 11, 2025 9:18 am Viral URI June 11, 2025 9:18 am Allergies, Adverse Reactions, Alerts Allergen Type Severity Reaction Last Updated Verified Status ibuprofen Allergy Unknown Rash June 11, 2025 9:41am Yes Active Social History Smoking Status Status Start Date End Date Date of Observa tion Never smoked tobacco (finding) December 28, 2024 5:25pm Observation Status Observation Response Date of Response Legal Sex Female (finding) Sex Assigned At Female January Family History Relationship Condition Age at Onset Recorded Date/T bola father Unknown mother Hypertension Unknown Problems Active Problems Medical Problem Onset Date Status Coccygeal pain, acute Unknown Active Sacral radiculopathy Unknown Active Lumbar radiculopathy Unknown Active Sacroiliitis Unknown Active Perineural cysts Unknown Active Dysuria Unknown Active Fractured coccyx Unknown Active Viral URI Unknown Active Seasonal allergic rhinitis Unknown Activ e Medications Medication Status Dose Units Route Directions Qty Days St art Date Stop Date End Date Instructions Adherence Tramadol 50 mg tablet Discont inued 50 MG PO Every 6 hours as needed for pain 12 3 2024 1:00am June 11, 2025 9:59a m Amoxicillin -Pot Clavulanate 875-125 mg tablet Active 1 TAB PO Every 12 hours 14 June 11, 2025 12:00a m Unknown pediatric multivitami n (multivitam in) Discont inued PO 2024 1:00am June 11, 2025 9:59a m medroxyprog esterone (Depo-Prove ra) Active IM EVERY 3 MONTHS 2024 1:00am Unknown Procedures Procedure Date Performed Status Urine Culture June 11, 2025 active Quick Strep (POC) June 11, 2025 completed Relevant Diagnostic Tests and/or Laboratory Data Microbiology Results Procedure Source Result Collection Date/Time Result Date/Time Result Comment Performing Site Quick Strep (POC) Throat June 11, 2025 10:04am June 11, 2025 10:14am Vital Signs Vital Reading Result Reference Range Collection Date/Time Height 63 [in_i] June 11, 2025 10:11am Weight 64.46 kg June 11, 2025 10:11am Body Temperature 97.5 [degF] 97.6-99.0 June 11, 2025 10:11am Heart Rate 76 /min 60-100 June 11, 2025 10:11am Respiratory rate 18 /min 12-24 June 11, 2025 10:11am Oxygen saturation by Pulse oximetry 97 % 95-100 June 11, 2025 10:1 1am BP Systolic 100 mm[Hg] 100-140 June 11, 2025 10:11am BP Diastolic 70 mm[Hg] 60-100 June 11, 2025 10:11am BMI (Body Mass Index) 25.2 kg/m2 May 152024 10:11am Advance Directives Advance Directive Response Recorded Date/ Time Advance Directives No November 29, 2024 4:38pm Insurance Providers Guarantor Cookie Gong Address [address] [facility] [address] Contact Info. Home Phone: Payer Policy Id Subscriber's Name Subscriber Id Effectiv e Date Expiration Date [facility] [id number] Cookie Gong [id number] Encounters Encounter Location(s) Arrival/Admit Date Discharge/Depart Date Provider(s) Departed Physician/Prov ider Office Visit -[facility] [place] June 11, 2025 9:18am June 11, 2025 10:46am Connie Cosby APRN Departed Referred -Lab [facility] June 11, 2025 10:27am June 11, 2025 10:28am Connie Cosby APRN Recent Diagnosis Onset Date Admit Date Dysuria Unknown June 11, 2025 9:18am Viral URI Unknown June 11, 2025 9:18am Assessments Diagnosis Onset Date Resolution Status Admit Date Dysuria acute June 11 9:18am Viral URI acute June 11 9:18am Plan of Treatment Author Connie Cosby [facility] Authored June 11, 2025 10:5 4am Initiate antibotics. Will se nd for culture. Encouraged to increase oral intake of fluids. Discussed good personal hygiene, wipe front to back, void after intercourse. Illness is likely viral in nature; and may take up to 7-10 days to run its course. Treatment is symptomatic. Push fluids, rest. May use tylenol and motrin as needed. If symptoms do not resolve over the next few days, patient is to call back. Future Tests Future scheduled test information is unavailable Pending Tests Test Name Ordered Date Scheduled Date Urine Culture June 11, 2025 10:27am Future Visits Future appointment information is unavailable Referrals to Other Providers Referral information is unavailable Future Procedures Procedure Name Ordered Date Scheduled Date Urine Culture June 11, 2025 10:45am May 10:27am Future Medications Future medication information is unavailable Patient Instructions Patient instructions are unavailable
[2025-06-12] VITALS (23 sets, daily range): BP systolic 104–119; BP diastolic 74–83; PULSE 70–89; TEMP 37.1; O2SAT 97–100; BMI 25.0
--- OUTSIDE RECORDS SUMMARY | 2025-06-12 11:30 | XMS_ITS | Clinical Summary ---
Author Organization [facility] Address [address] [place] [id number] Care Team Providers Care Pediatric Cns Name Role Phone Unavailable Primary Care Provider Unavailabl e Allergies No known active allergies Medications famotidine (PEPCID) 20 mg tablet Take 2 tablets by mouth twice daily as needed (indigestion ). 20 tablet 0 Active ondansetron orally disintegrating (ZOFRAN ODT) 8 mg disintegrating tablet Take 1 tablet by mouth every 8 hours as needed. 10 tablet 1 0 Active dicyclomine (BENTYL) 20 mg tablet Take 1 tablet by mouth four times daily as needed (abdominal cramping). 20 tablet 0 Active acetaminophen (TYLENOL) 500 mg tablet Take 2 tablets by mouth every 8 hours as needed. 50 tablet 0 Active Social History Tobacco Use Types Packs/Day Years Used Date Smoking Tobacco: Never Smokeless Tobacco: Never Alcohol Use Standard Drinks/Week Comments Not Currently 0 (1 standard drink = 0.6 oz pur e alcohol) PHQ-2 Answer Date Recorded PHQ-2 Score 0 12/09/2019 Comments No Sex and Gender Information Value Date Recorded Sex Assigned at Not on file Legal Sex Female 1:13 PM EST Gender Identity Not on file Sexual Orientation Not on file Last Filed Vital Signs Vital Sign Reading Time Taken Comments Blood Pressure 112/81 12/09/2019 2:30 PM EST Pulse 74 12/09/2019 6:00 PM EST Temperature 36.3 C (97.3 F) 12/09/2019 1:14 PM EST Respiratory Rate 16 12/09/2019 6:00 PM EST Oxygen Saturation 99% 12/09/2019 6:00 PM EST Inhaled Oxygen Concentration - - Weight 58.1 kg (128 lb) 12/09/2019 1:14 PM EST Height 160 cm (5' 3 ) 12/09/2019 1:14 PM EST Body Mass Index 22.67 12/09/2019 1:14 PM EST Plan of Treatment Not on [place] [address]
--- OUTSIDE RECORDS SUMMARY | 2025-06-12 11:30 | XMS_ITS | Encounter Summary ---
Author Organization [facility] Address [address] [place] [address] Care Team Providers Care Fry Cook Name Role Phone Unallocated, [facility] Provider Primary Care Provi laura Encounter Details Date Type Department Care Team (Late st Contact Info) Description 03/08/2025 Abstract [facility] [address] [place] [phone] Juanito Alanis DO [address] [place], [facility] Social History Tobacco Use Types Packs/Day Years Used Date Smoking Tobacco: Former Cigarettes Smokeless Tobacco: Never Alcohol Use Standard Drinks/Week Comments Not Currently 0 (1 standard drink = 0.6 oz pur e alcohol) Comments No Sex and Gender Information Value Date Recorded Sex Assigned at Not on file Legal Sex Female 11:47 PM EDT Gender Identity Not on file Sexual Orientation Not on file documented as of this encounter Plan of Treatment Not on file documented as of this encounter Visit Diagnoses Not on filedocumented in this encounter Care Teams Fry Cook Relationship Specialty Start Date End Date Unallocated, [facility] Provider, MD Chris [facility] [place] [address] PCP - General 06/15/23 documented as of this encounter
--- OUTSIDE RECORDS SUMMARY | 2025-06-12 11:30 | XMS_ITS | Encounter Summary ---
Author Organization [facility] Address [address] [facility] [place] [address] Care Team Providers Care Hotel Operations Manager Name Role Phone Unallocated, Noms Provider Primary Care Provi laura Encounter Details Date Type Department Care Team (Late st Contact Info) Description 02/11/2025 Abstract [facility] [address] [place] [address] Juanito Alanis DO [address] Evangelista De La O, [facility] Social History Tobacco Use Types Packs/Day Years [...] on filedocumented in this encounter Care Teams Hotel Operations Manager Relationship Specialty Start Date End Date Unallocated, Noms Provider, MD Chris [facility] [place] [address] PCP - General 06/15/23 documented as of this encounter
--- OUTSIDE RECORDS SUMMARY | 2025-06-12 11:30 | XMS_ITS | Encounter Summary ---
Author Organization [facility] Address [address] [place] [address] Care Team Providers Care Supervisor Pit And Auxiliaries Name Role Phone Unallocated, Noms Provider Primary Care Provi laura Encounter Details Date Type Department Care Team (Late st Contact Info) Description 10/01/2023 Abstract [facility] [address] [facility] [address] [place] [id number] Yecenia Godfrey NP Social History Tobacco Use Types Packs/Day Years Used Date Smoking Tobacco: Former Cigarettes Smokeless Tobacco: Never Alcohol Use Standard Drinks/Week Comments Not Currently 0 (1 standard drink = 0.6 oz pur e alcohol) Comments Unknown Sex and Gender Information Value Date Recorded Sex Assigned at Not on file Legal Sex Female 11:47 PM EDT Gender Identity Not on file Sexual Orientation Not on file documented as of this encounter Plan of Treatment Not on file documented as of this encounter Visit Diagnoses Not on filedocumented in this encounter Care Teams Supervisor Pit And Auxiliaries Relationship Specialty Start Date End Date Unallocated, [place] [address] PCP - General 06/15/23 documented as of this encounter
--- OUTSIDE RECORDS SUMMARY | 2025-06-12 11:30 | XMS_ITS | Encounter Summary ---
Author Organization [facility] Address [id number] [place] [address] Care Team Providers Care Senior Abap Developer Name Role Phone No Pcp, No Pcp Primary Care Provider Unavailabl e Encounter Details Date Type Department Care Team (Late st Contact Info) Description 06/01/2022 Telephone [facility] [address] [facility] [address] [place] [address] No Pcp, [place] [address] Social History Tobacco Use Types Packs/Day Years Used Date Smoking Tobacco: Never Smokeless Tobacco: Never Alcohol Use Standard Drinks/Week Comments No 0 (1 standard drink = 0.6 oz pur e alcohol) AUDIT-C Answer Date Recorded Frequency of Alcohol Consumption Never 12/15/2018 Average Number of Drinks Not on file 019 Frequency of Binge Drinking Not on file 11/2018 Childcare Answer Date Recorded Childcare Unknown 04/25/2019 Employment Answer Date Recorded Employment Unknown 04/25/2019 Purpose - Life Answer Date Recorded Purpose and direction in life Unknown Comments No Sex and Gender Information Value Date Recorded Sex Assigned at Female 07/14/2023 4:33 PM EDT Legal Sex Female 11:37 AM EDT Gender Identity Female 07/14/2023 4:33 PM EDT Sexual Orientation Not on file documented as of this encounter Plan of Treatment Not on file documented as of this encounter Visit Diagnoses Not on filedocumented in this encounter Care Teams Senior Abap Developer Relationship Specialty Start Date End Date No Pcp, [place] [address] PCP - General Family Medicine 12/15/18 documented as of this encounter
--- OUTSIDE RECORDS SUMMARY | 2025-06-12 11:30 | XMS_ITS | Encounter Summary ---
Author Organization [facility] Address [address] [facility] [place] [address] Care Team Providers Care Skidder Loader Name Role Phone Unallocated, Noms Provider Primary Care Provi laura Encounter Details Date Type Department Care Team (Late st Contact Info) Description 02/15/2025 Abstract [facility] [address] [facility] [place] [address] Juanito Alanis DO [address] [facility] [address] Evangelista De La O, [facility]11 Social History Tobacco Use Types Packs/Day Years [...] on filedocumented in this encounter Care Teams Skidder Loader Relationship Specialty Start Date End Date Unallocated, Noms Provider, MD Chris [facility] [place] [address] PCP - General 06/15/23 documented as of this encounter
--- OUTSIDE RECORDS SUMMARY | 2025-06-12 11:30 | XMS_ITS | Clinical Summary ---
Author Organization [facility] Address [id number] [place] [address] Care Team Providers Care Manager Oracle Name Role Phone No Pcp, No Pcp Primary Care Provider Unavailabl e Allergies Active Allergy Reactions Criticality Noted Date Comments Ibuprofen Hives 12/26/2024 Medications azithromycin (ZITHROMAX) 500 mg tablet Take 1 tablet (500 mg total) by mouth daily. 5 tablet 9 Active Additional Information Patient not taking.Reported on 12/26/2024 ceFUROxime (CEFTIN) 500 mg tablet Take 1 tablet (500 mg total) by mouth 2 (two) times a day. 10 tablet 9 Active Additional Information Patient not taking.Reported on 12/26/2024 cyclobenzaprine (FLEXERIL) 10 mg tablet Take 1 tablet (10 mg total) by mouth 2 (two) times a day as needed for muscle spasms. 20 tablet 3 Active Additional Information Patient not taking.Reported on 12/26/2024 lidocaine (LIDODERM) 5 % Place 1 patch on the skin daily. Remove & Discard patch within 12 hours or as directed by 10 patch 3 Active Additional Information Patient not taking.Reported on 12/26/2024 ibuprofen (MOTRIN) 600 mg tablet Take 1 tablet (600 mg total) by mouth every 6 (six) hours as needed for pain. 30 tablet 3 Active acetaminophen (TYLENOL EXTRA STRENGTH) 500 mg tablet Take 1 tablet (500 mg total) by mouth every 6 (six) hours as needed for pain. 30 tablet 3 Active Additional Information Patient not taking.Reported on 12/26/2024 [id number] A-calcium &mins (THERAGRAN-M) 9 mg iron-400 mcg tablet Take 1 tablet by mouth in the morning. Active Active Problems Problem Noted Date Diagnosed Date Urinary frequency 12/26/2024 Overview (12/26/2024): ====12/26/24==== Over 8 months of bilateral flank pain, frequency, urgency, urge incontinence, dysuria, and pelvic pain. Recent CT negative. UA dipped for blood. We will send today's specimen for microscopic exam. She agrees to cystoscopy/BRPG/U of M instillation. She is requesting anesthesia. Assessment & Plan (12/26/2024 3:20 PM EST): I will notify her of the UA results through [employer]. I explained the cystoscopy in detail, including the potential risks. I explained that we may not find the source of her pain with this testing. She will follow-up as scheduled with gynecology. Pneumonia of left lower lobe due to infectious o rganism 12/17/2018 Chest pain 12/15/2018 Family History Medical History Relation Name Comments Heart disease Father Breast cancer Maternal Aunt Relation Name Status Comments Father Maternal Aunt Mother Alive Social History Tobacco Use Types Packs/Day Years Used Date Smoking Tobacco: Never Smokeless Tobacco: Never Tobacco Cessation:Counseling Given: Not Answered Alcohol Use Standard Drinks/Week Comments No 0 (1 standard drink = 0.6 oz pur e alcohol) AUDIT-C Answer Date Recorded Frequency of Alcohol Consumption Never 12/15/2018 Average Number of Drinks Not on file 019 Frequency of Binge Drinking Not on file 11/2018 Childcare Answer Date Recorded Childcare Unknown 04/25/2019 Employment Answer Date Recorded Employment Unknown 04/25/2019 Hunger Screening Answer Date Recorded Within the past 12 months we worried whether our food would run out before we got money to buy more. Never True 12/26/2024 Within the past 12 months th e food we bought just didn't last and we didn't have money to get more. Never True 12/26/2024 Purpose - Life Answer Date Recorded Purpose and direction in life Unknown Comments No Sex and Gender Information Value Date Recorded Sex Assigned at Female 07/14/2023 4:33 PM EDT Legal Sex Female 11:37 AM EDT Gender Identity Female 07/14/2023 4:33 PM EDT Sexual Orientation Not on file Last Filed Vital Signs Vital Sign Reading Time Taken Comments Blood Pressure 111/78 12/26/2024 2:42 PM EST Pulse 85 12/26/2024 2:42 PM EST Temperature 36.9 C (98.4 F) 06/16/2023 9:14 AM EDT Respiratory Rate 17 06/16/2023 11:30 AM EDT Oxygen Saturation 98% 06/16/2023 11:30 AM EDT Inhaled Oxygen Concentration - - Weight 63 kg (139 lb) 12/26/2024 2:42 PM EST Height 160 cm (5' 3 ) 12/26/2024 2:42 PM EST Body Mass Index 24.62 12/26/2024 2:42 PM EST Plan of Treatment Health Maintenance Due Date Last Done Comments Depression Screening 1991 Pap Smear 01/31/2000 DTaP,Tdap and Td Vaccines (2 - Td or Tdap) 08/28/2020 08/28/2010 Influenza Vaccine 07/15/2025 Adult BMI Screening 12/26/2025 12/26/2024 Tobacco Screening 12/26/2025 12/26/2024 Medical Devices Not on file Insurance [employer] [address] AUTO INSURANCE Advance Directives * Full Code (Latest Code Status on File) Date Activated Date Inactivated Comments 12/15/2018 3:06 PM 12/17/2018 10:15 PM Care Teams Manager Oracle Relationship Specialty Start Date End Date No Pcp, [place] [address] PCP - General Family Medicine 12/15/18
--- OUTSIDE RECORDS SUMMARY | 2025-06-12 11:30 | XMS_ITS | Clinical Summary ---
Author Organization [facility] Address [address] [place] [address] Care Team Providers Care Physician Asst Name Role Phone Unavailable Primary Care Provider Unavailabl e Allergies Active Allergy Reactions Criticality Noted Date Comments Ibuprofen Hives 02/13/2025 Medications cyclobenzaprine (Flexeril) 10 mg tablet Take 10 mg by mouth if needed in the morning and at bedtime. 3 Active famotidine (Pepcid) 20 mg tablet Take 40 mg by mouth every 12 (twelve) hours if needed. 0 Active ondansetron ODT (Zofran-ODT) 4 mg disintegrating tablet 4 Active tamsulosin (Flomax) 0.4 mg 24 hr capsule 4 Active traMADol (Ultram) 50 mg tablet 5 Active estradiol cypionate (Depo-estradiol) 5 mg/mL injection Inject into the shoulder, thigh, or buttocks every 28 (twenty-eigh t) days. Active metoprolol tartrate (Lopressor) 25 mg tabletIndications:A bnormal stress test Take 1 tablet (25 mg) by mouth in the morning for 1 day. Take one tablet morning of CTA 1 tablet 5 Active Active Problems Problem Noted Date Diagnosed Date Urinary frequency 12/26/2024 Overview (02/11/2025): ====12/26/24==== Over 8 months of bilateral flank pain, frequency, urgency, urge incontinence, dysuria, and pelvic pain. Recent CT negative. UA dipped for blood. We will send today's specimen for microscopic exam. She agrees to cystoscopy/BRPG/U of M instillation. She is requesting anesthesia. Pneumonia of left lower lobe due to infectious o rganism 12/17/2018 Chest pain 12/15/2018 Encounters Date Type Department Care Team Description 04/26/2025 [facility] [address] [place] [address] Jamaica Lee MA Coronary artery disease, unspecified vessel or lesion type, unspecified whether angina present, unspecified whether [place] or transplanted heart (Primary Dx) 04/18/2025 7:12 AM EDT - 04/18/2025 11:59 PM EDT Hospital Encounter [facility] CT Imaging [address] [place] [address] Abnormal stress test Discharge Disposition: Home or Self Care (01) 04/18/2025 Travel 04/17/2025 [facility]ill [facility] [address] [place] [address] Melany Claros MA Abnormal stress test 04/04/2025 Abstract [facility] AUTHORIZATION DEPARTMENT [address] [place] [address] Villa Morton MD from Last 3 Months Family History Medical History Relation Name Comments Heart attack Brother Heart attack Father Kidney failure Father COPD Mother Hypertension Mother Relation Name Status Comments Brother Alive Father Mother Alive Sister Alive Social History Tobacco Use Types Packs/Day Years Used Date Smoking Tobacco: Never Smokeless Tobacco: Never Tobacco Cessation:Counseling Given: Not Answered Alcohol Use Standard Drinks/Week Comments Not Currently 0 (1 standard drink = 0.6 oz pur e alcohol) Comments No Sex and Gender Information Value Date Recorded Sex Assigned at Not on file Legal Sex Female 11:57 PM EDT Gender Identity Not on file Sexual Orientation Not on file Last Filed Vital Signs Vital Sign Reading Time Taken Comments Blood Pressure 95/64 04/18/2025 8:15 AM EDT Pulse 73 04/18/2025 8:15 AM EDT Temperature - - Respiratory Rate 18 04/18/2025 8:15 AM EDT Oxygen Saturation 99% 04/18/2025 8:15 AM EDT Inhaled Oxygen Concentration - - Weight 64 kg (141 lb) 02/13/2025 3:50 PM EDT Height 160 cm (5' 3 ) 02/13/2025 3:50 PM EDT Body Mass Index 24.98 02/13/2025 3:50 PM EDT Plan of Treatment Health Maintenance Due Date Last Done Comments CT Colonography 1979 Colonoscopy 1979 Colorectal Cancer Screening 1979 FIT-DNA 1979 FIT 1979 FOBT 1979 Sigmoidoscopy 1979 Depression Screening 1991 Hepatitis B Vaccines (1 of 3 - 19+ 3-dose series) 1998 Pneumococcal Vaccine: Pediat rics (0 to 5 Years) and At-Risk Patients (6 to 64 Years) (1 of 2 - PCV) 1998 HPV/Cotest 2009 Adult Tetanus 08/28/2020 08/28/2010 COVID-19 Vaccine ( - 2023-2 5 season) 2024 Influenza Vaccine (#1) 2025 Mammogram 12/26/2026 12/26/2024 Cervical Cancer Screening 01/18/2028 Pap Smear 01/18/2028 01/17/2025 Zoster Vaccines (1 of 2) 2029 HIB Vaccines Aged Out No longer eligi ble based on patient's age to complete this topic HPV Vaccines Aged Out No longer eligi ble based on patient's age to complete this topic IPV Vaccines Aged Out No longer eligi ble based on patient's age to complete this topic Meningococcal B Vaccine Aged Out No l onger eligible based on patient's age to complete this topic Meningococcal Vaccine Aged Out No bryan bebeto eligible based on patient's age to complete this topic Rotavirus Vaccines Aged Out No longer eligible based on patient's age to complete this topic Procedures Procedure Name Priority Date/Time Associated Diagnosis Comments CTA HEART CORONARY W IV CONTRAST W OR WO FFRCT Routine 04/18/2025 9:20 AM EDT Abnormal stress test from Last 3 Months Results * CTA Heart Coronary W IV Contrast W or WO FFRct (04/18/2025 9:20 AM EDT) Anatomical Region Laterality Modality Heart Computed Tomogra phy 04/19/2025 7:15 AM EDT Impressions 04/19/2025 7:28 AM EDT 1. Normal coronary CTA without evidence for coronary artery stenosis.. Mild stenosis in the coronary arteries 2. Normal global and regional wall motion and function of the LV. Ejection fraction is likely more than 50% 3. Dominant left circulation and very small caliber of the RCA 4. No other acute parenchymal pulmonary disease. Total calcium scoring of 0. Electronically signed: Tram Lynn MD. Narrative 04/19/2025 7:28 AM EDT CTA HEART CORONARY W IV CONTRAST W OR WO FFRCT 04/18/2025 7:43 AM CLINICAL INDICATIONS: Abnormal stress test. Study is requested to evaluate possibility of coronary artery stenosis. TECHNOLOGIST COMMENTS: Abnormal cardiac stress test QUESTION FOR RADIOLOGIST: Evaluate possible coronary artery stenosis PROTOCOL: Gated cardiac CTA and gated noncontrast calcium scoring CONTRAST: 100 mL Omnipaque 350 TECHNIQUE: Multidetector CT angiogram was obtained using retrospective ECG gating. Imaging was performed from the level of the clavicles to the level of the hemidiaphragms. In order to provide better evaluation of the anatomy and disease process, advanced off-line 3-D post-processing techniques, including 3-D volume rendered images, curving analysis of the coronary arteries, stenosis calculation and ejection fraction evaluation were performed. Gated noncontrast calcium scoring part of the study was performed. Heart flow roadmap overview was also performed. Medication administered in preparation for the examination is located in nursing documentation. All CT scans at this facility use dose modulation, iterative reconstruction, and/or weight based dosing when appropriate to reduce radiation dose to as low as reasonably achievable COMPARISON: None. CORONARY ARTERY ANGIOGRAM FINDINGS: Stenoses are reported as maximum percentage diameter stenosis. Stenosis grading is reported using the following scheme: Normal: no stenosis Mild: 1-49% stenosis Moderate: 50-70% stenosis Severe: >70% stenosis Occluded Dominance of the coronary artery system: left with normal origins and course. Left Main: The left main is a normal caliber vessel which gives rise to the LAD and circumflex arteries The left main with no significant plaque. No significant stenosis Left Anterior Descending Artery: The proximal left anterior descending artery and first diagonal branch with minimal plaque. The mid-distal LAD, D2 and D3 branches with minimal plaque. There is short segment of myocardial bridge in the distal LAD segment. There is mild stenosis in the proximal and mid LAD of less than 10% Left Circumflex Artery: The left circumflex artery and its obtuse marginal branches with mild plaque. There is mild stenosis in the left circumflex less than 50%. Right Coronary Artery: The right coronary artery and acute marginal branches with mild plaque. The vessel is small in caliber and nondominant. There is mild stenosis less than 10% in the proximal segment. Cardiac Morphology: The right atrium is normal. The right ventricle is normal. The left atrium is normal. The left ventricle is normal. The pericardium is normal and there is no pericardial effusion. Cardiac Function: {reported only if retrospective ECG gating has been used} The calculated left ventricular ejection fraction is 41%, the left ventricular end-diastolic volume is 89 mL, and the left ventricular end-systolic volume is 52 mL. Stroke volume is 37 mL. There is normal wall motion of the left ventricle. These ejection fraction is artificially lower due to including part of the ascending aorta in the calculation and more likely is above 50% Cardiac Devices and Indwelling Central Venous Lines: No central lines or pacer devices are seen. EXTRACARDIAC FINDINGS: Other lung findings: No parenchymal abnormalities in visualized part of the lungs. Airway: Normal in the visualized part of the airway. Pleura: No pleural effusion, thickening, or pneumothorax in the visualized part of the pleura. Thoracic aorta and great vessels: Normal in diameter. Pulmonary arteries: Normal. Heart and pericardium: Normal. Lymph nodes: No enlarged thoracic lymph nodes. Thoracic spine: Normal. Chest wall: Visualized part of the chest wall appeared unremarkable. Visualized upper abdomen: Normal visualized part of the abdomen. Noncontrast calcium scoring part of the study did not reveal any significant calcified plaques in the left main, LAD, left circumflex and RCA with calcium scoring of 0 in each segment and total calcium scoring of 0. Therefore, stability of significant coronary artery stenosis is felt unlikely. Heart flow roadmap overview suggests mild stenosis at the proximal LAD and distal left circumflex. The RCA was very small in caliber and could not be evaluated. Procedure Note Tram Lynn MD - 04/19/2025 CTA HEART CORONARY W IV CONTRAST W OR WO FFRCT 04/18/2025 7:43 AM CLINICAL INDICATIONS: Abnormal stress test. Study is requested toevaluate possibility of coronary artery stenosis. TECHNOLOGIST COMMENTS: Abnormal cardiac stress test QUESTION FOR RADIOLOGIST: Evaluate possible coronary artery stenosis PROTOCOL: Gated cardiac CTA and gated noncontrast calcium scoring CONTRAST: 100 mL Omnipaque 350 TECHNIQUE: Multidetector CT angiogram was obtained using retrospectiveECG gating. Imaging was performed from the level of the clavicles to the levelof the hemidiaphragms. In order to provide better evaluation of the anatomyand disease process, advanced off-line 3-D post-processing techniques,including 3-D volume rendered images, curving analysis of the coronary arteries,stenosis calculation and ejection fraction evaluation were performed. Gated noncontrast calcium scoring part of the study was performed. Heart flow roadmap overview was also performed. Medication administered in preparation for the examination is located innursing documentation. All CT scans at this facility use dose modulation, iterativereconstruction, and/or weight based dosing when appropriate to reduce radiation dose to aslow as reasonably achievable COMPARISON: None. CORONARY ARTERY ANGIOGRAM FINDINGS: Stenoses are reported as maximum percentage diameter stenosis. Stenosis grading is reported using the following scheme: Normal: no stenosis Mild: 1-49% stenosis Moderate: 50-70% stenosis Severe: >70% stenosis Occluded Dominance of the coronary artery system: left with normal origins andcourse. Left Main: The left main is a normal caliber vessel which gives rise to the LAD and circumflex arteries The left main with no significant plaque. Nosignificant stenosis Left Anterior Descending Artery: The proximal left anterior descending artery and first diagonal branchwith minimal plaque. The mid-distal LAD, D2 and D3 branches with minimalplaque. There is short segment of myocardial bridge in the distal LAD segment.There is mild stenosis in the proximal and mid LAD of less than 10% Left Circumflex Artery: The left circumflex artery and its obtuse marginal branches with mildplaque. There is mild stenosis in the left circumflex less than 50%. Right Coronary Artery: The right coronary artery and acute marginal branches with mild plaque.The vessel is small in caliber and nondominant. There is mild stenosis lessthan 10% in the proximal segment. Cardiac Morphology: The right atrium is normal. The right ventricle is normal. The left atriumis normal. The left ventricle is normal. The pericardium is normal and thereis no pericardial effusion. Cardiac Function: {reported only if retrospective ECG gating has beenused} The calculated left ventricular ejection fraction is 41%, the leftventricular end-diastolic volume is 89 mL, and the left ventricular end-systolicvolume is 52 mL. Stroke volume is 37 mL. There is normal wall motion of the left ventricle. These ejection fraction is artificially lower due to includingpart of the ascending aorta in the calculation and more likely is above 50% Cardiac Devices and Indwelling Central Venous Lines: No central lines orpacer devices are seen. EXTRACARDIAC FINDINGS: Other lung findings: No parenchymal abnormalities in visualized part ofthe lungs. Airway: Normal in the visualized part of the airway. Pleura: No pleural effusion, thickening, or pneumothorax in the visualizedpart of the pleura. Thoracic aorta and great vessels: Normal in diameter. Pulmonary arteries: Normal. Heart and pericardium: Normal. Lymph nodes: No enlarged thoracic lymph nodes. Thoracic spine: Normal. Chest wall: Visualized part of the chest wall appeared unremarkable. Visualized upper abdomen: Normal visualized part of the abdomen. Noncontrast calcium scoring part of the study did not reveal anysignificant calcified plaques in the left main, LAD, left circumflex and RCA withcalcium scoring of 0 in each segment and total calcium scoring of 0. Therefore, stability of significant coronary artery stenosis is felt unlikely. Heart flow roadmap overview suggests mild stenosis at the proximal LADand distal left circumflex. The RCA was very small in caliber and could notbe evaluated. IMPRESSION: 1. Normal coronary CTA without evidence for coronary artery stenosis..Mild stenosis in the coronary arteries 2. Normal global and regional wall motion and function of the LV.Ejection fraction is likely more than 50% 3. Dominant left circulation and very small caliber of the RCA 4. No other acute parenchymal pulmonary disease. Total calcium scoring of0. Electronically signed: Tram Lynn MD. Villa Morton MD IMG CT PROCEDURES Final Resu lt from Last [address] [place] [address]
--- OUTSIDE RECORDS SUMMARY | 2025-06-12 11:30 | XMS_ITS | Clinical Summary ---
Author Organization [facility] Address [address] [place] [address] Care Team Providers Care Professor Of Latin American Studies Name Role Phone Unallocated, Noms Provider Primary Care Provi laura Allergies Active Allergy Reactions Criticality Noted Date Comments Ibuprofen Hives 01/29/2025 Medications medroxyPROGESTE Bobby (Depo-Provera) 150 MG/ML injection Inject 150 mg into the shoulder, thigh, or buttocks every 3 (three) months Active Encounters Date Type Department Care Team Description 05/29/2025 Telephone [facility] [address] [place] [address] [place] [address] Juanito Alanis DO from Last 3 Months Family History Medical History Relation Name Comments Diabetes Father Heart disease Father Hypertension Father COPD Mother Heart disease Mother Hypertension Mother Relation Name Status Comments Father Mother Alive Social History Tobacco Use Types Packs/Day Years Used Date Smoking Tobacco: Former Cigarettes Smokeless Tobacco: Never Tobacco Cessation:Counseling Given: Not [...] Sign Reading Time Taken Comments Blood Pressure 100/64 02/11/2025 3:48 PM EDT Pulse - - Temperature - - Respiratory Rate - - Oxygen Saturation - - Inhaled Oxygen Concentration - - Weight 64.1 kg (141 lb 6.4 oz) 02/11/2025 3:48 P M EDT Height 160 cm (5' 3 ) 06/15/2023 12:53 PM EDT Body Mass Index 25.05 06/15/2023 12:53 PM EDT Plan of Treatment Health Maintenance Due Date Last Done Comments CT Colonography 1980 Colonoscopy 1980 Colorectal Cancer Screening 1980 FIT-DNA 1980 FIT 1980 FOBT 1980 Sigmoidoscopy 1980 Influenza Vaccine (#1) 2025 Mammogram 12/26/2025 12/26/2024, 06/15, 11/06/2019, Additional history exists Cervical Cancer Screening 01/17/2026 HPV/Cotest 01/17/2026 Pap Smear 01/17/2026 01/17/2025 Procedures Procedure Name Priority Date/Time Associated Diagnosis Comments PAP SMEAR Routine 01/17/2025 12:00 AM EST from Last 3 Months or Most Recently Relevant to Health Maintenance Results * Pap Smear (01/17/2025 12:00 AM EST) Swab Cervical swab / Unknown us Zeke Nurse [facility] CYTOLOGY ORDERABLES Final Result Performing Organization Address City/State/[facility] Co de Phone Number EXTERNAL LAB from Last 3 Months or Most Recently Relevant to Health Maintenance Insurance Care Teams Professor Of Latin American Studies Relationship Specialty Start Date End Date Unallocated, Noms Provider, MD Chris [place] [id number] PCP - General 06/15/23
--- OUTSIDE RECORDS SUMMARY | 2025-06-12 11:30 | XMS_ITS | Patient Health Record ---
Author Organization [facility] vices Address [address] [place], [place] [id number] Care Team Providers Care Manager Copy Name Role Phone Carolina Singh Primary Care Provider [phone] Lani Fernandez Unavailable [phone] Allergies No Known Allergies Results Component Value Reference Range Notes MAMM SCREENING BILATERAL W C AD Reviewed date:12/27/2024 10:20:15 AM Interpretation: Performing Lab: Notes/Report: RESULTS BELOW ORACIO GONG 1980 CT ABDOMEN& PELVIS WO&W Reviewed date:11/01/2024 10:46:24 PM Interpretation: Performing Lab: Notes/Report: RESULTS BELOW STUDY: CT OF THE ABDOMEN AND PELVIS WITH AND WITHOUT CONTRAST CBC W/AUTO DIFF Reviewed date:10/17/2024 01:14:34 PM Interpretation: Performing Lab: Notes/Report: WBC 9.4 3.6-11.0 THDS/CMM RBC 4.97 3.80-5.20 MILL/CMM HGB 15.1 11.9-16.0 G/DL HCT 45.4 35-47 % MCV 91 75-100 fL MCH 30.4 26.0-33.0 pg MCHC 33.3 32.0-35.0 g/dl RDW 11.7 11.2-14.8 % PLATELET 285 140-440 THOUS/CMM NEUTROPHILS 54.8 45-75 % LYMPHOCYTES 36.2 20-45 % MONOCYTES 7.3 0-13 % EOSINOPHILS 0.7 0-5 % BASOPHILS 0.7 0-2 % IMMATURE GRAN 0.3 0-2 % ABS NEUTROPHILS 5.16 1.9-8.0 K/uL ABS LYMPHOCYTES 3.42 0.9-5.2 K/uL ABS MONOCYTES 0.69 0.1-1.0 K/uL ABS EOSINOPHILS 0.07 0.0-0.80 K/uL ABS BASOPHILS 0.07 0.0-0.2 K/uL ABS IMMATURE GRAN 0.03 0.00-0.06 K/uL UNLESS OTHERWISE INDICATED, ALL TESTING PERFORMED AT: [place] [employer]. [address] [place] [id number] MACHINE OPERATOR ASSISTANT: NATHAN MACIAS M.D. CLIA NUMBER [id number] CAP ACCREDITATION AUID [id number] Changes in testing location may be associated with reference range changes for a number of analytes. Please review reference intervals carefully. COMPREHENSIVE METABOLIC PANE L WITH GFR Reviewed date:10/18/2024 04:55:36 AM Interpretation: Performing Lab: Notes/Report: GLUCOSE 63 70-100 mg/dL Falsely decreased glucose results may be caused by prolonged contact with red cells when collected in corvac tubes. BUN 13 6-20 mg/dL CALCIUM 10.3 8.6-10.5 mg/dL CREATININE, BLOOD 0.81 0.51-1.15 mg/dL eGFR (2020 CKD-EPI) 91 >59 mL/min/1.73m2 SODIUM 140 135-148 mmol/L POTASSIUM 4.2 3.5-5.4 mmol/L CHLORIDE 99 96-107 mmol/L CO2 26 18-32 mmol/L ANION GAP 15 7-16 mmol/L T. BILIRUBIN 0.9 <1.3 mg/dL ALK PHOS 52 30-101 U/L AST-SGOT 24 9-40 U/L ALT-SGPT 25 5-33 U/L T. PROTEIN 7.4 6.0-8.3 g/dL ALBUMIN 5.0 3.5-5.2 g/dL LIPID PANEL WITH REFLEX TO D IRECT LDL Reviewed date:10/17/2024 10:31:29 PM Interpretation: Performing Lab: Notes/Report: CHOLESTEROL 180 100-199 mg/dL TRIGLYCERIDES 55 20-149 mg/dL VLDL-CHOL, CALCULATED 11 <30 mg/dL HDL-CHOL 62 >=50 mg/dL LDL-CHOL, CALCULATED 107 <130 mg/dL ADULT LDL CHOLESTEROL CLASSIFICATION <100mg/dL Optimal 100-129 Near/Abov e Optimal 130-159mg/dL Borderlin e High >160mg/dL High Risk Desirable range <100 mg/dL for patients with CHD or diabetes and <70 mg/dL for diabetic patients with known heart disease. Direct LDL is recommended for patients with triglycerides >400. LDL/HDL 1.7 <4.1 LDL/HDL RATIO MALE FEMALE below average risk <2.3 <2.3 average risk <5.0 <4.1 moderate risk <7.1 <5.6 high risk >7.1 >5.6 CHOL/HDL 2.9 2.0-4.5 URINALYSIS WITH MICROSCOPIC EXAM Reviewed date:10/18/2024 04:55:24 AM Interpretation: Performing Lab: Notes/Report: UNLESS OTHERWISE INDICATED, ALL TESTING PERFORMED AT: [place] [employer]. [address] [place] [address] MACHINE OPERATOR ASSISTANT: NATHAN MACIAS M.D. CLIA NUMBER [id number] CAP ACCREDITATION AUID [id number] Changes in testing location may be associated with reference range changes for a number of analytes. Please review reference intervals carefully. PH 7.0 5.0-8.0 SP GRAVITY 1.020 1.005-1.030 APPEARANCE CLEAR CLEAR COLOR YELLOW YELLOW PROTEIN NEGATIVE NEGATIVE GLUCOSE NEGATIVE NEGATIVE KETONES NEGATIVE NEGATIVE BILIRUBIN NEGATIVE NEGATIVE OCCULT BLOOD TRACE NEGATIVE LEUKO ANA 1+ NEGATIVE NITRITE NEGATIVE NEGATIVE UROBILINOGEN <2 <2 mg/dL WBC 0-5 0-5 HPF RBC 11-20 0-2 HPF EPI CELL 0-2 NONE HPF BACTERIA TRACE NONE HYALINE CASTS NONE NONE LPF Cologuard Reviewed date:12/25/2024 10:40:05 AM Interpretation: Performing Lab: Notes/Report: Urine Dip Reviewed date:10/15/2024 03:13:57 PM Interpretation: Performing Lab: Notes/Report: Bilirubin - Occult Blood 1+ Glucose - Ketones - WBC + Nitrite - Ph 6.5 Protein - Specific Alto 1.015 Color yellow Appearance clear URINE CULTURE Reviewed date:10/18/2024 04:55:02 AM Interpretation: Performing Lab: Notes/Report: URINE CULTURE CULTURE/SENS,URINE REPORT STATUS: FINAL SOURCE: URINE CULTURE: NO GROWTH URINE PREG Reviewed date:10/15/2024 03:20:44 PM Interpretation: Performing Lab: Notes/Report: URINE PREG negative Reason For Referral Reason Referring for evalua tion for 8 month hx of bilateral flank pain, incomplete emptying of bladder, urinary frequency. urine dip in office showed +1 hgb, neg leuks. Has CT abd/pelvis scheduled 10/29/24. Thanks Diagnosis 1 Incomplete emptying of bladder (R33.9) Referral Organization [facility] Referring Provider First Name Niles Referring Provider Last Name [facility] Referring Provider Speciality Nurse Prac annette Referred Provider [facility] Referred Provider Specialty Urology General Notes Gemini Corado 03/26/2025 01:02:39 PM >noteds received and put in chart Referral Priority Routine Referral Appointment Date 12/26/2024 Reason Referring for evalua tion of sacral Tarlov cyst. 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 Please change name to Mahesh Seymour and refax. Thank you, Tahira cervantes Haley 12/05/2024 03:15:22 PM >{ {TOFIRSTNAME}} This is [facility] following up on an outstanding referral that was ordered by your provider. Please call our office at , so we can _update our records., Lisa Del Toro 12/11/2024 01:40:44 PM >Telephone message sent to provider to update referral with new provider name and refax. Referral Priority Routine Reason Patient requesting E NT consult, recently at the dentist and was told that she has enlarged tonsils and needs to have them removed ( this was sent in as a patient phone call request) Thanks. Diagnosis 1 Enlarged tonsils (J3 5.1) Referral Organization [facility] Referring Provider First Name Lani Referring Provider Last Name Rebecca Referring Provider Speciality Nurse Prac anentte Referred Provider [facility] Referred Provider Specialty Ear, nose an d throat surgeon General Notes Ольга Hoffmann 12/05 03:15:31 PM >{ {TOFIRSTNAME}} This is [facility] following up on an outstanding referral that was ordered by your provider. Please call our office at , so we can _update our records., Ольга Hoffmann 12/17/2024 10:35:16 AM >no response from patient with appt date, closing. Referral Priority Routine Medications Medication SIG (Take, Route, Frequency, Duration) Notes Start Date End Date Status Depo-Provera Active Multivitamin Active Immunizations Vaccine Route Administration Date Status Comme nts *Tdap (Adacel)-VFC IM Intramuscular 08/28/2010 Administered Status:Complete ,Reason:Given or N/A Social History Tobacco Use: Social History Observation Description Date Details (start date - stop date) Never Smoker NA - NA Sex Assigned At : Social History Observation Description Sex Assigned At Female Tobacco Use/Smoking Question Answer Notes Tobacco use: nonsmoker patient enter ed data CAGE-AID Questionnaire (2018 Edition) Question Answer Notes Have you ever felt that you ought to cut down on your drinking or drug use? No patient entered data Have people annoyed you by c riticizing your drinking or drug use? No patient entered data Have you ever felt bad or gu ilty about your drinking or drug use? No patient entered data Have you ever had a drink or used drugs first thing in the morning to steady your nerves or to get rid of a hangover? No patient entered data CAGE-AID Score 0 Interpretation Negative PRAPARE Question Answer Notes Date Completed/Updated: 12/10/2024 laura nt entered data What is your current housing situation? I have housing patient entered data Are you worried about losing your housing? No patient entered data What is the highest level of school that you have finished? 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 Check all that apply I do not have problems meeting my needs Has lack of transportation k ept you from medical appointments, meetings, work or from getting things needed for daily living? No How often do you see or talk to people that you care about and feel close to? (For example: talking to friends on the phone, visiting friends or family, going to yarsani or club meetings) 3 to 5 times a week patient entered data How stressed are you? Stress is when someone feels tense, nervous, anxious, or can't sleep at night because their mind is troubled A little bit patient entered data In the past year have you sp ent more than 2 nights in a row in a assisted, mcc, shelter center, or juvenile correctional facility? No patient entered bárbara a Are you a refugee? No patient en tered data What country are you from? [place] suyapa escobedo entered data Do you feel physically and emotionally safe where you currently live? Yes patient entered data In the past year, have you b een afraid of your partner or ex-partner? 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) Active confirmed Vital Signs Heart Rate 80 /min 12/10/2024 David Rushing 12/10/2024 04:09:22 PM EST > Temperature 97.5 degrees Fahrenheit 12/10/2024 Trenton Obregon 12/10/2024 04:09:22 PM EST > Respiratory Rate 18 /min 12/10/2024 Trenton Rushing 12/10/2024 04:09:22 PM EST > Blood pressure diastolic 78 mm Hg 12/10/2024 Trenton Dover 12/10/2024 04:09:22 PM EST > Oximetry 100 % 12/10/2024 David Rushing 12/10/2024 04:09:22 PM EST > Height-cm 158.75 cm 12/10/2024 David Rushing 12/10/2024 04:09:22 PM EST > Weight-kg 63.96 kg 12/10/2024 David Rushingo 12/10/2024 04:09:22 PM EST > Height 62.50 in 12/10/2024 David Rushingo 12/10/2024 04:09:22 PM EST > Blood pressure systolic 109 mm Hg 12/10/2024 Trenton Obregon 12/10/2024 04:09:22 PM EST > Weight 141 lbs 12/10/2024 David Rushing 12/10/2024 04:09:22 PM EST > BMI 25.38 kg/m2 12/10/2024 David Rushingo 12/10/2024 04:09:22 PM EST > Encounters Encounter Location Date Provider Diagnosis [facility] [address] [facility] [place] [id number] 10/15/2024 Lani Fernandez Dysuria R30.0 ; Flan k pain R10.9 and Screening for heart disease Z13.6 [facility] [address] [place] [id number] 12/10/2024 [facility] Wellness examination Z00.00 ; Screening mammogram for breast cancer Z12.31 ; Screening for colon cancer Z12.11 ; Enlarged tonsils J35.1 ; Overweight E66.3 ; Body mass index [BMI] 25.0-25.9, adult Z68.25 ; Mild major depression F32.0 and Positive depression screening Z13.31 Main [address] [place] , [place] [id number] 10/18/2024 Lani Fernandez Incomplete emptying of bladder R33.9 Main [address] [place] , [place] [id number] 10/24/2024 Lanicarmen Fernandez Main [address] [place] , [place] [id number] 11/01/2024 Lani Fernandez Tarlov cyst G96.191 and Enlarged tonsils J35.1 [address] [facility] [place] [id number] 12/11/2024 [facility] Assessments Encounter Date Diagnosis (ICD Code) Assessment Notes Treatment Notes Treatment Clinical Notes Section Notes 10/15/2024 Flank pain (ICD-10 - R10.9) 10/18/2024 Incomplete emptying of bladder (ICD-10 - R33.9) 11/01/2024 Enlarged tonsils (ICD-10 - J35.1) 11/01/2024 Tarlov cyst (ICD-10 - G96.191) 10/15/2024 Dysuria (ICD-10 - R30.0) Trace leukocytes, 1+ hemoglobin, negative nitrites. Will culture urine. 12/10/2024 Wellness examination (ICD-10 - Z00.00) Pt is here for wellness today. Overall health is okay. I advised to get baseline tests and pt is UTD I advised regular exercise and eating a balanced diet with focus on eating less fried and fatty foods and eating more fresh fruits and vegetable in an attempt to achieve and maintain a healthy BMI and PVU We discussed the importance of vaccination including covid shots and yearly flu shots and all questions were answered in detail today. 12/10/2024 Screening mammogram for breast cancer (ICD-10 - Z12.31) Pt due for mammogram 12/10/2024 Screening for colon cancer (ICD-10 - Z12.11) Pt agreeable for laith Cox family hx of Colon Cancer 10/15/2024 Screening for heart disease (ICD-10 - Z13.6) 12/10/2024 Enlarged tonsils (ICD-10 - J35.1) Pt has had frequent episodes of enlarged tonsils and they have been bothering her. Pt would like evaluation to have them removed, was seen by Dentist in October and encouraged to remove Re-printed ENT referral 12/10/2024 Overweight (ICD-10 - E66.3) 12/10/2024 Body mass index [BMI] 25.0-25.9, adult (ICD-10 - Z68.25) 12/10/2024 Mild major depression (ICD-10 - F32.0) Pt had a positive depression screen today Pt denies thoughts of harming themselves or others Advised pt if they are have suicidal or homicidal to call 911 or go to the ER. Declines medication or counseling at this time 12/10/2024 Positive depression screening (ICD-10 - Z13.31) Plan Of Treatment No Information Insurance Providers Payer Name Payer Address Payer Phone Subscriber Number Group Number Insured Name Patient Relationship to Insured Coverage Start Date Coverage End Date [employer] [address] [address] [place] [address] [id number] 3 Oracio Gong Self - patient is the insured 3 Medical (General) History Surgical History Surgery Date(Month/Year) appendix 2020
--- OUTSIDE RECORDS SUMMARY | 2025-06-12 11:30 | XMS_ITS | Continuity of Care Document ---
Author Organization [facility] Address [address] [place] [address] Phone Care Team Providers Care Deputy Commissioner Name Role Phone Connie Cosby APRN Attending Provider NON STAFF Primary Care Provider Unavailabl e Care Teams Visit Care Team Team Status: Inactive Member Role Status Dates FRANCIS Chatman RN HABILITATION SPECIALIST-C Attending Provider Active Start: June 11 End: June 11, 2025 NON STAFF Primary Care Provider Active Start: June 11, 2025 End: June 11, 2025 Visit Care Team Team Status: Active Member Role Status Dates Connie Cosby APRN HABILITATION SPECIALIST-C Attending Provider Active Start: June 11, 2025 Chief Complaint and Reason [...] 4:38pm Insurance Providers Guarantor Cookie Gong Address [address] [place] [phone] Contact Info. Home Phone: Payer Policy Id Subscriber's Name Subscriber Id Effectiv e Date Expiration Date [facility] [id number] Cookie Gong [id number] Encounters Encounter Location(s) Arrival/Admit Date Discharge/Depart Date Provider(s) Departed Physician/Provi laura Office Visit -[facility] [place] June 11, 2025 9:18am June 11, 2025 10:46am Connie Cosby APRN Registered Referred -Lab [facility] June 11, 2025 10:27am Connie Cosby APRN Recent Diagnosis Onset Date Admit Date Dysuria Unknown June 11, 2025 9:18am Viral URI Unknown June 11, 2025 9:18am Assessments Diagnosis Onset Date Resolution Status Admit Date Dysuria acute June 11 9:18am Viral URI acute June 11 9:18am Plan of Treatment [facility] June 11, 2025 10:5 4am Initiate [...]
--- OUTSIDE RECORDS SUMMARY | 2025-06-12 11:30 | XMS_ITS | Encounter Summary ---
Author Organization [facility] Address [address] [place] [place] [address] Care Team Providers Care Basting Cleaner Name Role Phone Unallocated, Noms Provider Primary Care Provi laura Encounter Details Date Type Department Care Team (Late st Contact Info) Description 05/29/2025 Telephone [facility] [address] [facility] [place] [address] Juanito Alanis DO [address] [facility] [address] Evangelista De La O, [facility] Social History Tobacco Use Types [...] on file documented as of this encounter Miscellaneous Notes * Telephone Encounter - Martita Ray - 05/29/2025 10:59 AM EDT I have left patient three messages to call to get her surgery scheduled. Patient to call to rechedule documented in this encounter Plan of Treatment Not on file documented as of this encounter Visit Diagnoses Not on filedocumented in this encounter Care Teams Basting Cleaner Relationship Specialty Start Date End Date Unallocated, Noms Provider, [place] [address] PCP - General 06/15/23 documented as of this encounter
--- NOTE | 2025-06-12 11:43 | ECG_ITS ---
[facility] Test Date: 2025-06-12 Pat Name: ORACIO JOLLEY Department: Room: - Gender: Female Performance Improvement Analyst: : 1980 Requested By: [id number] Order Number: [id number] Reading MD: ALYSIA CANO M.D. Measurements Intervals English Rate: 80 P: 66 PA: 128 QRS: 54 QRSD: 82 T: 54 QT: 366 QTc: 402 Interpretive Statements 1100 Sinus rhythm 2420 RSR (QR) in lead V1/V2, consistent with right ventricular conduction delay 9130 borderline ECG Compared to ECG 01/30/2024 10:16:28 Short PA interval no longer present Electronically Signed On 06-12-2025 19:49:19 EDT by ALYSIA CANO M.D.
--- NOTE | 2025-06-12 11:43 | XR_ITS ---
[facility] [place] [id number] Patient Name: ORACIO JOLLEY MRN: [id number] date: 1980 Sex: F Assigned Patient Location: ER Current Patient Location: ED.MAIN Accession/Order Number: [id number] Exam Date: 06/12/2025 12:38 Report Date: 06/12/2025 12:38 At the request of: ROMAIN CALVILLO MD Procedure: XR chest 1V Single view chest: CLINICAL HISTORY: cp COMPARISON: Chest 01/30/2024 FINDINGS: The heart is normal in size. The lungs are clear. The pulmonary vasculature is normal. Mediastinum and hilar regions are unremarkable. No pleural effusions are seen. Visualized bones are intact. XR/XR chest 1V IMPRESSION: NEGATIVE CHEST. Impression dictated by: Glenn Landers Jr., D.O. 06/12/2025 12:38 PM Dictation Location: [place] [address] Electronically authenticated by: [id number] Y Date: 06/12/2025 12:38
--- NOTE | 2025-06-12 11:44 | CT_ITS ---
[address] [address] Patient Name: ORACIO JOLLEY MRN: [id number] date: 1980 Sex: F Assigned Patient Location: ER Current Patient Location: [facility] Accession/Order Number: [id number] Exam Date: 06/12/2025 12:46 Report Date: 06/12/2025 12:49 At the request of: ROMAIN CALVILLO MD Procedure: CT angio chest CT ANGIOGRAM OF THE CHEST, PULMONARY EMBOLISM PROTOCOL: CLINICAL INFORMATION: Near syncopal episode. Chest pain radiating to right arm. COMPARISON: None TECHNIQUE: Following intravenous injection of contrast CT scans of the chest were obtained using pulmonary embolism protocol. Coronal and sagittal reconstructed images, as well as volume rendered CT pulmonary angiographic images were also submitted.The CT exam was performed using one or more of the following dose reduction techniques: Automated exposure control, adjustment of the MA and/or Kv according to patient size, or use of the iterative reconstruction technique. FINDINGS: Pulmonary Vasculature: Contrast bolus is adequate for evaluation of pulmonary embolism. Pulmonary trunk appears nondilated. No filling defects are identified to suggest pulmonary embolism. Mediastinum : Thoracic aorta is normal in caliber. No pericardial effusion. No lymphadenopathy. The esophagus is grossly unremarkable. Lungs: Bibasilar atelectasis. No consolidation pneumothorax or pleural effusion. Mild lung scarring. Upper abdomen: No acute findings Soft tissue/bones: Soft tissues surrounding the chest wall demonstrate no acute findings. Osseous structures demonstrate degenerative change. CT/CT angio chest IMPRESSION: NO EVIDENCE OF ACUTE PULMONARY EMBOLISM OR PROCESS. Impression dictated by: Glenn Landers Jr., D.O. 06/12/2025 12:49 PM Dictation Location: [place] [address] Electronically authenticated by: [id number] Y Date: 06/12/2025 12:49
--- NOTE | 2025-06-12 11:44 | ED_ITS ---
HPI HPI - General Adult General Chief complaint: Chest Pain Stated complaint: CHEST PAIN Time Seen by Provider: 06/12/25 11:43 Source: patient Mode of arrival: ambulance Limitations: no limitations History of Present Illness HPI narrative: Patient is a 45-year-old female who is coming in with acute on chronic complaints of lightheaded, dizziness, no vertigo, and midsternal chest pain in t he radiation. Patient has recently had a stress test and echocardiogram. Patient has no recent traveling. Patient daughter is at bedside. Patient works at [employer]. Patient is due to have a hysterectomy, she needed to have cardiac clearance done before they would perform a hysterectomy. Patient has had cardiac clearance but now needs to go through the process with insurance again to have a hysterectomy. Patient had no significant vaginal bleeding recently. Patient has no headache. No vertigo. Patient was brought in by EMS from [facility] for evaluation. Patient has not had a cardiac cath. Patient's father had ID in his 50s or 60s, brother had ID and 43. Patient felt today like she is in to have a near syncopal episode. She has had no vertigo. She been having intermittent chest pain, lightheaded, dizziness for years. No cocaine use. Patient heart score is 1 for risk factors of her family history All systems are negative except as noted/marked. All systems reviewed and otherwise negative. Nurses note and vital signs reviewed and patient is not hypoxic. General: The patient appears well and in no apparent distress. Patient is resting comfortably on cart. Patient is not toxic, lethargic, or listless Skin: Warm, dry, no pallor noted. There is no rash noted. No petechiae, purpura. Head: Normocephalic, atraumatic Eye: Normal conjunctiva, no drainage, EOMI. PERRL Ears, Nose, Mouth, and Throat: oral mucosa is moist. Nares patent. Mouth without vesicles. Cardiovascular: Regular Rate and Rhythm, no murmur, gallop, rub; no reproducible tenderness to palpation to anterior, lateral, posterior chest wall. Respiratory: Patient is in no distress, no accessory muscle use, lungs are clear to auscultation, no wheezing, rales or rhonchi Back: non-tender, no CVA tenderness bilaterally to percussion. No CT LS midline pain GI: no tenderness to palpation, no masses appreciated. No rebound, guarding, or rigidity noted. No distention Musculoskeletal: Patient has full range of motion of all of the extremities, no motor, sensory, or focal neurological deficits Neurological: A&O x4, normal speech Psychiatric: Cooperative Related Data Home Medications ?Medication ?Instructions ?Recorded ?Confirmed medroxyprogesterone 150 mg/mL 300 mg IM .x14qxbzo 02/1206/12/25 intramuscular suspension (Depo-Provera) multivitamin (Daily Multi-Vitamin 1 tab PO DAILY 02/2106/12/25 tablet) amoxicillin 875 mg-potassium tab 06/12/25 clavulanate 125 mg tablet Allergies Allergy/AdvReac Type Severity Reaction Status Date / Time ibuprofen Allergy Rash Verified 06/12/25 11:32 [facility] Medical History (Updated 06/12/25 @ 14:49 by Bhargav Heredia MD) Syncope ?R55 - Syncope and collapse (ICD-10) Heart palpitations ?R00.2 - Palpitations (ICD-10) Hip arthritis ?M16.10 - Unilateral primary osteoarthritis, unspecified hip (ICD-10) Hip pain ?M25.559 - Pain in unspecified hip (ICD-10) Back pain ?M54.9 - Dorsalgia, unspecified (ICD-10) Dizziness ?R42 - Dizziness and giddiness (ICD-10) Shortness of breath ?R06.02 - Shortness of breath (ICD-10) Asthma ?J45.909 - Unspecified asthma, uncomplicated (ICD-10) Migraine ?G43.909 - Migraine, unspecified, not intractable, without status migrainosus (ICD-10) Kidney stones ?N20.0 - Calculus of kidney (ICD-10) Pelvic pain ?R10.2 - Pelvic and perineal pain (ICD-10) Abnormal uterine bleeding ?N93.9 - Abnormal uterine and vaginal bleeding, unspecified (ICD-10) Menorrhagia ?N92.0 - Excessive and frequent menstruation with regular cycle (ICD-10) Heartburn ?R12 - Heartburn (ICD-10) Chest pain ?R07.9 - Chest pain, unspecified (ICD-10) Dyspnea on exertion ?R06.09 - Other forms of dyspnea (ICD-10) Prediabetes ?R73.03 - Prediabetes (ICD-10) Surgical History (Updated 02/21/25 @ 14:25 by Hallie Adam NP) History of laparoscopy ?Z98.890 - Other specified postprocedural states (ICD-10) History of appendectomy ?Z90.49 - Acquired absence of other specified parts of digestive tract (ICD- 10) Family History (Updated 02/21/25 @ 14:25 by Hallie Adam NP) Other Family history of COPD (chronic obstructive pulmonary disease) Family history of DVT Family history of breast cancer Family history of coronary artery disease Family history of diabetes mellitus Family history of heart disease Family history of hypertension Family history of myocardial infarction Social History (Updated 02/21/25 @ 14:23 by Hallie Adam NP) Within the past year, how often did you have a drink containing alcohol: never Score interpretation: A score less than 3 is consistent with normal alcohol consumption. Smoking status: Never smoker Non-prescribed substance use: denies use Previous occupational history: [employer], [employer] Highest level of school completed/degree received: high school graduate Little interest or pleasure in doing things: not at all Feeling down, depressed, or hopeless: not at all Exam Constitutional Vital Signs, click to edit/add: Last Vital Signs Temp 98.8 F 06/12/25 11:28 Pulse 72 06/12/25 14:00 Resp 14 06/12/25 14:00 BP 108/74 06/12/25 14:00 Pulse Ox 97 06/12/25 14:00 O2 Del Method Room Air 06/12/25 11:28 Course Vital Signs Vital signs: Vital Signs Pulse Rate 86 06/12/25 11:26 Respiratory Rate 11 L 06/12/25 11:26 Pulse Oximetry 99 06/12/25 11:26 Temperature 98.8 F 06/12/25 11:28 Pulse Rate 72 06/12/25 14:00 Respiratory Rate 14 06/12/25 14:00 Blood Pressure 108/74 06/12/25 14:00 Pulse Oximetry 97 06/12/25 14:00 Oxygen Delivery Method Room Air 06/12/25 11:28 Medical Decision Making MDM Narrative Medical decision making narrative: Patient seen and examined: Cardiac evaluation will be done Differential diagnosis includes but is not limited to: Dehydration, neurological symptoms, dehydration, ID, electrolyte abnormality, Diagnostics and management: Patient will have laboratory studies Relevant laboratory interpretation: No acute findings Radiological studies: Please see the formal radiological report. Chest x-ray and CT of the chest showed no acute findings Reevaluation: Patient symptoms have improved since she has been in the ER Shared decision making: I discussed with the patient the necessary laboratory findings and radiological findings. Social barriers to healthcare: There are no food insecurities, there is no issue with transportation, there are no insurance barriers. Disposition: I discussed with the patient continue follow-up with PCP, cardiology and neurology if indicated. A copy of patient's CT report was been given to her. Different etiologies have been discussed. The patient has increased fluids, she has been sweating a lot recently with hot weather and working at [employer]. No question at discharge. Lab Data Labs: Lab Results 06/12/25 06/12/25 Range/Units 11:35 12:14 WBC 11.6 H (4.0-11.0) 10^3/uL RBC 4.46 (4.20-5.40) 10^6/uL Hgb 13.7 (12.0-16.0) g/dL Hct 40.5 (36.0-48.0) % MCV 90.8 (81.0-99.0) fL MCH 30.7 (26.7-34.0) pg MCHC 33.8 (29.9-35.2) g/dL RDW 12.8 (11.0-15.0) % Plt Count 217 (150-450) 10^3/uL MPV 9.1 L (9.5-13.5) fL Neut % (Auto) 68.2 (43.0-75.0) % Lymph % (Auto) 21.1 (20.5-60.0) % [place] % (Auto) 9.8 (1.7-12.0) % Eos % (Auto) 0.3 L (0.9-7.0) % Baso % (Auto) 0.3 (0.2-2.0) % Neut # (Auto) 7.9 H (1.4-6.5) 10^3/uL Lymph # (Auto) 2.5 (1.2-3.8) 10^3/uL [place] # (Auto) 1.1 H (0.3-0.8) 10^3/uL Eos # (Auto) 0.0 (0.0-0.7) 10^3/uL Baso # (Auto) 0.0 (0.0-0.1) 10^3/uL Abs Immat Gran (auto) 0.03 (0.00-0.03) 10^3/uL Imm/Tot Granulo (auto) 0.3 (0.0-0.5) % PT 10.9 (9.0-11.6) sec INR 1.03 Sodium 143 (136-145) mmol/L Potassium 3.6 (3.5-5.1) mmol/L Chloride 105 (98-107) mmol/L Carbon Dioxide 27.9 (21.0-32.0) mmol/L Anion Gap 13.7 BUN 11.0 (7.0-18.0) mg/dL Creatinine 0.78 (0.55-1.02) mg/dL Est GFR ( Amer) >60 (>=60 mL/min/1.73m^2) Est GFR (Non-Af Amer) >60 (>=60 mL/min/1.73m^2) BUN/Creatinine Ratio 14.1 Glucose 75 (74-106) mg/dL Calcium 9.3 (8.5-10.1) mg/dL Total Bilirubin 0.7 (0.2-1.0) mg/dL AST 21 (15-37) U/L ALT 42 (14-59) U/L Alkaline Phosphatase 57 (46-116) U/L Troponin I High Sens <4.0 L (4.0-51.3) pg/mL NT-Pro-B Natriuret Pep 149.0 (<=450.0) pg/mL Total Protein 7.5 (6.4-8.2) g/dL Albumin 3.9 (3.4-5.0) g/dL Globulin 3.6 g/dL Albumin/Globulin Ratio 1.1 Urine Color Lt. yellow (YELLOW) Urine Clarity Clear (CLEAR) Urine pH 6.0 (5.0-9.0) Ur Specific [place] 1.010 (1.005-1.025) Urine Protein Negative (NEG/TRACE) mg/dL Urine Glucose (UA) Negative (NEGATIVE) mg/dL Urine Ketones 15 A (NEGATIVE) mg/dL Urine Occult Blood Small A (NEGATIVE) Urine Nitrite Negative (NEGATIVE) Urine Bilirubin Negative (NEGATIVE) Urine Urobilinogen 0.2 (0.2-1.0) EU/dL Ur Leukocyte Esterase Trace A (NEGATIVE) Urine RBC 0-2 (0-2) #/HPF Urine WBC 0-2 A (NONE SEEN) #/HPF Ur Squamous Epith Cells Moderate A (NONE/RARE) #/LPF Urine Crystals None seen (None Seen) #/HPF Urine Bacteria Trace A (NONE SEEN) #/HPF Urine Casts None seen (NONE SEEN) #/LPF Urine Mucus None seen (NONE SEEN) Ur Culture Indicated? No ECG Data Attestation: I personally reviewed and interpreted this ECG as follows: (EKG interpretation. Normal sinus rhythm at 80 beats a minute. Normal axis deviation. ST elevation, no acute ectopy. 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 Referrals: Physician,Non-Staff, MD [Primary Care Provider] - 1 week Discharge Date/Time: 06/12/25 15:06
[2025-06-12 12:22] LABS: Hematocrit 40.5 % (36.0-48.0); Hemoglobin 13.7 g/dL (12.0-16.0); Immature Granulocytes Abs Auto 0.03 10^3/uL (0.00-0.03); Immature Granulocytes Pct Auto 0.3 % (0.0-0.5); Lymphocytes Absolute Auto 2.5 10^3/uL (1.2-3.8); Mean Corpuscular HGB Conc 33.8 g/dL (29.9-35.2); Mean Corpuscular Hemoglobin 30.7 pg (26.7-34.0); Mean Corpuscular Volume 90.8 fL (81.0-99.0); Platelet Count 217 10^3/uL (150-450); Red Blood Count 4.46 10^6/uL (4.20-5.40); White Blood Count 11.6 10^3/uL (4.0-11.0)
[2025-06-12 12:26] LABS: Glucose Urine UA NEGATIVE (NEGATIVE)
[2025-06-12 12:38] LABS: INR 1.03; Prothrombin Time 10.9 sec (9.0-11.6)
[2025-06-12 12:40] LABS: Cast Seen? NONE SEEN #/LPF (NONE SEEN); Crystals Seen? None Seen #/HPF (None Seen); Urine Culture Indicated NO
[2025-06-12 12:45] LABS: Alanine Aminotransferase 42 U/L (14-59); Albumin Globulin Ratio 1.1; Albumin Level 3.9 g/dL (3.4-5.0); Alkaline Phosphatase 57 U/L (46-116); Anion Gap 13.7; Aspartate Amino Transferase 21 U/L (15-37); Blood Urea Nitrogen 11.0 mg/dL (7.0-18.0); Calcium 9.3 mg/dL (8.5-10.1); Carbon Dioxide 27.9 mmol/L (21.0-32.0); Chloride 105 mmol/L (98-107); Estimated GFR (African America >60 (>=60 mL/min/1.73m^2); Estimated GFR (Non-African Ame >60 (>=60 mL/min/1.73m^2); Globulin 3.6 g/dL; Glucose 75 mg/dL (74-106); NT Pro B Type Natriuretic Pept 149.0 pg/mL (<=450.0); Potassium 3.6 mmol/L (3.5-5.1); Sodium 143 mmol/L (136-145); Total Protein 7.5 g/dL (6.4-8.2)
== END 2025-06-12 15:06 | disposition home or self-care (01) ==
PROVIDERS: Emergency Provider Emergency Medicine
DX: R07.9 Chest pain, unspecified (principal); R42 Dizziness and giddiness; Z90.49 Acquired absence of other specified parts of digestive tract
CPT/HCPCS: 36415; 71045; 71275; 80053; 81001; 83880; 84484; 85025; 85610; 93005; 99285; Q9967

== ENCOUNTER 2025-09-04 10:57 | Outpatient (OUT) | payer OTHER, SELFPAY ==
--- OUTSIDE RECORDS SUMMARY | 2024-10-15 13:15 | XMS_ITS ---
Author Organization [facility] vices Address [address] [place] [id number] Care Team Providers Care Housekeeping Supervisor Hotel Name Role Phone Carolina Singh Primary Care Provider [phone] Lani Fernandez [phone] REASON FOR VISIT Possible kidney issues Social History Sex Assigned At : Social History Observation Description Sex Assigned At Female Encounters Encounter Location Date Provider Diagnosis Main [address] [place] [id number] 10/15/2024 Lani Fernandez Plan Of Treatment No Information Progress Notes * Cookie JOLLEY SDOB: [birth year] (45 yo F)Acc No.[id number]:10/15/2024 Medical Note Patient: Cookie SOW :?Lani Fernandez CNPDOB:1980???Age:44 Y ???Sex:FemaleDate:10/15/2024hone:[phone]:[address], [id number]:Carolina Singh Subjective: * Chief Complaints: * 1 . Possible kidney issues. * Medical History: Objective: * Vitals: Assessment: Plan: * Treatment: * Billing Information: * Visit Code: * Procedure Codes: * Electronic signature of Lani Fernandez CNP on 09/04/2025 at 11:02 AM EDTSign off status: Pending * Provider: Satya Fernandez CNP Date: 1 12/16/2023 Generated for Printing/Faxing/eTransmitting on:?09/04/2025 11:02 AM EDT
--- OUTSIDE RECORDS SUMMARY | 2025-08-27 13:30 | XMS_ITS | Encounter Summary ---
Author Organization [facility] Address [address] [place] [address] Care Team Providers Care Adult Caregiver Name Role Phone Unallocated, Noms Provider Primary Care Provi laura Reason for Visit * ReasonCommentsPre-op VisitWell Women Visit Encounter Details DateTypeDepartmentCare Team (Latest Contact Info)Hfpxfebpyyv00/14/2025 1:30 PM EDTConsult [facility] [place] [facility] [address] [place] [id number] Juanito Alanis, [address] [place], [place] [id number] Pre-op examination; Menorrhagia with regular cycle; Abnormal uterine bleeding (AUB); Pelvic pain; Request for sterilization Social History Tobacco UseTypesPacks/DayYears UsedDateSmoking Tobacco: FormerCigarettes Smokeless Tobacco: NeverAlcohol UseStandard Drinks/WeekCommentsNot Currently0 (1 standard drink = 0.6 oz pure alcohol)CommentsNoSex and Gender InformationValueDate RecordedSex Assigned at BirthNot on fileLegal SexFemale 01/26/2023 11:47 PM EDTGender IdentityNot on fileSexual OrientationNot on file documented as of this encounter Progress Notes * Cherri Fernandez LPN - 08/27/2025 1:30 PM EDT Reason for Appointment: Patient ID: Cookie Gong is a 45 y.o. female who presents for Pre-op Visit and Well Women Visit Patient presents today for Pre Op appointment. Patient is scheduled to undergo [place] assisted Bilateral Laparoscopic Salpingectomy and Endometrial Ablation with Irene on 09/20/[address] Alanis at [facility]. MEDICATIONS Current Outpatient Medications Medication Instructions medroxyPROGESTERone (DEPO-PROVERA) 150 mg, Every 3 months ALLERGIES Allergies Allergen Reactions Ibuprofen Hives PROBLEMS Active Ambulatory Problems Diagnosis Date Noted No Active Ambulatory Problems Resolved Ambulatory Problems Diagnosis Date Noted No Resolved Ambulatory Problems Past Medical History: Diagnosis Date Spinal cord cysts HISTORY PAST MEDICAL HISTORY SOCIAL HISTORY Past Medical History: Diagnosis Date Spinal cord cysts Social History Tobacco Use Smoking status: Former [...] nursing note reviewed. Exam conducted with a computer systems security analyst present. Vitals: Estimated body mass index is 25.3 kg/m?? as calculated from the following: Height as of 06/15/23: 5' 3 . Weight as of 07/29/25: 142 lb 12.8 oz. BP: No LMP recorded. Patient has had an injection. ASSESSMENT & PLAN ICD-10-CM 1. Pre-op examination Z01.818 2. Menorrhagia with regular cycle N92.0 3. Abnormal uterine bleeding (AUB) N93.9 4. Pelvic pain R10.20 5. Request for sterilization Z30.2 Pre Op: Patient is doing well but has desire for sterilization and has complaints of bleeding and pelvic pain. Patient has tried hormone therapy in the past but all attempts to subside patients issues of bleeding have failed. I have discussed conservative management vs. surgical management with the patientin detail and patient desires surgical management at this time. Patient has voiced understanding that a Bilateral Salpingectomy is considered to be permanent and patient will undergo [place] assisted Bilateral Laparoscopic Salpingectomy & Endometrial Ablation with Irene on 09/20/2025. Surgical consents were signed, mmc was reviewed, and [facility] to [facility]. Follow Up: Patient is to follow up between 1-2 weeks post op to assess proper healing and recovery from procedure. Documented by Cherri Fernandez LPN on behalf of: Juanito Alanis DO documented in this encounter Plan of Treatment DateTypeDepartmentCare Team (Latest Contact Info)Lcwffpvkaht70/22/2025 3:00 PM EDTAncillary Procedure [facility] [address] [place], [place] [address] [phone] documented as of this encounter Visit Diagnoses Diagnosis Pre-op examination Menorrhagia with regular cycle Abnormal uterine bleeding (AUB) Pelvic pain Request for sterilization documented in this encounter Care Teams Team MemberRelationshipSpecialtyStart DateEnd Date Unallocated, Noms MD Chris [place] [address] P[facility]06/15/23documented as of this encounter
--- NOTE | 2025-09-04 11:01 | ECG_ITS ---
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 Measurements Intervals [place] Rate: 70 P: 55 SD: 137 QRS: 51 QRSD: 89 T: 32 QT: 391 QTc: 422 Interpretive Statements SINUS RHYTHM POSSIBLE RIGHT VENTRICULAR CONDUCTION DELAY [RSR (QR) IN V1/V2] NONSPECIFIC T-WAVE ABNORMALITY Abnormal ECG Compared to ECG 06/12/2025 11:27:41 T-wave abnormality now present Electronically Signed On 09-04-2025 23:43:07 EDT by ALYSIA CANO M.D.
--- OUTSIDE RECORDS SUMMARY | 2025-09-04 11:01 | XMS_ITS | Encounter Summary ---
Author Organization [facility] Address [address] [place] [address] Care Team Providers Care Director Of Government Sales Name Role Phone Unallocated, Noms Provider Primary Care Provi laura Encounter Details DateTypeDepartmentCare Team (Latest Contact Info)Cnwhxzywopq13/14/2025amboo flowsheet [facility] [address] [place] [address] Juanito Alanis DO [address] [place] [address] Social History Tobacco UseTypesPacks/DayYears UsedDateSmoking Tobacco: FormerCigarettes Smokeless Tobacco: NeverAlcohol UseStandard Drinks/WeekCommentsNot Currently0 (1 standard drink = 0.6 oz pure alcohol)CommentsNoSex and Gender InformationValueDate RecordedSex Assigned at BirthNot on fileLegal SexFemale 01/26/2023 11:47 PM EDTGender IdentityNot on fileSexual OrientationNot on file documented as of this encounter Plan of Treatment DateTypeDepartmentCare Team (Latest Contact Info)Tqbauvskkkt69/22/2025 3:00 PM EDTAncillary Procedure [facility]EL [facility] [address] [place] [address] documented as of this encounter Visit Diagnoses Not on filedocumented in this encounter Care Teams Team MemberRelationshipSpecialtyStart DateEnd Date Unallocated, Noms ProviderMD Chris [place], [place] [phone] [facility]06/15/23documented as of this encounter
--- OUTSIDE RECORDS SUMMARY | 2025-09-04 11:02 | XMS_ITS | Clinical Summary ---
Author Organization [facility] Address [address] [place] [address] Care Team Providers Care Vegetable Vendor Name Role Phone Unavailable Primary Care Provider Unavailabl e Allergies Active AllergyReactionsCriticalityNoted JqqtZgjysmskTfvprdiwvSwmmm88/02/2025 Medications MedicationSigDispense QuantityRefillsLast FilledStart DateEnd DateStatus cyclobenzaprine (Flexeril) 10 mg tablet Take 10 mg by mouth if needed in the morning and at bedtime.3Active famotidine (Pepcid) 20 mg tablet Take 40 mg by mouth every 12 (twelve) hours if needed.12/09/2019Active ondansetron ODT (Zofran-ODT) 4 mg disintegrating tablet 06/12/2024ctive tamsulosin (Flomax) 0.4 mg 24 hr capsule 06/12/2024ctive traMADol (Ultram) 50 mg tablet 5Active estradiol cypionate (Depo-estradiol) 5 mg/mL injection Inject into the shoulder, thigh, or buttocks every 28 (twenty-eight) days.Active metoprolol tartrate (Lopressor) 25 mg tablet Indications:Abnormal stress testTake 1 tablet (25 mg) by mouth in the morning for 1 day. Take one tablet morning of CTA 1 tablet 5Active Active Problems ProblemNoted DateDiagnosed DateUrinary ijbelfetp42/12/2025 Overview (02/11/2025): ====12/26/24==== Over 8 months of bilateral flank pain, frequency, urgency, urge incontinence, dysuria, and pelvic pain. Recent CT negative. UA dipped for blood. We will send today's specimen for microscopic exam. She agrees to cystoscopy/[facility] instillation. She is requesting anesthesia. Pneumonia of left lower lobe due to infectious qduwgags46/03/2019Chest pain 12/15/2018 Encounters DateTypeDepartmentCare UjwbWsuxfifnrgo26/05/2025Telephone [facility] [address] [place] [address] Jamila Mares MA from Last 3 Months Family History Medical HistoryRelationNameCommentsHeart attackBrotherHeart attackFatherKidney failureFatherCOPDMotherHypertensionMotherRelationNameStatusCommentsBrotherAlive FatherDeceasedMotherAliveSisterAlive Social History Tobacco UseTypesPacks/DayYears UsedDateSmoking Tobacco: NeverSmokeless Tobacco: Never Tobacco Cessation:Counseling Given: Not Answered Alcohol UseStandard Drinks/WeekCommentsNot Currently0 (1 standard drink = 0.6 oz pure alcohol)CommentsNoSex and Gender InformationValueDate RecordedSex Assigned at BirthNot on fileLegal DgbVgefns69/29/2022 11:57 PM EDTGender IdentityNot on fileSexual OrientationNot on file Last Filed Vital Signs Vital SignReadingTime TakenCommentsBlood Hatajjoe32/6406 8:15 AM EDT Vllan801504/18/2025 8:15 AM EDTTemperature--Respiratory Kpjr745304/18/2025 8:15 AM EDTOxygen Xwsnqrsikv36%04/18/2025 8:15 AM EDTInhaled Oxygen Concentration-- Lwzxfw04 kg (141 lb)02/13/2025 3:50 PM GVAHxanoz569 cm (5' 3 )02/13/2025 3:50 PM EDTBody Mass Index24.98002/13/2025 3:50 PM EDT Plan of Treatment Health MaintenanceDue DateLast DoneCommentsCT Rjhoeqjpnpgu1979Colonoscopy 1980Colorectal Cancer Xbiikfdls1979FIT-DNA1979FIT1980 FOBT1980 3649Hmnvtyosauwzm1979Depression Hagmrcgzk27/19/1991Hepatitis B Vaccines (1 of 3 - 19+ 3-dose series)1998Pneumococcal Vaccine: Pediatrics (0 to 5 Years) and At-Risk Patients (6 to 64 Years) (1 of 2 - PCV)1998 HPV/Twzaxv5501/30/2009dult Ixyneip65COVID-19 Vaccine (1 - 2024- season)2025Influenza Vaccine (#1)07/15/20251646Upexeicku28/12/2027 12/26/2024ervical Cancer Xskezbkyr90/06/2028Pap SmearZoster Vaccines (1 of 2)2029HIB VaccinesAged OutNo longer eligible based on patient's age to complete this topicHPV VaccinesAged OutNo longer eligible based on patient's age to complete this topicIPV VaccinesAged OutNo longer eligible based on patient's age to complete this topicMeningococcal B VaccineAged OutNo longer eligible based on patient's age to complete this topicMeningococcal VaccineAged OutNo longer eligible based on patient's age to complete this topic Rotavirus VaccinesAged OutNo longer eligible based on patient's age to complete this topic Insurance
--- OUTSIDE RECORDS SUMMARY | 2025-09-04 11:02 | XMS_ITS | Clinical Summary ---
Author Organization [facility] Address [address] [place] [address] Care Team Providers Care Hazardous Waste Technician Name Role Phone Unallocated, Noms Provider Primary Care Provi laura Allergies Active AllergyReactionsCriticalityNoted OnvxYeethtfkUuguwhilsKnmiq23/18/2025 Medications MedicationSigDispense QuantityRefillsLast FilledStart DateEnd DateStatus medroxyPROGESTERone (Depo-Provera) 150 MG/ML injection Inject 150 mg into the shoulder, thigh, or buttocks every 3 (three) monthsActive Encounters DateTypeDepartmentCare FzixUplusjsveuu12/14/2025 1:30 [place] [address] Juanito Alanis DO Pre-op examination; Menorrhagia with regular cycle; Abnormal uterine bleeding (AUB); Pelvic pain; Request for reuzsmspwfslf80/14/2025amboo flowsheet [facility] [address] Juanito Alanis DO 08/13/2025b[place] [address] Tess Mcguire MA 07/29/2025 3:30 [place] [address] Juanito Alanis DO Abnormal uterine bleeding; UTI ioagxujq65/15/2025amboo flowsheet [facility] [address] [place] [address] Juanito Alanis DO from Last 3 Months Family History Medical HistoryRelationNameCommentsDiabetesFatherHeart diseaseFatherHypertension FatherCOPDMotherHeart diseaseMotherHypertensionMotherRelationNameStatusComments FatherDeceasedMotherAlive Social History Tobacco UseTypesPacks/DayYears UsedDateSmoking Tobacco: FormerCigarettes Smokeless Tobacco: Never Tobacco Cessation:Counseling Given: Not Answered Alcohol UseStandard Drinks/WeekCommentsNot Currently0 (1 standard drink = 0.6 oz pure alcohol)CommentsNoSex and Gender InformationValueDate RecordedSex Assigned at BirthNot on fileLegal RgwCkgweq30/15/2023 11:47 PM EDTGender IdentityNot on fileSexual OrientationNot on file Last Filed Vital Signs Vital SignReadingTime TakenCommentsBlood Yvvmzlen469/7609 3:45 PM EDT Pulse--Temperature--Respiratory Rate--Oxygen Saturation--Inhaled Oxygen Concentration--Rnzcmk95.8 kg (142 lb 12.8 oz)07/29/2025 3:45 PM DPAHbfvac777 cm (5' 3 )06/15/2023 12:53 PM EDTBody Mass Index25.308 12:53 PM EDT Plan of Treatment DateTypeDepartmentCare Team (Latest Contact Info)Fmyppszjinr95/22/2025 3:00 PM EDTAncillary Procedure [facility] [address] [place] [phone] Health MaintenanceDue DateLast DoneCommentsCT Wrxgkruvezic1979Colonoscopy 1979Colorectal Cancer Kyhykjmbo1979FIT-DNA1979FIT1979 FOBT1979 4902Mnphpequhzyhy1979Influenza Vaccine (#1)2025Mammogram 6012/26/2024, 07/08/2023, 11/06/2019, Additional history existsCervical Cancer Jvwkhflkj01/06/2026HPV/Lhgqrw7401/17/2026Pap Smear6001/17/2025 Procedures Procedure NamePriorityDate/TimeAssociated DiagnosisCommentsPOCT URINALYSIS WSXBKGAJEbzqbdo16/15/2025 3:52 PM EDT Abnormal uterine bleeding UTI symptoms PAP NFJUUVzytgsv21/06/2025 12:00 AM ESTfrom Last 3 Months or Most Recently Relevant to Health Maintenance Results * (ABNORMAL) POCT urinalysis dipstick manually resulted (07/29/2025 3:52 PM EDT) ComponentValueRef RangeTest MethodAnalysis TimePerformed AtPathologist SignatureColor, UAYellowClarity, UAClearGlucose, UANegativeNegative - 2000(110) ++++ mg/dLBilirubin, UANegativeNegative - 4(70) +++ mg/dLKetones, UA NegativeNegative - 160(16) ++++ mg/dLSpec Grav, UA1.0101 - 1.03Blood, UA PositiveNegative - 50 Jermaine/mcLpH, UA6.05 - 9Protein, UANegativeNegative - 2000(20) ++++ mg/dLUrobilinogen, UA1.00.2 - 12 mg/dLLeukocytes, UAPositive Negative - 500+++ Giuliana/mcLNitrite, UANegativeNegative - PositiveSpecimen (Source)Anatomical Location / LateralityCollection Method / VolumeCollection TimeReceived IlaeDekbc62/15/2025 3:52 PM EDT Narrative Authorizing ProviderResult TypeResult StatusCorey Zeke DOPOINT OF CARE TEST ENTER/EDIT ORDERABLESFinal Result * Pap Smear (01/17/2025 12:00 AM EST)Specimen (Source)Anatomical Location / LateralityCollection Method / VolumeCollection TimeReceived TimeSwabCervical swab / Unknown Narrative Authorizing ProviderResult TypeResult StatusFazio Nurse Noms Bcp ObLAB CYTOLOGY ORDERABLESFinal ResultPerforming OrganizationAddressCity/State/ZIP CodePhone Number EXTERNAL LAB from Last 3 Months or Most Recently Relevant to Health Maintenance Insurance Care Teams Team MemberRelationshipSpecialtyStart DateEnd Date Unallocated, Noms Mumtaz, [address] [facility] [place], [place] [id number] PCP - General06/15/23
--- OUTSIDE RECORDS SUMMARY | 2025-09-04 11:03 | XMS_ITS | Patient Health Record ---
Author Organization [facility] Address [address] [place], [place] [address] Care Team Providers Care Glove Parts Inspector Name Role Phone Carolina Singh Primary Care Provider Lani Fernandez Unavailable [phone] Allergies No Known Allergies Results Component Value Reference Range Notes LIPID PANEL WITH REFLEX TO D IRECT LDL Reviewed date:10/17/2024 10:31:29 PM Interpretation: Performing Lab: Notes/Report: CHOLESTEROL 180 100-199 mg/dL WLRSTYFUNCJOJ4878-527 mg/dL VLDL-CHOL, CALCULATED 11<30 mg/dLHDL-CHOL62>=50 mg/dL LDL-CHOL, CALCULATED 107<130 mg/dL ADULT LDL CHOLESTEROL CLASSIFICATION <100mg/dL Optimal 100-129 Near/Above Optimal 130-159mg/dL Borderline High >160mg/dL High Risk Desirable range <100 mg/dL for patients with CHD or diabetes and <70 mg/dL for diabetic patients with known heart disease. Direct LDL is recommended for patients with triglycerides >400. LDL/HDL1.7<4.1 LDL/HDL RATIO MALE FEMALE below average risk <2.3 <2.3 average risk <5.0 <4.1 moderate risk <7.1 <5.6 high risk >7.1 >5.6 CHOL/HDL2.92.0-4.5COMPREHENSIVE METABOLIC PANEL WITH GFR Reviewed date:10/18/2024 04:55:36 AM Interpretation: Performing Lab: Notes/Report:ACKLMYT5610-269 mg/dL Falsely decreased glucose results may be caused by prolonged contact with red cells when collected in corvac tubes. YIE725-35 mg/rNDOTTOXP13.38.6-10.5 mg/dL CREATININE, BLOOD 0.810.51-1.15 mg/dL eGFR (2020 CKD-EPI)91>59 mL/min/1.78f7JYVERP059198-031 mmol/LPOTASSIUM4.23.5-5.4 mmol/SZOZMATKE1083-143 mmol/ZQL28712-97 mmol/LANION WFJ704-67 mmol/LT. BILIRUBIN 0.9<1.3 mg/dLALK WUES8598-672 U/DIQM-GEID896-18 U/NYEQ-VJUP299-53 U/LT. PROTEIN 7.46.0-8.3 g/dLALBUMIN5.03.5-5.2 g/dLCBC W/AUTO DIFF Reviewed date:10/17/2024 01:14:34 PM Interpretation: Performing Lab: Notes/Report:WBC9.43.6-11.0 THDS/CMMRBC4.973.80-5.20 MILL/ONENSC63.111.9-16.0 G/DLHCT45.435-47 %QYK9033-550 fLMCH30.426.0-33.0 ssVPID76.332.0-35.0 g/dlRDW11.7 11.2-14.8 %HUHMXWON400590-253 THOUS/MMNGUGZONFLPHS53.845-75 %HYRUECYWDTU98.220- 45 %MONOCYTES7.30-13 %EOSINOPHILS0.70-5 %BASOPHILS0.70-2 %IMMATURE GRAN0.30-2 % ABS NEUTROPHILS5.161.9-8.0 K/uLABS LYMPHOCYTES3.420.9-5.2 K/uLABS MONOCYTES0.69 0.1-1.0 K/uLABS EOSINOPHILS0.070.0-0.80 K/uLABS BASOPHILS0.070.0-0.2 K/uLABS IMMATURE GRAN0.030.00-0.06 K/uL UNLESS OTHERWISE INDICATED, ALL TESTING PERFORMED AT: [facility] [address] [place] [address] DIRECTOR MONEY: NATHAN MACIAS M.D. CLIA NUMBER [id number] CAP ACCREDITATION AUID [id number] Changes in testing location may be associated with reference range changes for a number of analytes. Please review reference intervals carefully. URINE PREG Reviewed date:10/15/2024 03:20:44 PM Interpretation: Performing Lab: Notes/Report: URINE PREGnegativeURINE CULTURE Reviewed date:10/18/2024 04:55:02 AM Interpretation: Performing Lab: Notes/Report:URINE CULTURE CULTURE/SENS,URINE REPORT STATUS: FINAL SOURCE: URINE CULTURE: NO GROWTH Urine Dip Reviewed date:10/15/2024 03:13:57 PM Interpretation: Performing Lab: Notes/Report: Bilirubin-Occult Blood1+Hcsemog-Rbovnch-PJA+Nitrite-Ph6.5Protein-Specific Gravity1.015ColoryellowAppearanceclearURINALYSIS WITH MICROSCOPIC EXAM Reviewed date:10/18/2024 04:55:24 AM Interpretation: Performing Lab: Notes/Report: UNLESS OTHERWISE INDICATED, ALL TESTING PERFORMED AT: [facility], [employer]. [address] [place] [address] DIRECTOR MONEY: NATHAN MACIAS M.D. CLIA NUMBER [id number] CAP ACCREDITATION AUID [id number] Changes in testing location may be associated with reference range changes for a number of analytes. Please review reference intervals carefully.PH7.0 5.0-8.0SP GRAVITY1.0201.005-1.030APPEARANCECLEARCLEARCOLORYELLOWYELLOWPROTEIN NEGATIVENEGATIVEGLUCOSENEGATIVENEGATIVEKETONESNEGATIVENEGATIVEBILIRUBINNEGATIVE NEGATIVEOCCULT BLOODTRACENEGATIVELEUKO ESTER1+NEGATIVENITRITENEGATIVENEGATIVE UROBILINOGEN<2<2 mg/dLWBC0-50-5 RXIYTH65-575-0 HPFEPI CELL0-2NONE HPFBACTERIA TRACENONEHYALINE CASTSNONENONE LPFMAMM SCREENING BILATERAL W CAD Reviewed date:12/27/2024 10:20:15 AM Interpretation: Performing Lab: Notes/Report: RESULTS BELOW ORACIO GONG 1979CT ABDOMEN& PELVIS WO&W Reviewed date:11/01/2024 10:46:24 PM Interpretation: Performing Lab: Notes/Report: RESULTS BELOW STUDY: CT OF THE ABDOMEN AND PELVIS WITH AND WITHOUT CONTRASTCologuard Reviewed date:12/25/2024 10:40:05 AM Interpretation: Performing Lab: Notes/Report: Reason For Referral Reason Referring for evalua tion for 8 month hx of bilateral flank pain, incomplete emptying of bladder, urinary frequency. urine dip in office showed +1 hgb, neg leuks. Has CT abd/pelvis scheduled 10/29/24. Thanks Diagnosis 1 Incomplete emptying of bladder (R33.9) Referral Organization [facility] Referring Provider First Name [place] Referring Provider Last Name [facility] Referring Provider Speciality Nurse Prac annette Referred Provider [facility] Referred Provider Specialty Urology General Notes Gemini Corado 03/26/2025 01:02:39 PM >noteds received and put in chart Referral Priority Routine Referral Appointment Date 12/26/2024 Reason Referring for evalua tion of sacral Tarlov cyst. 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 Please change name to Mahesh Seymour and refax. Thank you, Tahira cervantes Haley 12/05/2024 03:15:22 PM >{ {TOFIRSTNAME}} This is [facility] following up on an outstanding [...] 1 Enlarged tonsils (J3 5.1) Referral Organization [facility] Referring Provider First Name Lani Referring Provider Last Name Rebecca Referring Provider Speciality Nurse Prac annette Referred Provider [facility] Referred Provider Specialty [...] Notes Start Date End Date Status Depo-Provera ActiveMultivitaminActive Immunizations Vaccine Route Administration Date Status Comme [...] No patient entered data CAGE-AID Score 0 InterpretationNegativePRAPARE Question Answer Notes Date Completed/Updated: 12/10/2024 laura nt entered data What is your current housing situation? I have housing patient entered data Are you worried about losing your housing? No patient entered data What is the highest level of school that you have finished? 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 Check all that apply I do not have problems meeting my needs Has lack of transportation kept you from medical appointments, meetings, work or from getting things needed for daily living?NoHow often do you see or talk to people that you care about and feel close to? (For example: talkingto friends on the phone, visiting friends or family, going to alevism or club meetings)3 to 5 times a weekpatient entered dataHow stressed are you? Stress is when someone feels tense, nervous, anxious, or can't sleep at nightbecause their mind is troubledA little bitpatient entered dataIn the past year have you spent more than 2 nights in a row in a mcc, long term, halfway center, orjuvenile correctional facility?Nopatient entered dataAre you a refugee?Nopatient entered dataWhat country are you from?[place] Statespatient entered dataDo you feel physically and emotionally safe where you currently live?Yespatient entered dataIn the past year, have you been afraid of your partner or ex-partner?I have not had a partner in the past yearpatient entered data PRAPARE Score:1 Problems Problem Type SNOMED Code ICD Code Onset Dates Problem Status W/U Status Risk Notes Problem Hypertrophy of tonsils (69762680) Enlarge d tonsils (J35.1) ActiveconfirmedProblemMild major depression (58806419)Mild major depression (F32.0)Activeconfirmed Vital Signs Heart Rate 80 /min 12/10/2024 David Rushing 12/10/2024 04:09:22 PM EST > Temperature 97.5 degrees Fahrenheit 12/10/2024 Trenton Obregon 12/10/2024 04:09:22 PM EST > Respiratory Rate 18 /min 12/10/2024 Trenton Rushing 12/10/2024 04:09:22 PM EST > Height-cm 158.75 cm 12/10/2024 David Rushing 12/10/2024 04:09:22 PM EST > Oximetry 100 % 12/10/2024 David Rushing 12/10/2024 04:09:22 PM EST > Blood pressure diastolic 78 mm Hg 12/10/2024 Trenton Dover 12/10/2024 04:09:22 PM EST > Weight-kg 63.96 kg 12/10/2024 David Rushing vando 12/10/2024 04:09:22 PM EST > Height 62.50 in 12/10/2024 David Rushing vando 12/10/2024 04:09:22 PM EST > Blood pressure systolic 109 mm Hg 12/10/2024 Zonia Obregonando 12/10/2024 04:09:22 PM EST > Weight 141 lbs 12/10/2024 Сергей, David vando 12/10/2024 04:09:22 PM EST > BMI 25.38 kg/m2 12/10/2024 David Rushing vando 12/10/2024 04:09:22 PM EST > Encounters Encounter Location Date Provider Diagnosis [facility] [address] [place] , [place] [id number] 10/15/2024 Lani Fernandez Dysuria R30.0 ; Flan k pain R10.9 and Screening for heart disease Z13.6 [facility] [address] [facility] [place] [id number] 12/10/2024 [facility] examination Z00.00 ; Screening mammogram for breast cancer Z12.31 ; Screening for colon cancer Z12.11 ; Enlarged tonsils J35.1 ; Overweight E66.3 ; Body mass index [BMI] 25.0-25.9, adult Z68.25 ; Mild major depression F32.0 and Positive depression screening Z13.31 [address] , [place] [id number] 10/18/2024 Lani Fernandez Incomplete emptying of bladder R33.9 [address] [place], [place] [id number] 10/24/2024 Lani Rebecca [id number] [place], [place] [address]/19/2024licia MonishaingerTarlov cyst G96.191 and Enlarged tonsils J35.7[address] [place], [place] [id number] 12/11/2024[facility] Assessments Encounter Date Diagnosis (ICD Code) Assessment Notes Treatment Notes Treatment Clinical Notes Section Notes 10/15/2024 Flank pain (ICD-10 - R10.9) 10/18/2024Incomplete emptying of bladder (ICD-10 - R33.9)11/01/2024Enlarged tonsils (ICD-10 - J35.1)11/01/2024Tarlov cyst (ICD-10 - G96.191)10/15/2024 Dysuria (ICD-10 - R30.0)Trace leukocytes, 1+ hemoglobin, negative nitrites. Will culture urine.12/10/2024Wellness examination (ICD-10 - Z00.00) Pt is here [...] all questions were answered in detail today. 12/10/2024Screening mammogram for breast cancer (ICD-10 - Z12.31)Pt due for riukcewph40/27/2025Screening for colon cancer (ICD-10 - Z12.11)Pt agreeable for laith Cox family hx of Colon Hdcnle4810/15/2024Screening for heart disease (ICD-10 - Z13.6)12/10/2024Enlarged tonsils (ICD-10 - J35.1) Pt has had frequent episodes of enlarged tonsils and they have been bothering her. Pt would like evaluation to have them removed, was seen by Dentist in October and encouraged to remove Re-printed ENT referral 12/10/2024Overweight (ICD-10 - E66.3)12/10/2024ody mass index [BMI] 25.0-25.9, adult (ICD-10 - Z68.25)12/10/2024Mild major depression (ICD-10 - F32.0) Pt had a positive depression screen today Pt denies thoughts of harming themselves or others Advised pt if they are have suicidal or homicidal to call 911 or go to the ER. Declines medication or counseling at this time 12/10/2024Positive depression screening (ICD-10 - Z13.31) Plan Of Treatment No Information Insurance Providers Payer Name Payer Address Payer Phone Subscriber Number Group Number Insured Name Patient Relationship to Insured Coverage Start Date Coverage End Date [facility] [address] [address] [place] [id number] 3 Oracio Gong Self - patient is the insured 3 Medical (General) History Surgical History Surgery Date(Month/Year) appendix 2020
--- OUTSIDE RECORDS SUMMARY | 2025-09-04 11:03 | XMS_ITS | Clinical Summary ---
Author Organization [facility] Address [id number] [place] [address] Care Team Providers Care Sanitation Truck Driver Name Role Phone No Pcp, No Pcp Primary Care Provider Unavailabl e Allergies Active AllergyReactionsCriticalityNoted LwfrMqfftrboOteuvwturIbvvm48/12/2025 Medications MedicationSigDispense QuantityRefillsLast FilledStart DateEnd DateStatus azithromycin (ZITHROMAX) 500 mg tablet Take 1 tablet (500 mg total) by mouth daily. 5 tablet 12/17/2018Active Additional Information Patient not taking.Reported on 12/26/2024 ceFUROxime (CEFTIN) 500 mg tablet Take 1 tablet (500 mg total) by mouth 2 (two) times a day. 10 tablet 12/17/2018Active Additional Information Patient not taking.Reported on 12/26/2024 cyclobenzaprine (FLEXERIL) 10 mg tablet Take 1 tablet (10 mg total) by mouth 2 (two) times a day as needed for muscle spasms. 20 tablet 06/16/2023ctive Additional Information Patient not taking.Reported on 12/26/2024 lidocaine (LIDODERM) 5 % Place 1 patch on the skin daily. Remove & Discard patch within 12 hours or as directed by MD Dykes patch 06/16/2023ctive Additional Information Patient not taking.Reported on 12/26/2024 ibuprofen (MOTRIN) 600 mg tablet Take 1 tablet (600 mg total) by mouth every 6 (six) hours as needed for pain. 30 tablet 06/16/2023ctive acetaminophen (TYLENOL EXTRA STRENGTH) 500 mg tablet Take 1 tablet (500 mg total) by mouth every 6 (six) hours as needed for pain. 30 tablet 3Active Additional Information Patient not taking.Reported on 12/26/2024 ofkelvuy-jozq-NS-calcium &mins (THERAGRAN-M) 9 mg iron-400 mcg tablet Take 1 tablet by mouth in the morning.Active Active Problems ProblemNoted DateDiagnosed DateUrinary yzqjvztau44/12/2025 Overview (12/26/2024): ====12/26/24==== Over 8 months of bilateral flank pain, frequency, urgency, urge incontinence, dysuria, and pelvic pain. Recent CT negative. UA dipped for blood. We will send today's specimen for microscopic exam. She agrees to cystoscopy/BRPG/[facility] instillation. She is requesting anesthesia. Assessment & Plan (12/26/2024 3:20 PM EST): I will notify her of the UA results through [facility]. I explained the cystoscopy in detail, including the potential risks. I explained that we may not find the source of her pain with this testing. She will follow-up as scheduled with gynecology. Pneumonia of left lower lobe due to infectious xzauscdt46/03/2019Chest pain 12/15/2018 Family History Medical HistoryRelationNameCommentsHeart diseaseFatherBreast cancerMaternal Aunt RelationNameStatusCommentsFatherDeceasedMaternal AuntMotherAlive Social History Tobacco UseTypesPacks/DayYears UsedDateSmoking Tobacco: NeverSmokeless Tobacco: Never Tobacco Cessation:Counseling Given: Not Answered Alcohol UseStandard Drinks/WeekCommentsNo0 (1 standard drink = 0.6 oz pure alcohol)AUDIT-CAnswerDate RecordedFrequency of Alcohol ConsumptionNever 12/15/2018Average Number of DrinksNot on file12/15/2018Frequency of Binge DrinkingNot on file12/15/2018ChildcareAnswerDate RecordedChildcareUnknown 04/25/2019EmploymentAnswerDate CgatbgnyHckjvyehkfWegsofj41/12/2019Hunger ScreeningAnswerDate RecordedWithin the past 12 months we worried whether our food would run out before we got money to buy more.Never True12/26/2024Within the past 12 months the food we bought just didn't last and we didn't have money to get more.Never True12/26/2024Purpose - LifeAnswerDate RecordedPurpose and direction in ckboAgwommf79/11/2021CommentsNoSex and Gender Information ValueDate RecordedSex Assigned at StvmiHlgjgi07/31/2023 4:33 PM EDTLegal Sex Zdmpcb9006/19/2015 11:37 AM EDTGender KefrcahuToxsah24/31/2023 4:33 PM EDTSexual OrientationNot on file Last Filed Vital Signs Vital SignReadingTime TakenCommentsBlood Peojlgyd873/78012/26/2024 2:42 PM EST Jmqkc002712/26/2024 2:42 PM FVIGduzvtmsbja59.9 ??C (98.4 ??F)06/16/2023 9:14 AM EDTRespiratory Gtag490806/16/2023 11:30 AM EDTOxygen Egipmgdkll36%06/16/2023 11:30 AM EDTInhaled Oxygen Concentration--Qebjur66 kg (139 lb)12/26/2024 2:42 PM EST Fhibpm780 cm (5' 3 )12/26/2024 2:42 PM ESTBody Mass Index24.62012/26/2024 2:42 PM EST Plan of Treatment Health MaintenanceDue DateLast DoneCommentsDepression Yewuewomk80/19/1991Pap Smear01/31/2000DTaP,Tdap and Td Vaccines (2 - Td or Tdap) Influenza Ipokxfa9507/15/2025dult BMI Dcsrdhhhk62Tobacco Didvwxadj07 Medical Devices Not on file Insurance Advance Directives * Full Code (Latest Code Status on File) Date ActivatedDate InactivatedComments12/15/2018 3:06 PM2 10:15 PM Care Teams Team MemberRelationshipSpecialtyStart DateEnd Date No Pcp, No Pcp ROLANDO Sanchez [id number] PCP - GeneralFamily Medicine12/15/18
--- OUTSIDE RECORDS SUMMARY | 2025-09-04 11:03 | XMS_ITS | Clinical Summary ---
Author Organization [facility] Address [address] [place] [address] Care Team Providers Care Transportation Inspector Name Role Phone Unavailable Primary Care Provider Unavailabl e Allergies No known active allergies Medications MedicationSigDispense QuantityRefillsLast FilledStart DateEnd DateStatus famotidine (PEPCID) 20 mg tablet Take 2 tablets by mouth twice daily as needed (indigestion). 20 tablet 12/09/2019Active ondansetron orally disintegrating (ZOFRAN ODT) 8 mg disintegrating tablet Take 1 tablet by mouth every 8 hours as needed. 10 tablet Active dicyclomine (BENTYL) 20 mg tablet Take 1 tablet by mouth four times daily as needed (abdominal cramping). 20 tablet 12/09/2019Active acetaminophen (TYLENOL) 500 mg tablet Take 2 tablets by mouth every 8 hours as needed. 50 tablet 12/09/2019Active Social History Tobacco UseTypesPacks/DayYears UsedDateSmoking Tobacco: NeverSmokeless Tobacco: NeverAlcohol UseStandard Drinks/WeekCommentsNot Currently0 (1 standard drink = 0.6 oz pure alcohol)PHQ-2AnswerDate RecordedPHQ-2 Scood477 CommentsNoSex and Gender InformationValueDate RecordedSex Assigned at BirthNot on fileLegal QhzRhgsij77/26/2020 1:13 PM ESTGender IdentityNot on fileSexual OrientationNot on file Last Filed Vital Signs Vital SignReadingTime TakenCommentsBlood Tiuhqssu052/8112/09/2019 2:30 PM EST Lpbko888712/09/2019 6:00 PM XVOWqlifhqxjny80.3 ??C (97.3 ??F)12/09/2019 1:14 PM ESTRespiratory Boos985412/09/2019 6:00 PM ESTOxygen Pjauotvaaa15%12/09/2019 6:00 PM ESTInhaled Oxygen Concentration--Kcxgym93.1 kg (128 lb)12/09/2019 1:14 PM EST Nxsipw997 cm (5' 3 )12/09/2019 1:14 PM ESTBody Mass Index22.67012/09/2019 1:14 PM EST Plan of Treatment Not on file Insurance
--- OUTSIDE RECORDS SUMMARY | 2025-09-04 11:14 | XMS_ITS | CCD ---
Author Organization [facility] CliniSyfl Care Team Providers Care Contact Lens Polisher Name Role Phone PHYSICIAN, DEFAULT Unavailable Unavailable PHYSICIAN, DEFAULT Unavailable Unavailable AYESHA, PASTOR Unavailable Unavailable AYESHA, PASTOR Unavailable Unavailable SELF, REFERRED Unavailable Unavailable AYESHA, PASTOR Unavailable Unavailable DR HONG MOSS Consulting Unavailable SHEFALI, DR RAZA Admitting Unavailable SHEFALI, DR RAZA Attending Unavailable AYESHA, PASTOR R Primary Care Unavailable MIGUELITO PHELAN Consulting Unavailable Andrew Whitt Consulting Unavailable Elinor Cai Unavailable Marina Riojas Unavailable RANCHO TURCIOS Referring Unavailable NO PCP, NO PCP Primary Care Unavailable PRISCILLA TREVIZO Referring Unavailable NO PCP, NO PCP Primary Care Unavailable oLree Fonseca APRN Attending Provider NON STAFF Primary Care Provider UnavailLEONEL Mcbride I Attending Unavailable RANCHO TURCIOS Referring Unavailable NO PCP, NO PCP Primary Care Unavailable Shayy Lugo APRN Attending Provider [phone] LEONEL SÁNCHEZ I Referring Unavailable NO PCP, NO PCP Primary Care Unavailable Loree Fonseca APRN Attending Provider NON STAFF Primary Care Provider Unavailneno e Shayy Lugo APRN Attending Provider Unallocated , Noms Provider Primary Care Provi laura Juanito Alanis DO Attending Provider Juanito Alanis DO Attending Provider [phone] ALYSIA CANO Referring Unavailable ALYSIA CANO Attending Unavailable Connie Cosby APRN Attending Provider NON STAFF Primary Care Provider UnavailLoree Jade Admitting Unavailable Loree Fonseca Attending Unavailable NON STAFF Primary Care Unavailable NON STAFF Primary Care Unavailable Shayy Lugo Admitting Unavailable Shayy Lugo Attending Unavailable Juanito Alanis Admitting Unavailable Juanito Alanis Attending Unavailable Connie Cosby Admitting Unavail able Connie Cosby Attending Unavail able JUANITO ALANIS Attending Unavailable JUANITO ALANIS Attending Unavailable JUANITO ALAINS Attending Unavailable JUANITO ALANIS Attending Unavailable Allergies Allergy ClassificationReported Allergen(s)Allergy TypeDate of OnsetReaction(s) Facility (1 source)IbuprofenDrug AllergyThe [facility] (12 sources)Ibuprofen; Translations: [IBUPROFEN]Drug Omovqnh34-97-3092Jkhqq [facility] Repository Medications Current Medications MedicationDrug Class(es)DatesSig (Normalized)Sig (Original)[id number] actuat albuterol 0.09 mg/actuat metered dose inhaler (3 sources)beta2-Adrenergic AgonistStart: 82-38-9202hiuw 2 puff(s) by inhalation four times daily as neededAlbuterol Sulfate HFA 108 (90 Base) MCG/ACT 2 puffs Inhalation 4 times a day prn Nov, ActiveStart: 98-59-6123tzha 2 puff(s) by inhalation every four to six hours as neededAlbuterol Sulfate HFA 108 (90 Base) MCG/ACT 2 puffs as needed Inhalation every 4-6 hours for 14 days May, ActiveStart: 55-94-8276zqoy 2 puff(s) by inhalation four times daily as neededAlbuterol Sulfate HFA 108 (90 Base) MCG/ACT 2 puffs Inhalation 4 times a day prn Feb, Not-Takingamoxicillin 875 mg / clavulanate 125 mg oral tablet (1 source)Penicillin-class AntibacterialStart: 30-38-3930tzlo 1 tablet by mouth every twelve hoursbenzonatate 200 mg oral capsule (2 sources)Non-narcotic AntitussiveStart: 13-91-0205venw 1 capsule by mouth every eight hoursBenzonatate 200 MG 1 capsule Orally Three times a day Nov, ActiveStart: 22-90-1732afod 1 capsule by mouth every eight hoursBenzonatate 200 MG 1 capsule Orally Three times a day Feb, Not-Takingdoxycycline hyclate 100 mg oral tablet (2 sources)Tetracycline-class DrugStart: 07-99-8803jgdw 1 tablet by mouth every twelve hoursDoxycycline Hyclate 100 MG 1 tablet Orally Twice a day for 10 day(s) Nov, ActiveStart: 66-23-4226viph 1 capsule by mouth every twelve hours Doxycycline Hyclate 100 MG 1 capsule Orally Twice a day for 10 Feb, Not-TakingmedroxyPROGESTERone (15 sources)ProgestinStart: 00-93-0409Lxfot: 09-79-7652omafjsohkxrhurvkxis (Depo-Provera) Active IM EVERY 3 MONTHS December 13, 2024 1:00am Complies with drug therapyStart: 13-58-7701erfbtmuzwgvmjsraswn (Depo-Provera) Active IM EVERY 3 MONTHS December 13, 2024 1:00amStart: 71-50-0157fygztxvfvdrmzhytndn (Depo- Provera) Active IM EVERY 3 MONTHS December 13, 2024 12:00ammedroxyPROGESTERone (Depo-Provera) 150 MG/ML injection Inject 150 mg into the shoulder, thigh, or bu ttocks every 3 (three) months ActivepredniSONE 20 mg oral tablet (2 sources)Start: 75-45-3611whkj 1 tablet by mouth every twelve hourspredniSONE 20 MG 1 tablet Orally bid for 5 day(s) Nov, ActiveStart: 59-41-8119ygkw 1 tablet by mouth every twelve hourspredniSONE 20 MG 1 tablet Orally 2 times a day for 5 day(s) Feb, Not-Taking Completed/Discontinued Medications MedicationDrug Class(es)DatesSig (Normalized)Sig (Original)ibuprofen 600 mg oral tablet (2 sources)Nonsteroidal Anti-inflammatory DrugStart: 06-16-2023 End: 44-28-6983rbis 1 tablet by mouth every six hours as neededibuprofen 600 MG tablet Take 600 mg by mouth every 6 (six) hours if needed. 06/16/2023 02/11/2025 Discontinuedpediatric multivitamin (multivitamin) (9 sources)Start: 12-13-2024 End: 98-37-0678bvveshipg multivitamin (multivitamin) Discontinued PO December 13, 2024 1:00am June 11, 2025 9:59amStart: 85-27-5185sxmdgkruv multivitamin (multivitamin) Active PO December 13, 2024 1:00amStart: 14-19-0762urfqvqcpg multivitamin (multivitamin) Active PO December 13, 2024 12:00amtraMADol hydrochloride 50 mg oral tablet (7 sources)Opioid AgonistStart: 12-28-2024 End: 59-80-0259frsk 1 tablet by mouth every six hours as needed for painTramadol 50 mg tablet Discontinued 50 MG PO Every 6 hours as needed for pain 12 December 28, 2024 1:00am June 11, 2025 9:59am Problems Active Problems Problem ClassificationProblemDateDocumented DateEpisodic/ChronicAbdominal pain (2 sources)Unspecified abdominal pain; Translations: [Pain in female pelvis] Onset: 776725-38-8685BhujocggRrwxf bronchitis (1 source)Acute bronchitis, unspecifiedEpisodicAdministrative/social admission (1 source)Patient encounter status; Translations: [Counseling, unspecified] 56-21-5584BwjnmsxzMbddijctthalr and procreative management (1 source)Sterilization requested; Translations: [Encounter for sterilization] 75-87-6368FrxgjxhaPsiyqghhgvmfw symptoms and ill-defined conditions (9 sources)Dysuria; Translations: [Frequency of micturition]Onset: 12-26-2024 EpisodicMenstrual disorders (6 sources)Menometrorrhagia; Translations: [Excessive and frequent menstruation with irregular cycle]Onset: 089509-72-8237EdlkngnGbmltdupkpq chest pain (3 sources)Chest pain, unspecified; Translations: [Other chest pain]Onset: 82-16-6118AicxevoxLjhvi female genital disorders (1 source)Premenstrual tension syndrome; Translations: [Premenstrual tension syndrome]01-16-4125DyyeolcHhkyj female genital disorders (3 sources)Abnormal uterine bleeding; Translations: [Abnormal uterine and vaginal bleeding, unspecified]68-40-0299JjxrawsGnksr fractures (7 sources)Fracture of coccyx; Translations: [Fracture of coccyx, initial encounter for closed fracture]47-95-8189VvdbpimuCkgvj fractures (6 sources)Fracture of coccyx, initial encounter for closed fracture; Translations: [Closed fracture of sacrumand coccyx without mention of spinal cord injury]95-49-1248IkvrwkrcPtfpf lower respiratory disease (2 sources)Shortness of breath; Translations: [Shortness of breath]Onset: 23-03-0218MsbyhzjgLrujq nervous system disorders (16 sources)Perineurial cyst; 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]56-80-1675Uwcdemv Other screening for suspected conditions (not mental disorders or infectious disease) (5 sources)Encounter for screening mammogram for malignant neoplasm of breast; Translations: [Abnormal result of other cardiovascular function study]Onset: 45-60-7463BpdhojhpNeudq upper respiratory disease (2 sources)Allergic rhinitis; Translations: [Allergic rhinitis, unspecified] ChronicOther upper respiratory disease (1 source)Allergic rhinitis, unspecifiedChronicOther upper respiratory disease (7 sources)Seasonal allergic rhinitis; Translations: [Other seasonal allergic rhinitis]98-66-7053NkwtmrrAnevb upper respiratory infections (2 sources)Viral upper respiratory tract infection; Translations: [Acute upper respiratory infection, unspecified]10-88-8650VgevlsfzPevzifoxywd; intervertebral disc disorders; other back problems (14 sources)Inflammation of sacroiliac joint; Translations: [Sacroiliitis, not elsewhere classified]65-33-1463MhlhrpjYmqojrujtotj (2 sources)Unknown / UNK(Unknown)Onset: 05-38-3340Zvpbhcssafbt (3 sources)COUGH, UNSPECIFIED; Translations: [COUGH, UNSPECIFIED]Onset: 09-78-7162Tvejjidfgawv (1 source)New PatientOnset: 91-19-7486Wmllxslsxhwu (1 source)Perineural cyst; 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]Onset: 12-27-2024 Unclassified (1 source)Pain in pelvis; Translations: [Pelvic pain]08-27-2025 Past or Other Problems Problem ClassificationProblemDateDocumented DateEpisodic/ChronicSpondylosis; intervertebral disc disorders; other back problems (20 sources)Sacral radiculopathy; Translations: [Radiculopathy, sacral and sacrococcygeal region]Onset: 532012-14-1887GyhcnriqYzmrefh (4 sources)Syncope and collapse; Translations: [SYNCOPE AND COLLAPSE]Onset: 85-43-6601YnlzmfaqTebedsfvhbtq (1 source)COUGH, UNSPECIFIED; Translations: [COUGH, UNSPECIFIED]Onset: 02-17-2022 Results Test NameValueInterpretationReference RangeFacilityUrinalysis macro (dipstick) panel (U)on 29-44-4556Ikwiztxmw, UANegativeNegative - 4(70) +++ mg/dLNOMS HealthcareBlood, UAPositiveNegative - 50 Jermaine/mcLNOMS HealthcareClarity, UAClear NOMS HealthcareColor, UAYellowNOMS HealthcareGlucose, UANegativeNegative - 2000(110) ++++ mg/dLNOMS HealthcareInterpretation and review of laboratory resultsAbnormalNOMS HealthcareKetones, UANegativeNegative - 160(16) ++++ mg/dL NOMS HealthcareLeukocytes, UAPositiveNegative - 500+++ Giuliana/mcLNOMS Healthcare Nitrite, UANegativeNegative - PositiveNOMS HealthcarepH, UA65 - 9NOMS Healthcare Protein, UANegativeNegative - 2000(20) ++++ mg/dLNOMS HealthcareSpec Grav, UA 1.011 - 1.03NOMS HealthcareUrobilinogen, UA1.00.2 - 12 mg/dLNOMS HealthcareNOMS HealthcareNo Panel InformationOrdered By: Connie Cosby on 24-34-7114Zzhnx Strep (POC)[facility] Medical CenterUrine Cultureon 21-58-8846Yhtvmcfh identified Cx Nom (U)No Growth 2 Days PERFORMED BY: [facility] [address] [place] [address] PATHOLOGIST SPINNING AND WINDING SUPERVISOR AMBIKA MARQUEZ M.D.NormalHca Florida Oviedo Medical Center Physician GroupComment on above: Performed By: #### CUU #### [place] [address] [facility] CORONARY W IV CONTRAST W OR WO FFRCTon 77-22-7646[facility] CORONARY W IV CONTRAST W OR WO FFRCTCTA HEART CORONARY W IV CONTRAST W OR [...] in caliber and could not be evaluated. IMPRESSION: 1. Normal coronary CTA without [...] of 0. Electronically signed: Tram Lynn MD. Not NaeemdtMarvinvalid Interpretation CodeUnVeterans Health AdministrationAbstract on [id number] Oracio Gong 1980 F Date Provider Department Center 04/04/2025 ALYSIA RINCON [facility] Medical C Family History Problem Relation Age of Onset COPD Mother Hypertension Mother Heart attack Father Kidney failure Father Heart attack Brother Family Status - Relation Status Age at Mother Alive Father Sister Alive Brother AliveNormalUniCleveland Clinic FoundationLetter (Out)on 04-04-2025 Letter (Out)[id number] Oracio Gong 1980 F Date Provider Department Center 04/04/2025 None-None [facility] AUTH [place] Medical C Family History Problem Relation Age of Onset COPD Mother Hypertension Mother Heart attack Father Kidney failure Father Heart attack Brother Family Status - Relation Status Age at Mother Alive Father Sister Alive Brother AliveNormalUniversFostoria City HospitalOffice Visiton 02-13-2025 Follow-up [id number] Oracio Gong 1980 F Date Provider Department Center 02/13/2025 367-ALYSIA CANO CARD [facility] Family History Problem Relation Age of Onset COPD Mother Hypertension Mother Heart attack Father Kidney failure Father Heart attack Brother Family Status - Relation Status Age at Mother Alive Father Sister Alive Brother Alive Level of Service:73291 [place] OFFICE/OUTPATIENT NEW MODERATE MDM 45 MINUTESNormal [facility] WestPathology study report documentOrdered By: Lars Christianson on 78-80-5699Sqqjyvnsi studyUniversity Hospitals Geneva Medical Center Other HCE ( test) Ql (U)on 32-17-2437Nbvhkodbkadeop and review of laboratory resultsNormalNOMS HealthcarePreg Test, UrNegative NegativeNORogers Memorial Hospital - MilwaukeeLon 02-11-2025L Specimen: [id number] Received: 02/12/251509 Status: ALEX Doty Num: [id number] Spec Type: Surgical Subm Dr: Juanito Alanis Tissues: A Endometrium - Biopsy (ENDOMETRIUM) Procedures: HE/2, Gross/Micro L4 Age/ Patient Sex Location Account Attending Physician Oracio Gong 45/F LABELL [id number] Juanito Alanis SPEC NUM: [id number] RECD: 02/12/25 STATUS: ALEX DOTY NUM: [id number] TORITO: 02/11/25-[address] [facility] [address]: Juanito Alanis ENTERED: 02/12/25-[address] [facility] [address]: Jaylyn,Fly SPEC TYPE: Surgical DEPT: RANDY ALFONSO ENTERED BY: [id number] RECV BY: [id number] ORDERED: HE/2, Gross/Micro L4 ORDERED: HE/2, Gross/Micro [...] submitted in a single cassette. (1, ns, [id number] A) LARRY Specimen: [id number] Received: 02/12/25 Status: ALEX Doty Num: [id number] Spec Type: Surgical Subm Dr: Juanito Alanis Tissues: A Endometrium - Biopsy (ENDOMETRIUM) Procedures: HE/2, Gross/Micro L4 Patient: Oracio Gong [id number] (Continued) Specimen: [id number] Received: 02/12/25 (Continued) Signed (signature on file) Lars Christianson MD 02/13/25 1538 Specimen: [id number] Received: 02/12/25 Status: ALEX Doty Num: [id number] Spec Type: Surgical Subm Dr: Juanito Alanis Tissues: A Endometrium - Biopsy (ENDOMETRIUM) Procedures: HE/Donaldo, Gross/Micro L4 Patient: Oracio Gong [id number] (Continued) Specimen: [id number] Received: 02/12/25 (Continued) Microscopic Description Microscopic examination is performed CPT Codes 94479 Specimen: [id number] Received: 02/12/25 Status: ALEX Doty Num: [id number] Spec Type: Surgical Subm Dr: Juanito Alanis Tissues: A Endometrium - Biopsy (ENDOMETRIUM) Procedures: HE/2, Gross/Micro L4 Patient: Oracio Gong [id number] (Continued) Signed (signature on file) Corona-Jack Christianson MD 02/13/[address] [place] [address] Physician GroupUrinalysis macro (dipstick) panel (U)on 01-20-5709Gvvlimrmu, UANegativeNegative - 4(70) +++ mg/dLNOMS HealthcareBlood, UANegativeNegative - 50 Jermaine/mcLNOMS HealthcareClarity, UAClearNOMS Healthcare Color, UAYellowNOMS HealthcareGlucose, UANegativeNegative - 2000(110) ++++ mg/dL NOMS HealthcareInterpretation and review of laboratory resultsAbnormalNOMS HealthcareKetones, UANegativeNegative - 160(16) ++++ mg/dLNOMS Healthcare Leukocytes, UATraceNegative - 500+++ Giuliana/mcLNOMS HealthcareNitrite, UANegative Negative - PositiveNOHI HealthcarepH, UA5.55 - 9NOHI HealthcareProtein, UA NegativeNegative - 2000(20) ++++ mg/dLNOHI HealthcareSpec Grav, UA1.011 - 1.03 NOMS HealthcareUrobilinogen, UA0.20.2 - 12 mg/dLCritical access hospital Cytology Cervical or vaginal smear or scraping studyon 21-82-6403KQLMSSM Health Care X-ray reportOrdered By: John Soto on 84-65-6793Dwvxp reportKINDRED [place] [address] XRay Report Signed Patient: Oracio Gong MR#: [id number] : 1980 Acct:[id number] Age/Sex: 44 / F ADM Date: 5 Loc: XDUCLY Room: Type: [facility] Attending Dr: Shayy Lugo APRN Copies [...] John Soto M.D.12/28/2024 6:42 PM Dictation Location: [place] [address] Transcribed By: [facility] 12/28/241841 Dictated By: John Soto MD 12/28/241839 Signed By: 12/28/241841 [facility] Work Phone: XR sacrum coccyx min 2Von 62-93-6868IE sacrum coccyx min 2VKINDRED HEALTHCARE Main [address] [address] XRay Report Signed Patient: Oracio Gong MR#: [id number] : 1980 Acct:[id number] Age/Sex: 44 / F ADM Date: 12/28/24 Loc: XDUCLY Room: Type: [facility] Attending Dr: Shayy Lugo APRN Copies to: Shayy Lugo APRN Ordering Provider: [...] John Soto M.D.12/28/2024 6:42 PM Dictation Location: [place] [address] Transcribed By: [facility] 12/28/241841 Dictated By: John Soto MD 12/28/241839 Signed By: 12/28/[address] [place] [address] Physician GroupMAMM SCREENING BILATERAL W CADon 59-40-9256IVMB SCREENING BILATERAL W CADMAMM SCREENING BILATERAL W CAD ORACIO LEW SHOLA 1980 [id number] EXAM: MAMM SCREENING BILATERAL W CAD, 12/26/2024 [...] 12/27/2024 8:33 AM 1 b MAMM 1 [facility]alSelect [facility] Southetic resonance imaging report Ordered By: John Soto on 28-90-9955Qpukz reportKINDRED HEALTHCARE Main Mobile [address] [place] [address] MRI Report Signed Patient: Oracio Gong MR#: [id number] : 1980 Acct:[id number] Age/Sex: 44 / F ADM Date: 5 Loc: ICMR Room: Type: [facility] Attending Dr: Loree Fonseca APRN Copies to: Loree Fonseca APRN~ Ordering Provider: Loree Fonseca APRN Date of Service: 12/27/24 MR/MR lumbar spine wo con: M54.16 - Radiculopathy, lumbar region ([id number]) XR/XR pre/post mri xray: LUMBAR MRI MRI lumbar spine without contrast/2 views of the lumbar spine INDICATION: Lumbar spine pain radiating down both legs with paresthesias, lumbarradiculopathy, perineural cysts, radicular pain of sacrum COMPARISON: CT abdomen pelvis 10/29/2024 X-rays of the lumbar spine spine demonstrate an minor disc space narrowing L5- S1. Otherwise vertebral heights and disc space heights [...] John Soto M.D.12/27/2024 2:48 PM Dictation Location: [place] [address] Transcribed By: [facility] 12/27/24 8358 Dictated By: John Soto MD 12/27/24 1440 Signed By: 12/27/24 1448 [facility] Work Phone: XR pre/post mri xrayon 48-59-4581LX pre/post mri xray [facility] Main Mobile [address] [place] [address] MRI Report Signed Patient: Oracio Gong MR#: [id number] : 1980 Acct:[id number] Age/Sex: 44 / F ADM Date: 12/27/24 Loc: [facility] Room: Type: [facility] Attending Dr: Loree Fonseca APRN Copies to: Loree Fonseca APRN Ordering Provider: Loree Fonseca APRN Date of Service: 12/27/24 MR/MR lumbar spine wo con: M54.16 - Radiculopathy, lumbar region ([id number]) XR/XR pre/post mri xray: LUMBAR MRI MRI lumbar spine without contrast/2 views of the lumbar spine INDICATION: Lumbar spine pain radiating down both legs with paresthesias, lumbar radiculopathy, perineural cysts, radicular pain of sacrum COMPARISON: CT abdomen pelvis 10/29/2024 X-rays of the lumbar spine spine demonstrate an minor disc space narrowing L5- S1. Otherwise vertebral heights and disc space heights [...] John Soto M.D.12/27/2024 2:48 PM Dictation Location: [place] [address] Transcribed By: TERESE 12/27/24 1448 Dictated By: John Soto MD 12/27/24 1440 Signed By: 12/27/24 1448[facility] Physician GroupUA (MICROSCOPIC)on 12-26-2024 RMarge.CELLS2 /hpfNormal0-5ProMedLakeHealth TriPoint Medical CenterComment on above:Performed By: #### UMIC #### [facility] ([id number]) [address] [place], [place] [address]SFZHPZXU EPITHELIUM1 /hpfNormal0-5PLakeHealth TriPoint Medical Center Comment on above:Performed By: #### UMIC #### [facility] ([id number]) [address] [place], [place] [address]Y.B.CELLS2 /hpfNormal0-5PLakeHealth TriPoint Medical CenterComment on above:Performed By: #### UMIC #### [facility] ([id number]) [address] [place], [place] [address]CJ ABDOMEN AND PELVIS W WO CONTon 21-75-6173TG ABDOMEN AND PELVIS W WO CONTCT ABDOMEN AND PELVIS W WO CONT STUDY: [...] SPLEEN: Unremarkable. ADRENAL GLANDS: Unremarkable. KIDNEYS/URETERS: No hydroureteronephrosis. No suspicious renal mass. BLADDER: Unremarkable. REPRODUCTIVE ORGANS: The uterus is present. No adnexal mass. BOWEL: No disproportionate dilation of the small or large bowel. The appendix is surgically absent. PERITONEUM/RETROPERITONEUM: No fluid collection, ascites, or pneumoperitoneum. LYMPH NODES: No abdominal or pelvic lymphadenopathy. VESSELS: No abdominal aortic aneurysm. ABDOMINAL/PELVIC WALL: Unremarkable. BONES: No aggressive osseous lesion. Sacral Tarlov cyst noted. IMPRESSION: No acute process seen in the abdomen or pelvis. No nephrolithiasis. Finalized by Joe Houston MD on 10/31/2024 8:19 AMNormalProMedica Rio Hondo HospitalUrinalysis - AUTOMATEDon 65-15-5863Rjkoujzodw (U)clearLoylty Rewardz Management [employer] Other Bilirubin Ql (U)NegativeLoylty Rewardz Management [employer] Other Color (U)yellowLoylty Rewardz Management [employer] Other Glucose Ql (U)NegativeLionsharp Voiceboard Other Hemoglobin Ql (U)trace intactLoylty Rewardz Management [employer] Other Ketones Ql (U)NegativeLoylty Rewardz Management [employer] Other Leukocyte esterase Test strip Ql (U)traceLoylty Rewardz Management [employer] Other Nitrite Ql (U)NegativeLoylty Rewardz Management [employer] Other pH (U)6.0 [pH][place] [employer] Other Protein Ql (U)NegativeLoylty Rewardz Management [employer] Other Specific gravity (U) [Rel density]1.015[place] [employer] Other Urobilinogen (U) [Mass/Vol]0.2 mg/dLLoylty Rewardz Management [employer] Other Urinalysis - AUTOMATEDLoylty Rewardz Management [employer] Other CBC AUTO DIFFon 72-45-5946YERB #0.0 103/ulNormal 0.0-0.1The [facility] HospitalComment on above:Performed By: #### CBC #### [facility] [address] [place] [address] [address] Alex ChristiansonBasophils/100 WBC (Bld)0.3 %Normal0.2-2.0[facility] Comment on above:Performed By: #### CBC #### [facility] [address] [place] [address] [address] Alex Deshpande #0.0 103/ulNormal0.0-0.7The [facility] HospitalComment on above: Performed By: #### CBC #### [facility] [address] [place] [address] Dr. Alex Kellyosinophils/100 WBC (Bld)0.3 %Critically low0.9-7.0The [facility] HospitalComment on above:Performed By: #### CBC #### [facility] [address] [place] [address] Dr. Alex Kellyrythrocyte distribution width (RBC) [Ratio]12.4 %Vgqkax33.0-15.0 The [facility] HospitalComment on above:Performed By: #### CBC #### [facility] [address] [place] [address] Dr. Alex ChristiansonHematocrit (Bld) [Volume fraction]42.2 %Tgmazt55.0-48.0The [facility] Southment on above:Performed By: #### CBC #### [facility] [address] [place] [address] Dr. Alex ChristiansonHemoglobin (Bld) [Mass/Vol]14.0 g/mSMcrxov02.0-16.0The [facility] Southment on above:Performed By: #### CBC #### [facility] [address] [place] [address] Dr. Alex Phillips #0.03 10e3/ulNormal0.00-0.03The [facility] HospitalComment on above:Performed By: #### CBC #### [facility] [address] [place] [address] Dr. Alex Phillips %0.3 %Normal0.0-0.5The [facility] HospitalComment on above: Performed By: #### CBC #### [facility] [address] [place] [address] [address] Alex Lora #2.9 103/ulNormal1.2-3.8The [facility] HospitalComment on above:Performed By: #### CBC #### [facility] [address] [address] [address] Alex Hillhocytes/100 WBC (Bld)31.9 %Wrlnwp68.5-60.0The [facility] HospitalComment on above:Performed By: #### CBC #### [facility] [address] [place] [address] Dr. Alex Armas DIFF REQNONormalThe [facility] HospitalComment on above: Performed By: #### CBC #### [facility] [address] [place] [address] Dr. Alex Enriquez (RBC) [Entitic mass]29.8 hwLvtngi94.7-34.0The [facility] HospitalComment on above:Performed By: #### CBC #### [facility] [facility] [address] [place] [address] Dr. Alxe Beltran (RBC) [Mass/Vol]33.2 g/xZAuisbl01.9-35.2The [facility] HospitalComun[facility] on above:Performed By: #### CBC #### [facility] [address] [place] [address] Dr. Alex Beltran (RBC) [Entitic vol]89.8 zTTbhara38.0-99.0The [facility] HospitalComment on above:Performed By: #### CBC #### [facility] [address] [place] [address] Dr. Alex Pitts #0.6 103/ulNormal0.3-0.8The [facility] HospitalComun[facility] on above:Performed By: #### CBC #### [facility] [address] [place] [address] Dr. Alex Jaquezocytes/100 WBC (Bld)6.2 %Normal1.7-12.0[facility] Comment on above:Performed By: #### CBC #### [facility] [address] [place] [address] Dr. Alex Lucio #5.6 103/ulNormal1.4-6.5The [facility] HospitalComment on above:Performed By: #### CBC #### [facility] [address] [place] [address] Dr. Alex Montezutrophils/100 WBC (Bld)61.0 %Pvxaji77.0-75.0The [facility] HospitalComment on above:Performed By: #### CBC #### [facility] [address] [place] [address] Dr. Alex Chacko mean volume (Bld) [Entitic vol]9.2 fLCritically low 9.5-13.5The [facility] HospitalComment on above:Performed By: #### CBC #### [facility] [address] [place] [address] Dr. Alex LugoT258 103/xfWfpqnt577-546Cvl [facility] HospitalComment on above: Performed By: #### CBC #### [facility] [address] [place] [address] Dr. Alex RainC4.70 106/ulNormal4.20-5.40The [facility] HospitalComment on above:Performed By: #### CBC #### [facility] [address] [place] [address] Dr. Alex UrenaBC9.1 103/ulNormal4.0-11.0The [facility] HospitalComment on above: Performed By: #### CBC #### [facility] [address] [place] [address] Dr. Alex EsparzaDIMERon 50-75-2795P-DIMER<0.72Ucfopu6.19-0.50The [facility] HospitalComment on above:Performed By: #### DDIM #### [facility] [address] [place] [address] Dr. Alex Jane-DIMER COMMENTSSEE [facility] on above:Result Comment: Increases in D-Dimer concentration observed with thromboembolic events [...] stress, and generalized hospitalization. Performed By: #### DDIM #### [facility] [address] [place] [address] Dr. Alex Lujan URINE PROFILEon 33-60-7054Kakzcoeep Ql (U)NegativeNormal NEGATIVEKettering Health Washington Township on above:Performed By: #### ERUR, PREGU, UMICRO #### [facility] [address] [place] [address] Dr. Alex ChristiansonClarity (U)CLEARNormalCLEARTrihealthComuniversity of [place] health on above: Performed By: #### ERUR, PREGU, UMICRO #### [facility] [address] [place] [address] Dr. Alex Ceron (U)LT. YELLOWNormalYELLOWKettering Health Washington Township on above:Performed By: #### ERUR, PREGU, UMICRO #### [facility] [address] [place] [address] Dr. Alex Colmenares micrscopic examination will be performed if indicated. NormalKettering Health Washington Township on above:Performed By: #### ERUR, PREGU, UMICRO #### [facility] [address] [place] [address] Dr. Alex ChristiansonGlucose Ql (U)NegativeNormalNEGATIVEKettering Health Washington Township on above:Performed By: #### ERUR, PREGU, UMICRO #### [facility] [address] [place] [address] Dr. Alex ChristiansonHemoglobin Ql (U)TRACE-INTACTAbnormalNEGATIVEKettering Health Washington Township on above:Performed By: #### ERUR, PREGU, UMICRO #### [facility] [address] [address] [address] Alex Cooley Ql (U)NegativeNormalNEGATIVEThe [facility] HospitalComment on above:Performed By: #### ERUR, PREGU, UMICRO #### [facility] [address] [address] [address] Alex ChristiansonLEUKOCYTESTRACEAbnormalNEGATIVETrihealthComment on above:Performed By: #### ERUR, PREGU, UMICRO #### [facility] [address] [address] [address] Alex Ochoa Ql (U)NegativeNormalNEGATIVETrihealthComment on above:Performed By: #### ERUR, PREGU, UMICRO #### [facility] [address] [place] [address] Dr. Alex ChristiansonpH (U)5.5 [pH]Normal5-9The [facility] HospitalComment on above: Performed By: #### ERUR, PREGU, UMICRO #### [facility] [address] [address] [address] Alex ChristiansonSPEC GRAVITY<=1.466Nlarajkh1.005-<=1.025[facility] Comment on above:Performed By: #### ERUR, PREGU, UMICRO #### [facility] [address] [address] [address] Alex ChristiansonUA PROTEINNegativeNormalNEGATIVE/ TRACEThe [facility] Comment on above:Performed By: #### ERUR, PREGU, UMICRO #### [facility] [address] [address] [address] Alex Márquez MICRO INDINDICATEDNormalThMarietta Memorial HospitalComment on above: Performed By: #### ERUR, PREGU, UMICRO #### [facility] [address] [address] [address] Alex ChristiansonUrobilinogen Qn (U)0.2 {Angie'U}/dLNormal0.2 - 1.0The [facility] HospitalComment on above:Performed By: #### ERURHAYDENU, UMICRO #### [facility] [address] [place] [address] Dr. Alex ChristiansonPREGNANCY URon [id number], QUALNegativeNormalNEGATIVEThe [facility] HospitalComment on above:Performed By: #### ERUR PREGU, UMICRO #### [facility] [address] [place] [address] Dr. Alex ChristiansonPROF 14(COMP METB)on 63-40-3906Xehtegs [Mass/Vol]4.2 g/dLNormal 3.4-5.0The [facility] Southment on above:Performed By: #### HSTROPN, CMP #### [facility] [address] [place] [address] Dr. Alex ChristiansonAlbumin/Globulin [Mass ratio]1.4 {ratio}NormalThe [facility] HospitalComment on above:Performed By: #### HSTROPN, CMP #### [facility] [address] [place] [address] Dr. Alex Lujan [Catalytic activity/Vol]49 U/JChgtuw76-961Afd [facility] HospitalComment on above:Performed By: #### HSTROPN, CMP #### [facility] [address] [place] [address] Dr. Alex Ferrer [Catalytic activity/Vol]30 U/UIbomtd93-54Pxg [facility] HospitalComment on above:Performed By: #### HSTROPN, CMP #### [facility] [address] [place] [address] Dr. Alex Lemus gap [Moles/Vol]14.6 mmol/LNormalThe [facility] on above:Performed By: #### HSTROPN, CMP #### [facility] [address] [place] [address] Dr. Alex Lema [Catalytic activity/Vol]24 U/MIxxekz90-86Syr [facility] Southment on above:Performed By: #### HSTROPN, CMP #### [facility] [address] [place] [address] Dr. Alex ChristiansonBilirubin [Mass/Vol]0.6 mg/dLNormal0.2-1.3[facility] Comment on above:Performed By: #### HSTROPN, CMP #### [facility] [address] [place] [address] Dr. Alex ChristiansonCalcium [Mass/Vol]9.2 mg/dLNormal8.5-10.1[facility] Comment on above:Performed By: #### HSTROPN, CMP #### [facility] [address] [place] [address] Dr. Alex ChristiansonChloride [Moles/Vol]104 mmol/BMogqpb92-832FgeTrihealth Comment on above:Performed By: #### HSTROPN, CMP #### [facility] [address] [place] [address] Dr. Alex ChristiansonCO2 [Moles/Vol]24.2 mmol/KBcmcvc61.0-30.0[facility] Comment on above:Performed By: #### HSTROPN, CMP #### [facility] [address] [place] [address] Dr. Alex ChristiansonCreatinine [Mass/Vol]0.78 mg/dLNormal0.52-1.04The [facility] HospitalComment on above:Performed By: #### HSTROPN, CMP #### [facility] [address] [place] [address] Dr. Alex KellyGFR-AF ICELANDIC>60Normal>=60The [facility] HospitalComment on above:Performed By: #### HSTROPN, CMP #### [facility] [address] [place] [address] Dr. Alex KellyGFR-NON AF ICELANDIC>60Normal>=60The [facility] HospitalComment on above:Performed By: #### HSTROPN, CMP #### [facility] [address] [place] [address] Dr. Alex ChristiansonGlobulin (S) [Mass/Vol]3.0 g/dLNormSt. Rita's HospitalComment on above:Performed By: #### HSTROPN, CMP #### [facility] [address] [address] [address] Alex ChristiansonGlucose [Mass/Vol]82 mg/aAMloere58-418RonTrihealth Comment on above:Performed By: #### HSTROPN, CMP #### [facility] [address] [address] [address] Alex ChristiansonPotassium [Moles/Vol]3.8 mmol/LNormal3.4-5.0[facility] Comment on above:Performed By: #### HSTROPN, CMP #### [facility] [address] [place] [address] Dr. Alex ChristiansonProtein [Mass/Vol]7.2 g/dLNormal6.1-8.2[facility] Comment on above:Performed By: #### HSTROPN, CMP #### [facility] [address] [place] [address] Dr. Alex ChristiansonSodium [Moles/Vol]139 mmol/GPqgfdt079-456DqwTrihealth Comment on above:Performed By: #### HSTROPN, CMP #### [facility] [address] [address] [address] Alex ChristiansonUrea nitrogen [Mass/Vol]23.0 mg/dLCritically high7.0-18.0TrihealthComment on above:Performed By: #### HSTROPN, CMP #### [facility] [address] [place] [address] Dr. Alex ChristiansonUrea nitrogen/Creatinine [Mass ratio]29.5 mg/mgNoNorwalk Memorial HospitalComment on above:Performed By: #### HSTROPN, CMP #### [facility] [address] [place] [address] Dr. Alex ChristiansonPROTIMEon 85-83-1543VSV Coag (PPP) [Relative time]1.01 {INR} NormalThe [facility] HospitalComment on above:Performed By: #### PT, PTT #### [facility] [address] [address] [address] Alex Lo GUIDELINESSEE ProMedica Memorial HospitalComment on above:Result Comment: DESIRED INR: 2.0 - 3.0 CONDITIONS NOT LISTED BELOW 2.5 - 3.5 FOR PROSTHETIC HEART VALVE REPLACEMENT 2.5 - 3.5 RECURRENT THROMBOSIS Performed By: #### PT, PTT #### [facility] [address] [address] [address] Alex ChristiansonPT Coag (PPP) [Time]10.9 sNormal9.0-11.6[facility] Comment on above:Performed By: #### PT, PTT #### [facility] [address] [address] [address] Alex OttTon 93-89-8584wLEO Coag (Bld) [Time]27.3 bEzvkux23.3-36.2The [facility] HospitalComment on above:Performed By: #### PT, PTT #### [facility] [address] [address] [address] Alex Badillo, HIGH SENSITIVITYon 75-31-3545RJFFBT7.5 pg/mLNormal 4.0-35.5ThWood [facility] on above:Result Comment: CUT-OFF POINTS HAVE BEEN ESTABLISHED BASED ON THE FOURTH UNIVERSAL DEFINITIONS OF MYOCARDIAL INFARCTION. THE UPPER REFERENCE LIMIT (URL) OF TROPONIN, DEFINED THE 99TH PERCENTILE OF cTnI DISTRIBUTION IN A REFERENCE POPULATION, HAS BEEN CONFIRMED THE DECISION THRESHOLD FOR AL DIAGNOSIS.Performed By: #### HSTROPN, CMP #### [facility] [address] [address] [address] Alex VASQUEZ ONLYon 83-98-0371BSIQWWWBSCZN SEENNormalNONE SEENKettering Health Washington Township on above:Performed By: #### ERUR, PREGU, UMICRO ####[facility] [address] [address]. Alex Maldonado identified Cx Nom (U)NOT INDICATEDNoNorwalk Memorial HospitalComment on above:Performed By: #### ERUR, PREGU, UMICRO ####[facility] [address] [address]Dr. Alex ChangCAST NONE SEENNormalNONE SEENThe [facility] HospitalComment on above:Performed By: #### ERUR, PREGU, UMICRO ####[facility] [address] [address]Dr. Alex ChristiansonCrystals LM Nom (Urine sed)NONE SEEN NormalNONE SEENThe [facility] HospitalComment on above:Performed By: #### ERUR, PREGU, UMICRO ####[facility] [address] [place], [place] [address]Dr. Alex ChangEpithelial cells LM Ql (Urine sed)FEWAbnormalNONE SEEN /RAREThe [facility] HospitalComment on above:Performed By: #### ERUR, PREGU, UMICRO ####[facility] [address] [place], [place] [address]Dr. Alex ChristiansonMUCOUSNONE SEENNormalNONE SEENThe [facility] HospitalComun[facility] of [facility] on above:Performed By: #### ERUR, PREGU, UMICRO ####[facility] [address] [place], [place] [address]Dr. Alex ChangRBC0-2Normal 0-2The [facility] HospitalComment on above:Performed By: #### ERUR, PREGU, UMICRO ####[facility] [address] [place], [place] [address]Dr. Alex ChangWBC0-2AbnormalNONE SEENThe [facility] HospitalComment on above: Performed By: #### ERUR, PREGU, UMICRO ####[facility] [address] [place], [place] [address]Dr. Alex ChristiansonUS ARCHANA DOP LEG BILon [id number] ARCHANA DOP LEG BILEXAMINATION: US ARCHANA DOP LEG MARTHA HISTORY: Deep venous thrombosis COMPARISON: No relevant comparison available. FINDINGS: REGION: Bilateral lower extremities THROMBI: None. COMPRESSIBILITY: Normal compressibility. FLOW: Normal waveform and antegrade flow between 5 and 20 cm/s. OTHER: None. IMPRESSION: 1. No deep vein thrombus within the right or left lower extremity. Electronically authenticated by: HONG MOSS Date: 2022-02-17 14:41[facility] HospitalXR [facility] 2 Von [id number] CHEST 2 VEXAM: CHEST 2 VIEWS HISTORY: Chest pain TECHNIQUE: PA and lateral views chest. COMPARISON: 02/24/2020. FINDINGS: The lungs are well-expanded and clear. There is no focal lung consolidation, pleural effusion or pneumothorax. Pulmonary vasculature is within normal limits. The cardiomediastinal silhouette is normal. IMPRESSION: 1. Well-expanded and clear lungs. No acute cardiopulmonary disease. 2. Normal heart size. Electronically authenticated by: ANDREW WHITT Date: 2022-02-17 14:[address] [place] [address] [id number] HEALTHHNO ID: [id number] Author: Daysi MoffettRtOdilon Donahue Service: Radiology Author Type: Client Technical Support Associate Type: [employer] [facility] Filed: 12/09/2019 5:01 PM Note Text: [...] BY: RT Tracee December 09, 2019 5:01 [facility] ID: [id number] Author: Scar MoffettCtOdilon Brady Service: Radiology Author Type: Client Technical Support Associate Type: [employer] [facility] Filed: 12/09/2019 3:44 PM Note Text: [...] Left in for next appointment SIGNED BY: Scar Lowery, YANA December 09, 2019 3:44 PMNormalLutheran HospitalCBC and Differentialon 12-09-2019 Abs Baso0.05 k/uLNormal<0.11Lutheran HospitalComment on above:Performed By: #### CBCDIF, CMP, LIPA, MG1 #### [place] [address] Vtz Mono0.96 k/uLHigh<0.87Lutmer[facility] HospitalComment on above: Performed By: #### CBCDIF, CMP, LIPA, MG1 #### [place] [address] Ulg Neut16.63 k/uLHigh1.45-7.50[facility] HospitalComment on above: Performed By: #### CBCDIF, CMP, LIPA, MG1 #### [place] [address] Etdmkuai nRBC<0.01Normal<0.01[facility] HospitalComment on above: Performed By: #### CBCDIF, CMP, LIPA, MG1 #### [place] [address] Rnzutqets/100 WBC (Bld)0.3 %NormalAdventism HospitalComment on above: Performed By: #### CBCDIF, CMP, LIPA, MG1 #### [place] [address] MFCGLGayy DiffNormalLutheran HospitalComment on above:Performed By: #### CBCDIF, CMP, LIPA, MG1 #### [place] [address] Pyrmcughqrn (Bld) [#/Vol]10*3/uLNormal<0.46Lutbanner goldfield medical centeran HospitalComment on above:Performed By: #### CBCDIF, CMP, LIPA, MG1 #### [place] [address] Tpnxszhqwwb/100 WBC (Bld)0.1 %NormalAdventism HospitalComment on above:Performed By: #### CBCDIF, CMP, LIPA, MG1 #### [place] [address] Ohepwmjzfut distribution width (RBC) [Ratio]13.4 %Qiiutq15.5-15.0 [facility] HospitalComment on above:Performed By: #### CBCDIF, CMP, LIPA, MG1 #### [place] [address] Stazfawspy (Bld) [Volume fraction]43.9 %Vbuwxk55.0-46.0[facility] HospitalComment on above:Performed By: #### CBCDIF, CMP, LIPA, MG1 #### [place] [address] Vefbcjydcw (Bld) [Mass/Vol]14.4 g/cAXfcxky72.5-15.5[facility] Comment on above:Performed By: #### CBCDIF, CMP, LIPA, MG1 #### [place] [address] Ixtdiblvjzs (Bld) [#/Vol]1.31 10*3/uLNormal1.00-4.00[facility] HospitalComment on above:Performed By: #### CBCDIF, CMP, LIPA, MG1 #### [place] [address] Vummkdyzqlx/100 WBC (Bld)6.9 %NormalAdventism HospitalComment on above:Performed By: #### CBCDIF, CMP, LIPA, MG1 #### [place] [address] XBO (RBC) [Entitic mass]30.4 nNSzkfoe17.0-34.0[facility] Comment on above:Performed By: #### CBCDIF, CMP, LIPA, MG1 #### [place] [address] KSYB (RBC) [Mass/Vol]32.8 g/dQAslgwg84.5-36.0[facility] Comment on above:Performed By: #### CBCDIF, CMP, LIPA, MG1 #### [place] [address] SUM (RBC) [Entitic vol]92.6 dMLrmldc87.0-100.0[facility] Comment on above:Performed By: #### CBCDIF, CMP, LIPA, MG1 #### [place] [address] Ifqhiisdc/100 WBC (Bld)5.1 %NormalAdventism HospitalComment on above: Performed By: #### CBCDIF, CMP, LIPA, MG1 #### [place] [address] Bcezmhunmna/100 WBC (Bld)87.6 %NormalAdventism HospitalComment on above:Performed By: #### CBCDIF, CMP, LIPA, MG1 #### [place] [address] IPQIc4.0 /100 RYZJjpbdd3Srcemjiv HospitalComment on above:Performed By: #### CBCDIF, CMP, LIPA, MG1 #### [place] [address] Lblyzjeo mean volume (Bld) [Entitic vol]9.1 fLNormal9.0-12.7[facility] HospitalComment on above:Performed By: #### CBCDIF, CMP, LIPA, MG1 #### [place] [address] Jnmjnvlcr (Bld) [#/Vol]251 10*3/zDXottjl604-861Hnlteoex Hospital Comment on above:Performed By: #### CBCDIF, CMP, LIPA, MG1 #### [place] [address] SPR (Bld) [#/Vol]4.74 10*6/uLNormal3.90-5.20[facility] Cancer CenterComment on above:Performed By: #### CBCDIF, CMP, LIPA, MG1 #### [place] [address] AFS (Bld) [#/Vol]18.96 10*3/uLHigh3.70-11.00[facility] HospitalComment on above:Performed By: #### CBCDIF, CMP, LIPA, MG1 #### [place] [address] UD ABD/PEL W IVCONon [id number] ABD/PEL W IVCON* * *Final Report* * * DATE OF [...] of an acute intra-abdominal or pelvic process. Event Specialist: PSCB Transcribe Date/Time: Dec 09 2019 3:45P Dictated by : ELISABET KEITA MD This examination was interpreted and the report reviewed and electronically signed by: EILSABET KEITA MD on Dec 09 2019 3:53PM EST [id number] health st. [facility] hospital HospitalComp Metabolic Panelon 12-09-2019 Albumin [Mass/Vol]4.5 g/dLNormal3.9-4.9LutMercy Health St[facility] Elizabeth Youngstown HospitalComment on above: Performed By: #### CBCDIF, CMP, LIPA, MG1 #### [place] [address] UXM [Catalytic activity/Vol]41 U/ZJpisdo40-955Umvatlnb Hospital Comment on above:Performed By: #### CBCDIF, CMP, LIPA, MG1 #### [place] [address] WOV [Catalytic activity/Vol]21 U/LNormal7-38[facility] Md, Cancer CenterComment on above:Result Comment: Results may be falsely increased due to interference by hemolysis. Suggest reorder as clinically indicated.Performed By: #### CBCDIF, CMP, LIPA, MG1 #### [place] [address] Bltqt gap [Moles/Vol]13 mmol/LNormal9-18[facility] Cancer CenterComment on above:Performed By: #### CBCDIF, CMP, LIPA, MG1 #### [place] [address] XOY [Catalytic activity/Vol]29 U/FLqzvzx31-23Ylwpwlzi Hospital Comment on above:Result Comment: Results may be falsely increased due to interference by hemolysis. Suggest reorder as clinically indicated.Performed By: #### CBCDIF, CMP, LIPA, MG1 #### [place] [address] Oxlwfpeku [Mass/Vol]0.5 mg/dLNormal0.2-1.3[facility] HospitalComment on above:Performed By: #### CBCDIF, CMP, LIPA, MG1 #### [place] [address] Pcswcvo [Mass/Vol]9.5 mg/dLNormal8.5-10.2[facility] HospitalComment on above:Performed By: #### CBCDIF, CMP, LIPA, MG1 #### [place] [address] Vktbimaj [Moles/Vol]108 mmol/KKcca47-414Ehbcnumn HospitalComment on above:Performed By: #### CBCDIF, CMP, LIPA, MG1 #### [place] [address] OA2 [Moles/Vol]21 mmol/TKzo23-97Hpmapzxy HospitalComment on above: Performed By: #### CBCDIF, CMP, LIPA, MG1 #### [place] [address] Maldvbqavr [Mass/Vol]0.65 mg/dLNormal0.58-0.96[facility] Hospital Comment on above:Performed By: #### CBCDIF, CMP, LIPA, MG1 #### [place] [address] sEDF- Amer.>60Normal>60Luther[facility] HospitalComment on above: Performed By: #### CBCDIF, CMP, LIPA, MG1 #### [place] [address] CUJ/1.73 sq M predicted among non-blacks MDRD (S/P/Bld) [Vol rate/Area]mL/min/{1.73_m2}Normal>60Luther[facility] HospitalComment on above:Result Comment: eGFR (Estimated GFR) Units of measure: [...] the eGFR may not accurately reflect actual GFR.Performed By: #### CBCDIF, CMP, LIPA, MG1 #### [place] [address] Gkcytjr [Mass/Vol]137 mg/ePKlvg79-22Mgojrjpa HospitalComment on above:Performed By: #### CBCDIF, CMP, LIPA, MG1 #### [place] [address] Sxiwclefn [Moles/Vol]4.9 mmol/LNormal3.7-5.1Lutheran HospitalComment on above:Result Comment: Results may be falsely increased due to interference by hemolysis. Suggest reorder as clinically indicated.Performed By: #### CBCDIF, CMP, LIPA, MG1 #### [place] [address] Klwoftf [Mass/Vol]7.2 g/dLNormal6.3-8.0[facility] HospitalComment on above:Performed By: #### CBCDIF, CMP, LIPA, MG1 #### [place] [address] Aqfhjy [Moles/Vol]142 mmol/OSnnzfv851-633Wroehuei HospitalComment on above:Performed By: #### CBCDIF, CMP, LIPA, MG1 #### [place] [address] Gzxm nitrogen [Mass/Vol]11 mg/dLNormal7-21Advent[facility] HospitalComment on above:Performed By: #### CBCDIF, CMP, LIPA, MG1 #### [facility] [address] [place] [address] IS NOTEon [id number] NOTEHNO ID: [id number] Author: Cinda Mcgraw RN Service: ? Author Type: Registered Nurse Type: ED Notes Filed: 12/09/2019 6:15 PM Note Text: Pt. Was discharged with verbal and written instructions, pt. verbalized understanding. Instructed pt. To follow up with PCP. Pt instructed to return to the ED if symptoms worsen.[facility] NOTEHNO ID: [id number] Author: Elinor MoffettRnEdyta Olvera RN Service: Nursing Author Type: Registered Nurse Type: ED Notes Filed: 12/09/2019 5:10 PM Note Text: Patient sleeping in bed, chest rise and fall noted. Respirations even and unlabored. Patient safety maintained.[facility] CenterED NOTEHNO ID: [id number] Author: Arin MoffettMedic) Irma Service: ? Author Type: [employer] Sergeant and Client Technical Support Associate Type: ED Notes Filed: 12/09/2019 4:29 PM Note Text: Add on rec sent to lab.[facility] NOTEHNO ID: [id number] Author: Clara MoffettRnEdyta Smith RN Service: ? Author Type: Registered Nurse Type: ED Notes Filed: 12/09/2019 3:29 PM Note Text: Patient transported to [place] with Tech.[facility] CenterED NOTEHNO ID: [id number] Author: Cinda Mcgraw RN Service: ? Author Type: Registered Nurse Type: ED Notes Filed: 12/09/2019 3:27 PM Note Text: Urine culture add on sentUniversity Hospitals St. John Medical CenterED NOTEHNO ID: [id number] Author: Clara Smith RN Service: ? Author Type: Registered Nurse Type: ED Notes Filed: 12/09/2019 3:27 PM Note Text: Medications explained to pt. Pt verbalized understanding. In agreement with plan of care.[facility] NOTEHNO ID: [id number] Author: Clara Smith RN Service: ? Author Type: Registered Nurse Type: ED Notes Filed: 12/09/2019 3:29 PM Note Text: Medications and the need for IV fluids explained to pt. Pt verbalized understanding. In agreement with plan of care.[facility] NOTEHNO ID: [id number] Author: Myron Beal (Medic) Fredo Rose Service: ? Author Type: Precinct Police Sergeant and Client Technical Support Associate Type: ED Notes Filed: 12/09/2019 1:26 PM Note Text: Labs were drawn and sent.[facility] NOTEHNO ID: [id number] Author: Elinor (Rn) Wade RN Service: Nursing Author Type: Registered Nurse Type: ED Notes Filed: 12/09/2019 1:16 PM Note Text: Patient presents to ED for CP, cough, nausea, vomiting.[facility] PROV NOTEon [id number] PROV NOTEHNO ID: [id number] Author: Anamika Josue Service: Emergency Medicine Author Type: Physician Grade Foreman Type: ED Provider Notes Filed: 12/10/2019 7:51 [...] described as above. 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 No pertinent past [...] Labs Ordered and Reviewed COMPREHENSIVE METABOLIC PANEL (AK,AV,EU,FV,HL,SARITA,MM,SP) - Abnormal; Notable for the following components: Result Value Ref Range Glucose 137 (*) 74 - 99 mg/dL Chloride 108 (*) 97 - 105 mmol/L CO2 21 (*) 22 - 30 mmol/L All other components within normal limits CBC + AUTO DIFF (AK,AV,EU,FV,HL,SARITA,MM,SP) - Abnormal; Notable for the following components: WBC 18.96 (*) 3.70 - 11.00 k/uL Abs Neut (ANC) 16.63 (*) 1.45 - 7.50 k/uL Abs [place]on 0.96 (*) <0.87 k/uL All other components within normal limits URINALYSIS WITH MICROSCOPIC (AK,AV,EU,FV,HL,SARITA,MM,SP) - Abnormal; Notable for the following components: Clarity Cloudy (*) Clear Ketones, Urine 40 (*) Negative Hemoglobin/Blood,Ur Trace (*) Negative RBC, Urine 5-10 (*) 0 - 3 /HPF Bacteria Present (*) 0 /HPF All other components within normal limits MAGNESIUM BLOOD (AK,AV,EU,FV,HL,SARITA,MM,SP) LIPASE BLOOD (AK,AV,EU,FV,HL,SARITA,MM,SP) URINE DRUG SCREEN (AK,AV,EU,FV,HL,SARITA,MM,SP) HCG QUALITATIVE URINE (AK,AV,EU,FV,HL,SARITA,MM,SP) TROPONIN T (AV,EU,FV,HL,SARITA,MM,SP) URINE CULTURE (AK,AV,EU,FV,HL,SARITA,MM,SP) XR CHEST 1V FRONTAL PORT Final Result IMPRESSION: No acute pulmonary findings identified. Event Specialist: JOHN PAUL Transcribe Date/Time: Dec 09 2019 5:00P Dictated by : CHIARA MONTANA MD This examination was interpreted and the report reviewed and electronically signed by: CHIARA MONTANA MD on Dec 09 2019 5:01PM EST CT ABD/PEL W IVCON Final Result IMPRESSION: No evidence of an acute intra-abdominal or pelvic process. Event Specialist: PSCB Transcribe Date/Time: Dec 09 2019 3:45P Dictated [...] R-0 ED Course as of Dec 10 0748 Others' Documentation Sun Dec 09, 2019 1320 ECG shows sinus rhythm at 62 bpm with a FL interval of 110 the QTC of 435. [...] Reviewed Rhythm: Normal sinus rhythm Rate: 62 Milo: Normal axis Intervals: Normal FL interval QRS Complex: Normal ST Segment: Nonspecific [...] and stable. SIGNATURE: KAIT Burch Pa-C 12/10/19 0751[facility] Qual, Urineon 67-36-0052Ewqb HCG ( test) Ql (U)NegativeNormalNegativeLutheran HospitalComment on above: Performed By: #### TRIHEALTHG, UTOX2, UAMIC #### [place] [address] Xmfpsotv 43-39-4384Chqtet [Catalytic activity/Vol]20 U/SCpgujh31-03 [facility], Cancer CenterComment on above:Performed By: #### CBCDIF, CMP, LIPA, MG1 #### [place] [address] Wqetzvgmorh 40-05-0866Esvvlhzlz [Mass/Vol]2.0 mg/dLNormal1.7-2.3 [facility], Cancer CenterComment on above:Performed By: #### CBCDIF, CMP, LIPA, MG1 #### [place] [address] Psutgqcshm Screen,Uron 86-22-2088Hycimmguytcv, UrineNegativeNormal NegativeLutheran HospitalComment on above:Result Comment: Cutoff threshold at 1000 ng/mL.Performed By: #### UHCG, UTOX2, UAWMIC #### [place] [address] Jmuoakllkghp, UrineNegativeNormalNegativeLutheran HospitalComment on above:Result Comment: Cutoff threshold at 200 ng/mL.Performed By: #### UHCG, UTOX2, UAWMIC #### [place] [address] Sppkgipprcbnani, UrNegativeNormalNegativeLutheran HospitalComment on above:Result Comment: Cutoff threshold at 200 ng/mL.Performed By: #### UHCG, UTOX2, UAWMIC #### [place] [address] Ftydvofbuypm, UrineNegativeNormalNegativeLutheran HospitalComment on above:Result Comment: Cutoff threshold at 50 ng/mL.Performed By: #### UHCG, UTOX2, UAWMIC #### [place] [address] Rfsapyr, UrineNegativeNormalNegativeLutheran HospitalComment on above:Result Comment: Cutoff threshold at 300 ng/mL.Performed By: #### UHCG, UTOX2, UAWMIC #### [place] [address] Aiwbklt, Urine<11Normal<11Lutheran HospitalComment on above: Performed By: #### UHCG, UTOX2, UAWMIC #### [place] [address] Njkteig, UrineNegativeNormalNegativeLutheran HospitalComment on above:Result Comment: Cutoff threshold at 300 ng/mL.Performed By: #### UHCG, UTOX2, UAWMIC #### [place] [address] Llvucgmvg, UrineNegativeNormalNegativeLutheran HospitalComment on above:Result Comment: Cutoff threshold at 100 ng/mL. Comment: Immunoassay screen [...] on the same specimen through Client Services ([phone]) if contacted within 48 hours of initial testing. [1]Substance Abuse and Mental Health Services Administration (2012). Clinical Drug Testing in Primary Care Technical Assistance Publication Series 32. Department of Health and Human Services, [place], p.10.Performed By: #### UHCG, UTOX2, UAWMIC #### [place] [address] Yqsurjqgrwfqa, UrineNegativeNormalNegativeLutheran HospitalComment on above:Result Comment: Cutoff threshold at 25 ng/mL.Performed By: #### UHCG, UTOX2, UAWMIC #### [place] [address] Pndkoggt Ton 76-44-6268Ameecaqk T.cardiac [Mass/Vol]ug/LNormal 0.000-0.029Lutheran HospitalComment on above:Result Comment: Results may be falsely decreased due to interference by hemolysis. Suggest reorder as clinically indicated.Performed By: #### AUBREE ####[place] [id number] with Microscopicon 12-09-2019 Amorphous CrystalManyNormalLutheran HospitalComment on above:Performed By: #### UHCG, UTOX2, UAWMIC #### [place] [address] Tcuakevw LM.HPF (Urine sed) [#/Area]PresentCritically abnormal0 Adventism HospitalComment on above:Performed By: #### UHCG, UTOX2, UAWMIC #### [place] [address] Msskercxv, UrineNegativeNormalNegativeLutmercy health st[facility] HospitalComment on above:Performed By: #### UHCG, UTOX2, UAWMIC #### [place] [address] VhauRTQ APRLSQFXcscze4Wcrmxito HospitalComment on above:Result Comment: 0Performed By: #### UHCG, UTOX2, UAWMIC #### [place] [address] Mhciqyc (U)CloudyCritically abnormalClearLutheran HospitalComment on above:Performed By: #### UHCG, UTOX2, UAWMIC #### [place] [address] Mwnad (U)YellowNormalYellowLutheran HospitalComment on above: Performed By: #### UHCG, UTOX2, UAWMIC #### [place] [address] Votkhmrfuo cells LM.HPF (Urine sed) [#/Area]SEE COMMENTNormal Adventism HospitalComment on above:Result Comment: 09-07 SquamousPerformed By: #### UHCG, UTOX2, UAWMIC #### [place] [address] Gcsarta Ql (U)NegativeNormalNegativeLuther HospitalComment on above:Performed By: #### UHCG, UTOX2, UAWMIC #### [place] [address] Fvivmffdxi/Blood,UrTraceCritically abnormalNegativeLutmercy health st. [facility] Hospital Comment on above:Performed By: #### UHCG, UTOX2, UAWMIC #### [place] [address] Psnyrzc Ql (U)40Critically abnormalNegativeLutmercy health st. [facility] HospitalComment on above:Performed By: #### UHCG, UTOX2, UAWMIC #### [place] [address] ZnerpyzMnvsbfnkMiibqjTfunjtnuTznaoykf HospitalComment on above: Performed By: #### UHCG, UTOX2, UAWMIC #### [place] [address] Wgnnt Ql (Urine sed)ModerateNormalLutheran HospitalComment on above: Performed By: #### UHCG, UTOX2, UAWMIC #### [place] [address] Nqznnfy Ql (U)NegativeNormalNegativeLuther HospitalComment on above:Performed By: #### UHCG, UTOX2, UAWMIC #### [place] [address] yE (Bld)7.0Ymxyyt3.5-8.0Luther HospitalComment on above:Performed By: #### UHCG, UTOX2, UAWMIC #### [place] [address] Vsfphfc (U) [Mass/Vol]NegativeNormalNegativeLutheran HospitalComment on above:Performed By: #### UHCG, UTOX2, UAWMIC #### [place] [address] DII (U) [#/Vol]5-10Critically abnormal0-3Lutheran HospitalComment on above:Performed By: #### UHCG, UTOX2, UAWMIC #### [place] [address] Okrispbl [place], Ur1.386Vfzedm4.005-1.030Lutheran HospitalComment on above:Performed By: #### UHCG, UTOX2, UAWMIC #### [place] [address] Xbjdbcjtqovy Qn (U)0.5Pfaubz3.2-1.0Lutheran HospitalComment on above:Performed By: #### UHCG, UTOX2, UAWMIC #### [place] [address] AOI (Bld) [#/Vol]7-5Tsebgy3-1Audexsgj HospitalComment on above: Performed By: #### UHCG, UTOX2, UAWMIC #### [place] [address] Vsbpc Cultureon 92-93-6745Mvwnuzvc identified Cx Nom (U)Culture Result - No growth (<1,000 CFU/ml)NormalLutheran HospitalComment on above: Performed By: #### CBCDIF, CMP, LIPA, MG1 #### [place] [address] UQ CHEST 1V FRONTAL PORTon 28-87-4428LH CHEST 1V FRONTAL PORT* * *Final Report* * * DATE OF [...] . IMPRESSION: No acute pulmonary findings identified. Event Specialist: PSCB Transcribe Date/Time: Dec 09 2019 5:00P Dictated by : CHIARA MONTANA MD This examination was interpreted and the report reviewed and electronically signed by: CHIARA MONTANA MD on Dec 09 2019 5:01PM EST [id number] Arms Hospital Vital Signs Date TimeVital SignValuePerforming RnflfkiyyVfangnfp56-06-5499 15:45-0400Body mass index (BMI) [Ratio]25.3 kg/r3Bnmli Zeke DO Work Phone: [facility] CareQpavozorxf60-66-9259 15:45-0400Body hduqrl07.77 kgCorey Zeke DO Work Phone: [facility] CareJeunbbdsje54-53-6661 15:45-0400Diastolic blood bjypxztr56 mm[Hg]Juanito Zeke DO Work Phone: [facility] CareRgnwwtfmbv13-09-6827 15:45-0400Systolic blood polqjpwk937 mm[Hg]Juanito Zeke DO Work Phone: [facility] CareGceycsvqiz41-16-9084 10:11-0400Body dlklme381.02 [facility] OCCUPATIONAL WORK EXPERIENCE TEACHER Work Phone: [facility]07-29-2025 10:11-0400 Body mass index (BMI) [Ratio]25.2 kg/f8BifrccbbDeborah [facility] OCCUPATIONAL WORK EXPERIENCE TEACHER Work Phone: [facility]07-29-2025 10:11-0400 Body fjpsqyypmxp44.5 [degF]Connie Cosby OCCUPATIONAL WORK EXPERIENCE TEACHER Work Phone: [facility]07-29-2025 10:11-0400 Body erinoo98.46 kgConnie Cosby OCCUPATIONAL WORK EXPERIENCE TEACHER Work Phone: [facility]07-29-2025 10:11-0400 Diastolic blood swdgeclu70 mm[Hg]Connie Cosby OCCUPATIONAL WORK EXPERIENCE TEACHER Work Phone: [facility]07-29-2025 10:11-0400 Heart rate76 /James Cosby OCCUPATIONAL WORK EXPERIENCE TEACHER Work Phone: [facility]07-29-2025 10:11-0400 Respiratory rate18 /James Cosby OCCUPATIONAL WORK EXPERIENCE TEACHER Work Phone: [facility]07-29-2025 10:11-0400 SaO2% (BldA) [Mass fraction]97 %Connie Cosby OCCUPATIONAL WORK EXPERIENCE TEACHER Work Phone: [facility]07-29-2025 10:11-0400 Systolic blood dhxtwpby203 mm[Hg]Connie Cosby OCCUPATIONAL WORK EXPERIENCE TEACHER Work Phone: [facility]03-31-2025 15:48-0400 Body mass index (BMI) [Ratio]25.05 kg/n3Jczwz Zeke DO Work Phone: [facility] CareQulixqnmdx42-91-4190 15:48-0400Body .14 kgCorey Zeke DO Work Phone: [facility] CareCyxevwhjkv73-78-9390 15:48-0400Diastolic blood eqkvwscg39 mm[Hg]Juanito Zeke DO Work Phone: [facility] CareDzcyllccpn62-33-3809 15:48-0400Systolic blood brkqnfex561 mm[Hg]Juanito Zeke DO Work Phone: [facility] CareDitexrukqh29-01-4447 15:08-0400Body mass index (BMI) [Ratio]24.94 kg/k2Txfai Zeke DO Work Phone: [facility] CareCrlaznuukr84-60-3262 15:08-0400Body hovagp72.87 kgCorey Zeke DO Work Phone: [facility] CareRrimszxxnc71-32-6805 15:08-0400Diastolic blood hzumbhjo36 mm[Hg]Juanito Zeke DO Work Phone: [facility] CareXaisyzirtl83-07-8274 15:08-0400Systolic blood hyrjwuyf763 mm[Hg]Juanito Zeke DO Work Phone: [facility] CareNzvukmktuz68-81-4784 13:21-0400Body ioowew563.02 Avanibencharisse Jennifersofybilly OCCUPATIONAL WORK EXPERIENCE TEACHER Work Phone: [phone]03-11-2025 13:21-0400 Body mass index (BMI) [Ratio]25.1 kg/q9Xueoc Margaritaaya OCCUPATIONAL WORK EXPERIENCE TEACHER Work Phone: [phone] [place], [place] 2949303-11-2025 13:21-0400 Body lbstwa45.4 kgKryscharisse Jennifersofyaya OCCUPATIONAL WORK EXPERIENCE TEACHER Work Phone: [phone] [place], [place] 2949302-14-2025 17:20-0500 Body rvksie373.02 Desmondcharisse Marian OCCUPATIONAL WORK EXPERIENCE TEACHER Work Phone: [phone] [place], [place] 2949302-14-2025 17:20-0500 Body mass index (BMI) [Ratio]24.7 kg/e1Vlccc Margaritaaya OCCUPATIONAL WORK EXPERIENCE TEACHER Work Phone: [phone] [place], [place] 2949302-14-2025 17:20-0500 Body oxqqsececak66.5 [degF]Loree Fonseca OCCUPATIONAL WORK EXPERIENCE TEACHER Work Phone: [phone]02-14-2025 17:20-0500 Body awhhst16.5 kgKrysa Jennifersofyaya OCCUPATIONAL WORK EXPERIENCE TEACHER Work Phone: [phone] [place], [place] 2949302-14-2025 17:20-0500 Diastolic blood mm[Hg]Loree Fonseca OCCUPATIONAL WORK EXPERIENCE TEACHER Work Phone: [facility]02-14-2025 17:20-0500 Heart rate79 /Yue Fonseca APRN Work Phone: [facility]02-14-2025 17:20-0500 Respiratory rate18 /Yue Fonseca APRN Work Phone: [facility]02-14-2025 17:20-0500 SaO2% (BldA) [Mass fraction]98 %Loree Rodriguezcitizens memorial healthcarebilly MURPHY Work Phone: [facility]02-14-2025 17:20-0500 Systolic blood gwyfnzot731 mm[Hg]Loree Fonseca APRN Work Phone: [facility]2025 09:45-0500 Body .02 cmUniversity [facility]2025 09:45-0500Body mass index (BMI) [Ratio]25 kg/m1MkzdxgzepUniversity Hospitals Geneva Medical Center2025 09:45-0500Body nspgdy60.95 kgUniversity [facility]als [facility]01-06-2024 11:55-0500Body rtnfym197.02 Darcy Riojas Other [employer] Other 01-06-2024 11:55-0500Body mass index (BMI) [Ratio] 24.16 kg/h7LlyjtvMarina Riojas Other [employer] Other 01-06-2024 11:55-0500Body ceankgucmaz02.1 [degF]Marina Riojas Other [employer] Other 01-06-2024 11:55-0500Body .87 kgPadevantecharisse Beulah Other [employer] Other 01-06-2024 11:55-0500Diastolic blood qeageibs15 mm[Hg] Marina Riojas Other [employer] Other 01-06-2024 11:55-0500Respiratory rate18 /minPahoward Riojas Other [employer] Other 01-06-2024 11:55-0523GhS9% (BldA) [Mass fraction]99 % Marina Riojas Other [employer] Other 01-06-2024 11:55-0500Systolic blood lzohdute923 mm[Hg] Marina Riojas Other [employer] Other 07-18-2023 15:15-0400Body unbtli723.02 cmAmbgigi Cai Other [employer] Other 07-18-2023 15:15-0400Body mass index (BMI) [Ratio]23.2 kg/k8MectfElinor Cai Other [employer] Other 07-18-2023 15:15-0400Body sfemjghdpza09.3 [degF]Elinor Cai Other [employer] Other 07-18-2023 15:15-0400Body tifqhu04.42 kgElinor Cai Other [employer] Other 07-18-2023 15:15-0400Diastolic blood iofxcuiw00 mm[Hg] Elinor Cai Other [employer] Other 07-18-2023 15:15-0400Respiratory rate18 /minElinor Cai Other [employer] Other 07-18-2023 15:15-4848JqU1% (BldA) [Mass fraction]99 % Elinor Cai Other [employer] Other 07-18-2023 15:15-0400Systolic blood ibvtteei977 mm[Hg] Elinor Cai Other [employer] Other Encounters Encounter DateEncounter TypeCare ProviderFacilityStart: 08-27-2025 End: 52-86-7201Drgdba flowsheetCorey Zeke DO Work Phone: [facility] OBGYNStart: 08-27-2025 End: 62-45-5729Qsdvnz flowsheetCorey Zeke DO Work Phone: [facility] [place] [facility]BGYNStart: 08-27-2025 End: 39-48-6443Ilaqvi outpatient visit 15 minutesCorey Zeke DO Work Phone: [facility] RolonJaylyn OBGYNComment on above:Pre-op examination; Menorrhagia with regular cycle; Abnormal uterine bleeding (AUB); Pelvic pain; Request for sterilizationStart: 08-27-2025 End: 51-35-2252Joqrlejhxjeyl examination doneCorey Zeke DO Work Phone: NO HealthcareStart: 08-27-2025 End: 12-67-0184qocpfuhdivWKGFV FAZIONot AvailableStart: 07-29-2025 End: 76-84-6801Pojvan outpatient visit 15 minutesCorey Zeke DO Work Phone: [facility] [place] OBGYNComment on above:Abnormal uterine bleeding; UTI symptomsStart: 07-29-2025 End: 10-18-3323hrjpzzbgvmPFLUZ FAZIONot AvailableStart: 07-29-2025 End: 88-55-6052Vqtpao flowsheetCorey Zeke DO Work Phone: [facility] OBGYNStart: 07-29-2025 End: 90-11-2178Uejjxi flowsheetCorey Zeke DO Work Phone: noMS [facility] OBGYNStart: 06-11-2025 End: 83-04-1537yeajdcxvlkFEP [facility] Work Phone: Start: 06-11-2025 End: 35-70-1728Nlsjkevx ReferredPatricia Melany Cosby OCCUPATIONAL WORK EXPERIENCE TEACHER-[facility] [employer] Work Phone: Start: 06-11-2025 End: 90-96-8382fzjgbzppdpXAW [facility] Work Phone: Start: 06-11-2025 End: 72-33-4172Qeilnix encounter procedurePatricsonu Orozcouniversity of mary[facility] OCCUPATIONAL WORK EXPERIENCE TEACHER-[facility] Urgent Care Jamin Work Phone: Start: 04-18-2025 End: 60-61-3861flqfnfcwdtMRUMMHMercy Health Start: 02-21-2025 End: 29-36-7544Bnwrfaxzy encounterSusan Magdiel SWEETNNRAVI BCP OBStart: 02-13-2025 End: 04-64-4661qpsaoziiqzFBBDRIMercy Health Start: 02-13-2025 End: 82-86-9446Jdovknbaf for preprocedural cardiovascular examinationGEORMount Carmel Health Systemtart: 02-11-2025 End: 13-29-0595Ddcwwjx encounter procedureCorey Zeke DO Work Phone: noMS [facility] OBComment on above:Pre-operative exam; Menorrhagia with irregular cycle; Abnormal uterine bleeding; Pelvic pain in femaleStart: 02-11-2025 End: 06-44-9394Xyvlnsvcogrwf examination doneCorey Zeke DO Work Phone: [facility] Work Phone: Start: 02-11-2025 End: 47-14-6950twdrdgbekkOTY [facility] Work Phone: Start: 02-11-2025 End: 64-90-8005Cmeqjwqs ReferredLoree Fonseca OCCUPATIONAL WORK EXPERIENCE TEACHER Work Phone: [facility]-LAB Path Spec [facility] HospStart: 02-04-2025 End: 80-04-8921loprddtzpgNUS [facility] Work Phone: Start: 02-04-2025 End: 19-24-6199Famcvxxb ReferredKryscharisse Marian OCCUPATIONAL WORK EXPERIENCE TEACHER Work Phone: [facility]-LAB Path Spec Jay[facility] HospStart: 01-29-2025 End: 49-87-8976Jrspfv outpatient visit 15 minutesCorey Zeke LIANG Work Phone: [facility] BCP OBComment on above:Encounter for consultation; Menorrhagia with irregular cycle; Dysmenorrhea; PMS (premenstrual syndrome); Menorrhagia with regular cycleStart: 01-29-2025 End: 65-73-5753dspplqresiJZJOS FAJULIANNAONot AvailableStart: 01-22-2025 End: 43-03-4990hparenntvoVYN [facility] Work Phone: Start: 01-22-2025 End: 41-97-5592Brubdpy encounter procedureLoree Fonseca APRN Work Phone: [facility] Work Phone: start: 12-28-2024 End: 11-67-9432lqjirtnfanKOC [facility] Work Phone: Start: 12-28-2024 End: 64-27-2898Ysfjecb encounter Logan Fonseca APRN Work Phone: [facility] Urgent Care Jamin Work Phone: Start: 12-27-2024 End: 88-22-0567Ukbykmf encounter procedureLoree Fonseca APRN Work Phone: [facility]-MRI [address] Cl[address] Work Phone: Start: 12-27-2024 End: 79-00-6191murokfdknmNWF [facility] Work Phone: Start: 12-26-2024 End: 40-64-3255dtfxogpygcVYYWYBKJ I [facility] HospitalStart: 12-26-2024 End: 06-10-1960qiuyslsofwWBWZWETW I [facility] Start: 12-26-2024 End: 89-41-7833kkfebaseroIXRCLO [facility] Foundationtart: 12-13-2024 End: 30-75-5298syywivdphvIrjrsfrolMemorial Health System [facility] Work Phone: Start: 12-13-2024 End: 19-67-9296Biiesib encounter procedureAt[facility] Work Phone: start: 10-29-2024 End: 93-10-3813jtwgywringABYSBX Y WEININGERProMedica Kaiser [facility] Medical Centertart: 11-19-2023 End: 65-46-4299pprkypteabJiarnh Beulah Other [employer] Other Start: 09-55-8559Kqfxbi outpatient visit 15 minutes Marina Cordero [facility] ClydeStart: 05-31-2023 End: 98-18-7859mnfhoifxrjZycxj Keller Other [employer] Other Start: 83-98-4533Rwtecu outpatient visit 25 minutes Elinor Ovalles [facility] ClydeStart: 02-17-2022 End: 51-87-8052walorybjcdIV STEVEN R ZIEBERFacility:F2Ebohb: 06-08-2017 End: 08-68-2061WkkwahcyovEDVV BOVAFacility:UTMCStart: 05-11-2017 End: 90-21-5342GbtwpsqkymLRTRRMB PHYSICIANFacility:[facility] Procedures DateProcedureProcedure DetailPerforming ClinicianStart: 89-28-9311Dhmta dip stick/tablet rgnt non-auto w/o micrscpCorey Zeke DO Work Phone: Start: 21-48-9481Hmyei Strep (POC)Connie Cosby OCCUPATIONAL WORK EXPERIENCE TEACHER Work Phone: Start: 00-73-8383Mwtij dip stick/tablet rgnt non-auto w/o micrscpCorey Zeke DO Work Phone: Start: 43-40-1399Yifmxqvblkb observation [Identifier] in Cervix by Cyto stainCorey Zeke DO Work Phone: Start: 17-39-5599Zfgx cerv/vag auto thin layer prep mnl screenNoms Bcp Ob Zeke NurseStart: 51-64-1363M-ray of sacrum and coccyx, two or more viewsLoree Fonseca APRN Work Phone: start: 52-62-4996BJ lumbar spine wo conEdeandra Marian OCCUPATIONAL WORK EXPERIENCE TEACHER Work Phone: start: 20-29-0310UW pre/post mri xrConrad Fonseca APRN Work Phone: start: 03-53-2462BbosxqbxczdCthtj Zeke DO Work Phone: Start: 50-03-3275Gnasuirfnjleqkzck Plan of Treatment DateCare ActivityDetailAuthorStart: 88-67-9764Dmupoggbr for malignant neoplasm of cervixNOMS HealthcareStart: 15-28-4651Uzgtreana for malignant neoplasm of breastMammogramNOMS HealthcareStart: 09-05-2025 End: 00-89-6010Hgqtglzohklg / ancillary services rumjskeuoz65/23/2025 8:00 AM EDT Ancillary Procedure [facility] [address] [place] [address] [place] [address] [facility] ZELAAYGYNStart: 08-29-2025 End: 20-75-1410Oxjotck encounter teyebmsal01/16/2025 11:30 AM EDT Procedure Visit [facility] [address] [place], [id number] Juanito Alanis, DO [address] [place] [address] [facility]YNStart: 08-27-2025 End: 20-12-9066Byftsma encounter procedureNOMS [facility] OBGYNComment on above: ArrivedStart: 07-29-2025 End: 33-96-8228Zpjkjgl encounter jikicbdzh03/15/2025 3:30 PM EDT Consult [facility] [address] [place] [phone] Juanito Alanis, DO [address] [place], [place] [id number] ArrivedNOMS Jaylyn OBGYNComment on above:Arrived Start: 99-33-8437Nqeaqfqqn vaccinationNOHI HealthcareStart: 75-83-2245Dqhcolvq identified in Urine by CultureAultman [facility] Start: 12-36-8411BqyvaAshtabula General Hospitaltart: 03-21-2025 End: 34-04-6250Uboxlad encounter /08/2025 3:30 PM EDT Office Visit [facility] [address] [place] [phone] Heather Coronado PA [address] [place] [address] [facility] BCP OBStart: 02-11-2025 End: 73-24-7148Cfnhbsf encounter /31/2025 3:30 PM EDT Procedure Visit [facility] [address] [place] [phone] Juanito Alanis, DO [address] [place] [address] [facility] BCP OBStart: 01-29-2025 End: 49-97-6493dOQK in Blood by Coagulation assayAPTT Lab Routine Menorrhagia with regular cycle Expected: 01/29/2025 (Approximate), Expires: 01/29/2026[facility] HealthcareComment on above:Expected: 01/29/2025 (Approximate), Expires: 01/29/2026Start: 01-29-2025 End: 32-38-3653FU PelvisUS Pelvis w/ TV Imaging Routine Menorrhagia with irregular cycle Dysmenorrhea PMS (premenstrual syndrome) Menorrhagia with regular cycle Expected: 01/29/2025, Expires: 01/29/2026[facility] HealthcareComment on above:Expected: 01/29/2025, Expires: 01/29/2026Start: 10-50-1164Dyyosypfq vaccinationInfluenza Vaccine (#1)[facility] HealthcareStart: 37-46-7215Mrfpitulb [facility] Differential panel - Blood CBC and differential Lab Routine Menorrhagia with regular cycle Ordered: 01/29/2025[facility] Work Phone: comment on above:Ordered: 01/29/2025hCG, quantitative, pregnancyhCG, quantitative, Lab Routine Menorrhagia with regular cycle Ordered: 01/29/2025[facility] HealthcareComment on above:Ordered: 01/29/2025 Hemoglobin A1c/Hemoglobin.total in BloodHemoglobin A1c Lab Routine Menorrhagia with regular cycle Ordered: 01/29/2025[facility] HealthcareComment on above:Ordered: 01/29/2025Prothrombin time (PT) in Blood by Coagulation assayProtime-INR Lab Routine Menorrhagia with regular cycle Ordered: 01/29/2025[facility] HealthcareComment on above:Ordered: 01/29/2025Thyrotropin [Units/volume] in Serum or PlasmaTSH Lab Routine Menorrhagia with regular cycle Ordered: 01/29/2025[facility] Comment on above:Ordered: 01/29/2025Thyroxine (T4) free [Mass/volume] in Serum or PlasmaT4, free Lab Routine Menorrhagia with regular cycle Ordered: 01/29/2025 [facility] HealthcareComment on above:Ordered: 01/29/2025Tissue examTissue exam Pathology and Cytology Routine Menorrhagia with irregular cycle Ordered: 02/11/2025[facility] Work Phone: comment on above:Ordered: 02/11/2025XR Sacrum and Coccyx GE 2 [facility] Payers DatePayer CategoryPayerPolicy [id number] Health InsuranceUNITED HEALTHCARE [id number] 2..[id number] 2.0.1.412086.3.579.2.593 [id number] 2.0.1.200926.3.579.2.941618-06-4320Owqcbvm [id number] 2.160.1.843324.3.57[id number] 2..1.979737.3.57[id number] 2.0.1.689010.3.57[id number] 2.0.1.069037.3.57[id number] 2..840.1.707187.3.57[id number] 2.16.840.1.772555.3.57[id number] 2..840.1.048461.3.579.[id number] 2.16.840.1.1[id number] 2.16.840.1.276812.3.579.2.531 [id number] 2.16.840.1.6[id number] 2.840.1.597545.3.579.2.531 Social History DateTypeDetailFacilityStart: 03-99-0934Rej Assigned At [facility] [employer] Other Start: 12-13-2024 End: 04-45-7167Ezwlxen smoking status NHISNever smoked tobacco (finding) [facility] 12-13-2024 End: 12-71-4935EskEhblzw (finding)[facility]: 50-19-8361Sxp Assigned [facility] [address] Hospitaltart: 04-03-6342Yoqdxqo smoking status NHISEx-smokerNOMS HealthcareHistory of tobacco useCurrent smokerNOMS HealthcareHistory of tobacco useCigarette SmokerNOMS HealthcareStart: 53-95-4417Tilovry use and exposureSmokeless tobacco non-user [facility] HealthcareStart: 01-29-2025 End: 04-36-3069Eefwdtofe beverage intakeEx-drinker (finding)[facility] Start: 91-80-1332Dkoneev of Social functionNOMS HealthcareStart: 68-34-5647Zrj assigned at birthNot on fileNOMS HealthcareStart: 29-65-3249ZhjDicumwXLEH [facility] Clinical Notes 05-31-2023 to 08-27-2025 Note Date & RqlzDersYoinwzch67-71-1566 History of Present illness Narrative* Cherri Fernandez, TRADE SPECIALIST - 08/27/2025 1:30 PM EDT Reason for Appointment: Patient ID: Oracio Gong is a 45 y.o. female who presents for Pre-op Visit and [facility] Women Visit Patient presents today for Pre Op appointment. Patient is scheduled to undergo [place] assisted Bilateral Laparoscopic Salpingectomy and Endometrial Ablation with Irene on 09/20/[address] Alanis at [facility]. MEDICATIONS Current Outpatient Medications Medication Instructions medroxyPROGESTERone [...] nursing note reviewed. Exam conducted with a retrofit installer present. Vitals: Estimated body mass index is 25.3 kg/m as calculated from the following: Height [...] reviewed, and patient is to proceed to [facility] OR. Follow Up: Patient is to follow up between 1-2 weeks post op to assess proper healing and recovery from procedure. Documented by Cherri Fernandez LPN on behalf of: Juanito Alanis DO documented in this encounterSSM Health [id number] History of Present illness Narrative* Shameka Segura NP - 07/29/2025 3:30 PM EDT Reason for Appointment: Patient ID: Oracio Gong is a 45 y.o. female who presents for Discuss Ablation Patient presents today for Acute Visit. MEDICATIONS Current Outpatient Medications Medication Instructions medroxyPROGESTERone [...] nursing note reviewed. Exam conducted with a retrofit installer present. Vitals: Estimated body mass index is 25.3 kg/m as calculated from the following: Height as of 06/15/23: 5' 3 . Weight as of this encounter: 142 lb 12.8 oz. BP: 120/76 No LMP recorded. Patient has had an injection. ASSESSMENT & PLAN ICD-10-CM 1. Abnormal uterine bleeding N93.9 POCT urinalysis dipstick manually resulted 2. UTI symptoms R39.9 POCT urinalysis dipstick manually resulted Pt presents to discuss hysterectomy. Pt with complaints of significant illness and pain with menstrual cycles . Pt with history of obtaining depo weeks early d/t heavy bleeding and feeling ill. Pt manjeet scheduled for endometrial ablation. Pt given order for presurgical ultrasound . Documented by Shameka Segura NP on behalf of: Juanito Alanis DO documented in this encounterSSM Health [id number] Evaluation note* Diagnosis Onset Date Resolution Status Admit Date Dysuria acuteJuly 2024 9:18amViral URIacuteJuly 2024 9:18am [facility] Work Phone: 1(562) 412-590804-10-2025 Telephone encounter Note* Telephone Encounter - Carmelina Veloz LPN - 02/21/2025 2:52 PM EDT 2:50 pm Jamee from [facility] called and voiced that she saw patient and patient stated to her that she while giving childbirth at the age of 20. Patient had stated that she ended up having to have a feeding tube, but denies the need for intubation. Jamee would like to know your thoughts on this as patient is scheduled for an upcoming surgery on 03/08/25--Patient is currently seeing cardiology as well. Thanks, Carmelina Tamayo LPN [facility] [id number] Miscellaneous Notes* Telephone Encounter - Carmelina Veloz LPN - 02/21/2025 2:52 PM EDT 2:50 pm Jamee from [facility] called and voiced that she saw patient and patient stated to her that she while giving childbirth at the age of 20. Patient had stated that she ended up having to have a feeding tube, but denies the need for intubation. Jamee would like to know your thoughts on this as patient is scheduled for an upcoming surgery on 03/08/25--Patient is currently seeing cardiology as well. Carmelina Jimenez LPN documented in this encounterSSM Health [id number] NoteUT Cardiology - [facility] Subjective Oracio Gong is a [...] new patient referred for preop evaluation for WASTE BALER surgery and abnormal ECG. She is a [...] presented to the emergency room at the [facility] with flulike symptoms mild chest pain [...] normal ECG. ECG 2024: Sinus rhythm, short FL interval, nonspecific T wave abnormality. Chest x-ray 2024: No acute cardiopulmonary process. Tilt table test 06/08/2017: negative for syncope Assessment/Plan Diagnoses and all orders for this visit: Preop cardiovascular exam - ECG 12 lead unit performed - Routine Stress (Treadmill Only); Future - Transthoracic ech (more content not included)...[facility]03-31-2025 History of Present illness Narrative* Blanka Sanders - 02/11/2025 3:30 PM EDT Reason for Appointment: Patient ID: Oracio Gong is a 45 y.o. female who presents for Pre-op Visit and Endometrial Biopsy Patient presents today for Pre Op/Endometrial Biopsy appointment. Patient is scheduled to undergo Endometrial Ablation with Irene on 03/08/[address] Alanis at [facility]. MEDICATIONS Current Outpatient Medications Medication Instructions [...] nursing note reviewed. Exam conducted with a retrofit installer present. Vitals: Estimated body mass index is [...] reviewed, and patient is to proceed to [facility] OR. Follow Up: Patient is to follow up between 1-2 weeks post op to assess proper healing and recovery from procedure. Documented by Carmelina Veloz LPN on behalf of: Juanito Alanis DO documented in this encounterSSM Health [id number] History of Present illness Narrative* Cherri Fernandez, ALEC - 01/29/2025 2:50 PM EDT Reason for Appointment: Patient ID: Oracio Gong [...] nursing note reviewed. Exam conducted with a retrofit installer present. Vitals: Estimated body mass index is [...] of: Juanito Alanis DO documented in this encounterSSM Health [id number] Evaluation note* Diagnosis Onset Date Resolution Status Admit Date Lumbar radiculopathy acuteJanuary 2024 9:43amPerineural cystsacuteJanuary 2024 9:43am SacroiliitisacuteJanuary 2024 9:43am [facility] Work Phone: 1(415) 416-484101-30-2025 Evaluation note* Diagnosis Onset Date Resolution Status Admit Date Lumbar radiculopathy acuteJanuary 2024 9:43amPerineural cystsacuteJanuary 2024 9:43am SacroiliitisacuteJanuary 2024 9:43amFractured coccyxacuteFebruary 2024 5:14pm [facility] Work Phone: 1(341) 714-539501-30-2025 Evaluation note* Diagnosis Onset Date Resolution Status Admit Date Lumbar radiculopathy acuteJanuary 2024 9:43amPerineural cystsacuteJanuary 2024 9:43am SacroiliitisacuteJanuary 2024 9:43amFractured coccyxacuteFebruary 2024 5:14pmFractured coccyxacuteMarch 2024 1:19pmLumbar radiculopathyacute January 22, 2025 1:19pmPerineural cystsacuteMarch 2024 1:19pm [facility] Work Phone: 1(342) 529-389601-06-2024 Evaluation note* Encounter Date Diagnosis Assessment Notes Treatment Notes Treatment Clinical Notes Nov, Acute bronchitis, unspecified or ganism (ICD-10 - J20.9) Drink plenty fluids, get plenty of rest. Take Tylenol or Motrin as needed for aches pains or fever.Take the doxycycline and prednisone as prescribed until gone. Use the albuterol inhaler as prescribed as needed for cough or shortness of breath. Take the benzonatate capsules as prescribed as neededfor cough. Follow-up with your family physician if no improvement in 2 to 3 days [employer] Other 07-18-2023 Evaluation note* Encounter Date Diagnosis Assessment Notes Treatment Notes Treatment Clinical Notes May, Dysuria (ICD-10 - R30.0) Discussed diagnosis and dipstick findings with patient. We will hold off on urine culture at this time. We will hold off on treatment based on findings. Encouraged patient to increase fluids, follow-up with PCP if symptoms do not improve. Follow above treatment plan recommendations May,llergic rhinitis, unspecified seasonality, unspecified trigger (ICD-10 - [...] symptoms do not improve. Immediate evaluation in ERfor signs/symptoms as discussed. Patient verbalizes understanding and is agreeable with treatment plan [employer] Other Evaluation noteNo assessment information available [facility] Work Phone: Evaluation note* Diagnosis Encounter for consultation Menorrhagia with irregular cycle Dysmenorrhea PMS (premenstrual syndrome) Premenstrual tension syndromes Menorrhagia with regular cycle documented in this encounter [facility] HealthcareEvaluation note* Diagnosis Pre-operative exam Unspecified pre-operative examination Menorrhagia with irregular cycle Abnormal uterine bleeding Unspecified disorder of menstruation and other abnormal bleeding from female genital tract Pelvic pain in female Unspecified symptom associated with female genital organs documented in this encounter [facility] HealthcareEvaluation note* Diagnosis Abnormal uterine bleeding Unspecified disorder of menstruation and other abnormal bleeding from female genital tract UTI symptoms documented in this encounter [facility] HealthcareEvaluation note* Diagnosis Pre-op examination Menorrhagia with regular cycle Abnormal uterine bleeding (AUB) Pelvic pain Request for sterilization documented in this encounter [facility] (narrative)No reason for referral information availableKettering Health [facility] Work Phone: Summary Purpose Family History No Family History Records Found Relationship Condition Age at Onset Recorded Date/T bola father Unknown motherHypertensionUnknown Advance Directives No Advanced Directives Records Found [...] 9pm Unknown February 11, 2025 12: 00pm Chief Complaint Admit Date sore throat June 11, 2025 9:18 am Reason for Visit Admit Date Dysuria June 11, 2025 9:18 am Viral URI June 11, 2025 9:18 am Additional Source Comments INFORMATION SOURCE (unrecogn ized section and content) DATE CREATED AUTHOR 05/10/2018 [facility] DATE CREATED AUTHOR AUTHOR'S ORGANIZ ATION 12/11/2019 [facility] DATE CREATED AUTHOR AUTHOR'S ORGANIZ ATION 02/19/2022 [facility] DATE CREATED AUTHOR AUTHOR'S ORGANIZ ATION 12/28/2024 [facility] DATE CREATED AUTHOR AUTHOR'S ORGANIZ ATION 12/28/2024 [facility] DATE CREATED AUTHOR AUTHOR'S ORGANIZ ATION 12/29/2024 [facility] DATE CREATED AUTHOR AUTHOR'S ORGANIZ ATION 04/28/2025 [facility] DATE CREATED AUTHOR AUTHOR'S ORGANIZ ATION 06/13/2025 [facility] DATE CREATED AUTHOR AUTHOR'S ORGANIZ ATION 08/29/2025 [facility] EPIC REASON FOR VISIT (unrecogniz ed section and content) ReasonCommentsInitial Gynecologic ConsultReasonCommentsPre-op VisitEndometrial BiopsyReasonCommentsDiscuss AblationReasonCommentsPre-op VisitWell Women Visit Care Teams (unrecognized sec tion and content) Team Status: Active Member Role Status Dates Vinicio Wilkinson MD Primary Care Provider Active Team Status: Inactive Member Role Status Dates Vinicio Wilkinson MD Primary Care Provider Active S tart: December 13, 2024 End: December 13, 2024Triston Vines ProviderActiveStart: December 13, 2024 End: December 13, 2024 Team Status: Active Member Role Status Dates NON STAFF Primary Care Provider Active Team Status: Inactive Member Role Status Dates Loree Fonseca APRN Attending Provider Active Start: December 27, 2024 End: December 27, 2024NON STAFFPrimary Care ProviderActiveStart: December 27, 2024 End: December 27, 2024 Team Status: Inactive Member Role Status Dates NON STAFF Primary Care Provider Active Start: December 28, 2024 End: December 28, 2024Triston Kerr ProviderActiveStart: December 28, 2024 End: December 28, 2024 Team Status: Active Member Role Status Dates NON STAFF Primary Care Provider Active Start: December 28, 2024 Triston Kerr ProviderActiveStart: December 28, 2024 Team Status: Inactive Member Role Status Dates NON STAFF Primary Care Provider Active Start: January 22, 2025 End: January 22, 2025Triston Vines ProviderActiveStart: January 22, 2025 End: January 22, 2025Team MemberRelationshipSpecialtyStart DateEnd Date Unallocated, Noms MD Chris Pandya [facility] [place] [address] PCP [facility]06/15/23Team MemberRelationshipSpecialtyStart DateEnd Date Unallocated, Alton Pandya MD [facility] [place] [address] PCP [facility]06/15/23 Team Status: Inactive Member Role Status Dates Juanito Alanis DO Attending Provider Active Start : February 04, 2025 End: February 04, 2025 Team Status: Inactive Member Role Status Dates Juanito Alanis DO Attending Provider Active Start : February 11, 2025 End: February 11, 2025Team MemberRelationshipSpecialtyStart DateEnd Date Unallocated, Alton Pandya MD [address] [place] [address], [place] [address] [facility]06/15/23 Team Status: Inactive Member Role Status Dates Connie Cosby APRN CLINICAL DOCUMENTATION CONSULTANT-C Attending Provider Active Start: June 11, 2025 End: June 11, 2025NON STAFFPrbullock [facility] hospital Care ProviderActiveStart: June 11, 2025 End: June 11, 2025 Team Status: Inactive Member Role Status Dates Connie Cosby APRN CLINICAL DOCUMENTATION CONSULTANT-C Attending Provider Active Start: June 11, 2025 End: June 11, 2025Team MemberRelationshipSpecialtyStart DateEnd Date Unallocated, Alton Pandya [place] [address] [facility]06/15/23Team MemberRelationshipSpecialtyStart DateEnd Date Unallocated, MD Chris Esteves [facility] [place] [address] [facility]06/15/23Team MemberRelationshipSpecialtyStart DateEnd Date Unallocated, Alton Pandya MD [facility] [place] [address] [facility]06/15/23 Goals (unrecognized section and content) Goals may [...] BASED ON THE PRIMARY CLINICAL RECORDS. [facility] [employer] [facility]. provides no warranty or guarantee of the accuracy or completeness of information in this document.
[2025-09-04 11:26] LABS: Hematocrit 45.5 % (36.0-48.0); Hemoglobin 15.5 g/dL (12.0-16.0); Immature Granulocytes Abs Auto 0.02 10^3/uL (0.00-0.03); Immature Granulocytes Pct Auto 0.2 % (0.0-0.5); Lymphocytes Absolute Auto 2.9 10^3/uL (1.2-3.8); Mean Corpuscular HGB Conc 34.1 g/dL (29.9-35.2); Mean Corpuscular Hemoglobin 30.8 pg (26.7-34.0); Mean Corpuscular Volume 90.3 fL (81.0-99.0); Platelet Count 283 10^3/uL (150-450); Red Blood Count 5.04 10^6/uL (4.20-5.40); White Blood Count 10.0 10^3/uL (4.0-11.0)
[2025-09-04 11:35] LABS: Anion Gap 13.4; Blood Urea Nitrogen 19.0 mg/dL (7.0-18.0); Calcium 9.3 mg/dL (8.5-10.1); Carbon Dioxide 26.5 mmol/L (21.0-32.0); Chloride 103 mmol/L (98-107); Estimated GFR (African America >60 (>=60 mL/min/1.73m^2); Estimated GFR (Non-African Ame >60 (>=60 mL/min/1.73m^2); Glucose 87 mg/dL (74-106); Potassium 3.9 mmol/L (3.5-5.1); Sodium 139 mmol/L (136-145)
[2025-09-04 11:40] LABS: INR 0.96; Partial Thromboplastin Time 27.2 sec (22.3-36.2); Prothrombin Time 10.2 sec (9.0-11.6)
== END 2025-09-04 10:58 | disposition home or self-care (01) ==
LOC: PST 11:00
PROVIDERS: Visit Provider Obstetrics & Gynecology
DX: Z01.810 Encounter for preprocedural cardiovascular examination (principal); Z01.812 Encounter for preprocedural laboratory examination; N92.0 Excessive and frequent menstruation with regular cycle; N93.9 Abnormal uterine and vaginal bleeding, unspecified
CPT/HCPCS: 36415; 80048; 85025; 85610; 85730; 93005

== ENCOUNTER 2025-09-20 07:59 | Day surgery (SDC) | payer OTHER, SELFPAY ==
--- OUTSIDE RECORDS SUMMARY | 2024-10-15 12:15 | XMS_ITS ---
Author Organization [facility] vices Address [address] [place] [id number] Care Team Providers Care Secretary To Board Of Commissioners Name Role Phone Carolina Singh Primary Care Provider Lani Fernandez Unavailable [phone] REASON FOR VISIT Possible kidney issues Social History Sex Assigned At : Social History Observation Description Sex Assigned At Female Encounters Encounter Location Date Provider Diagnosis Main [address] [place] [id number] 10/15/2024 Lani Fernandez Plan Of Treatment No Information Progress Notes * Cookie JOLLEY SDOB: [birth year] (45 yo F)Acc No.[id number]:10/15/2024 Medical Note Patient: Cookie SOW :?Lani Fernandez CNPDOB:1980???Age:44 Y ???Sex:FemaleDate:10/15/2024hone:[phone]:[address], [id number]:Carolina Singh Subjective: * Chief Complaints: * 1 . Possible kidney issues. * Medical History: Objective: * Vitals: Assessment: Plan: * Treatment: * Billing Information: * Visit Code: * Procedure Codes: * Electronic signature of Lani eFrnandez CNP on 09/20/2025 at 08:03 AM ESTSign off status: Pending * Provider: Satya Fernandez CNP Date: 12/16/2023 Generated for Printing/Faxing/eTransmitting on:?09/20/2025 08:03 AM EST
[2025-09-04 11:42] VITALS: BP 118/82; PULSE 84; TEMP 36.4; O2SAT 99; BMI 24.7
[2025-09-20] VITALS (16 sets, daily range): BP systolic 100–122; BP diastolic 73–89; PULSE 67–87; TEMP 36.2–36.3; O2SAT 93–100; BMI 24.7
--- OUTSIDE RECORDS SUMMARY | 2025-09-20 08:03 | XMS_ITS | Clinical Summary ---
Author Organization [facility] Address [address] [place] [address] Care Team Providers Care Long Line Teamster Name Role Phone Unavailable Primary Care Provider Unavailabl e Allergies Active AllergyReactionsCriticalityNoted UrqxPbtostztHirtgyyczBhmum58/02/2025 Medications MedicationSigDispense QuantityRefillsLast FilledStart DateEnd DateStatus cyclobenzaprine [...] tablet 5Active Active Problems ProblemNoted DateDiagnosed DateUrinary zodpyobyw81/12/2025 Overview (02/11/2025): ====12/26/24==== Over 8 months of bilateral flank pain, frequency, urgency, urge incontinence, dysuria, and pelvic pain. Recent CT negative. UA dipped for blood. We will send today's specimen for microscopic exam. She agrees to cystoscopy/[facility] instillation. She is requesting anesthesia. Pneumonia of left lower lobe due to infectious rxjgjlyu33/03/2019Chest pain 12/15/2018 Family History Medical HistoryRelationNameCommentsHeart attackBrotherHeart attackFatherKidney failureFatherCOPDMotherHypertensionMotherRelationNameStatusCommentsBrotherAlive FatherDeceasedMotherAliveSisterAlive Social History Tobacco UseTypesPacks/DayYears UsedDateSmoking Tobacco: NeverSmokeless Tobacco: Never Tobacco Cessation:Counseling Given: Not Answered Alcohol UseStandard Drinks/WeekCommentsNot Currently0 (1 standard drink = 0.6 oz pure alcohol)CommentsNoSex and Gender InformationValueDate RecordedSex Assigned at BirthNot on fileLegal YxrJdugpn56/29/2022 11:57 PM EDTGender IdentityNot on fileSexual OrientationNot on file Last Filed Vital Signs Vital SignReadingTime TakenCommentsBlood Hmqaoxul79/64004/18/2025 8:15 AM EDT Zjwqb773004/18/2025 8:15 AM EDTTemperature--Respiratory Qkza520604/18/2025 8:15 AM EDTOxygen Gcufolpdjd09%04/18/2025 8:15 AM EDTInhaled Oxygen Concentration-- Rvjmet53 kg (141 lb)02/13/2025 3:50 PM FZXLkqkpk009 cm (5' 3 )02/13/2025 3:50 PM EDTBody Mass Index24.9804 3:50 PM EDT Plan of Treatment Health MaintenanceDue DateLast DoneCommentsCT Pzctrcrymhrw1979Colonoscopy 1979Colorectal Cancer Dstagvesn1979FIT-DNA1979FIT1979 FOBT1979 6978Sqaljiquqiets1979Depression Yrbjubotc33/19/1991Hepatitis B Vaccines (1 of 3 - 19+ 3-dose series)1998Pneumococcal Vaccine: Pediatrics (0 to 5 Years) and At-Risk Patients (6 to 64 Years) (1 of 2 - PCV)1998 HPV/Qmbqzs2901/30/2009dult Bdgscdv34COVID-19 Vaccine (2024- season)2025Influenza Vaccine (#1)07/15/20257937Yaadzdzsx61/12/2027 12/26/2024ervical Cancer Skkouevjb47/06/2028Pap SmearZoster Vaccines (1 of 2)2029HIB VaccinesAged OutNo [...]
--- OUTSIDE RECORDS SUMMARY | 2025-09-20 08:03 | XMS_ITS | CCD ---
Author Organization [facility] Providers Care Pre Press Manager Name Role Phone PHYSICIAN, DEFAULT Unavailable Unavailable [...] Unavailneno e Shayy Lugo APRN Attending Provider [phone] Unallocated , [place] Provider Primary Care Provi laura Juanito Alanis DO Attending Provider [phone] Juanito Alanis DO Attending Provider ALYSIA CANO Referring Unavailable ALYSIA CANO Attending [...] Attending Unavail able JUANITO ALANIS Attending Unavailable LAQUITA ALANISY Attending Unavailable JUANITO ALANIS Attending Unavailable JUANITO ALANIS Attending Unavailable LAQUITA ALANISY Referring Unavailable Allergies Allergy ClassificationReported Allergen(s)Allergy TypeDate of OnsetReaction(s) Facility (1 source)IbuprofenDrug AllergyThe [facility] (12 sources)Ibuprofen; Translations: [IBUPROFEN]Drug Dtqznoe23-29-3665Ycfmy [facility] Repository Medications Current Medications MedicationDrug Class(es)DatesSig (Normalized)Sig (Original)[id number] 60 actuat albuterol 0.09 mg/actuat metered dose inhaler (3 sources)beta2-Adrenergic AgonistStart: 19-16-8458ijyh 2 puff(s) by inhalation four times daily as neededAlbuterol Sulfate HFA 108 (90 Base) MCG/ACT 2 puffs Inhalation 4 times a day prn Nov, ActiveStart: 96-68-9829ttug 2 puff(s) by inhalation every four to six hours as neededAlbuterol Sulfate HFA 108 (90 Base) MCG/ACT 2 puffs as needed Inhalation every 4-6 hours for 14 days May, ActiveStart: 50-54-2718mbhi 2 puff(s) by inhalation four times daily as neededAlbuterol Sulfate HFA 108 (90 Base) MCG/ACT 2 puffs Inhalation 4 times a day prn Feb, Not-Takingamoxicillin 875 mg / clavulanate 125 mg oral tablet (1 source)Penicillin-class AntibacterialStart: 12-22-8796pdxk 1 tablet by mouth every twelve hoursbenzonatate 200 mg oral capsule (2 sources)Non-narcotic AntitussiveStart: 52-39-3833rdee 1 capsule by mouth every eight hoursBenzonatate 200 MG 1 capsule Orally Three times a day Nov, ActiveStart: 24-54-1342yatr 1 capsule by mouth every eight hoursBenzonatate 200 MG 1 capsule Orally Three times a day Feb, Not-Takingdoxycycline hyclate 100 mg oral tablet (2 sources)Tetracycline-class DrugStart: 99-91-0809lzqp 1 tablet by mouth every twelve hoursDoxycycline Hyclate 100 MG 1 tablet Orally Twice a day for 10 day(s) Nov, ActiveStart: 96-01-1730dgto 1 capsule by mouth every twelve hours Doxycycline Hyclate 100 MG 1 capsule Orally Twice a day for 10 Feb, Not-TakingmedroxyPROGESTERone (15 sources)ProgestinStart: 47-51-6676Xsjul: 24-83-3234qttkpyackfamnasapml (Depo-Provera) Active IM EVERY 3 MONTHS December 13, 2024 1:00am Complies with drug therapyStart: 22-71-2132tazqazqixhkcoiafixz (Depo-Provera) Active IM EVERY 3 MONTHS December 13, 2024 1:00amStart: 17-57-5510lapsspoueufcpkadmml (Depo- Provera) Active IM EVERY 3 MONTHS December 13, 2024 12:00ammedroxyPROGESTERone (Depo-Provera) 150 MG/ML injection Inject 150 mg into the shoulder, thigh, or bu ttocks every 3 (three) months ActivepredniSONE 20 mg oral tablet (2 sources)Start: 63-87-9186wxpg 1 tablet by mouth every twelve hourspredniSONE 20 MG 1 tablet Orally bid for 5 day(s) Nov, ActiveStart: 67-74-4006uqge 1 tablet by mouth every twelve hourspredniSONE 20 MG 1 tablet Orally 2 times a day for 5 day(s) Feb, Not-Taking Completed/Discontinued Medications MedicationDrug Class(es)DatesSig (Normalized)Sig (Original)ibuprofen 600 mg oral tablet (2 sources)Nonsteroidal Anti-inflammatory DrugStart: 06-16-2023 End: 07-48-5748fpwj 1 tablet by mouth every six hours as neededibuprofen 600 MG tablet Take 600 mg by mouth every 6 (six) hours if needed. 06/16/2023 02/11/2025 Discontinuedpediatric multivitamin (multivitamin) (9 sources)Start: 12-13-2024 End: 46-18-1822wfrprfygl multivitamin (multivitamin) Discontinued PO December 13, 2024 1:00am June 11, 2025 9:59amStart: 05-93-5336qulhrpeps multivitamin (multivitamin) Active PO December 13, 2024 1:00amStart: 89-12-0487yjgvikydb multivitamin (multivitamin) Active PO December 13, 2024 12:00amtraMADol hydrochloride 50 mg oral tablet (7 sources)Opioid AgonistStart: 12-28-2024 End: 64-02-8586nvzr 1 tablet by mouth every six hours as needed for painTramadol 50 mg tablet Discontinued 50 MG PO Every 6 hours as needed for pain 12 3 December 28, 2024 1:00am June 11, 2025 9:59am Problems Active Problems Problem ClassificationProblemDateDocumented DateEpisodic/ChronicAbdominal pain (2 sources)Unspecified abdominal pain; Translations: [Pain in female pelvis] Onset: 741378-44-2157UlndozdeNatlz bronchitis (1 source)Acute bronchitis, unspecifiedEpisodicAdministrative/social admission (1 source)Patient encounter status; Translations: [Counseling, unspecified] 57-92-9478MqvvizzuIpunnybdlluhc and procreative management (1 source)Sterilization requested; Translations: [Encounter for sterilization] 03-93-1172PprfvzukWwodznqphhpby symptoms and ill-defined conditions (9 sources)Dysuria; Translations: [Frequency of micturition]Onset: 12-26-2024 EpisodicMenstrual disorders (6 sources)Menometrorrhagia; Translations: [Excessive and frequent menstruation with irregular cycle]Onset: 365578-95-3271CvorsgdGokpbfarhzi chest pain (3 sources)Chest pain, unspecified; Translations: [Other chest pain]Onset: 90-00-6466MyllofohYyzzd female genital disorders (1 source)Premenstrual tension syndrome; Translations: [Premenstrual tension syndrome]78-61-8803IzrtypzQoicq female genital disorders (3 sources)Abnormal uterine bleeding; Translations: [Abnormal uterine and vaginal bleeding, unspecified]48-84-5082PpwsakuExski fractures (7 sources)Fracture of coccyx; Translations: [Fracture of coccyx, initial encounter for closed fracture]95-54-8726XffhhdpvYktii fractures (6 sources)Fracture of coccyx, initial encounter for closed fracture; Translations: [Closed fracture of sacrumand coccyx without mention of spinal cord injury]98-16-7466VoqxkvbmNccqf lower respiratory disease (2 sources)Shortness of breath; Translations: [Shortness of breath]Onset: 83-56-5422GaghxygvDttwm nervous system disorders (16 sources)Perineurial cyst; 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]09-75-1211Jpukjos Other screening for suspected conditions (not mental disorders or infectious disease) (5 sources)Encounter for screening mammogram for malignant neoplasm of breast; Translations: [Abnormal result of other cardiovascular function study]Onset: 19-18-6319KltexiycZmkdd upper respiratory disease (2 sources)Allergic rhinitis; Translations: [Allergic rhinitis, unspecified] ChronicOther upper respiratory disease (1 source)Allergic rhinitis, unspecifiedChronicOther upper respiratory disease (7 sources)Seasonal allergic rhinitis; Translations: [Other seasonal allergic rhinitis]88-92-4113AogwwjkYrisd upper respiratory infections (2 sources)Viral upper respiratory tract infection; Translations: [Acute upper respiratory infection, unspecified]68-95-6281HgjthobqBamnsldzfmf; intervertebral disc disorders; other back problems (14 sources)Inflammation of sacroiliac joint; Translations: [Sacroiliitis, not elsewhere classified]76-17-2185FpctluaKapdyjdpgewc (2 sources)Unknown / UNK(Unknown)Onset: 53-26-6294Fucsyduxdeaj (3 sources)COUGH, UNSPECIFIED; Translations: [COUGH, UNSPECIFIED]Onset: 98-26-7225Kgpfrpbcoajx (1 source)New PatientOnset: 43-10-1712Asrlzcajpnzp (1 source)Perineural cyst; 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]Onset: 12-27-2024 Unclassified (1 source)Pain in pelvis; Translations: [Pelvic pain]08-27-2025 Past or Other Problems Problem ClassificationProblemDateDocumented DateEpisodic/ChronicSpondylosis; intervertebral disc disorders; other back problems (20 sources)Sacral radiculopathy; Translations: [Radiculopathy, sacral and sacrococcygeal region]Onset: 65-28-590418809319-02-2326WjftmijfScbmawf (4 sources)Syncope and collapse; Translations: [SYNCOPE AND COLLAPSE]Onset: 02-57-4668MbfqdondBpuqlokdslhx (1 source)COUGH, UNSPECIFIED; Translations: [COUGH, UNSPECIFIED]Onset: 02-17-2022 Results Test NameValueInterpretationReference RangeFacilityUS PELVIC COMPLETE W/ TVon 68-96-0755NG PELVIC COMPLETE W/ TVFINDINGS: Uterus 6.7 x 3.0 x 4.2 cm Endometrium 3 mm Right ovary 2.3 x 1.7 x 1.4 cm Left ovary 1.7 x 0.9 x 1.4 cm The uterus is normal in size and orientation. No worrisome mass lesions are seen. Endometrium appears unremarkable. No fluid is seen within the cul-de-sac. Both ovaries appear normal for this age. IMPRESSION: Normal pelvic ultrasound appearance TRANSCRIBED BY: ELECTRONICALLY SIGNED BY: Erika FloresrmalNot AvailableComment on above:Order Comment: US PELVIS-TRANSVAG IF INDICATED No LMP recorded.Urinalysis macro (dipstick) panel (U)on 46-45-9352Yiwjtepfx, UA NegativeNegative - 4(70) +++ mg/dLNOMS HealthcareBlood, UAPositiveNegative - 50 Jermaine/mcLNOMS HealthcareClarity, UAClearNOMS HealthcareColor, UAYellowNOMS HealthcareGlucose, UANegativeNegative - 2000(110) ++++ mg/dLNOMS Healthcare Interpretation and review of laboratory resultsAbnormalNOMS HealthcareKetones, UANegativeNegative - 160(16) ++++ mg/dLNOMS HealthcareLeukocytes, UAPositive Negative - 500+++ Giuliana/mcLNOMS HealthcareNitrite, UANegativeNegative - Positive NOMS HealthcarepH, UA65 - 9NOMS HealthcareProtein, UANegativeNegative - 2000(20) ++++ mg/dLNOMS HealthcareSpec Grav, UA1.011 - 1.03NOMS HealthcareUrobilinogen, UA1.00.2 - 12 mg/dLNOPike County Memorial HospitalNOUT HealthcareNo Panel InformationOrdered By: Connie Cosby on 38-12-3006Whhmh Strep (POC)[facility] Medical CenterUrine Cultureon 95-00-1941Nxnujrpd identified Cx Nom (U)No Growth 2 Days PERFORMED BY: [facility] [address] [id number] PATHOLOGIST HEALTHCARE REPRESENTATIVE AMBIKA MARQUEZ M.D.NormalThe [facility] Physician GroupComment on above: Performed By: #### CUU #### [facility] [address] [id number] [facility] CORONARY W IV CONTRAST W OR WO FFRCTon 50-02-5205CMW [facility]ART CORONARY W IV CONTRAST W OR [...] 0. Electronically signed: Tram Lynn MD. Not VldtdInvalid Interpretation CodeUnDoctors HospitalAbstract on [id number] Oracio Gong 1980 F Date Provider Department Center 04/04/2025 ALYSIA RINCON [facility] C Family History Problem Relation Age of Onset COPD Mother Hypertension Mother Heart attack Father Kidney failure Father Heart attack Brother Family Status - Relation Status Age at Mother Alive Father Sister Alive Brother AliveMercy Health Clermont HospitalLetter (Out)on 04-04-2025 Letter (Out)[id number] Oracio Gong 1980 F Date Provider Department Center 04/04/2025 None-None [facility] AUTH [facility] C Family History Problem Relation Age of Onset COPD Mother Hypertension Mother Heart attack Father Kidney failure Father Heart attack Brother Family Status - Relation Status Age at Mother Alive Father Sister Alive Brother AliveMercy Health Clermont HospitalOffice Visiton 02-13-2025 Follow-up [id number] Oracio Gong 1980 F Date Provider Department Center 02/13/2025 ALYSIA RINCON [facility] Family History Problem Relation Age of Onset COPD Mother Hypertension Mother Heart attack Father Kidney failure Father Heart attack Brother Family Status - Relation Status Age at Mother Alive Father Sister Alive Brother Alive Level of Service:57829 CA OFFICE/OUTPATIENT NEW MODERATE MDM 45 MINUTESNormal [facility] CenterPathology study report documentOrdered By: Lars Christianson on 24-45-4625Ppulcmtle studyUniversity Hospitals Beachwood Medical Center Other HCG ( test) Ql (U)on 52-20-4311Katpiapadwxecx and review of laboratory resultsNormalNOMS HealthcarePreg Test, UrNegative NegativeNOMS HealthcareNOMS HealthcareLon 02-11-2025L Specimen: [id number] Received: 02/12/25 Status: ALEX Doty Num: [id number] Spec Type: Surgical Subm Dr: Juanito Alanis Tissues: A Endometrium - Biopsy (ENDOMETRIUM) Procedures: HE/2, Gross/Freddy L4 Age/ Patient Sex Location Account Attending Physician Oracio Gong 45/F LABELL [id number] Juanito Alansi SPEC NUM: [id number] RECD: 02/12/25 STATUS: ALEX DOTY NUM: [id number] TORITO: 03/31/25-[address]: Juanito Alanis ENTERED: 02/12/25-[address] [facility] [address]: Jaylyn,Lab SPEC TYPE: Surgical DEPT: RANDY ALFONSO ENTERED BY: [id number] RECV BY: [id number] ORDERED: HE/2, Gross/Micro L4 ORDERED: HE/2, Gross/Micro [...] submitted in a single cassette. (1, ns, [id number] A) LARRY Specimen: [id number] Received: 02/12/25 Status: CONMartinez Doty Num: [id number] Spec Type: Surgical Subm Dr: Juanito Alanis Tissues: A Endometrium - Biopsy (ENDOMETRIUM) Procedures: KRYSTLE/Donaldo, Gross/Micro L4 Patient: Oracio Gong [id number] (Continued) Specimen: [id number] Received: 02/12/25 (Continued) Signed (signature on file) Lars Christianson MD 02/13/25 1538 Specimen: [id number] Received: 02/12/25 Status: ALEX Doty Num: [id number] Spec Type: Surgical Subm Dr: Juanito Alanis Tissues: A Endometrium - Biopsy (ENDOMETRIUM) Procedures: KRYSTLE/Deshaun Fulton/Freddy L4 Patient: Oracio Gong [id number] (Continued) Specimen: [id number] Received: 02/12/25 (Continued) Microscopic Description Microscopic examination is performed CPT Codes 30187 Specimen: [id number] Received: 02/12/25 Status: ALEX Doty Num: [id number] Spec Type: Surgical Subm Dr: Juanito Alanis Tissues: A Endometrium - Biopsy (ENDOMETRIUM) Procedures: Deshaun DANIEL/Freddy L4 Patient: Oracio Gong [id number] (Continued) Signed (signature on file) Lars Christianson MD 02/13/[address] [place] [address] Physician GroupUrinalysis macro (dipstick) panel (U)on 37-95-6465Kathrtzjo, UANegativeNegative - 4(70) +++ mg/dLNOUT HealthcareBlood, UANegativeNegative - 50 Jermaine/mcLNOUT HealthcareClarity, UAClearNOMS Healthcare Color, UAYellowNOUT HealthcareGlucose, UANegativeNegative - 2000(110) ++++ mg/dL [facility] HealthcareInterpretation and review of laboratory resultsAbnormalNOMS HealthcareKetones, UANegativeNegative - 160(16) ++++ mg/dLCEDAR CITY HOSPITAL Healthcare Leukocytes, UATraceNegative - 500+++ Giuliana/mcLCEDAR CITY HOSPITAL HealthcareNitrite, UANegative Negative - PositiveNOUT HealthcarepH, UA5.55 - 9NOUT HealthcareProtein, UA NegativeNegative - 2000(20) ++++ mg/dLNOUT HealthcareSpec Grav, UA1.011 - 1.03 NOMS HealthcareUrobilinogen, UA0.20.2 - 12 mg/dLEllett Memorial Hospital Healthcare Cytology Cervical or vaginal smear or scraping studyon 28-93-3844NTFRBoone Hospital Center X-ray reportOrdered By: John Soto on 08-58-8198Lwaqe reportOHIOHEALTH [facility] [place] [address] [place] [address] XRay Report Signed Patient: Oracio Gong MR#: [id number] : 1980 Acct:[id number] Age/Sex: 44 / F ADM Date: 5 Loc: XDUCLY Room: Type: [facility] Attending Dr: Shayy Lugo APRN Copies to: [...] John Soto M.D.12/28/2024 6:42 PM Dictation Location: RADIO-PC-29 Transcribed By: TERESE 12/28/241841 Dictated By: John Soto MD 12/28/241839 Signed By: 12/28/241841 [facility] Work Phone: XR sacrum coccyx min 2Von 78-43-3799AV sacrum coccyx min 2VOHIOHEALTH GROVE CITY METHODIST HOSP[facility] [place] [address] [place] [address] XRay Report Signed Patient: Oracio Gong MR#: [id number] : 1980 Acct:[id number] Age/Sex: 44 / F ADM Date: 12/28/24 Loc: XDUCLY Room: Type: [facility] Attending Dr: Shayy Lugo PATTERNMAKER METAL Copies to: Shayy Lugo APRN Ordering Provider: [...] John Soto M.D.12/28/2024 6:42 PM Dictation Location: RADIO-PC-29 Transcribed By: TERESE 12/28/241841 Dictated By: John Soto MD 12/28/241839 Signed By: 12/28/24 [facility] Physician GroupMAMM SCREENING BILATERAL W CADon 83-15-1329OGXV SCREENING BILATERAL W CADMAMM SCREENING BILATERAL W CAD ORACIO GONG 1980 [id number] EXAM: MAMM SCREENING BILATERAL W CAD, 12/26/2024 [...] 12/27/2024 8:33 AM 1 b [facility]M [facility] Ordered By: John Soto on 54-30-0819Wktdo reportOHIOHEALTH GROVE CITY [facility]IST [facility] [place] [address] [place] [address] MRI Report Signed Patient: Oracio Gong MR#: [id number] : 1980 Acct:[id number] Age/Sex: 44 / F ADM Date: 5 Loc: [facility] Room: Type: [facility] Attending Dr: Loree Fonseca APRN Copies to: Loree Fonseca APRN~ Ordering Provider: Loree Fonseca APRN Date of Service: 12/27/24 MR/MR lumbar spine wo con: M54.16 - Radiculopathy, lumbar region ([id number]) XR/XR pre/post mri xray: LUMBAR MRI MRI [...] John Soto M.D.12/27/2024 2:48 PM Dictation Location: [place] [address] Transcribed By: [facility] 12/27/24 1448 Dictated By: John Soto MD 12/27/24 1440 Signed By: 12/27/24 1448 [facility] Work Phone: xr pre/post mri xrayon 11-20-0164OE pre/post mri xray [facility] [place] [address] MRI Report Signed Patient: Oracio Gong MR#: [id number] : 1980 Acct:[id number] Age/Sex: 44 / F ADM Date: 12/27/24 Loc: [facility] Room: Type: [facility] Attending Dr: Loree Fonseca APRN Copies to: Loree Fonseca APRN Ordering Provider: Loree Fonseca APRN Date of Service: 12/27/24 MR/MR lumbar spine wo con: M54.16 - Radiculopathy, lumbar region ([id number]) XR/XR pre/post mri xray: LUMBAR MRI MRI [...] John Soto M.D.12/27/2024 2:48 PM Dictation Location: [place] [address] Transcribed By: [facility] 12/27/24 1448 Dictated By: John Soto MD 12/27/24 1440 Signed By: 12/27/24 1448[facility] Physician GroupUA (MICROSCOPIC)on 12-26-2024 BuffyCELLS2 /hpfNormal0-5POhio Valley Surgical HospitalComment on above:Performed By: #### UMIC #### [facility] ([id number]) [address], [address] [place], [place] [address]KTOYQDUN EPITHELIUM1 /hpfNormal0-5POhio Valley Surgical Hospital Comment on above:Performed By: #### UMIC #### [facility] ([id number]) [address], [address] [place], [place] [address]T.B.CELLS2 /hpfNormal0-5POhio Valley Surgical HospitalComment on above:Performed By: #### UMIC #### [facility] ([id number]) [address], [address] [place], [place] [address]QM ABDOMEN AND PELVIS W WO CONTon 73-95-4579QU ABDOMEN AND PELVIS W WO CONTCT ABDOMEN [...] Joe Houston MD on 10/31/2024 8:19 AMNormalProMedica Mercy Hospital BakersfieldUrinalysis - AUTOMATEDon 79-36-8642Javwtoevpj (U)clearHarbinger Tech Solutions Other Bilirubin Ql (U)NegativeCopaCast Loxysoft Group Other Color (U)yellowNoCopaCast Loxysoft Group Other Glucose Ql (U)NegativeKickboard Other Hemoglobin Ql (U)trace intactCopaCast Loxy[employer] Group Other Ketones Ql (U)NegativeKickboard Other Leukocyte esterase Test strip Ql (U)traceNoKickboard Other Nitrite Ql (U)NegativeCopaCast Loxysoft Group Other pH (U)6.0 [pH][place] [employer] Other Protein Ql (U)NegativeNortYesweplay Other Specific gravity (U) [Rel density]1.015NoYesweplay Other Urobilinogen (U) [Mass/Vol]0.2 mg/dLKickboard Other Urinalysis - AUTOMATEDNoKickboard Other CBC AUTO DIFFon 00-50-9748IJXX #0.0 103/ulNormal 0.0-0.1The [facility] HospitalComment on above:Performed By: #### CBC #### [facility] [address] [place] [address] Dr. Alex ChristiansonBasophils/100 WBC (Bld)0.3 %Normal0.2-2.0[facility] Comment on above:Performed By: #### CBC #### [facility] [address] [place] [address] Dr. Alex Deshpande #0.0 103/ulNormal0.0-0.7The [facility] HospitalComment on above: Performed By: #### CBC #### [facility] [address] [place] [address] Dr. Alex Kellyosinophils/100 WBC (Bld)0.3 %Critically low0.9-7.0[facility] Gal[facility] HospitalComment on above:Performed By: #### CBC #### [facility] [address] [place] [address] Dr. Alex Kellyrythrocyte distribution width (RBC) [Ratio]12.4 %Nhlzpi10.0-15.0 [facility] HospitalComment on above:Performed By: #### CBC #### [facility] [address] [place] [address] Dr. Alex ChristiansonHematocrit (Bld) [Volume fraction]42.2 %Ndhrwr98.0-48.0[facility] HospitalComment on above:Performed By: #### CBC #### [facility] [address] [place], [place] [id number] Dr. Alex ChristiansonHemoglobin (Bld) [Mass/Vol]14.0 g/bGJqoizw13.0-16.0The [facility] HospitalComment on above:Performed By: #### CBC #### [facility] [address] [place] [address] Dr. Alex Phillips #0.03 10e3/ulNormal0.00-0.03The [facility] HospitalComment on above:Performed By: #### CBC #### [facility] [address] [place] [address] Dr. Alex Phillips %0.3 %Normal0.0-0.5The [facility] HospitalComment on above: Performed By: #### CBC #### [facility] [address] [place] [address] Dr. Alex Reis #2.9 103/ulNormal1.2-3.8The [facility] HospitalComment on above:Performed By: #### CBC #### [facility] [address] [place] [address] Dr. Alex Reishocytes/100 WBC (Bld)31.9 %Zphtwx43.5-60.0The [facility] HospitalCommunson healthcare [facility] on above:Performed By: #### CBC #### [facility] [address] [place] [address] Dr. Alex ReynosoUAL DIFF REQNONormalThe [facility] HospitalComment on above: Performed By: #### CBC #### [facility] [address] [place] [address] Dr. Alex Beltran (RBC) [Entitic mass]29.8 zuDrwvsm50.7-34.0The [facility] HospitalComment on above:Performed By: #### CBC #### [facility] [address] [place] [address] Dr. Alex Beltran (RBC) [Mass/Vol]33.2 g/mLJzbsnd14.9-35.2The [facility] HospitalComment on above:Performed By: #### CBC #### [facility] [address] [address] [address] Alex BeltranV (RBC) [Entitic vol]89.8 fEKmwnwa63.0-99.0The [facility] HospitalComment on above:Performed By: #### CBC #### [facility] [address] [place] [address] Dr. Aelx Pitts #0.6 103/ulNormal0.3-0.8The [facility] HospitalComment on above:Performed By: #### CBC #### [facility] [address] [place] [address] Dr. Alex Jaquezocytes/100 WBC (Bld)6.2 %Normal1.7-12.0[facility] Comment on above:Performed By: #### CBC #### [facility] [address] [place] [address] Dr. Alex Lucio #5.6 103/ulNormal1.4-6.5The [facility] HospitalComment on above:Performed By: #### CBC #### [facility] [address] [place] [address] Dr. Alex Montezutrophils/100 WBC (Bld)61.0 %Xlxlaa15.0-75.0The [facility] Community Hospitalment on above:Performed By: #### CBC #### [facility] [address] [place] [address] Dr. Alex Chacko mean volume (Bld) [Entitic vol]9.2 fLCritically low 9.5-13.5The [facility] HospitalComment on above:Performed By: #### CBC #### [facility] [address] [place] [address] Dr. Alex ChristiansonPLT258 103/fcDmglnp332-679Bxa [facility] HospitalComment on above: Performed By: #### CBC #### [facility] [address] [place] [address] Dr. Alex ChristiansonRBC4.70 106/ulNormal4.20-5.40The [facility] HospitalComment on above:Performed By: #### CBC #### [facility] [address] [place] [address] Dr. Alex ChristiansonWBC9.1 103/ulNormal4.0-11.0The [facility] on above: Performed By: #### CBC #### [facility] [address] [place] [address] Dr. Alex Jane-DIMERon 51-89-9402I-DIMER<0.48Ckvjbj7.19-0.50[facility] on above:Performed By: #### DDIM #### [facility] [address] [place] [address] Dr. Alex Jane-DIMER COMMENTSSEE [facility] on above:Result Comment: Increases in D-Dimer concentration [...] generalized hospitalization. Performed By: #### DDIM #### [facility] Laboratory [address] [place] [address] Dr. Alex Lujan URINE PROFILEon [id number] Ql (U)NegativeNormal NEGATIVEAvita Health System Galion HospitalCommunson healthcare [facility] on above:Performed By: #### ERUR PREGU UMICRO #### [facility] [address] [place] [address] Dr. Alex Sheltonarity (U)CLEARNormalCLEARAvita Health System Galion HospitalCommunson healthcare [facility] on above: Performed By: #### ERUR PREGU UMICRO #### [facility] [address] [place] [address] Dr. Alex Ceron (U)LT. YELLOWNormalYELLOWAvita Health System Galion HospitalCommunson healthcare [facility] on above:Performed By: #### ERUR, PREGU, UMICRO #### [facility] [address] [place] [address] Dr. Alex Colmenares micrscopic examination will be performed if indicated. NormalThe [facility] County HospitalComment on above:Performed By: #### ERUR, PREGU, UMICRO #### [facility] [address] [address] [address] Alex ChristiansonGlucose Ql (U)NegativeNormalNEGATIVEAvita Health System Galion HospitalComment on above:Performed By: #### ERUR, PREGU, UMICRO #### [facility] [address] [place] [address] Dr. Alex ChristiansonHemoglobin Ql (U)TRACE-INTACTAbnormalNEGATIVEAvita Health System Galion HospitalComment on above:Performed By: #### ERUR, PREGU, UMICRO #### [facility] [address] [place] [address] Dr. Alex ChristiansonKetones Ql (U)NegativeNormalNEGATIVEAvita Health System Galion HospitalComment on above:Performed By: #### ERUR, PREGU, UMICRO #### [facility] [address] [place] [address] Dr. Alex ChristiansonLEUKOCYTESTRACEAbnormalNEGATIVEAvita Health System Galion HospitalComment on above:Performed By: #### ERUR, PREGU, UMICRO #### [facility] [address] [place] [address] Dr. Alex ChristiansonNitrite Ql (U)NegativeNormalNEGATIVEAvita Health System Galion HospitalComment on above:Performed By: #### ERUR, PREGU, UMICRO #### [facility] [address] [place] [address] Dr. Alex ChristiansonpH (U)5.5 [pH]Normal5-9Av[facility] Galion HospitalComment on above: Performed By: #### ERUR, PREGU, UMICRO #### [facility] [address] [place] [address] Dr. Alex ChristiansonSPEC GRAVITY<=1.725Dgioxiur2.005-<=1.025The [facility] Comment on above:Performed By: #### ERUR, PREGU, UMICRO #### [facility] [address] [place] [address] Dr. Alex Lester PROTEINNegativeNormalNEGATIVE/ TRACEThe [facility] Comment on above:Performed By: #### LEOBARDO WESTON, UMICRO #### [facility] [address] [place] [address] Dr. Alex Márquez MICRO INDINDICATEDNormalThe [facility] HospitalComment on above: Performed By: #### ENRICO PREGU, UMICRO #### [facility] [address] [place] [address] Dr. Alex Rosalesbilinogen Qn (U)0.2 {Angie'U}/dLNormal0.2 - 1.0The [facility] HospitalComment on above:Performed By: #### ENRICO PREGU, UMICRO #### [facility] [address] [place] [address] Dr. Alex PowerANCY URon [id number], QUALNegativeNormalNEGATIVEThe [facility] HospitalComment on above:Performed By: #### LEOBARDO WESTON, UMICRO #### [facility] [address] [place] [address] Dr. Alex Castro 14(COMP METB)on 56-04-6413Dzkzzll [Mass/Vol]4.2 g/dLNormal 3.4-5.0The [facility] HospitalComment on above:Performed By: #### HSTROPN, CMP #### [facility] [address] [place] [address] Dr. Alex ChristiansonAlbumin/Globulin [Mass ratio]1.4 {ratio}NormalThe [facility] HospitalComment on above:Performed By: #### HSTROPN, CMP #### [facility] [address] [place] [address] Dr. Alex Lujan [Catalytic activity/Vol]49 U/OEnlvoe00-804Jtn [facility] HospitalComment on above:Performed By: #### HSTROPFrank, CMP #### [facility] [address] [place] [address] Dr. Alex TovarT [Catalytic activity/Vol]30 U/VLqbduz72-22Dmw [facility] HospitalComment on above:Performed By: #### HSTROPN, CMP #### [facility] [address] [address] [address] Alex ChristiansonAnion gap [Moles/Vol]14.6 mmol/LNormalAvita Health System [facility] Hospital Comment on above:Performed By: #### HSTROPN, CMP #### [facility] [address] [address] [address] Alex ChristiansonAST [Catalytic activity/Vol]24 U/NXejnnn47-14Wfj [facility] HospitalComment on above:Performed By: #### HSTROPN, CMP #### [facility] [address] [place] [address] Dr. Alex ChristiansonBilirubin [Mass/Vol]0.6 mg/dLNormal0.2-1.3TSumma Health [facility] Comment on above:Performed By: #### HSTROPN, CMP #### [facility] [address] [place] [address] Dr. Alex ChristiansonCalcium [Mass/Vol]9.2 mg/dLNormal8.5-10.1[facility] Comment on above:Performed By: #### HSTROPN, CMP #### [facility] [address] [place] [address] Dr. Alex ChristiansonChloride [Moles/Vol]104 mmol/CKczexn06-571MxbAvita Health System Gal[facility] Hospital Comment on above:Performed By: #### HSTROPN, CMP #### [facility] [address] [place] [address] Dr. Alex ChristiansonCO2 [Moles/Vol]24.2 mmol/AUperyi99.0-30.0[facility] Comment on above:Performed By: #### HSTROPN, CMP #### [facility] [address] [place] [address] Dr. Alex ChristiansonCreatinine [Mass/Vol]0.78 mg/dLNormal0.52-1.04The [facility] HospitalComment on above:Performed By: #### HSTROPN, CMP #### [facility] [address] [address] [address] Alex KellyGFR-AF NAMIBIAN>60Normal>=60The [facility] HospitalComment on above:Performed By: #### HSTROPN, CMP #### [facility] [address] [address] [address] Alex KellyGFR-NON AF NAMIBIAN>60Normal>=60The [facility] HospitalComment on above:Performed By: #### HSTROPN, CMP #### [facility] [address] [address] [address] Alex ChristiansonGlobulin (S) [Mass/Vol]3.0 g/dLNormalThe [facility] HospitalComment on above:Performed By: #### HSTROPN, CMP #### [facility] [address] [place] [address] Dr. Alex ChristiansonGlucose [Mass/Vol]82 mg/cLNyromd01-026AsoAvita Health System [facility] Hospital Comment on above:Performed By: #### HSTROPN, CMP #### [facility] [address] [address] [address] Alex ChristiansonPotassium [Moles/Vol]3.8 mmol/LNormal3.4-5.0[facility] Comment on above:Performed By: #### HSTROPN, CMP #### [facility] [address] [address] [address] Alex ChristiansonProtein [Mass/Vol]7.2 g/dLNormal6.1-8.2[facility] Comment on above:Performed By: #### HSTROPN, CMP #### [facility] [address] [address] [address] Alex ChristiansonSodium [Moles/Vol]139 mmol/RPydofr619-291AwaAvita Health System Galion Hospital Comment on above:Performed By: #### HSTROPN, CMP #### [facility] [address] [address] [address] Alex ChristiansonUrea nitrogen [Mass/Vol]23.0 mg/dLCritically high7.0-18.0[facility] HospitalComment on above:Performed By: #### HSTROPN, CMP #### [facility] [address] [place] [address] Dr. Alex Nails nitrogen/Creatinine [Mass ratio]29.5 mg/mgNoCity HospitalComment on above:Performed By: #### HSTROPN, CMP #### [facility] [address] [place] [address] Dr. Alex ChristiansonPROTIMEon 01-00-7126TEA Coag (PPP) [Relative time]1.01 {INR} NormalThe [facility] HospitalComment on above:Performed By: #### PT, PTT #### [facility] [address] [place] [address] Dr. Alex Lo GUIDELINESSEE BELOWParkwood HospitalComment on above:Result Comment: DESIRED INR: 2.0 - 3.0 CONDITIONS NOT LISTED BELOW 2.5 - 3.5 FOR PROSTHETIC HEART VALVE REPLACEMENT 2.5 - 3.5 RECURRENT THROMBOSIS Performed By: #### PT, PTT #### [facility] [address] [place] [address] Dr. Alex ChristiansonPT Coag (PPP) [Time]10.9 sNormal9.0-11.6The [facility] Comment on above:Performed By: #### PT, PTT #### [facility] [address] [place] [address] Dr. Alex Gordon [id number] Coag (Bld) [Time]27.3 iAeadao19.3-36.2[facility] HospitalComment on above:Performed By: #### PT, PTT #### [facility] [address] [place] [address] Dr. Alex Badillo, [facility] SENSITIVITYon 94-96-0044XFSRNK0.5 pg/mLNormal 4.0-35.5The [facility] HospitalComment on above:Result Comment: CUT-OFF POINTS HAVE BEEN ESTABLISHED BASED ON THE FOURTH UNIVERSAL DEFINITIONS OF MYOCARDIAL INFARCTION. THE UPPER REFERENCE LIMIT (URL) OF TROPONIN, DEFINED THE 99TH PERCENTILE OF cTnI DISTRIBUTION IN A REFERENCE POPULATION, HAS BEEN CONFIRMED THE DECISION THRESHOLD FOR NE DIAGNOSIS.Performed By: #### HSTROPN, CMP #### [facility] [address] [address] [address] Alex Cheek MICROSCOPIC ONLYon 64-86-0005SDIGBBYGSATR SEENNormalNONE SEENAvita Health System Galion HospitalCommunson healthcare [facility] on above:Performed By: #### LEOBARDO WESTON UMICRO ####[facility] [address] [address]Dr. Alex ChristiansonBacteria identified Cx Nom (U)NOT INDICATEDNormalThMadison HealthCommunson healthcare [facility] on above:Performed By: #### LEOBARDO WESTON UMICRO ####[facility] [address] [address]Dr. Alex ChristiansonCAST NONE SEENNormalNONE SEENThe [facility] HospitalCommunson healthcare [facility] on above:Performed By: #### LEOBARDO WESTON UMICRO ####[facility] [address] [address]Dr. Alex ChristiansonCrystals LM Nom (Urine sed)NONE SEEN NormalNONE SEENThe [facility] HospitalCommunson healthcare [facility] on above:Performed By: #### LEOBARDO WESTON UMICRO ####[facility] [address] [address]Dr. Alex ChangEpithelial cells LM Ql (Urine sed)FEWAbnormalNONE SEEN /RAREThe [facility] HospitalCommunson healthcare [facility] on above:Performed By: #### LEOBARDO WESTON, UMICRO ####[facility] [address] [address]Dr. Alex ChangMUCOUSNONE SEENNormalNONE SEENAvita Health System Galion HospitalCommunson healthcare [facility] on above:Performed By: #### LEOBARDO WESTON UMICRO ####[facility] [address] [address]Dr. Alex ChangRBC0-2Normal 0-2The [facility] HospitalComment on above:Performed By: #### LEOBARDO WESTON UMICRO ####[facility] [address] [place], [place] [address]Yx. Alex ChangWBC0-2AbnormalNONShannon Ashtabula County Medical CenterComment on above: Performed By: #### LEOBARDO WESTON UMICRO ####[facility] [address] [place], [place] [address]Wc. Alex Mcwilliams ARCHANA DOP LEG BILon [id number] ARCHANA DOP LEG BILEXAMINATION: US ARCHANA DOP LEG MARTHA HISTORY: Deep venous thrombosis COMPARISON: No relevant comparison available. FINDINGS: REGION: Bilateral lower extremities THROMBI: None. COMPRESSIBILITY: Normal compressibility. FLOW: Normal waveform and antegrade flow between 5 and 20 cm/s. OTHER: None. IMPRESSION: 1. No deep vein thrombus within the right or left lower extremity. Electronically authenticated by: HONG MOSS Date: 2022-02-17 14:[address] [place], [place] [address]XR CHEST 2 Von [id number] CHEST 2 VEXAM: CHEST 2 VIEWS HISTORY: [...] Electronically authenticated by: ANDREW WHITT Date: 2022-02-17 14:[address] [place] [address] [id number] HEALTHHNO ID: [id number] Author: Odilon Easley (Rt) Service: Radiology Author Type: Electrical Machine Builder Type: Allied Health Filed: 12/09/2019 5:01 PM [...] BY: RT Tracee December 09, 2019 5:01 PMNormalSt. Joseph Hospital ID: [id number] Author: Scar (Yana) Odilon Lowery Service: Radiology Author Type: Electrical Machine Builder Type: Allied Health Filed: 12/09/2019 3:44 PM [...] BY: YANA Harrison December 09, 2019 3:44 PMNormalLutriverview health institute HospitalUOFL [facility] and Differentialon 12-09-2019 Abs Baso0.05 k/uLNormal<0.11[facility] HospitalComment on above:Performed By: #### CBCDIF, CMP, LIPA, MG1 #### [place] [address] Stl Mono0.96 k/uLHigh<0.87[facility]river[facility] institute HospitalComment on above: Performed By: #### CBCDIF, CMP, LIPA, MG1 #### [place] [address] Fag Neut16.63 k/uLHigh1.45-7.50[facility] HospitalComment on above: Performed By: #### CBCDIF, CMP, LIPA, MG1 #### [place] [address] Tpuqaowz nRBC<0.01Normal<0.01[facility] HospitalComment on above: Performed By: #### CBCDIF, CMP, LIPA, MG1 #### [place] [address] Iersoawlr/100 WBC (Bld)0.3 %NormalLutheran HospitalComment on above: Performed By: #### CBCDIF, CMP, LIPA, MG1 #### [place] [address] LYYNIYtic DiffNormalLutheran HospitalComment on above:Performed By: #### CBCDIF, CMP, LIPA, MG1 #### [place] [address] Rqcsknijcnl (Bld) [#/Vol]10*3/uLNormal<0.46[facility] HospitalComment on above:Performed By: #### CBCDIF, CMP, LIPA, MG1 #### [place] [address] Bmwfkfzsmgg/100 WBC (Bld)0.1 %NormalBarberton Citizens Hospital HospitalComment on above:Performed By: #### CBCDIF, CMP, LIPA, MG1 #### [place] [address] Hjkofdydltl distribution width (RBC) [Ratio]13.4 %Pjzrki71.5-15.0 [facility] HospitalComment on above:Performed By: #### CBCDIF, CMP, LIPA, MG1 #### [place] [address] Iamjpwrbta (Bld) [Volume fraction]43.9 %Cztmkr50.0-46.0[facility] HospitalComment on above:Performed By: #### CBCDIF, CMP, LIPA, MG1 #### [place] [address] Tatzhpmizb (Bld) [Mass/Vol]14.4 g/lHCibhin19.5-15.5[facility] Hospital Comment on above:Performed By: #### CBCDIF, CMP, LIPA, MG1 #### [place] [address] Smbtiybmnrr (Bld) [#/Vol]1.31 10*3/uLNormal1.00-4.00[facility] HospitalComment on above:Performed By: #### CBCDIF, CMP, LIPA, MG1 #### [place] [address] Ijqfaejesxr/100 WBC (Bld)6.9 %NormalBarberton Citizens Hospital HospitalComment on above:Performed By: #### CBCDIF, CMP, LIPA, MG1 #### [place] [address] XMY (RBC) [Entitic mass]30.4 yIPvfzok13.0-34.0[facility] Comment on above:Performed By: #### CBCDIF, CMP, LIPA, MG1 #### [place] [address] JMYU (RBC) [Mass/Vol]32.8 g/fIBayryu87.5-36.0[facility] Comment on above:Performed By: #### CBCDIF, CMP, LIPA, MG1 #### [place] [address] EXY (RBC) [Entitic vol]92.6 dDHejchh84.0-100.0[facility] Comment on above:Performed By: #### CBCDIF, CMP, LIPA, MG1 #### [place] [address] Arfmeucdt/100 WBC (Bld)5.1 %NormalBarberton Citizens Hospital HospitalComment on above: Performed By: #### CBCDIF, CMP, LIPA, MG1 #### [place] [address] Ibsdhrmwrfm/100 WBC (Bld)87.6 %NormalBarberton Citizens Hospital HospitalComment on above:Performed By: #### CBCDIF, CMP, LIPA, MG1 #### [place] [address] MLXDl9.0 /100 FNASeytlq7Qhkvfenx HospitalComment on above:Performed By: #### CBCDIF, CMP, LIPA, MG1 #### [place] [address] Xvoemcuk mean volume (Bld) [Entitic vol]9.1 fLNormal9.0-12.7[facility] HospitalComment on above:Performed By: #### CBCDIF, CMP, LIPA, MG1 #### [place] [address] Fgealqiht (Bld) [#/Vol]251 10*3/bXXxajlp880-486[facility] Comment on above:Performed By: #### CBCDIF, CMP, LIPA, MG1 #### [place] [address] QRH (Bld) [#/Vol]4.74 10*6/uLNormal3.90-5.20[facility] HospitalComment on above:Performed By: #### CBCDIF, CMP, LIPA, MG1 #### [place] [address] HZQ (Bld) [#/Vol]18.96 10*3/uLHigh3.70-11.00[facility] HospitalComment on above:Performed By: #### CBCDIF, CMP, LIPA, MG1 #### [place] [address] NK ABD/PEL W IVCONon 69-01-8372XC ABD/PEL W IVCON* * *Final Report* * [...] of an acute intra-abdominal or pelvic process. Automatic Operator: B[facility]TIST HEALTH LEXINGTONEmigdio Transcribe Date/Time: Dec 09 2019 3:45P Dictated by : ELISABET KEITA MD This examination was interpreted and the report reviewed and electronically signed by: ELISABET KEITA MD on Dec 09 2019 3:53PM EST [id number] Flower Hospital Metabolic Panelon 12-09-2019 Albumin [Mass/Vol]4.5 g/dLNormal3.9-4.9[facility] HospitalComment on above: Performed By: #### CBCDIF, CMP, LIPA, MG1 #### [address] [address] ADO [Catalytic activity/Vol]41 U/WMkpqno93-300Idqfkbmd Hospital Comment on above:Performed By: #### CBCDIF, CMP, LIPA, MG1 #### [address] [address] ZFA [Catalytic activity/Vol]21 U/LNormal7-38[facility] HospitalComment on above:Result Comment: Results may be falsely increased due to interference by hemolysis. Suggest reorder as clinically indicated.Performed By: #### CBCDIF, CMP, LIPA, MG1 #### [place] [address] Xlrmu gap [Moles/Vol]13 mmol/LNormal9-18[facility] HospitalComment on above:Performed By: #### CBCDIF, CMP, LIPA, MG1 #### [place] [address] IVD [Catalytic activity/Vol]29 U/UOlqcno20-24Bkdswirh Hospital Comment on above:Result Comment: Results may be falsely increased due to interference by hemolysis. Suggest reorder as clinically indicated.Performed By: #### CBCDIF, CMP, LIPA, MG1 #### [place] [address] Lnooghydb [Mass/Vol]0.5 mg/dLNormal0.2-1.3[facility] HospitalComment on above:Performed By: #### CBCDIF, CMP, LIPA, MG1 #### [place] [address] Klcabbj [Mass/Vol]9.5 mg/dLNormal8.5-10.2[facility] HospitalComment on above:Performed By: #### CBCDIF, CMP, LIPA, MG1 #### [place] [address] Loxzbgpg [Moles/Vol]108 mmol/ZFlbf95-219Dgbmkgeg HospitalComment on above:Performed By: #### CBCDIF, CMP, LIPA, MG1 #### [place] [address] RC3 [Moles/Vol]21 mmol/LNwd70-04Jlznjqio HospitalComment on above: Performed By: #### CBCDIF, CMP, LIPA, MG1 #### [place] [address] Dgwfrgghev [Mass/Vol]0.65 mg/dLNormal0.58-0.96[facility] Hospital Comment on above:Performed By: #### CBCDIF, CMP, LIPA, MG1 #### [place] [address] yTCY- Amer.>60Normal>60Lutheran HospitalComment on above: Performed By: #### CBCDIF, CMP, LIPA, MG1 #### [place] [address] MWA/1.73 sq M predicted among non-blacks MDRD (S/P/Bld) [...] By: #### CBCDIF, CMP, LIPA, MG1 #### [place] [address] Iouqhhy [Mass/Vol]137 mg/rVYqgh36-93Nnmwqmrc HospitalComment on above:Performed By: #### CBCDIF, CMP, LIPA, MG1 #### [place] [address] Eonljwpzd [Moles/Vol]4.9 mmol/LNormal3.7-5.1[facility] HospitalComment on above:Result Comment: Results may be falsely increased due to interference by hemolysis. Suggest reorder as clinically indicated.Performed By: #### CBCDIF, CMP, LIPA, MG1 #### [place] [address] Bvreqes [Mass/Vol]7.2 g/dLNormal6.3-8.0[facility] HospitalComment on above:Performed By: #### CBCDIF, CMP, LIPA, MG1 #### [place] [address] Lmrawy [Moles/Vol]142 mmol/KHmebqg329-914Dhcsrezy HospitalComment on above:Performed By: #### CBCDIF, CMP, LIPA, MG1 #### [place] [address] Hobm nitrogen [Mass/Vol]11 mg/dLNormal7-21[facility] HospitalComment on above:Performed By: #### CBCDIF, CMP, LIPA, MG1 #### [place] [address] LO NOTEon [id number] NOTEHNO ID: [id number] Author: Cinda (Rn) REBA Mcgraw Service: ? Author Type: Registered Nurse Type: ED Notes Filed: 12/09/2019 6:15 PM Note Text: Pt. Was discharged with verbal and written instructions, pt. verbalized understanding. Instructed pt. To follow up with PCP. Pt instructed to return to the ED if symptoms worsen.[facility] NOTEHNO ID: [id number] Author: Elinor MoffettRn) Wade RN Service: Nursing Author Type: Registered Nurse Type: ED Notes Filed: 12/09/2019 5:10 PM Note Text: Patient sleeping in bed, chest rise and fall noted. Respirations even and unlabored. Patient safety maintained.[facility] HospitalED NOTEHNO ID: [id number] Author: Arin (Medic) Irma Service: ? Author Type: Step Down Specialist and Electrical Machine Builder Type: ED Notes Filed: 12/09/2019 4:29 PM Note Text: Add on rec sent to lab.[facility] NOTEHNO ID: [id number] Author: Clara MoffettRn) REBA Smith Service: ? Author Type: Registered Nurse Type: ED Notes Filed: 12/09/2019 3:29 PM Note Text: Patient transported to [place] with Tech.[facility] HospitalED NOTEHNO ID: [id number] Author: Cinda MoffettRn) REBA Mcgraw Service: ? Author Type: Registered Nurse Type: ED Notes Filed: 12/09/2019 3:27 PM Note Text: Urine culture add on [facility] NOTEHNO ID: [id number] Author: Clara MoffettRn) REBA Smith Service: ? Author Type: Registered Nurse Type: ED Notes Filed: 12/09/2019 3:27 PM Note Text: Medications explained to pt. Pt verbalized understanding. In agreement with plan of care.[facility]ED NOTEHNO ID: [id number] Author: Clara MoffettRn) REBA Smith Service: ? Author Type: Registered Nurse Type: ED Notes Filed: 12/09/2019 3:29 PM Note Text: Medications and the need for IV fluids explained to pt. Pt verbalized understanding. In agreement with plan of care.[facility]ED NOTEHNO ID: [id number] Author: Myron Beal (Medic) Fredo Rose Service: ? Author Type: Step Down Specialist and Electrical Machine Builder Type: ED Notes Filed: 12/09/2019 1:26 PM Note Text: Labs were drawn and sent.[facility] NOTEHNO ID: [id number] Author: Elinor MoffettRnEdyta Ovlera RN Service: Nursing Author Type: Registered Nurse Type: ED Notes Filed: 12/09/2019 1:16 PM Note Text: Patient presents to ED for CP, cough, nausea, vomiting.[facility] HospitalED PROV NOTEon [id number] PROV NOTEHNO ID: [id number] Author: Anamika Josue Service: Emergency Medicine Author Type: Physician Bow Maker Machine Tender Type: ED Provider Notes Filed: 12/10/2019 7:51 [...] described as above. 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 No pertinent past [...] 16.63 (*) 1.45 - 7.50 k/uL Abs [place] 0.96 (*) <0.87 k/uL All other components [...] Result IMPRESSION: No acute pulmonary findings identified. Automatic Operator: JOHN APUL Transcribe Date/Time: Dec 09 2019 5:00P Dictated by : CHIARA MONTANA MD This examination was interpreted and the report reviewed and electronically signed by: CHIARA MONTANA MD on Dec 09 2019 5:01PM EST CT ABD/PEL W IVCON Final Result IMPRESSION: No evidence of an acute intra-abdominal or pelvic process. Automatic Operator: JOHN PAUL Transcribe Date/Time: Dec 09 2019 [...] sinus rhythm at 62 bpm with a CA interval of 110 the QTC of 435. [...] Reviewed Rhythm: Normal sinus rhythm Rate: 62 [place]: Normal axis Intervals: Normal CA interval QRS Complex: Normal ST Segment: Nonspecific [...] and stable. SIGNATURE: KAIT Burch Pa-C 12/10/19 [address]751[facility] Qual, Urineon 87-24-4906Wdzx HCG ( test) Ql (U)NegativeNormalNegativeLutheran HospitalComment on above: Performed By: #### UHCG, UTOX2, UAWMIC #### [place] [address] Mjuvgfqq 13-34-0491Hydlhn [Catalytic activity/Vol]20 U/ILsfzqn61-91 [facility] HospitalComment on above:Performed By: #### CBCDIF, CMP, LIPA, MG1 #### [place] [address] Petufcxzlnh 08-28-8986Rcevqbdwv [Mass/Vol]2.0 mg/dLNormal1.7-2.3 [facility] HospitalComment on above:Performed By: #### CBCDIF, CMP, LIPA, MG1 #### [place] [address] Qwpxjdfwby Screen,Uron 54-32-3419Xionrmpcjgcm, UrineNegativeNormal NegativeLutheran HospitalComment on above:Result Comment: Cutoff threshold at 1000 ng/mL.Performed By: #### UHCG, UTOX2, UAWMIC #### [place] [address] Lrqgeleitknt, UrineNegativeNormalNegativeLutheran HospitalComment on above:Result Comment: Cutoff threshold at 200 ng/mL.Performed By: #### UHCG, UTOX2, UAWMIC #### [place] [address] Lapwmwqeddhjrvl, UrNegativeNormalNegativeLutheran HospitalComment on above:Result Comment: Cutoff threshold at 200 ng/mL.Performed By: #### UHCG, UTOX2, UAWMIC #### [place] [address] Quuzvrbfvnhh, UrineNegativeNormalNegativeLutheran HospitalComment on above:Result Comment: Cutoff threshold at 50 ng/mL.Performed By: #### UHCG, UTOX2, UAWMIC #### [place] [address] Teugnjb, UrineNegativeNormalNegativeLutheran HospitalComment on above:Result Comment: Cutoff threshold at 300 ng/mL.Performed By: #### UHCG, UTOX2, UAWMIC #### [place] [address] Rxxqvji, Urine<11Normal<11Lutheran HospitalComment on above: Performed By: #### UHCG, UTOX2, UAWMIC #### [place] [address] Umkwelv, UrineNegativeNormalNegativeLutheran HospitalComment on above:Result Comment: Cutoff threshold at 300 ng/mL.Performed By: #### UHCG, UTOX2, UAWMIC #### [place] [address] Dbhgukrgh, UrineNegativeNormalNegativeLutheran HospitalComment on above:Result Comment: Cutoff threshold [...] on the same specimen through Client Services ([phone]) if contacted within 48 hours of initial testing. [1]Substance Abuse and Mental Health Services Administration (2012). Clinical Drug Testing in Primary Care Technical Assistance Publication Series 32. Department of Health and Human Services, [place], p.10.Performed By: #### UHCG, UTOX2, UAWMIC #### [place] [address] Lqsrexqbegbjm, UrineNegativeNormalNegativeLutheran HospitalComment on above:Result Comment: Cutoff threshold at 25 ng/mL.Performed By: #### UHCG, UTOX2, UAWMIC #### [place] [address] Zryaeasb Ton 00-59-9491Wshnrpul T.cardiac [Mass/Vol]ug/LNormal 0.000-0.029Lutsan carlos apache tribe healthcare corporationan HospitalComment on above:Result Comment: Results may be falsely decreased due to interference by hemolysis. Suggest reorder as clinically indicated.Performed By: #### AUBREE ####[place] [phone] with Microscopicon 12-09-2019 Amorphous CrystalManyNormalLutheran HospitalComment on above:Performed By: #### UHCG, UTOX2, UAWMIC #### [place] [address] Vllxslus LM.HPF (Urine sed) [#/Area]PresentCritically abnormal0 [facility] HospitalComment on above:Performed By: #### UHCG, UTOX2, UAWMIC #### [place] [address] Jtpaysdfq, UrineNegativeNormalNegativeLutheran HospitalComment on above:Performed By: #### UHCG, UTOX2, UAWMIC #### [place] [address] QblwCHW ODPLZFUIfwdli7Xitgezfi HospitalComment on above:Result Comment: 0Performed By: #### UHCG, UTOX2, UAWMIC #### [place] [address] Nbwqthl (U)CloudyCritically abnormalClearLutheran HospitalComment on above:Performed By: #### UHCG, UTOX2, UAWMIC #### [place] [address] Wjvle (U)YellowNormalYellowLutheran HospitalComment on above: Performed By: #### UHCG, UTOX2, UAWMIC #### [place] [address] Kvzkmpcmsy cells LM.HPF (Urine sed) [#/Area]SEE COMMENTNormal [facility] HospitalComment on above:Result Comment: 09-07 SquamousPerformed By: #### UHCG, UTOX2, UAWMIC #### [place] [address] Rngketw Ql (U)NegativeNormalNegativeLuther HospitalComment on above:Performed By: #### UHCG, UTOX2, UAWMIC #### [place] [address] Bnqbuvqzdw/Blood,UrTraceCritically abnormalNegativeLuther Hospital Comment on above:Performed By: #### UHCG, UTOX2, UAWMIC #### [place] [address] Waysciv Ql (U)40Critically abnormalNegativeLutheran HospitalComment on above:Performed By: #### UHCG, UTOX2, UAWMIC #### [place] [address] QejfryqOxaappapNxnuxrEmdhzecqPorpgyyf HospitalComment on above: Performed By: #### UHCG, UTOX2, UAWMIC #### [place] [address] Dvldd Ql (Urine sed)ModerateNormalLutheran HospitalComment on above: Performed By: #### UHCG, UTOX2, UAWMIC #### [place] [address] Okxwsfs Ql (U)NegativeNormalNegativeLutheran HospitalComment on above:Performed By: #### UHCG, UTOX2, UAWMIC #### [place] [address] zS (Bld)7.7Mvbvnj8.5-8.0Lutheran HospitalComment on above:Performed By: #### UHCG, UTOX2, UAWMIC #### [place] [address] Errnenx (U) [Mass/Vol]NegativeNormalNegativeLutheran HospitalComment on above:Performed By: #### UHCG, UTOX2, UAWMIC #### [place] [address] JCV (U) [#/Vol]5-10Critically abnormal0-3Lutheran HospitalComment on above:Performed By: #### UHCG, UTOX2, UAWMIC #### [place] [address] Nitynvbf Sinclair, Ur1.551Ohmqgx1.005-1.030Lutheran HospitalComment on above:Performed By: #### UHCG, UTOX2, UAWMIC #### [place] [address] Ctfmzrfuwalx Qn (U)0.5Glukjn3.2-1.0Lutheran HospitalComment on above:Performed By: #### UHCG, UTOX2, UAWMIC #### [place] [address] TTB (Bld) [#/Vol]0-6Uqroyz5-4Jfizrqyc HospitalComment on above: Performed By: #### UHCG, UTOX2, UAWMIC #### [place] [id number] Fiiui Cultureon 93-00-1686Awkujmkv identified Cx Nom (U)Culture Result - No growth (<1,000 CFU/ml)[facility]vue HospitalComment on above: Performed By: #### CBCDIF, CMP, LIPA, MG1 #### [place] [address] YT CHEST 1V FRONTAL PORTon 50-37-9816ON CHEST 1V FRONTAL PORT* * *Final Report* [...] . IMPRESSION: No acute pulmonary findings identified. Automatic Operator: JOHN PAUL Transcribe Date/Time: Dec 09 2019 5:00P Dictated by : CHIARA MONTANA MD This examination was interpreted and the report reviewed and electronically signed by: CHIARA MONTANA MD on Dec 09 2019 5:01PM EST [id number] Clinic Lutheran Hospital Vital Signs Date TimeVital SignValuePerforming NxxugdjdiJytfqiws36-71-1457 15:45-0400Body mass index (BMI) [Ratio]25.3 kg/p4Fsbur FriendCode DO Work Phone: [facility] CenterHgccxltegx18-10-9659 15:45-0400Body .77 kgCore [employer]il Work Phone: [facility]OP[facility] HospitalNmvfmsezmv01-60-6259 15:45-0400Diastolic blood bikyqcgc78 mm[Hg]Juanito Zeke DO Work Phone: [facility] CenterBjbocetdpp02-88-2526 15:45-0400Systolic blood zjrvqlei441 mm[Hg]Juanito Celayao DO Work Phone: [facility] CenterDgbhoaxzcm37-33-7470 10:11-0400Body iacefx584.02 cmPatricsonu Cosby [employer] Work Phone: [facility]07-29-2025 10:11-0400 Body mass index (BMI) [Ratio]25.2 kg/m3Nvuglfqo Hajanessasebas [employer] Work Phone: [facility]07-29-2025 10:11-0400 Body gzroqpjmuws00.5 [degF]Connie Baxterkarina [employer] Work Phone: [facility]07-29-2025 10:11-0400 Body elmhud71.46 kgMiguelitopebblessonu Baxterjanessasebas [employer] Work Phone: [facility]07-29-2025 10:11-0400 Diastolic blood qahqqeef67 mm[Hg]Connie Baxterjanessasebas [employer] Work Phone: [facility]07-29-2025 10:11-0400 Heart rate76 /James Baxterfredahe [employer] Work Phone: [facility]07-29-2025 10:11-0400 Respiratory rate18 /José Miguelaggie Baxterkarina [employer] Work Phone: [facility]07-29-2025 10:11-0400 SaO2% (BldA) [Mass fraction]97 %Connie Baxterkarina [employer] Work Phone: [facility]07-29-2025 10:11-0400 Systolic blood dvilynmz227 mm[Hg]Connie Hakarina [employer] Work Phone: [facility]03-31-2025 15:48-0400 Body mass index (BMI) [Ratio]25.05 kg/a8Ediob Zeke DO Work Phone: [phone] [place], [place] [address]Ehxufroyxo44-90-1229 15:48-0400Body .14 kgCorey Zeke DO Work Phone: 1(084)[facility] [place], [place] [address]Ddfnckfaim26-66-9255 15:48-0400Diastolic blood szvybwnp06 mm[Hg]Juanito Zeke DO Work Phone: 1(860)[facility] [place], [place] [address]Wwfxluzadv44-55-2131 15:48-0400Systolic blood mm[Hg]Juanito Zeke DO Work Phone: 1([phone])[address] [place], [place] 4681803-18-2025 15:08-0400Body mass index (BMI) [Ratio]24.94 kg/x4Bjwzp Zeke DO Work Phone: 1(211)[facility] [place], [place] [address]Wcvgwmwkfu83-34-6458 15:08-0400Body .87 kgCorey Zeke DO Work Phone: 1(833)[facility] [place], [place] [address]Zenaexvgej77-78-0254 15:08-0400Diastolic blood uqutqlvh63 mm[Hg]Juanito Zeke DO Work Phone: 1(824)[facility] [place], [place] [address]Ozxlwkukck47-76-8078 15:08-0400Systolic blood ebpitubw878 mm[Hg]Juanito Zeke DO Work Phone: 1(595)327-[address] [place], [place] [address]Xqvpxbvgtk00-24-8677 13:21-0400Body dpahxx661.02 Desmondcharisse Jennifersofybilly [employer] Work Phone: 1(091)444-[address] [place], [place] 6226903-11-2025 13:21-0400 Body mass index (BMI) [Ratio]25.1 kg/z8DkwakLoree Avilabilly [employer] Work Phone: 1(951)291-[address] [place], [place] 6226903-11-2025 13:21-0400 Body agcwaa68.4 kgKryscharisse Jennifersofybilly [employer] Work Phone: 1(298)189-[address] [place], [place] 6226902-14-2025 17:20-0500 Body .02 cmEbencharisse Marian [employer] Work Phone: 1(619)588-[address] [place], [place] 6226902-14-2025 17:20-0500 Body mass index (BMI) [Ratio]24.7 kg/u3DbqqhLoree Fonseca [employer] Work Phone: 1(802)[address]02-14-2025 17:20-0500 Body eaupljsvwii31.5 [degF]Loree Fonseca [employer] Work Phone: 1(449)[address]02-14-2025 17:20-0500 Body opcilg29.5 kgLoree Fonseca [employer] Work Phone: 1(294)[address]02-14-2025 17:20-0500 Diastolic blood vaeymsxb01 mm[Hg]Loree Fonseca [employer] Work Phone: 1(964)[address]02-14-2025 17:20-0500 Heart rate79 /Yue Fonseca [employer] Work Phone: 1(221)[address]02-14-2025 17:20-0500 Respiratory rate18 /Yue Fonseca APRN Work Phone: 1(326)[address]02-14-2025 17:20-0500 SaO2% (BldA) [Mass fraction]98 %Loree Fonseca [employer] Work Phone: 1(019)[address] [place], [place] 1017302-14-2025 17:20-0500 Systolic blood qrkeyixh429 mm[Hg]Loree Fonseca [employer] Work Phone: 1(311)[address]2025 09:45-0500 Body gkirup942.02 cmUniversity [facility]2025 09:45-0500Body mass index (BMI) [Ratio]25 kg/v2JavidwstrUniversity Hospitals Beachwood [facility] Center2025 09:45-0500Body tbjemv90.95 kgUniversity Hospitals Beach[facility] Center01-06-2024 11:55-0500Body zudgse780.02 Darcy Riojas Other [employer] Other 01-06-2024 11:55-0500Body mass index (BMI) [Ratio] 24.16 kg/k8KptfllMarina Riojas Other [employer] Other 01-06-2024 11:55-0500Body mencardperl21.1 [degF]Marina Riojas Other [employer] Other 01-06-2024 11:55-0500Body iwobsa24.87 kgMarina Riojas Other [employer] Other 01-06-2024 11:55-0500Diastolic blood kqmupyqw68 mm[Hg] Marina Riojas Other [employer] Other 01-06-2024 11:55-0500Respiratory rate18 /minMarina Riojas Other [employer] Other 01-06-2024 11:55-0928JyN8% (BldA) [Mass fraction]99 % Marina Riojas Other [employer] Other 01-06-2024 11:55-0500Systolic blood eygeliuh740 mm[Hg] Marina Riojas Other [employer] Other 07-18-2023 15:15-0400Body .02 Dara Cai Other [employer] Other 07-18-2023 15:15-0400Body mass index (BMI) [Ratio]23.2 kg/f5RiuqvElinor Cai Other [employer] Other 07-18-2023 15:15-0400Body jbghrweruku74.3 [degF]Elinor Cai Other [employer] Other 07-18-2023 15:15-0400Body vrybhj44.42 kgElinor Cai Other [employer] Other 07-18-2023 15:15-0400Diastolic blood bxlgyhhn00 mm[Hg] Elinor Cai Other [facility] [employer] Other 07-18-2023 15:15-0400Respiratory rate18 /minElinor Cai Other [employer] Other 07-18-2023 15:15-5508UbI9% (BldA) [Mass fraction]99 % Elinor Cai Other [facility] [employer] Other 07-18-2023 15:15-0400Systolic blood effzxlpw621 mm[Hg] Elinor Cai Other [employer] Other Encounters Encounter DateEncounter TypeCare ProviderFacilityStart: 09-04-2025 End: 00-54-6067hohsdajyhhCVFUZ FAZIONot AvailableStart: 08-27-2025 End: 42-28-8334Ngjelx flowsheetCorey Zeke DO Work Phone: [facility] [place] OBGYNStart: 08-27-2025 End: 26-54-6351Qenelz flowsheetCorey Zeke DO Work Phone: [facility] [place] OBGYNStart: 08-27-2025 End: 69-72-1533Bwufts outpatient visit 15 minutesCorey Zeke DO Work Phone: [facility] [place] OBGYNComment on above:Pre-op examination; Menorrhagia with regular cycle; Abnormal uterine bleeding (AUB); Pelvic pain; Request for sterilizationStart: 08-27-2025 End: 00-18-9935Wmrwddoynwgla examination doneCorey Zeke DO Work Phone: RAFAEL HealthcareStart: 08-27-2025 End: 19-08-5958cylxiebpulENZUU FAZIONot AvailableStart: 07-29-2025 End: 20-87-1928Eyqfah outpatient visit 15 minutesCorey Zeke DO Work Phone: [facility] [place] OBGYNComment on above:Abnormal uterine bleeding; UTI symptomsStart: 07-29-2025 End: 73-93-4090gjrcdbdfixCDENU FAZIONot AvailableStart: 07-29-2025 End: 18-03-9979Xomvgi flowsheetCorey Zeke DO Work Phone: [facility] [place] OBGYNStart: 07-29-2025 End: 46-93-1913Qaoqoq flowsheetCorey Zeke DO Work Phone: [facility] [place] OBGYNStart: 06-11-2025 End: 02-61-9852hjkdahnqwsVNH [facility] Work Phone: Start: 06-11-2025 End: 51-48-8066Xloqkqnt ReferredPatricsonu Cosby [employer]-[facility] [place] Work Phone: Start: 06-11-2025 End: 19-74-0938pobaznivvmEQT [facility] Work Phone: Start: 06-11-2025 End: 20-46-0190Rniptni encounter procedurePatricsonu Cosby PATTERNMAKER METAL-[facility] Work Phone: Start: 04-18-2025 End: 04-76-6012zmafvnghwpGSUAJKCleveland Clinic [facility]'s Hospital for [facility] Start: 02-21-2025 End: 59-39-5922Fbxyittnp encounterSusan Spitler LPNNOMS BCP OBStart: 02-13-2025 End: 41-41-9228pgydlwuzvkJGQNVQSt. [facility] Hospital Start: 02-13-2025 End: 18-88-3063Pucjezkye for preprocedural cardiovascular examinationTrinity Health System East Campustart: 02-11-2025 End: 77-88-3789Bazfika encounter procedureCorey Zeke DO Work Phone: [facility] BCP OBComment on above:Pre-operative exam; Menorrhagia with irregular cycle; Abnormal uterine bleeding; Pelvic pain in femaleStart: 02-11-2025 End: 33-10-4285Xzpquvsrqaauz examination doneCorey Zeke DO Work Phone: [facility] Work Phone: Start: 02-11-2025 End: 66-64-1114uaaiursjntGSHLouis [facility] Work Phone: Start: 02-11-2025 End: 98-96-4190Derjqqmx ReferredElencharisse Marian PAT[employer]MAK[employer] Work Phone: [facility]-LAB Path Spec [facility] HospStart: 02-04-2025 End: 14-93-5339eptttaorrtLQT [facility] Work Phone: Start: 02-04-2025 End: 57-30-6452Msonptjn ReferredElencharisse Marian PAT[employer]MA[employer]AL Work Phone: [facility]-LAB Path Spec [place] HospStart: 01-29-2025 End: 68-10-4272Abbxnf outpatient visit 15 minutesCorey Zeke DO Work Phone: [facility] BCP OBComment on above:Encounter for consultation; Menorrhagia with irregular cycle; Dysmenorrhea; PMS (premenstrual syndrome); Menorrhagia with regular cycleStart: 01-29-2025 End: 09-20-6022ymyjewockvNNFSO FAZIONot AvailableStart: 01-22-2025 End: 39-11-1795zekctrhkbeMCO [facility] Work Phone: Start: 01-22-2025 End: 32-36-1062Lvxyeod encounter procedureKryscharisse Fonseca PAT[employer] Work Phone: [facility] Physician [facility] Work Phone: start: 12-28-2024 End: 57-49-7401nplopuxhflKTZ [facility] [place] Work Phone: Start: 12-28-2024 End: 36-55-6994Lxvmets encounter procedureLoree Marian PAT[employer]MA[employer]AL Work Phone: [facility] Physician GroupHUDS[facility] Work Phone: Start: 12-27-2024 End: 76-12-6831Fvituin encounter procedureKryscharisse Fonseca PAT[employer]MA[employer]AL Work Phone: [facility]-MRI [address] Closed Work Phone: Start: 12-27-2024 End: 17-85-6093mnexcdsufaVWX [facility] Work Phone: Start: 12-26-2024 End: 98-13-8050ogfgocoewqHECJNXQN I [facility] HospitalStart: 12-26-2024 End: 87-37-1843ixthjxwdnoGRINAYGW I [facility] Start: 12-26-2024 End: 92-92-3878uywdeqwdsuBFFCBX [facility] HospitalStart: 12-13-2024 End: 55-46-3521pfpuczygioLhpvhkywpSCCI [facility] Work Phone: Start: 12-13-2024 End: 36-77-9779Icweqgr encounter procedureNovant Health Presbyterian [facility] Physician [facility] Work Phone: start: 10-29-2024 End: 44-53-4769ndcyqajxznOEKUKY Y [facility] HOSPITALINGERProMedica Athens HospitalStart: 11-19-2023 End: 09-77-9581dabvyyqonbWqzvbk Dymond Other [employer] Other Start: 86-77-0099Tutkdn outpatient visit 15 minutes Marina RiojasFPG [facility] Care ClydeStart: 05-31-2023 End: 06-47-1331capfwgeachMjwcr Keller Other [facility] [employer] Other Start: 81-28-0502Pskaiz outpatient visit 25 minutes Elinor CaiLYNNETTE [facility] Care ClydeStart: 02-17-2022 End: 62-85-9483fzprtkiajsLQ H[place] ZIEBERFacility:N1Fsjam: 06-08-2017 End: 97-62-8100IwrhmqcvrqCMQZ BOVAFacility:UTMCStart: 05-11-2017 End: 63-15-2060KkrvbktzsePVRDULH PHYSICIANFacility:[facility] Procedures DateProcedureProcedure DetailPerforming ClinicianStart: 83-63-0822Deqpz dip stick/tablet rgnt non-auto w/o micrscpCorey Zeke DO Work Phone: Start: 83-74-5413Fntgn Strep (POC)Connieradha Cosby [employer] Work Phone: Start: 20-63-1553Knuvy dip stick/tablet rgnt non-auto w/o micrscpCorey Zeke DO Work Phone: Start: 95-39-8242Llykhzktdht observation [Identifier] in Cervix by Cyto stainCorey Zeke DO Work Phone: Start: 26-87-1174Kslo cerv/vag auto thin layer prep mnl screenNoms Bcp Ob Zeke NurseStart: 44-04-1970F-ray of sacrum and coccyx, two or more viewsLoree Fonseca APRN Work Phone: start: 79-71-5345KC lumbar spine wo Lu Fonseca APRN Work Phone: start: 58-97-5297WR pre/post mri xrConrad Fonseca APRN Work Phone: start: 91-23-2076KaxriifrgxgIyexl Zeke DO Work Phone: Start: 14-20-2165Txgtpeeubalthmcuf Plan of Treatment DateCare ActivityDetailAuthorStart: 38-48-6693Gppostpzr for malignant neoplasm of cervixNOMS HealthcareStart: 38-28-0985Lgfcyxkwi for malignant neoplasm of breastMammogramNOMS HealthcareStart: 09-05-2025 End: 96-71-5342Ircfbfmufnct / ancillary services jjcwipwfiz78/23/2025 8:00 AM EDT Ancillary Procedure NOMJermaine TOLEDO [address] [place] [address] [facility] [place] OBGYNStart: 08-29-2025 End: 22-88-5961Ifwejxn encounter eflgozdss26/16/2025 11:30 AM EDT Procedure Visit NOMJermaine TOLEDO [address] [place], [id number] Juanito Alanis, DO [address] [place] [address] NOMJermaine [place] OBGYNStart: 08-27-2025 End: 00-56-0287Avhtexy encounter procedureNOMS Jaylyn OBGYNComment on above: ArrivedStart: 07-29-2025 End: 46-86-9072Ptgkueq encounter ubpjeazqw23/15/2025 3:30 PM EDT Consult [facility] [place] [facility] [address] [place] [address] Juanito Alanis, DO [address] [place] [address] ArrivedNOMS [place] OBGYNComment on above:Arrived Start: 59-04-1663Oozhefqsv vaccinationNOMS HealthcareStart: 44-13-7154Aqmwctnb identified in Urine by CultureUrine [facility] Start: 06-63-1698Uohho [facility] Hospitaltart: 03-21-2025 End: 13-12-5667Xiivetv encounter rjthenbdg72/08/2025 3:30 PM EDT Office Visit [facility] [address] [place] [address] Heather Coronado PA [address] [place], [place] [id number] [facility] BCP OBStart: 02-11-2025 End: 52-18-6585Ldedark encounter ksrsmqgya33/31/2025 3:30 PM EDT Procedure Visit [facility] OB [address] [place] [address] Juanito Alanis DO [address] [place], [place] [id number] [facility] OBStart: 01-29-2025 End: 67-60-2831nHXX in Blood by Coagulation assayAPTT Lab Routine Menorrhagia with regular cycle Expected: 01/29/2025 (Approximate), Expires: 01/29/2026NOUT HealthcareComment on above:Expected: 01/29/2025 (Approximate), Expires: 01/29/2026Start: 01-29-2025 End: 03-41-2247NO PelvisUS Pelvis w/ TV Imaging Routine Menorrhagia with irregular cycle Dysmenorrhea PMS (premenstrual syndrome) Menorrhagia with regular cycle Expected: 01/29/2025, Expires: 01/29/2026NOUT HealthcareComment on above:Expected: 01/29/2025, Expires: 01/29/2026Start: 98-67-8480Kdyzekrtv vaccinationInfluenza Vaccine (#1)[facility] HealthcareStart: 02-90-2025Gzvhbmogy for malignant neoplasm of colonNOMS HealthcareCBC W Auto Differential panel - Blood CBC and differential Lab Routine Menorrhagia with regular cycle Ordered: 01/29/2025[facility] Work Phone: comment on above:Ordered: 01/29/2025hCG, quantitative, pregnancyhCG, quantitative, Lab Routine Menorrhagia with regular cycle Ordered: 01/29/2025[facility] HealthcareComment on above:Ordered: 01/29/2025 Hemoglobin A1c/Hemoglobin.total in BloodHemoglobin A1c Lab Routine Menorrhagia with regular cycle Ordered: 01/29/2025[facility] HealthcareComment on above:Ordered: 01/29/2025Prothrombin time (PT) in Blood by Coagulation assayProtime-INR Lab Routine Menorrhagia with regular cycle Ordered: 01/29/2025[facility] HealthcareComment on above:Ordered: 01/29/2025Thyrotropin [Units/volume] in Serum or PlasmaTSH Lab Routine Menorrhagia with regular cycle Ordered: 01/29/2025[facility] Comment on above:Ordered: 01/29/2025Thyroxine (T4) free [Mass/volume] in Serum or PlasmaT4, free Lab Routine Menorrhagia with regular cycle Ordered: 01/29/2025 [facility] HealthcareComment on above:Ordered: 01/29/2025Tissue examTissue exam Pathology and Cytology Routine Menorrhagia with irregular cycle Ordered: 02/11/2025[facility] Healthcare Work Phone: comment on above:Ordered: 02/11/2025XR Sacrum and Coccyx GE 2 [facility] Payers DatePayer CategoryPayerPolicy [id number] Health InsuranceUNITED HEALTHCARE [id number] 2.16.840.1.638826.3.579.2.593 [id number] 2.16.840.1.705109.3.579.2.999481-80-7374Cenapwj [id number] 2.16.840.1.917574.3.57[id number] 2.840.1.376725.3.57[id number] 2.16.840.1.216972.3.57[id number] 2.16.840.1.776533.3.57[id number] 2.840.1.664756.3.57[id number] 2.840.1.805662.3.57[id number] 2.840.1.095086.3.57[id number] 2.840.1.304419.3.579.[id number] 2.840.1.5[id number] 2.840.1.704027.3.579.2.531 [id number] 2.840.1.7[id number] 2.840.1.242025.3.579.2.531 Social History DateTypeDetailFacilityStart: 70-21-6221Gme Assigned At Birth[facility] Other Start: 12-13-2024 End: 72-16-9036Yhyvhta smoking status NHISNever smoked tobacco (finding) [facility]art: 12-13-2024 End: 02-95-4840MenKgsnnq (finding)[facility] CenterStart: 67-03-5548Ylz Assigned At BirthFemalMercy Health [facility] Hospitaltart: 94-46-2965Sikpzwx smoking status NHISEx-smokerNOMS HealthcareHistory of tobacco useCurrent smokerNOMS HealthcareHistory of tobacco useCigarette SmokerNOMS HealthcareStart: 25-23-9523Qotfvkz use and exposureSmokeless tobacco non-user [facility] HealthcareStart: 01-29-2025 End: 49-02-0929Eyrzotikg beverage intakeEx-drinker (finding)[facility] Start: 31-79-0106Wfdvttt of Social functionNOMS HealthcareStart: 32-80-2578Yxu assigned at birthNot on fileCEDAR CITY H[facility] HealthcareStart: 30-53-1363RcnWyhlixZLTP Healthcare Clinical Notes 05-31-2023 to 08-27-2025 Note Date & MnfuSrovTawpfmbd60-38-7680 History of Present illness Narrative* Cherri Fernandez, ALEC - 08/27/2025 1:30 PM EDT Reason for Appointment: Patient ID: Oracio Gong is a 45 y.o. female who presents for Pre-op Visit and Well Women Visit Patient presents today for Pre Op appointment. Patient is scheduled to undergo [place] assisted Bilateral Laparoscopic Salpingectomy and Endometrial Ablation with Irene on 09/20/[address] Alanis at [facility]. MEDICATIONS Current Outpatient Medications Medication Instructions [...] nursing note reviewed. Exam conducted with a sales and operations trainee present. Vitals: Estimated body mass index is [...] reviewed, and patient is to proceed to [facility] OR. Follow Up: Patient is to follow up between 1-2 weeks post op to assess proper healing and recovery from procedure. Documented by Cherri Fernandez LPN on behalf of: Juanito Alanis DO documented in this encounterBoone Hospital [id number] History of Present illness Narrative* Sahmeka Segura NP - 07/29/2025 3:30 PM EDT [...] nursing note reviewed. Exam conducted with a sales and operations trainee present. Vitals: Estimated body mass index is [...] of: Juanito Alanis DO documented in this encounterBoone Hospital [id number] Evaluation note* Diagnosis Onset Date Resolution Status Admit Date Dysuria acuteJuly 2024 9:18amViral URIacuteJuly 2024 9:18am [facility] Work Phone: 1(885) 649-687604-10-2025 Telephone encounter Note* Telephone Encounter - Carmelina Veloz LPN - 02/21/2025 2:52 PM EDT 2:50 pm Jamee from [facility] called and voiced that she [...] cardiology as well. Thanks, Carmelina Tamayo LPN [facility] [id number] Miscellaneous Notes* Telephone Encounter - Carmelina Veloz LPN - 02/21/2025 2:52 PM EDT 2:50 pm Jamee from [facility] called and voiced that she saw patient [...] cardiology as well. Thanks, Carmelina Tamayo LPN documented in this encounterBoone Hospital [id number] NoteUT Cardiology - [facility] Susannah Gong is a 45 y.o. year old [...] new patient referred for preop evaluation for MUFF WINDER surgery and abnormal ECG. She is a [...] presented to the emergency room at the [facility] with flulike symptoms mild chest pain [...] normal ECG. ECG 2024: Sinus rhythm, short CA interval, nonspecific T wave abnormality. Chest x-ray 2024: No acute cardiopulmonary process. Tilt table test 06/08/2017: negative for syncope Assessment/Plan Diagnoses and all orders for this visit: Preop cardiovascular exam - ECG 12 lead unit performed - Routine Stress (Treadmill Only); Future - Transthoracic ech (more content not included)...[facility]03-31-2025 History of Present illness Narrative* Blanka Carteragustina - 02/11/2025 3:30 PM EDT Reason for Appointment: Patient ID: Oracio Gong is a 45 y.o. female who presents for Pre-op Visit and Endometrial Biopsy Patient presents today for Pre Op/Endometrial Biopsy appointment. Patient is scheduled to undergo Endometrial Ablation with Irene on 03/08/[address] Alanis at [facility]. MEDICATIONS Current Outpatient Medications Medication Instructions [...] nursing note reviewed. Exam conducted with a sales and operations trainee present. Vitals: Estimated body mass index is [...] reviewed, and patient is to proceed to [facility] OR. Follow Up: Patient is to follow up between 1-2 weeks post op to assess proper healing and recovery from procedure. Documented by Carmelina Veloz LPN on behalf of: Juanito Alanis DO documented in this encounterBoone Hospital [id number] History of Present illness Narrative* Cherri Fernandez LPN - 01/29/2025 2:50 PM EDT Reason for [...] nursing note reviewed. Exam conducted with a sales and operations trainee present. Vitals: Estimated body mass index is [...] of: Juanito Alanis DO documented in this encounterBoone Hospital [id number] Evaluation note* Diagnosis Onset Date Resolution Status Admit Date Lumbar radiculopathy acuteJanuary 2024 9:43amPerineural cystsacuteJanuary 2024 9:43am SacroiliitisacuteJanuary 2024 9:43am [facility] Work Phone: 1(197) 492-430001-30-2025 Evaluation note* Diagnosis Onset Date Resolution Status Admit Date Lumbar radiculopathy acuteJanuary 2024 9:43amPerineural cystsacuteJanuary 2024 9:43am SacroiliitisacuteJanuary 2024 9:43amFractured coccyxacuteFebruary 2024 5:14pm [facility] Work Phone: 1(237) 608-625401-30-2025 Evaluation note* Diagnosis Onset Date Resolution Status Admit Date Lumbar radiculopathy acuteJanuary 2024 9:43amPerineural cystsacuteJanuary 2024 9:43am SacroiliitisacuteJanuary 2024 9:43amFractured coccyxacuteFebruary 2024 5:14pmFractured coccyxacuteMarch 2024 1:19pmLumbar radiculopathyacute January 22, 2025 1:19pmPerineural cystsacuteMarch 2024 1:19pm [facility] Work Phone: 1(556) 725-647001-06-2024 Evaluation note* Encounter Date Diagnosis Assessment Notes [...] no improvement in 2 to 3 days [employer] Other 07-18-2023 Evaluation note* Encounter Date Diagnosis [...] understanding and is agreeable with treatment plan [employer] Other Evaluation noteNo assessment information available [facility] Work Phone: Evaluation note* Diagnosis Encounter for consultation Menorrhagia with irregular cycle Dysmenorrhea PMS (premenstrual syndrome) Premenstrual tension syndromes Menorrhagia with regular cycle documented in this encounter [facility] HealthcareEvaluation note* Diagnosis Pre-operative exam Unspecified pre-operative examination Menorrhagia with irregular cycle Abnormal uterine bleeding Unspecified disorder of menstruation and other abnormal bleeding from female genital tract Pelvic pain in female Unspecified symptom associated with female genital organs documented in this encounter [facility] HealthcareEvaluation note* Diagnosis Abnormal uterine bleeding Unspecified disorder of menstruation and other abnormal bleeding from female genital tract UTI symptoms documented in this encounter [facility] HealthcareEvaluation note* Diagnosis Pre-op examination Menorrhagia with regular cycle Abnormal uterine bleeding (AUB) Pelvic pain Request for sterilization documented in this encounter [facility] CenterReason for referral (narrative)No reason for referral information availableTrihealth [facility] Work Phone: Summary Purpose Family History No [...] section and content) DATE CREATED AUTHOR 05/10/2018 [facility] DATE CREATED AUTHOR AUTHOR'S ORGANIZ ATION 12/11/2019 [facility] DATE CREATED AUTHOR AUTHOR'S ORGANIZ ATION 02/19/2022 [facility] DATE CREATED AUTHOR AUTHOR'S ORGANIZ ATION 12/28/2024 [facility] DATE CREATED AUTHOR AUTHOR'S ORGANIZ ATION 12/28/2024 [facility] DATE CREATED AUTHOR AUTHOR'S ORGANIZ ATION 12/29/2024 [facility] DATE CREATED AUTHOR AUTHOR'S ORGANIZ ATION 04/28/2025 [facility] DATE CREATED AUTHOR AUTHOR'S ORGANIZ ATION 06/13/2025 [facility] DATE CREATED AUTHOR AUTHOR'S ORGANIZ ATION 09/06/[address] [facility] EPIC REASON FOR VISIT (unrecogniz [...] January 22, 2025Team MemberRelationshipSpecialtyStart DateEnd Date Unallocated, Sheelas MD Mumtaz [address] [place] [address] [facility]06/15/23Team MemberRelationshipSpecialtyStart DateEnd Date Unallocated, Rafael Pandya MD [address] [place] [address] [facility]06/15/23 Team Status: Inactive Member Role Status Dates Juanito Alanis DO Attending Provider Active Start : February 04, 2025 End: February 04, 2025 Team Status: Inactive Member Role Status Dates Juanito Alanis DO Attending Provider Active Start : February 11, 2025 End: February 11, 2025Team MemberRelationshipSpecialtyStart DateEnd Date Unallocated, Rafael Pandya MD [address] [place] [address] [facility]06/15/23 Team Status: Inactive Member Role Status Dates Connie Cosby APRN TRUCK SERVICE MANAGER-C Attending Provider Active Start: June 11, 2025 End: June 11, 2025NON STAFFPrimary Care ProviderActiveStart: June 11, 2025 End: June 11, 2025 Team Status: Inactive Member Role Status Dates Connie Cosby APRN TRUCK SERVICE MANAGERSobiaC Attending Provider Active Start: June 11, 2025 End: June 11, 2025Team MemberRelationshipSpecialtyStart DateEnd Date Unallocated, Noms MD Mumtaz [address] [place] [address] PCP [facility]06/15/23Team MemberRelationshipSpecialtyStart DateEnd Date Unallocated, Noms MD Mumtaz [address] [place] [address] [facility]06/15/23Te MemberRelationshipSpecialtyStart DateEnd Date Unallocated, Noms MD Mumtaz [address] [place] [address] [facility]06/15/23 Goals (unrecognized section and content) Goals [...] BE BASED ON THE PRIMARY CLINICAL RECORDS. [facility] [employer] [facility]. provides no warranty or guarantee of the accuracy or completeness of information in this document.
--- OUTSIDE RECORDS SUMMARY | 2025-09-20 08:04 | XMS_ITS | Clinical Summary ---
Author Organization [facility] Address [id number] [place] [address] Care Team Providers Care Rabies Inspector Name Role Phone No Pcp, No Pcp Primary Care Provider Unavailabl e Allergies Active AllergyReactionsCriticalityNoted GfmnUtwkihozWzkmgbgnrVwsbn32/12/2025 Medications MedicationSigDispense QuantityRefillsLast FilledStart DateEnd DateStatus azithromycin [...] Additional Information Patient not taking.Reported on 12/26/2024 fcjqtrpo-pwxq-SP-calcium &mins (THERAGRAN-M) 9 mg iron-400 mcg tablet Take 1 tablet by mouth in the morning.Active Active Problems ProblemNoted DateDiagnosed DateUrinary vxphbruon19/12/2025 Overview (12/26/2024): ====12/26/24==== Over 8 months of bilateral flank pain, frequency, urgency, urge incontinence, dysuria, and pelvic pain. Recent CT negative. UA dipped for blood. We will send today's specimen for microscopic exam. She agrees to cystoscopy/[facility] instillation. She is requesting anesthesia. Assessment & Plan (12/26/2024 3:20 PM EST): I will notify her of the UA results through [employer]. I explained the cystoscopy in detail, including the potential risks. I explained that we may not find the source of her pain with this testing. She will follow-up as scheduled with gynecology. Pneumonia of left lower lobe due to infectious ncllaprf12/03/2019Chest pain 12/15/2018 Encounters DateTypeDepartmentCare FhqaOqizyuuwdps22/30/2025Telephone [facility] [address] [place] [phone] Merline Sánchez PA from Last 3 Months Family History Medical HistoryRelationNameCommentsHeart diseaseFatherBreast cancerMaternal Aunt RelationNameStatusCommentsFatherDeceasedMaternal AuntMotherAlive Social History Tobacco UseTypesPacks/DayYears UsedDateSmoking Tobacco: NeverSmokeless Tobacco: Never Tobacco Cessation:Counseling Given: Not Answered Alcohol UseStandard Drinks/WeekCommentsNo0 (1 standard drink = 0.6 oz pure alcohol)AUDIT-CAnswerDate RecordedFrequency of Alcohol ConsumptionNever 12/15/2018Average Number of DrinksNot on file12/15/2018Frequency of Binge DrinkingNot on file12/15/2018ChildcareAnswerDate RecordedChildcareUnknown 04/25/2019EmploymentAnswerDate UitltospZradauvmoxFovlopi69/12/2019Hunger ScreeningAnswerDate RecordedWithin the past 12 months we worried whether our food would run out before we got money to buy more.Never True12/26/2024Within the past 12 months the food we bought just didn't last and we didn't have money to get more.Never True12/26/2024Purpose - LifeAnswerDate RecordedPurpose and direction in pnmuGdjxqjq12/11/2021CommentsNoSex and Gender Information ValueDate RecordedSex Assigned at LuqobKyalhz96/31/2023 4:33 PM EDTLegal Sex Lbfevd6606/19/2015 11:37 AM EDTGender XtgizcisQotidm91/31/2023 4:33 PM EDTSexual OrientationNot on file Last Filed Vital Signs Vital SignReadingTime TakenCommentsBlood Xsbqyzgc452/78012/26/2024 2:42 PM EST Ssahq282312/26/2024 2:42 PM VRHVysobbgbmei86.9 ??C (98.4 ??F)06/16/2023 9:14 AM EDTRespiratory Osro329006/16/2023 11:30 AM EDTOxygen Asjpaxztwr61%06/16/2023 11:30 AM EDTInhaled Oxygen Concentration--Pzrwsu87 kg (139 lb)12/26/2024 2:42 PM EST Qelbni161 cm (5' 3 )12/26/2024 2:42 PM ESTBody Mass Index24.62012/26/2024 2:42 PM EST Plan of Treatment DateTypeDepartmentCare Team (Latest Contact Info)Znuawiscuug43/10/2025 1:30 PM ESTOffice Visit [facility] [address] [place] [address] [place] [address] [address] [place] [address] Merline Sánchez I, PA [address] [place] [address] Health MaintenanceDue DateLast DoneCommentsDepression Lqjcyfmte77/19/1991Pap Smear01/31/2000DTaP,Tdap and Td Vaccines (2 - Td or Tdap) Influenza Nfpbglh2207/15/2025dult BMI Qabtpchkv20Tobacco Gwkgqhygp28 Medical Devices Not on file Insurance Advance Directives * Full Code (Latest Code Status on File) Date ActivatedDate InactivatedComments12/15/2018 3:06 12/17/2018 10:15 PM Care Teams Team MemberRelationshipSpecialtyStart DateEnd Date No Pcp, [place] [id number] PCP - GeneralFamily Medicine12/15/18
--- OUTSIDE RECORDS SUMMARY | 2025-09-20 08:04 | XMS_ITS | Clinical Summary ---
Author Organization [facility] Address [address] [place] [address] Care Team Providers Care Shoemaker Apprentice Name Role Phone Unavailable Primary Care Provider [...] drink = 0.6 oz pure alcohol)PHQ-2AnswerDate RecordedPHQ-2 Aipig558 CommentsNoSex and Gender InformationValueDate RecordedSex Assigned at BirthNot on fileLegal IatWvbrre64/26/2020 1:13 PM ESTGender IdentityNot on fileSexual OrientationNot on file Last Filed Vital Signs Vital SignReadingTime TakenCommentsBlood Eqiwmcmq163/8112/09/2019 2:30 PM EST Ugegv143812/09/2019 6:00 PM EUREtduvavubtn07.3 ??C (97.3 ??F)12/09/2019 1:14 PM ESTRespiratory Jbkd633712/09/2019 6:00 PM ESTOxygen Roqngfqivm76%12/09/2019 6:00 PM ESTInhaled Oxygen Concentration--Hllkoo99.1 kg (128 lb)12/09/2019 1:14 PM EST Xemwcr519 cm (5' 3 )12/09/2019 1:14 PM ESTBody Mass Index22.67012/09/2019 1:14 PM EST Plan of Treatment [place] [address]
--- OUTSIDE RECORDS SUMMARY | 2025-09-20 08:04 | XMS_ITS | Patient Health Record ---
Author Organization [facility] Address [address] [place], [place] [id number] Care Team Providers Care Lard Bleacher Name Role Phone Carolina Singh Primary Care Provider Lani Fernandez Unavailable [phone] Allergies No Known Allergies Results Component Value Reference Range Notes LIPID PANEL WITH REFLEX TO D IRECT LDL Reviewed date:10/17/2024 10:31:29 PM Interpretation: Performing Lab: Notes/Report: CHOLESTEROL 180 100-199 mg/dL USTJBGZHBRGJC0385-268 mg/dL VLDL-CHOL, CALCULATED 11<30 mg/dLHDL-CHOL62>=50 mg/dL LDL-CHOL, [...] Reviewed date:10/18/2024 04:55:36 AM Interpretation: Performing Lab: Notes/Report:STANHND8456-010 mg/dL Falsely decreased glucose results may be caused by prolonged contact with red cells when collected in corvac tubes. VRF612-69 mg/qXLOIFZEY25.38.6-10.5 mg/dL CREATININE, BLOOD 0.810.51-1.15 mg/dL eGFR (2020 CKD-EPI)91>59 mL/min/1.27j1AYUIFB103986-494 mmol/LPOTASSIUM4.23.5-5.4 mmol/GADSVQVMW3411-074 mmol/ITA99065-47 mmol/LANION YCA682-43 mmol/LT. BILIRUBIN 0.9<1.3 mg/dLALK DATU3209-043 U/KPQM-BHTO900-96 U/GUEX-ABAR559-41 U/LT. PROTEIN 7.46.0-8.3 g/dLALBUMIN5.03.5-5.2 g/dLCBC W/AUTO DIFF Reviewed date:10/17/2024 01:14:34 PM Interpretation: Performing Lab: Notes/Report:WBC9.43.6-11.0 THDS/CMMRBC4.973.80-5.20 MILL/XOSPOK80.111.9-16.0 G/DLHCT45.435-47 %IRW3451-596 fLMCH30.426.0-33.0 bdZIVZ37.332.0-35.0 g/dlRDW11.7 11.2-14.8 %YYSDRGJA617097-501 THOUS/PSHPDYAIMZGOKQ85.845-75 %EOWUFHSWXET39.220- 45 %MONOCYTES7.30-13 %EOSINOPHILS0.70-5 %BASOPHILS0.70-2 %IMMATURE GRAN0.30-2 % ABS NEUTROPHILS5.161.9-8.0 K/uLABS LYMPHOCYTES3.420.9-5.2 K/uLABS MONOCYTES0.69 0.1-1.0 K/uLABS EOSINOPHILS0.070.0-0.80 K/uLABS BASOPHILS0.070.0-0.2 K/uLABS IMMATURE GRAN0.030.00-0.06 K/uL UNLESS OTHERWISE INDICATED, ALL TESTING PERFORMED AT: [facility] [address] [place] [id number] [employer] PATROL LIEUTENANT: NATHAN MACIAS M.D. CLIA NUMBER [id number] CAP ACCREDITATION AUID [id number] Changes in testing location may be associated with reference range changes for a number of analytes. Please review reference intervals carefully. URINE PREG Reviewed date:10/15/2024 03:20:44 PM Interpretation: Performing Lab: Notes/Report: URINE PREGnegativeURINE CULTURE Reviewed date:10/18/2024 04:55:02 AM Interpretation: Performing Lab: Notes/Report:URINE CULTURE CULTURE/SENS,URINE REPORT STATUS: FINAL SOURCE: URINE CULTURE: NO GROWTH Urine Dip Reviewed date:10/15/2024 03:13:57 PM Interpretation: Performing Lab: Notes/Report: Bilirubin-Occult Blood1+Jhvhfwp-Phxfzwm-VCK+Nitrite-Ph6.5Protein-Specific Gravity1.015ColoryellowAppearanceclearURINALYSIS WITH MICROSCOPIC EXAM Reviewed date:10/18/2024 04:55:24 AM Interpretation: Performing Lab: Notes/Report: UNLESS OTHERWISE INDICATED, ALL TESTING PERFORMED AT: [facility] [address] [place] [address] POLICE PATROL LIEUTENANT: NATHAN MACIAS M.D. CLIA NUMBER [id number] CAP ACCREDITATION AUID [id number] Changes in testing location may be associated with reference range changes for a number of analytes. Please review reference intervals carefully.PH7.0 5.0-8.0SP GRAVITY1.0201.005-1.030APPEARANCECLEARCLEARCOLORYELLOWYELLOWPROTEIN NEGATIVENEGATIVEGLUCOSENEGATIVENEGATIVEKETONESNEGATIVENEGATIVEBILIRUBINNEGATIVE NEGATIVEOCCULT BLOODTRACENEGATIVELEUKO ESTER1+NEGATIVENITRITENEGATIVENEGATIVE UROBILINOGEN<2<2 mg/dLWBC0-50-5 LWIZVS96-031-8 HPFEPI CELL0-2NONE HPFBACTERIA TRACENONEHYALINE CASTSNONENONE LPFCologuard Reviewed date:12/25/2024 10:40:05 AM Interpretation: Performing Lab: Notes/Report: CT ABDOMEN& PELVIS WO&W Reviewed date:11/01/2024 10:46:24 PM Interpretation: Performing Lab: Notes/Report: RESULTS BELOW STUDY: CT OF THE ABDOMEN AND PELVIS WITH AND WITHOUT CONTRASTMAMM SCREENING BILATERAL W CAD Reviewed date:12/27/2024 10:20:15 AM Interpretation: Performing Lab: Notes/Report: RESULTS BELOW ORACIO GONG 1980 Reason For Referral Reason Referring for evalua tion for 8 month hx of bilateral flank pain, incomplete emptying of bladder, urinary frequency. urine dip in office showed +1 hgb, neg leuks. Has CT abd/pelvis scheduled 10/29/24. Thanks Diagnosis 1 Incomplete emptying of bladder (R33.9) Referral Organization [facility] Referring Provider First Name Lani Referring Provider Last Name [facility] Referring Provider Speciality Nurse Prac annette Referred Provider [facility] Referred Provider Specialty Urology General Notes Gemini Corado 03/26/2025 01:02:39 PM >noteds received and put in chart Referral Priority Routine Referral Appointment Date 12/26/2024 Reason Referring for evalua tion of sacral Tarlov cyst. 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 Please change name to Mahesh Seymour and refax. 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 Stress is when someone feels tense, nervous, anxious, or can't sleep at nightbecause their mind is troubledA little bitpatient entered dataIn the past year have you spent more than 2 nights in a row in a long term, longterm, usp center, orjuvenile correctional facility?Nopatient entered dataAre you [...] Status Risk Notes Problem Hypertrophy of tonsils (93458580) Enlarge d tonsils (J35.1) ActiveconfirmedProblemMild major depression (80571090)Mild major depression (F32.0)Activeconfirmed Vital Signs Heart Rate 80 /min 12/10/2024 David Rushing 12/10/2024 04:09:22 PM EST > Temperature 97.5 degrees Fahrenheit 12/10/2024 Trenton Obregon 12/10/2024 04:09:22 PM EST > Respiratory Rate 18 /min 12/10/2024 Zonia Rushingando 12/10/2024 04:09:22 PM EST > Blood pressure diastolic 78 mm Hg 12/10/2024 Trenton Dover 12/10/2024 04:09:22 PM EST > Oximetry 100 % 12/10/2024 David Rushing 12/10/2024 04:09:22 PM EST > Height-cm 158.75 cm 12/10/2024 David Rushing 12/10/2024 04:09:22 PM EST > Weight-kg 63.96 kg 12/10/2024 Rushing, David vando 12/10/2024 04:09:22 PM EST > Height 62.50 in 12/10/2024 Сергей, David vando 12/10/2024 04:09:22 PM EST > Blood pressure systolic 109 mm Hg 12/10/2024 Zonia Obregonando 12/10/2024 04:09:22 PM EST > Weight 141 lbs 12/10/2024 Сергей, David vando 12/10/2024 04:09:22 PM EST > BMI 25.38 kg/m2 12/10/2024 Сергей, David vando 12/10/2024 04:09:22 PM EST > Encounters Encounter Location Date Provider Diagnosis [facility] [address] [place] , [place] [id number] 10/15/2024 Lani Fernandez Dysuria R30.0 ; Flan k pain R10.9 and Screening for heart disease Z13.6 [facility] [address] [facility] [place] [id number] 12/10/2024 [facility] examination Z00.00 ; Screening mammogram for breast cancer Z12.31 ; Screening for colon cancer Z12.11 ; Enlarged tonsils J35.1 ; Overweight E66.3 ; Body mass index [BMI] 25.0-25.9, adult Z68.25 ; Mild major depression F32.0 and Positive depression screening Z13.31 [address] [place] , [place] [id number] 10/18/2024 Lani Fernandez Incomplete emptying of bladder R33.9 [address] [place], [place] [id number] 10/24/2024 Lani Rebecca [id number] [place], [place] [address]/19/2024licia MonishaingerTarlov cyst G96.191 and Enlarged tonsils J35.9Jnuc[address] [place], [place] [id number] 12/11/2024[facility] Assessments Encounter Date Diagnosis (ICD Code) Assessment [...] breast cancer (ICD-10 - Z12.31)Pt due for fkkjucwku53/27/2025Screening for colon cancer (ICD-10 - Z12.11)Pt agreeable for laith Cox family hx of Colon Wjsplf9910/15/2024Screening for heart disease (ICD-10 - Z13.6)12/10/2024Enlarged tonsils [...] Insured Coverage Start Date Coverage End Date [facility] [address] [address] [place] [id number] 3 Oracio Gong Self - patient is the insured 3 Medical (General) History Surgical History Surgery Date(Month/Year) appendix 2020
--- OUTSIDE RECORDS SUMMARY | 2025-09-20 08:04 | XMS_ITS | Clinical Summary ---
Author Organization [facility] Address [address] [place] [address] Care Team Providers Care Expanded Function Dental Assistant Name Role Phone Unallocated, Noms Provider Primary Care Provi laura Allergies Active AllergyReactionsCriticalityNoted QloxClgetxluYkjdgmrhfHxglq47/18/2025 Medications MedicationSigDispense QuantityRefillsLast FilledStart DateEnd DateStatus medroxyPROGESTERone (Depo-Provera) 150 MG/ML injection Inject 150 mg into the shoulder, thigh, or buttocks every 3 (three) monthsActive Encounters DateTypeDepartmentCare UegxTrddjwzjanp78/29/2025b[place] [address] Juanito Alanis DO 09/04/2025 3:00 PM EDTAncillary [place] [address] Menorrhagia with irregular cycle; Dysmenorrhea; PMS (premenstrual syndrome); Menorrhagia with regular cycle08/27/2025 1:30 [place] [address] Juanito Alanis DO Pre-op examination; Menorrhagia with regular cycle; Abnormal uterine bleeding (AUB); Pelvic pain; Request for nisjgzeoilnxw47/14/2025amboo [place] [phone] Juanito Alanis DO 5Abstract [facility] [place] [address] [place] [place] [address] Mcguire, Tess, [place] 07/29/2025 3:30 PM EDTConsult [facility] [address] [place] [place] [address] Juanito Alanis DO Abnormal uterine bleeding; UTI npujxati63/15/2025amboo flowsheet [facility] [address] [place] [address] Juanito Alanis DO from Last 3 Months Family History Medical HistoryRelationNameCommentsDiabetesFatherHeart diseaseFatherHypertension FatherCOPDMotherHeart diseaseMotherHypertensionMotherRelationNameStatusComments FatherDeceasedMotherAlive Social History Tobacco UseTypesPacks/DayYears UsedDateSmoking Tobacco: FormerCigarettes Smokeless Tobacco: Never Tobacco Cessation:Counseling Given: Not Answered Alcohol UseStandard Drinks/WeekCommentsNot Currently0 (1 standard drink = 0.6 oz pure alcohol)CommentsNoSex and Gender InformationValueDate RecordedSex Assigned at BirthNot on fileLegal MmmXxttgo90/15/2023 11:47 PM EDTGender IdentityNot on fileSexual OrientationNot on file Last Filed Vital Signs Vital SignReadingTime TakenCommentsBlood Oqftmcml402/76007/29/2025 3:45 PM EDT Pulse--Temperature--Respiratory Rate--Oxygen Saturation--Inhaled Oxygen Concentration--Kfgfzj78.8 kg (142 lb 12.8 oz)07/29/2025 3:45 PM PKWCqyjhh072 cm (5' 3 )06/15/2023 12:53 PM EDTBody Mass Index25. 12:53 PM EDT Plan of Treatment DateTypeDepartmentCare Team (Latest Contact Info)Hofractxcnh52/13/2025 3:30 PM ESTOffice Visit [facility] [address] [place] [address] Shameka Segura, JAYA [address] [place] [address] [place] [address] Health MaintenanceDue DateLast DoneCommentsCT Exxvgrjkqnmh1979Colonoscopy 1979Colorectal Cancer Habwvxuho1979FIT-DNA1979FIT1979 FOBT1979 9228Aqlvcioxejyke1979COVID-19 Vaccine ( season) 2025Influenza Vaccine (#1)07/15/20257867Iwiupuhoa36, 07/08/2023, 11/06/2019, Additional history existsCervical Cancer Screening 01/17/2026HPV/Btmktv8001/17/2026Pap SmearPneumococcal Vaccine: Pediatrics (0 to 5 Years) and At-Risk Patients (6 to 64 Years)Aged OutNo longer eligible based on patient's age to complete this topic Procedures Procedure NamePriorityDate/TimeAssociated DiagnosisCommentsUS PELVIC COMPLETE W/ PZIuhrvob86/22/2025 3:27 PM EDT Menorrhagia with irregular cycle Dysmenorrhea PMS (premenstrual syndrome) Menorrhagia with regular cycle POCT URINALYSIS FJDZJBXSUkzzmhu08/15/2025 3:52 PM EDT Abnormal uterine bleeding UTI symptoms PAP ZQYASJuvegoo38/06/2025 12:00 AM ESTfrom Last 3 Months or Most Recently Relevant to Health Maintenance Results * US Pelvis w/ TV (09/04/2025 3:27 PM EDT)Anatomical RegionLateralityModality PelvisUltrasoundSpecimen (Source)Anatomical Location / LateralityCollection Method / VolumeCollection TimeReceived Time09/04/2025 3:34 PM EDT Impressions 09/05/2025 6:52 AM EDT Normal pelvic ultrasound appearance TRANSCRIBED BY: ? ELECTRONICALLY SIGNED BY: Glenn Florian MD Narrative 09/05/2025 6:52 AM EDT FINDINGS: Uterus ? 6.7 x 3.0 x 4.2 cm Endometrium ?3 mm Right ovary ? 2.3 x 1.7 x 1.4 cm Left ovary ? 1.7 x 0.9 x 1.4 cm The uterus is normal in size and orientation. ??No worrisome mass lesions are seen. ??Endometrium appears unremarkable. ??No fluid is seen within the cul-de-sac. ??Both ovaries appear normal for thisage. Procedure Note Glenn Florian MD - 09/05/2025 FINDINGS: Uterus 6.7 x 3.0 x 4.2 cm Endometrium 3 mm Right ovary 2.3 x 1.7 x 1.4 cm Left ovary 1.7 x 0.9 x 1.4 cm The uterus is normal in size and orientation. No worrisome mass lesionsare seen. Endometrium appears unremarkable. No fluid is seen within ggxjva-yc-ypz. Both ovaries appear normal for this age. IMPRESSION: Normal pelvic ultrasound appearance TRANSCRIBED BY: ELECTRONICALLY SIGNED BY: Glenn Florian MD Authorizing ProviderResult TypeResult StatusCorey ZekeKindred Hospital Northeast US PROCEDURESFinal Result * (ABNORMAL) POCT urinalysis dipstick manually resulted [...] Location / LateralityCollection Method / VolumeCollection TimeReceived HtfrHespa35/15/2025 3:52 PM EDT Narrative Authorizing ProviderResult TypeResult [...] Team MemberRelationshipSpecialtyStart DateEnd Date Unallocated, Noms MD Mumtaz [address] [place], [place] [id number] PCP - [facility]06/15/23
--- OUTSIDE RECORDS SUMMARY | 2025-09-20 08:05 | XMS_ITS | Encounter Summary ---
Author Organization [facility] Address [address] [place] [place] [address] Care Team Providers Care Wealth Management Director Name Role Phone Unallocated, Noms Provider Primary Care Provi laura Encounter Details DateTypeDepartmentCare Team (Latest Contact Info)Cbdwcdbxhuo34/29/2025bstract [facility] [address] [place] [address] Juanito Alanis DO [address] Evangelista [place], [facility] Social History Tobacco UseTypesPacks/DayYears UsedDateSmoking Tobacco: FormerCigarettes Smokeless Tobacco: NeverAlcohol UseStandard Drinks/WeekCommentsNot Currently0 (1 standard drink = 0.6 oz pure alcohol)CommentsNoSex and Gender InformationValueDate RecordedSex Assigned at BirthNot on fileLegal SexFemale 01/26/2023 11:47 PM EDTGender IdentityNot on fileSexual OrientationNot on file documented as of this encounter Plan of Treatment DateTypeDepartmentCare Team (Latest Contact Info)Qnxfhyajokx20/13/2025 3:30 PM ESTOffice Visit RAFAEL [facility] [address] [place] [address] Shameka Segura, JAYA [address] [place] [address] documented as of this encounter Visit Diagnoses Not on filedocumented in this encounter Care Teams Team MemberRelationshipSpecialtyStart DateEnd Date Unallocated, Noms Provider, [place] [address] PCP - General06/15/23documented as of this encounter
--- OUTSIDE RECORDS SUMMARY | 2025-09-20 08:05 | XMS_ITS | Encounter Summary ---
Author Organization [facility] Address [id number] [place] [address] Care Team Providers Care Business Development Executive Name Role Phone No Pcp, No Pcp Primary Care Provider Unavailabl e Encounter Details DateTypeDepartmentCare Team (Latest Contact Info)Djtztvbofcz07/30/2025Telephone [facility] [place] [phone] Ifeoma Sánchez PA [address] [place] [address] Social History Tobacco UseTypesPacks/DayYears UsedDateSmoking Tobacco: NeverSmokeless Tobacco: NeverAlcohol UseStandard Drinks/WeekCommentsNo0 (1 standard drink = 0.6 oz pure alcohol)AUDIT-CAnswerDate RecordedFrequency of Alcohol ConsumptionNever 12/15/2018Average Number of DrinksNot on file12/15/2018Frequency of Binge DrinkingNot on file12/15/2018ChildcareAnswerDate RecordedChildcareUnknown 04/25/2019EmploymentAnswerDate DiewsvqmNmmvnobtuxCvsuekk12/12/2019Hunger ScreeningAnswerDate RecordedWithin the past 12 months we worried whether our food would run out before we got money to buy more.Never True12/26/2024Within the past 12 months the food we bought just didn't last and we didn't have money to get more.Never True12/26/2024Purpose - LifeAnswerDate RecordedPurpose and direction in nzoaHnouadu34/11/2021CommentsNoSex and Gender Information ValueDate RecordedSex Assigned at UbgmfJcnubu01/31/2023 4:33 PM EDTLegal Sex Klxhby8006/19/2015 11:37 AM EDTGender LatbvrkzNalekn70/31/2023 4:33 PM EDTSexual OrientationNot on filedocumented as of this encounter Miscellaneous Notes * Telephone Encounter - MIGUELITO Milner - 09/12/2025 3:04 PM EDT It looks like patient has reached out about scheduling an ultrasound? I saw her in [place] in Dec and she was going to schedule cystoscopy/[facility]. She did not schedule so we sent a certified letter. Does she want to schedule the cystoscopy now? Since it has been since Dec, does she want an appointment to discuss further? I did not order an ultrasound. * Telephone Encounter - Slime Mcghee LPN - 09/12/2025 3:04 PM EDT Taina Rick contacted the Pt. To see if she was interested in scheduling the cystoscopy/[facility] procedureand she stated she is now interested in getting this scheduled but would appreciate the office visit with you to discuss everything first prior to scheduling the procedure. She will schedule with Mckayla Hughes, Will you please contact Cookie and schedule her with Ifeoma for a follow up to discuss procedurewith Dr Shahla MD. Thank you. Slime * Telephone Encounter - Ellen Snyder - 09/12/2025 3:04 PM EDT Called pt scheduled appt with ifeoma 10-23-2025 in [place] . documented in this encounter Plan of Treatment DateTypeDepartmentCare Team (Latest Contact Info)Vfgtizecrwq62/10/2025 1:30 PM ESTOffice Visit [facility] [address] [place] [address] [place] [address] Ifeoma Sánchez I, PA [facility] [place] [address] documented as of this encounter Visit Diagnoses Not on filedocumented in this encounter Care Teams Team MemberRelationshipSpecialtyStart DateEnd Date No Pcp, [place] [address] PCP - [facility] Medicine12/15/18documented as of this encounter
[2025-09-20 08:14] LABS: Hematocrit 46.5 % (36.0-48.0); Hemoglobin 15.8 g/dL (12.0-16.0); Immature Granulocytes Abs Auto 0.03 10^3/uL (0.00-0.03); Immature Granulocytes Pct Auto 0.4 % (0.0-0.5); Lymphocytes Absolute Auto 2.7 10^3/uL (1.2-3.8); Mean Corpuscular HGB Conc 34.0 g/dL (29.9-35.2); Mean Corpuscular Hemoglobin 30.7 pg (26.7-34.0); Mean Corpuscular Volume 90.3 fL (81.0-99.0); Platelet Count 282 10^3/uL (150-450); Red Blood Count 5.15 10^6/uL (4.20-5.40); White Blood Count 8.1 10^3/uL (4.0-11.0)
--- NOTE | 2025-09-20 12:09 | P.ON_ITS ---
Brief Operative Note Date of procedure: 09/20/25 Pre-op diagnosis general: desires permanent sterilization, menorrhagia Post-op diagnosis: same as pre-op Procedure: NAME OF PROCEDURE: robotic assisted Laparoscopic bilateral salpingectomy, with Irene endometrial ablation with hysteroscopy PROCEDURE: The patient was taken back to the OR where she was prepped and draped in the normal sterile fashion after being placed in the dorsal lithotomy position, after being placed under general anesthesia without difficulty. a weighted speculum was then placed into the vagina. Pap and endometrial bx were performed without difficultyThe anterior lip was grasped with a single tooth tenaculum. The patient was then sounded to approximatley 9cm. The patient was gently sounded using Hegar dilators and the hysteroscope was passed through the cervix into the uterus where both ostia were seen. No gross evidence of polyps, fibroids or malignancy. The cervical length was noted to be 4cm. The Irene ablation apparatus was set to approximately 5cm in length. This was placed in through the cervix and into the uterus. After the seal was tested, at that time the total ablation of 120 seconds was performed with the Irene without difficulty. All instruments were removed from the vagina. A wet sponge stick was placed into the patient's vagina. Attention was then turned to the patient's abdomen, where a scalpel was used to make a small infraumbilical incision. The S retractors were then used to dissect the underlying layers until the fascia could be seen. The fascia was then grasped with Cathie clamps and tented up. A knife was then used to make a small incision to the fascia. The muscle was identified, at that time two sutures of #0 Vicryl on a GI needlewas then used and placed through the fascia. The peritoneum was then identified and entered bluntly. The 10-4 Jag was then placed into the patient's abdomen. This was confirmed with direct visualization of the bowel, using the laparoscope. The patient's abdomen was then insufflated using approximately 4 liters of CO2 gas. Survey of the patient's abdomen demonstrated normal appearing ovaries, uterus and tubes. A second and third lateral robotic ports, which was 8mm in size, was then placed laterally after incision was made in the skin under direct visualization. the robotic arms were engaged. The patient's tube on the patient's right side was identified. The tube was then tented up using a grasper. The ligasure was used to transect and coagulate the mesosalpingx from the fimbriated end to the insertion at the uterus, the tube was amputated and removed in its entirety.? Excellent hemostasis was noted. ?This was performed on the contralateral sideas well. The lateral ports were then moved under direct visualization with excellent hemostasis. The abdomen was deinsufflated. All instruments were removed from the patient's abdomen. The fascia was closed using the #0 Vicryl on GI needle. The skin was closed using 4- 0 Vicryl subcuticularly. All instruments were removed from the patient's vagina as well. The patient was taken out of the dorsal lithotomy position and placed in the supine position and taken to recovery in stable condition. Sponge, lap and needle counts were correct x2. ??? Anesthesia: LEO Surgeon: Juanito Alanis Assistant Front Office Manager: Viviana Daugherty Estimated blood loss (mL): 5 Pathology: none sent Condition: stable Disposition: PACU Urinary Catheter Management Urinary Catheter Management Urethral: Cath placed during this visit: no
--- NOTE | 2025-09-20 13:21 | PC.NURSE ---
Addendum entered by Nannette Hill 09/20/25 13:24: 1308 noted as time the note was completed. Original Note: 138: pt resting comfortably with audible snores,pt awakened by investigative writer to complete assessment. pt shakes head yes to having pain,when asked on a pain scale of 0-10 what her pain is pt does not answer and falls back to sleep.
[2025-09-20] MEDS: HYDROCODONE/ACET 5-325 MG TABLET 1 TAB PO (14:39)
== END 2025-09-20 16:10 | disposition home or self-care (01) ==
LOC: SURGOUT 08:00
PROVIDERS: Visit Provider Obstetrics & Gynecology
PROC: (CPT 00840; principal; 2025-09-20 09:40)
PROC: (CPT 00840; 2025-09-20 09:40)
DX: Z30.2 Encounter for sterilization (principal); N92.0 Excessive and frequent menstruation with regular cycle; N93.9 Abnormal uterine and vaginal bleeding, unspecified; D28.2 Benign neoplasm of uterine tubes and ligaments; Z90.49 Acquired absence of other specified parts of digestive tract; Z87.891 Personal history of nicotine dependence; J45.909 Unspecified asthma, uncomplicated; R06.09 Other forms of dyspnea; R06.02 Shortness of breath; I25.10 Atherosclerotic heart disease of native coronary artery without angina pectoris; K21.9 Gastro-esophageal reflux disease without esophagitis; Z87.442 Personal history of urinary calculi
CPT/HCPCS: 00840; 00952; 58563; 58661; 36415; 84702; 85025; 88305; 88341; 88342; J0131; J1100; J1171; J1453; J2250; J2371; J2405; J2704; J3010

== ENCOUNTER 2025-11-04 10:03 | Outpatient (OUT) | payer OTHER, SELFPAY ==
--- OUTSIDE RECORDS SUMMARY | 2024-10-15 12:15 | XMS_ITS ---
Author Organization [facility] vices Address [address] [place] [id number] Care Team Providers Care Cloth Handler Name Role Phone Carolina Singh Primary Care Provider [phone] Lani Fernandez Unavailable [phone] REASON FOR VISIT Possible kidney issues Social History Sex Assigned At : Social History Observation Description Sex Assigned At Female Encounters Encounter Location Date Provider Diagnosis Main [address] [place] [id number] 10/15/2024 Lani Fernandez Plan Of Treatment No Information Progress Notes * Cookie JOLLEY SDOB: [birth year] (45 yo F)Acc No.[id number]:10/15/2024 Medical Note Patient: Kyrie Begumannjack Dean :?Lani Fernandez CNPDOB:1980???Age:44 Y ???Sex:FemaleDate:10/15/2024hone:[phone]:[address] [id number]:Carolina Singh Subjective: * Chief Complaints: * P ossible kidney issues * Electronic signature of Lani Fernandez CNP on 11/04/2025 at 10:08 AM ESTSign off status: Pending * Provider: Satya Fernandez CNP Date: 12/16/2023 Generated for Printing/Faxing/eTransmitting on:?11/04/2025 10:08 AM EST
--- OUTSIDE RECORDS SUMMARY | 2025-11-04 10:08 | XMS_ITS | Patient Health Record ---
Author Organization [facility] Address [address] [place], [place] [id number] Care Team Providers Care Email Specialist Name Role Phone FranciscoLeona diassa Primary Care Provider Allergies No Known Allergies Results Component Value Reference Range Notes Cologjaden Reviewed date:12/25/2024 10:40:05 AM Interpretation: Performing Lab: Notes/Report: MAMM SCREENING BILATERAL W C AD Reviewed date:12/27/2024 10:20:15 AM Interpretation: Performing Lab: Notes/Report: RESULTS BELOW ORACIO SUE SHOLA 1980 Reason For Referral Reason Referring for evalua tion of sacral Tarlov cyst. 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 Please change name to Mahesh Seymour and refax. Thank you, Tahira cervantes Haley 12/05/2024 03:15:22 PM >{ {TOFIRSTNAME}} This is [facility] following up on an outstanding referral that was ordered by your provider. Please call our office at , so we can _update our records.Alverto Kristy 12/11/2024 01:40:44 PM >Telephone message sent to [...] 1 Enlarged tonsils (J3 5.1) Referral Organization [facility] Referring Provider First Name Lani Referring Provider Last Name Monishabeck Referring Provider Speciality Nurse Michael bryant Referred Provider [facility] Referred Provider Specialty Ear, nose an d throat surgeon General Notes TahiraHomar romeey 12/05 03:15:31 PM >{ {TOFIRSTNAME}} This is [facility] following up on an outstanding [...] History Observation Description Sex Assigned At Female Social History Social DeterminantsSocial InfoQuestionAnswerNotesPRAPAREDate Completed/Updated: 12/10/2024patient entered dataWhat is your current housing situation?I have housingpatient entered dataAre you worried about losing your housing?No patient entered dataWhat is the highest level of school that you have finished?More than high schoolpatient entered dataWhat is your current work situation?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 Check all that applyI do not have problems meeting my needsHas lack of transportation kept you from medical appointments, meetings, work or from getting things needed for daily living?NoHow often do you see or talk to people that you care about and feel close to? (For example: talkingto friends on the phone, visiting friends or family, going to presybeterian or club meetings)3 to 5 times a weekpatient entered dataHow stressed are you? Stress is when someone feels tense, nervous, anxious, or can't sleep at nightbecause their mind is troubledA little bitpatient entered dataIn the past year have you spent more than 2 nights in a row in a senior care, half-way, correction center, orjuvenile correctional facility?Nopatient entered dataAre you a refugee?Nopatient entered dataWhat country are you from?[place] Statespatient entered dataDo you feel physically and emotionally safe where you currently live?Yespatient entered dataIn the past year, have you been afraid of your partner or ex-partner?I have not had a partner in the past yearpatient entered data PRAPARE Score:1PCMH and UDS DemographicsSocial InfoQuestionAnswerNotesPritaylor hardin secure medical facility Care Medical Home QuestionsDo you have any barriers to learning?Nonepatient entered dataWhat is your preferred method of learning?Readingpatient entered dataHow often do you need to have someone help you read instructions?Never patient entered dataDrugs/Alcohol/Caffeine:Social InfoQuestionAnswerNotes CAGE-AID Questionnaire (2018 Edition)Have you ever felt that you ought to cut down on your drinking or drug use?Nopatient entered dataHave people annoyed you by criticizing your drinking or drug use?Nopatient entered dataHave you ever felt bad or guilty about your drinking or drug use?Nopatient entered dataHave you ever had a drink or used drugs first thing in the morning to steady your nerves or to get rid of a hangover?Nopatient entered dataCAGE-AID Score0 InterpretationNegativeTobacco Use:Social InfoQuestionAnswerNotesTobacco Use/SmokingTobacco use:nonsmokerpatient entered dataAdditional Details CategorySocial InfoOptionsDetailsMigrated Social HistoryMigrated Social History ALCOHOL: Does not give any significant history of alcohol usage, ProblemStatus: Inactive, , Caffeine Use, ProblemStatus: Active, , CAFFEINE: Consumes a minimal amount of caffeinated beverages daily, ProblemStatus: Inactive, , DIET: Follows a regular diet that is appropriate for age and weight, ProblemStatus: Inactive, , EDUCATION: The patient has completed 12th grade, ProblemStatus: Inactive, , EDUCATION: The patient went to college, ProblemStatus: Inactive, , EXERCISE: The patient exercises fairly regularly and appropriately for age and health, ProblemStatus: Inactive, , LIVING WILL/POA: The patient does not have a living will or a Power of Assessment Technician for health care, ProblemStatus: Inactive, , MARITAL STATUS: Single, living with significant other, ProblemStatus: Inactive, , No Drug Use, ProblemStatus: Active, , No significant stress issues with home, family, personal relationships, or work, ProblemStatus: Inactive, , Non Drinker/No Alcohol Use, ProblemStatus: Active, , Non Smoker/No Tobacco Use, ProblemStatus: Inactive, , PERSONS IN HOME: The patient lives with their children, ProblemStatus: Inactive, , PERSONS IN HOME: The patient lives with their significant other, ProblemStatus: Inactive, , PETS IN HOME: A cat, ProblemStatus: Inactive, , SAFETY ISSUES: Has fire extinguishers, ProblemStatus: Inactive, , SAFETY ISSUES: Has smoke alarms, ProblemStatus: Inactive, , SAFETY ISSUES: No guns in the home, ProblemStatus: Inactive, , SAFETY ISSUES: Uses seat belts, ProblemStatus: Inactive, , SEXUAL HISTORY: Currently sexually active, ProblemStatus: Inactive, , STRESS ISSUES: No significant stress issues in the home, family, personal relationships, or work, ProblemStatus: Inactive Problems Problem Type SNOMED Code ICD Code Onset Dates Problem Status W/U Status Risk Notes Problem Hypertrophy of tonsils (23316824) Enlarge d tonsils (J35.1) ActiveconfirmedProblemMild major depression (44126784)Mild major depression (F32.0)Activeconfirmed Vital Signs Heart Rate 80 /min 12/10/2024 David Rushing 12/10/2024 04:09:22 PM EST > Temperature 97.5 degrees Fahrenheit 12/10/2024 Trenton Obregon 12/10/2024 04:09:22 PM EST > Respiratory Rate 18 /min 12/10/2024 Rushing, [place] 12/10/2024 04:09:22 PM EST > Height-cm 158.75 cm 12/10/2024 Rushing, Ser vando 12/10/2024 04:09:22 PM EST > Oximetry 100 % 12/10/2024 Rushing, Ser vando 12/10/2024 04:09:22 PM EST > Blood pressure diastolic 78 mm Hg 12/10/2024 Anais dovinos, [place] 12/10/2024 04:09:22 PM EST > Weight-kg 63.96 kg 12/10/2024 Rushing, Ser vando 12/10/2024 04:09:22 PM EST > Height 62.50 in 12/10/2024 Rushing, Ser vando 12/10/2024 04:09:22 PM EST > Blood pressure systolic 109 mm Hg 12/10/2024 Dolly paniagua, [place] 12/10/2024 04:09:22 PM EST > Weight 141 lbs 12/10/2024 Rushing, Ser vando 12/10/2024 04:09:22 PM EST > BMI 25.38 kg/m2 12/10/2024 Rushing, Ser vando 12/10/2024 04:09:22 PM EST > Encounters Encounter Location Date Provider Diagnosis Main [address] [place] , [place] [id number] 12/10/2024 [facility] Wellness examination Z00.00 ; Screening mammogram for breast cancer Z12.31 ; Screening for colon cancer Z12.11 ; Enlarged tonsils J35.1 ; Overweight E66.3 ; Body mass index [BMI] 25.0-25.9, adult Z68.25 ; Mild major depression F32.0 and Positive depression screening Z13.31 Main [address] [place] , [place] [id number] 12/11/2024 [facility] Assessments Encounter Date Diagnosis (ICD Code) Assessment Notes Treatment Notes Treatment Clinical Notes Section Notes 12/10/2024 Wellness examination (ICD-10 - Z 00.00) Pt is here for wellness today. Overall [...] breast cancer (ICD-10 - Z12.31)Pt due for pnfuiltbe71/27/2025Screening for colon cancer (ICD-10 - Z12.11)Pt agreeable for laith Cox family hx of Colon Qiqjpw9712/10/2024Enlarged tonsils (ICD-10 - J35.1) Pt has had [...] Start Date Coverage End Date [facility] [address] [address] [place] [address] [id number] 3 Oracio Gong Self - patient is the insured 3 Medical (General) History Surgical History Surgery Date(Month/Year) appendix 2019
--- OUTSIDE RECORDS SUMMARY | 2025-11-04 10:08 | XMS_ITS | Clinical Summary ---
Author Organization [facility] Address [address] [place] [address] Care Team Providers Care Television Engineering Teacher Name Role Phone Unavailable Primary Care Provider [...] drink = 0.6 oz pure alcohol)PHQ-2AnswerDate RecordedPHQ-2 Rvckd780 CommentsNoSex and Gender InformationValueDate RecordedSex Assigned at BirthNot on fileLegal RiuAawgeh00/26/2020 1:13 PM ESTGender IdentityNot on fileSexual OrientationNot on file Last Filed Vital Signs Vital SignReadingTime TakenCommentsBlood Cnqifljt893/8112/09/2019 2:30 PM EST Zaogr230212/09/2019 6:00 PM JTAVtxcanclkbb26.3 ??C (97.3 ??F)12/09/2019 1:14 PM ESTRespiratory Fvyc494912/09/2019 6:00 PM ESTOxygen Yrdcmlwtry77%12/09/2019 6:00 PM ESTInhaled Oxygen Concentration--Ovytks34.1 kg (128 lb)12/09/2019 1:14 PM EST Lmdmzt878 cm (5' 3 )12/09/2019 1:14 PM ESTBody Mass Index22.67012/09/2019 1:14 PM EST Plan of Treatment Not on file Insurance
--- OUTSIDE RECORDS SUMMARY | 2025-11-04 10:08 | XMS_ITS | Clinical Summary ---
Author Organization [facility] Address [address] [place] [address] Care Team Providers Care Entry Level Paralegal Name Role Phone Unavailable Primary Care Provider Unavailabl e Allergies Active AllergyReactionsCriticalityNoted IfglParriupuMlfiqaunnCmada23/02/2025 Medications MedicationSigDispense QuantityRefillsLast FilledStart DateEnd DateStatus cyclobenzaprine [...] tablet 5Active Active Problems ProblemNoted DateDiagnosed DateUrinary rivlpmnfd51/12/2025 Overview (02/11/2025): ====12/26/24==== Over 8 months of bilateral flank pain, frequency, urgency, urge incontinence, dysuria, and pelvic pain. Recent CT negative. UA dipped for blood. We will send today's specimen for microscopic exam. She agrees to cystoscopy/BRPG/[facility] instillation. She is requesting anesthesia. Pneumonia of left lower lobe due to infectious /03/2019Chest pain 12/15/2018 Family History Medical HistoryRelationNameCommentsHeart attackBrotherHeart attackFatherKidney failureFatherCOPDMotherHypertensionMotherRelationNameStatusCommentsBrotherAlive FatherDeceasedMotherAliveSisterAlive Social History Tobacco UseTypesPacks/DayYears UsedDateSmoking Tobacco: NeverSmokeless Tobacco: Never Tobacco Cessation:Counseling Given: Not Answered Alcohol UseStandard Drinks/WeekCommentsNot Currently0 (1 standard drink = 0.6 oz pure alcohol)CommentsNoSex and Gender InformationValueDate RecordedSex Assigned at BirthNot on fileLegal QgeUdifuy51/29/2022 11:57 PM EDTGender IdentityNot on fileSexual OrientationNot on file Last Filed Vital Signs Vital SignReadingTime TakenCommentsBlood Ktxsaldg95/64004/18/2025 8:15 AM EDT Jllpq471004/18/2025 8:15 AM EDTTemperature--Respiratory Vlvh598204/18/2025 8:15 AM EDTOxygen Kwilrevkpq93%04/18/2025 8:15 AM EDTInhaled Oxygen Concentration-- Jqpeoz97 kg (141 lb)02/13/2025 3:50 PM KQSBeuzit628 cm (5' 3 )02/13/2025 3:50 PM EDTBody Mass Index24.9804 3:50 PM EDT Plan of Treatment DateTypeDepartmentCare Team (Latest Contact Info)Buomqbwojiv95/28/2026 11:15 AM ESTOffice [facility] [address] [place] [address] Villa Morton MD [address] [facility] [place] [address] Health MaintenanceDue DateLast DoneCommentsCT Hxdudkznbfuv1979Colonoscopy 1979Colorectal Cancer Anlyadxos1979FIT-DNA1979FIT1979 FOBT1979 1936Nyhoybweosnxy1979Depression Bvmbqbqhe46/19/1991Hepatitis B Vaccines (1 of 3 - 19+ 3-dose series)1998Pneumococcal Vaccine: Pediatrics (0 to 5 Years) and At-Risk Patients (6 to 64 Years) (1 of 2 - PCV)1998 HPV/Evtvnh4801/30/2009dult Kluhjxc15COVID-19 Vaccine (1 - 2024- season)2025Influenza Vaccine (#1)07/15/20252271Ussfidbhb56/12/2027 12/26/2024ervical Cancer Fxgkevpco65/06/2028Pap Smear803/04/2025Zoster Vaccines (1 of 2)2029HIB VaccinesAged OutNo longer [...]
--- OUTSIDE RECORDS SUMMARY | 2025-11-04 10:08 | XMS_ITS | Clinical Summary ---
Author Organization [facility] Address [address] [place] [address] Care Team Providers Care Senior Telecommunications Specialist Name Role Phone Unallocated, Noms Provider Primary Care Provi laura Allergies Active AllergyReactionsCriticalityNoted GrasSgyuncabDdrsuvrenNbeyq36/18/2025 Medications MedicationSigDispense QuantityRefillsLast FilledStart DateEnd DateStatus medroxyPROGESTERone (Depo-Provera) 150 MG/ML injection Inject 150 mg into the shoulder, thigh, or buttocks every 3 (three) monthsActive Encounters DateTypeDepartmentCare YvmiCxmsexxiidc91/14/2025bstract [facility]AN[facility] [address] [place] [address] Juanito Alanis, DO 09/26/2025 1:30 PM ESTOffice Visit [facility] TOL[facility] [address] [place] [address] Shameka Segura NP Postoperative fabjfmeivvr16/13/2025amboo flowsheet [facility] [address] [place] [address] Shameka Segura NP 09/20/2025bstract [facility] [address] [place] [address] Juanito Alanis, DO 09/20/2025bstract [facility] [address] [place] [address] Juanito Alanis, DO 09/20/2025linisync Result Encounter [facility] External Department Unsolicited Juanito Alanis, DO 09/11/2025bstract [facility] [address] [facility] [address] Juanito Alanis, DO 09/04/2025 3:00 PM EDTAncillary Procedure [facility] [address] Menorrhagia with irregular cycle; Dysmenorrhea; PMS (premenstrual syndrome); Menorrhagia with regular cycle09/04/2025linisync Result Encounter [facility] External Department Unsolicited Juanito Alanis, DO 09/04/2025linisync Result Encounter [facility] External Department Unsolicited Juanito Alanis, DO 08/27/2025 1:30 PM EDTConsult NOMJermaine TOLEDO [address] [place] [address] Juanito Alanis, DO Pre-op examination; Menorrhagia with regular cycle; Abnormal uterine bleeding (AUB); Pelvic pain; Request for fqmnghkyeaxgb36/14/2025amboo flowsheet [facility] Lowe [facility] [address] Juanito Alanis, DO 08/13/2025bstract [facility] [address] [facility] [address] Tess Mcguire MA from Last 3 Months Family History Medical HistoryRelationNameCommentsDiabetesFatherHeart diseaseFatherHypertension FatherCOPDMotherHeart diseaseMotherHypertensionMotherRelationNameStatusComments FatherDeceasedMotherAlive Social History Tobacco UseTypesPacks/DayYears UsedDateSmoking Tobacco: FormerCigarettes Smokeless Tobacco: Never Tobacco Cessation:Counseling Given: Not Answered Alcohol UseStandard Drinks/WeekCommentsNot Currently0 (1 standard drink = 0.6 oz pure alcohol)CommentsNoSex and Gender InformationValueDate RecordedSex Assigned at BirthNot on fileLegal FarTlvkrg40/15/2023 11:47 PM EDTGender IdentityNot on fileSexual OrientationNot on file Last Filed Vital Signs Vital SignReadingTime TakenCommentsBlood Ulfhojky475/6209/26/2025 1:26 PM EST Pulse--Temperature--Respiratory Rate--Oxygen Saturation--Inhaled Oxygen Concentration--Vjtrac80.4 kg (139 lb 12.8 oz)09/26/2025 1:26 PM SWCIyuwet207 cm (5' 3 )06/15/2023 12:53 PM EDTBody Mass Index24.76006/15/2023 12:53 PM EDT Plan of Treatment Health MaintenanceDue DateLast DoneCommentsCT Zfoavkrvtnxs1979Colonoscopy 1979Colorectal Cancer Sxwzlhgev1979FIT-DNA1979FIT1979 FOBT1979 2979Jedyatuzeioye1979COVID-19 Vaccine ( season) 2025Influenza Vaccine (#1)07/15/20250352Ldpsobsnr39/12/202602/10/2025, 07/08/2023, 11/06/2019, Additional history existsCervical Cancer Screening 01/17/2026HPV/Ggtdny2001/17/2026Pap Smear/04/2025Pneumococcal Vaccine: Pediatrics (0 to 5 Years) and At-Risk Patients (6 to 64 Years)Aged OutNo longer eligible based on patient's age to complete this topic Procedures Procedure NamePriorityDate/TimeAssociated DiagnosisCommentsPOCT URINALYSIS BUBTKTHCLibnmhq20/13/2025 1:53 PM EST Postoperative examination [facility] PREG QUANT HXYGuliwpw89/07/2025 8:09 AM EST ALL CBC WITH AUTO FOKQAbtcagn93/07/2025 8:09 AM EST US PELVIC COMPLETE W/ OWPdgytrf46/22/2025 3:27 PM EDT Menorrhagia with irregular cycle Dysmenorrhea PMS (premenstrual syndrome) Menorrhagia with regular cycle [facility] GUGAVpcgfqj61/22/2025 11:13 AM EDT SRMCOH PROTHROMBIN TIME INR W/O YCKUVusvhcm68/22/2025 11:13 AM EDT ALL BASIC METABOLIC UPMNTOorcxfu42/22/2025 11:13 AM EDT ECG 12-LEAD09/04/2025 9:08 AM EDT PAP ZYJIDDpclzst20/06/2025 12:00 AM ESTfrom Last 3 Months or Most Recently Relevant to Health Maintenance Results * (ABNORMAL) POCT urinalysis dipstick manually resulted (09/26/2025 1:53 PM EST) ComponentValueRef RangeTest MethodAnalysis TimePerformed AtPathologist SignatureColor, UAYellowClarity, UAClearGlucose, UANegativeNegative - 2000(110) ++++ mg/dLBilirubin, UANegativeNegative - 4(70) +++ mg/dLKetones, UA NegativeNegative - 160(16) ++++ mg/dLSpec Grav, UA1.0251 - 1.03Blood, UA PositiveNegative - 50 Jermaine/mcLComment:+2pH, UA6.05 - 9Protein, UANegative Negative - 2000(20) ++++ mg/dLUrobilinogen, UA0.20.2 - 12 mg/dLLeukocytes, UA NegativeNegative - 500+++ Giuliana/mcLNitrite, UANegativeNegative - Positive Specimen (Source)Anatomical Location / LateralityCollection Method / Volume Collection TimeReceived ViokEtnpl69/13/2025 1:53 PM EST Narrative Authorizing ProviderResult TypeResult StatusShameka Segura NPPOINT OF CARE TEST ENTER/EDIT ORDERABLESFinal Result * [facility] PREG QUANT HCG (09/20/2025 8:09 AM EST)ComponentValueRef RangeTest Method Analysis TimePerformed AtPathologist SignatureHCG RALUJGXOOYBK4fFR/mLTBH Comment: 5-50 ? 0.2-1 WEEK 50-500 ? 1-2 WEEKS 100-5,000 ?2-3 WEEKS 500-10,000 ? 3-4 WEEKS 1,000-50,000 ?? 4-5 WEEKS 10,000-100,000 5-6 WEEKS 15,000-200,000 6-8 WEEKS 10,000-100,000 2-3 MONTHS Specimen (Source)Anatomical Location / LateralityCollection Method / Volume Collection TimeReceived Time09/20/2025 8:09 AM EST09/20/2025 8:10 AM EST Narrative [facility] - 09/20/2025 8:41 AM EST Authorizing ProviderResult TypeResult StatusCorey Zeke DOCLINISYNCFinal Result Performing OrganizationAddressCity/State/ZIP CodePhone Number [facility] * (ABNORMAL) ALL CBC WITH AUTO DIFF (09/20/2025 8:09 AM EST)ComponentValueRef RangeTest MethodAnalysis TimePerformed AtPathologist SignatureTBH WBC8.14.0 - 11.0 10 3/uLTBHTBH RBC5.154.20 - 5.40 10 6/uLTBHTBH HGB15.812.0 - 16.0 g/dLTBH TBH HCT46.536.0 - 48.0 %TBHTBH MCV90.381.0 - 99.0 fLTBHTBH MCH30.726.7 - 34.0 pgTBHTBH MCHC34.029.9 - 35.2 g/dLTBHTBH RDW12.811.0 - 15.0 %TBHTBH LDB614308 - 450 10 3/uLTBHTBH MPV8.9(L)9.5 - 13.5 fLTBHNEUTROPHILS PERCENT AUTO57.743.0 - 75.0 %TBHLYMPHOCYTES PERCENT AUTO33.120.5 - 60.0 %TBHMONOCYTES PERCENT AUTO7.4 1.7 - 12.0 %TBHTBH EO %0.90.9 - 7.0 %TBHBASOPHILS PERCENT AUTO0.50.2 - 2.0 % TBHIMMATURE GRANULOCYTES PCT AUTO0.40.0 - 0.5 %TBHNEUTROPHILS ABSOLUTE AUTO4.7 1.4 - 6.5 10 3/uLTBHLYMPHOCYTES ABSOLUTE AUTO2.71.2 - 3.8 10 3/uLTBHMONOCYTES ABSOLUTE AUTO0.60.3 - 0.8 10 3/uLTBHTBH EO #0.10.0 - 0.7 10 3/uLTBHBASOPHILS ABSOLUTE AUTO0.00.0 - 0.1 10 3/uLTBHIMMATURE GRANULOCYTES ABS AUTO0.030.00 - 0.03 10 3/uLTBHSpecimen (Source)Anatomical Location / LateralityCollection Method / VolumeCollection TimeReceived Time09/20/2025 8:09 AM EST09/20/2025 8:10 AM EST Narrative JAMIE - 09/20/2025 8:18 AM EST Authorizing ProviderResult TypeResult StatusCorey Zeke DOCLINISYNCFinal Result Performing OrganizationAddressCity/State/[facility] CodePhone Number [facility]ITALISYCOUNTS [facility] * US Pelvis w/ TV (09/04/2025 3:27 [...] appears unremarkable. No fluid is seen within bxcjuz-yo-oab. Both ovaries appear normal for this age. IMPRESSION: Normal pelvic ultrasound appearance TRANSCRIBED BY: ELECTRONICALLY SIGNED BY: Glenn Florian MD Authorizing ProviderResult TypeResult StatusCorey Zeke [facility] PROCEDURESFinal Result * SRMCOH PROTHROMBIN TIME INR W/O COUM (09/04/2025 11:13 AM EDT)ComponentValue Ref RangeTest MethodAnalysis TimePerformed AtPathologist SignaturePROTHROMBIN TIME10.29.0 - 11.6 secTBHTBH INR0.96TBHComment: DESIRED INR: 2.0-3.0 CONDITIONS NOT LISTED BELOW 2.5-3.5 FOR PROSTHETIC HEART VALVE REPLACEMENT 2.5-3.5 RECURRENT THROMBOSIS Specimen (Source)Anatomical Location / LateralityCollection Method / Volume Collection TimeReceived Time09/04/2025 11:13 AM EDT1 11:15 AM EDT Narrative [facility] - 09/04/2025 11:50 AM EDT Authorizing ProviderResult TypeResult StatusCorey Zeke DOCLINISYNCFinal Result Performing OrganizationAddressCity/State/ZIP CodePhone Number [facility] * [facility] APTT (09/04/2025 11:13 AM EDT)ComponentValueRef RangeTest MethodAnalysis TimePerformed AtPathologist SignaturePARTIAL THROMBOPLASTIN TIME27.222.3 - 36.2 secTBHSpecimen (Source)Anatomical Location / LateralityCollection Method / VolumeCollection TimeReceived Time09/04/2025 11:13 AM EDT1 11:15 AM EDT Narrative [facility] - 09/04/2025 11:50 AM EDT Authorizing ProviderResult TypeResult StatusCorey Zeke DOCLINISYNCFinal Result Performing OrganizationAddressCity/State/ZIP CodePhone Number [facility] * (ABNORMAL) ALL BASIC METABOLIC PANEL (09/04/2025 11:13 AM EDT)ComponentValue Ref RangeTest MethodAnalysis TimePerformed AtPathologist JeqcedzfcNJELDZ321680 - 145 mmol/LTBHPOTASSIUM3.93.5 - 5.1 mmol/CGNFGFCQOWRR46605 - 107 mmol/LTBH CAR[place] UNVZGSV60.521.0 - 32.0 mmol/LTBHANION GAP13.4IWHLGIHSTW5743 - 106 mg/dL TBHBLOOD UREA LPZWPYWM20.0(H)7.0 - 18.0 mg/dLTBHCREATININE0.770.55 - 1.02 mg/dLTBHTBH EGFR-AF CHINESE>60>=60 mL/min/1.73m 2TBHTBH EGFR-NON AF CHINESE >60>=60 mL/min/1.73m 2TBHBUN CREATININE RATIO24.0IUEZMPAUSH1.38.5 - 10.1 mg/dL TBHSpecimen (Source)Anatomical Location / LateralityCollection Method / Volume Collection TimeReceived Time09/04/2025 11:13 AM EDT1 11:15 AM EDT Narrative [facility] - 09/04/2025 11:37 AM EDT Authorizing ProviderResult TypeResult StatusCorey Zeke DOCLINISYNCFinal Result Performing OrganizationAddressCity/State/ZIP CodePhone Number [facility] * ECG 12-LEAD (09/04/2025 9:08 AM EDT)Anatomical RegionLateralityModalityOther Specimen (Source)Anatomical Location / LateralityCollection Method / Volume Collection TimeReceived Time09/04/2025 9:08 AM EDT Narrative 09/04/2025 11:43 PM EDT [facility] ?[address] ? [place] [address] ? Electrocardiograph Report ? Signed Patient: ORACIO JOLLEY ?MR#: [id number] : 1980 ?Acct:[id number] Age/Sex: 45 / F ?ADM Date: 09/04/25 Loc: PST Attending Dr: Juanito Alanis D.O. Ordering Physician: Juanito Alanis D.O. Date of Service: 09/04/25 Procedure(s): ECG 12 lead Accession Number(s): [id number] cc: ?[facility] ? Test Date: ?2025-09-04 Pat Name: ? ORACIO JOLLEY ? Department: ? Room: ? - Gender: ? Female ? Video Manager: : ?1980 ? Requested By: Order Number: [id number] ?Reading MD: ?? ALYSIA ??Derian CANO ? Measurements Intervals ?Callahan Rate: ? 70 ? P: ?55 HI: ? 137 ?QRS: ?51 QRSD: ? 89 ? T: ?32 QT: ? 391 QTc: ?422 ? Interpretive Statements SINUS RHYTHM POSSIBLE RIGHT VENTRICULAR CONDUCTION DELAY [RSR (QR) IN V1/V2] NONSPECIFIC T-WAVE ABNORMALITY Abnormal ECG Compared to ECG 06/12/2025 11:27:41 T-wave abnormality now present Electronically Signed On 09-04-2025 23:43:07 EDT by ALYSIA ??Derian CANO Dictated By: ?ALYSIA CANO Signed By: ?09/04/252342 DD/ 7 TD/TT: ? Supervisor Backfilling: Procedure Note Radiology, Radiologist, - 09/24/2025 [place] [address] Electrocardiograph Report Signed Patient: ORACIO JOLLEY SMR#: [id number] : 1980Acct:[id number] Age/Sex: 45 / FADM Date: 09/04/25 Loc: [facility] Attending Dr: Juanito Alanis D.O. Ordering Physician: Juanito Alanis D.O. Date of Service: 09/04/25 Procedure(s): ECG 12 lead Accession Number(s): [id number] cc: [facility] Test Date: 2025-09-04 Pat Name: ORACIO JOLLEY Department: Room: - Gender: Female Video Manager: : 1980 Requested By: Order Number: [id number] Reading MD: ALYSIA CANO M.D. Measurements Intervals Callahan Rate: 70 P: 55 HI: 137 QRS: 51 QRSD: 89 T: 32 QT: 391 QTc: 422 Interpretive Statements SINUS RHYTHM POSSIBLE RIGHT VENTRICULAR CONDUCTION DELAY [RSR (QR) IN V1/V2] NONSPECIFIC T-WAVE ABNORMALITY Abnormal ECG Compared to ECG 06/12/2025 11:27:41 T-wave abnormality now present Electronically Signed On 09-04-2025 23:43:07 EDT by ALYSIA CANO M.D. Dictated By: ALYSIA CANO Signed By:09/04/252342 DD/ 7 TD/TT: Supervisor Backfilling: Authorizing ProviderResult TypeResult StatusCorey Zeke DOCLINISYNC IMAGINGFinal Result * Pap Smear (01/17/2025 12:00 AM EST)Specimen (Source)Anatomical Location / LateralityCollection Method / VolumeCollection TimeReceived TimeSwabCervical swab / Unknown Narrative Authorizing ProviderResult TypeResult StatusFazio Nurse Noms Bcp ObLAB CYTOLOGY ORDERABLESFinal ResultPerforming OrganizationAddressCity/State/ZIP CodePhone Number EXTERNAL LAB from Last 3 Months or Most Recently Relevant to Health Maintenance Insurance Care Teams Team MemberRelationshipSpecialtyStart DateEnd Date Unallocated, Noms MD Mumtaz [address] [place] [address] [facility]06/15/23
[2025-11-04 11:14] LABS: Cholesterol 191 mg/dL (<=200); Triglycerides 88 mg/dL (<=150); VLDL CHOLESTEROL 17.6 mg/dL
[2025-11-04 11:29] LABS: HDL Cholesterol 56 mg/dL (40-60)
== END 2025-11-04 10:04 | disposition home or self-care (01) ==
LOC: LAB 10:04
PROVIDERS: Visit Provider Internal Medicine Interventional Cardiology
DX: I25.10 Atherosclerotic heart disease of native coronary artery without angina pectoris (principal)
CPT/HCPCS: 36415; 80061